=== PATIENT | female | born 1970 | race Caucasian/White ===

== ENCOUNTER → 2020-03-25 08:38 | Outpatient (BNVA) | payer MEDICAID, SELFPAY | PROVIDERS: PCP Internal Medicine; Visit Provider Internal Medicine | DX: Z86.718 Personal history of other venous thrombosis and embolism (principal); Z51.81 Encounter for therapeutic drug level monitoring; Z79.01 Long term (current) use of anticoagulants | CPT/HCPCS: 85610 ==

== ENCOUNTER → 2020-03-31 08:20 | Outpatient (BNVA) | payer MEDICAID, SELFPAY | PROVIDERS: PCP Internal Medicine; Visit Provider Internal Medicine | DX: Z86.718 Personal history of other venous thrombosis and embolism (principal); Z51.81 Encounter for therapeutic drug level monitoring; Z79.01 Long term (current) use of anticoagulants | CPT/HCPCS: 85610; 99211 ==

== ENCOUNTER 2020-04-01 07:39 | Outpatient (REF) | payer MEDICAID, SELFPAY ==
--- NOTE | 2020-04-01 08:55 | P.BOP_ITS ---
Brief Operative Note Date of procedure: 04/01/20 Pre-op diagnosis: nontoxic multinodular goiter Post-op diagnosis: same Procedure: This procedure was explained to the patient. Alternatives, risks and benefits were discussed. Written consent was obtained. After sterile preparation of the skin, fine-needle aspiration biopsy of right lower pole lateral thyroid nodule size 1.4 x 1.2 x 1.2 cm was performed under direct ultrasound guidance to confirm accurate needle placement. Three passes were performed with 27 gauge needles. Sample was submitted to cytology, initial cytology reading was adequate. Two passes were dedicated for Afirma genomic sequencing health outreach worker test. 2nd fine-needle aspiration of a right lower pole medial nodule size 1.6 x 1.2 x 1.3 cm was performed 100 I did ultrasound guidance to confirm accurate needle placement. Three passes were performed with 27 gauge needles. Samples were submitted for cytology initial cytology during was adequate borderline. No samples were dedicated for Afirma. As this patient had a prior negative Afirma test in this nodule. Which was benign. Test durability is 3 years.Patient tolerated procedure well. Aftercare instructions were provided. Impression: uncomplicated fine-needle aspiration biopsy of ------ thyroid nodule under direct ultrasound guidance. Surgeon: Zeny Calle MD Anesthesia: local ( Lidocaine 1% 2 mL) Estimated blood loss (mL): 0 Condition: stable Disposition: same day
[2020-04-01] MEDS: Lidocaine HCl 1 % 20 ML VIAL 5 ML SUBCUT (12:09)
== END 2020-04-01 07:40 | disposition home or self-care (01) ==
LOC: HO.US 07:39
PROVIDERS: Visit Provider Internal Medicine Endocrinology, Diabetes & Metabolism
DX: E04.2 Nontoxic multinodular goiter (principal)
CPT/HCPCS: 10005; 10006; 88172; 88173; 88177

== ENCOUNTER 2020-04-05 08:00 | Outpatient (RCR) | payer MEDICAID, SELFPAY ==
--- NOTE | 2020-03-29 14:23 | MHC.PT.EP ---
[facility] [place] Office [place] Office [place] Office [address] You Basurto [address] [phone] F: [phone] F: [phone] F: [phone] F: [phone] Physical Therapy Plan of Care Date of Evaluation: 03/29/20 Date of Surgery: Diagnosis: left neck pain Assessment: The patient is presenting with symptoms consistent with a posterolateral derangement in her midcervical spine. She had reduced cervical rotation to the left, decreased left shoulder ROM, and decreased shoulder strength on the left. She had fair sitting posture as well. She will benefit from skilled PT for posture education, Rosanna therapy to reduce her derangement, and postural strengthening as well. Frequency and Duration: The patient will be seen 2x/week for 4 weeks Short Term Goals: -Pt to able to demonstrate proper sitting posture with the use of a lumbar roll to decrease aggravating factors. - Pt to be able to demonstrate proper posture for common leisure activities such as phone/tablet use. 2 weeks - For the patient to demonstrate proper upright sitting posture with use of the lumbar roll to improve compliance and carryover. [employer] Goals: 1. Pt to be able to return to normal PLOF without limiting pain. 2. Pt to be able to return to overhead reaching without pain or limitation. 3. Pt to be able to manage her pain with selected exercise and stretching regime. Treatment Plan: Modalities to reduce pain, spasms and effusion. Manual therapy to restore motion and function. Therapeutic exercise to improve strength and flexibility. Neuromuscular re-education for posture and balance. Therapeutic activities to return to functional activities of daily living. Please sign and return to therapist. Thank you for your referral.
--- NOTE | 2020-05-21 08:55 | MHC.PT.DC ---
[facility] [place] Office [place] Office [place] Office [address] You Basurto [address] [phone] F: [phone] F: [phone] F: [phone] F: [phone] Physical Therapy Discharge Report Diagnosis: left neck pain Date of Surgery: Date of Evaluation: 03/29/20 Date of Discharge: 05/21/20 Treatments to Date: 2 Cancellations to Date: 6 No Shows to Date: 0 Discharge Status: Visit Non-compliance Discharge Summary: The patient reported more cervical mobility and reduced pain. She reports compliance to HEP. Pt's program progressed due to improvements. Focus was put on posture, and form during the exercises. Pt did not return to scheduled visits. She cancelled 6 scheduled visits. Electronically signed by: Char Foster DPT Please sign and return to therapist. Thank you for your referral.
== END 2020-05-21 13:24 | disposition other institution (70) ==
LOC: HO.PT 08:00
PROVIDERS: PCP Internal Medicine; Visit Provider Internal Medicine
DX: M54.12 Radiculopathy, cervical region (principal)
CPT/HCPCS: 97110; 97112; 97140; 97162

== ENCOUNTER → 2020-04-14 07:59 | Outpatient (BNVA) | payer MEDICAID, SELFPAY | PROVIDERS: PCP Internal Medicine; Visit Provider Internal Medicine | DX: Z86.718 Personal history of other venous thrombosis and embolism (principal); Z51.81 Encounter for therapeutic drug level monitoring; Z79.01 Long term (current) use of anticoagulants | CPT/HCPCS: 85610; 99211 ==

== ENCOUNTER → 2020-04-15 10:26 | Outpatient (BNVA) | payer MEDICAID, SELFPAY | PROVIDERS: PCP Internal Medicine; Referring Provider Internal Medicine; Visit Provider Internal Medicine Endocrinology, Diabetes & Metabolism | DX: E04.2 Nontoxic multinodular goiter (principal) | CPT/HCPCS: 99212 ==

== ENCOUNTER → 2020-05-12 08:22 | Outpatient (BNVA) | payer MEDICAID, SELFPAY | PROVIDERS: PCP Internal Medicine; Visit Provider Internal Medicine | DX: I82.502 Chronic embolism and thrombosis of unspecified deep veins of left lower extremity (principal); Z79.01 Long term (current) use of anticoagulants; Z51.81 Encounter for therapeutic drug level monitoring | CPT/HCPCS: 85610; 99211 ==

== ENCOUNTER → 2020-06-09 08:02 | Outpatient (BNVA) | payer MEDICAID, SELFPAY | PROVIDERS: PCP Internal Medicine; Visit Provider Internal Medicine | DX: I82.502 Chronic embolism and thrombosis of unspecified deep veins of left lower extremity (principal); Z51.81 Encounter for therapeutic drug level monitoring; Z79.01 Long term (current) use of anticoagulants | CPT/HCPCS: 85610; 99211 ==

== ENCOUNTER → 2020-06-24 10:08 | Outpatient (BNVA) | payer MEDICAID, SELFPAY | PROVIDERS: PCP Internal Medicine; Visit Provider Physician Assistant | DX: Z76.89 Persons encountering health services in other specified circumstances (principal) ==

== ENCOUNTER → 2020-07-07 08:03 | Outpatient (BNVA) | payer MEDICAID, SELFPAY | PROVIDERS: PCP Internal Medicine; Visit Provider Internal Medicine | DX: I82.502 Chronic embolism and thrombosis of unspecified deep veins of left lower extremity (principal); Z51.81 Encounter for therapeutic drug level monitoring; Z79.01 Long term (current) use of anticoagulants | CPT/HCPCS: 85610; 99211 ==

== ENCOUNTER → 2020-07-21 09:17 | Outpatient (BNVA) | payer MEDICAID, SELFPAY | PROVIDERS: PCP Internal Medicine; Visit Provider Internal Medicine Endocrinology, Diabetes & Metabolism ==

== ENCOUNTER → 2020-08-04 07:58 | Outpatient (BNVA) | payer MEDICAID, SELFPAY | PROVIDERS: PCP Internal Medicine; Visit Provider Internal Medicine | DX: I82.502 Chronic embolism and thrombosis of unspecified deep veins of left lower extremity (principal); Z51.81 Encounter for therapeutic drug level monitoring; Z79.01 Long term (current) use of anticoagulants | CPT/HCPCS: 85610; 99211 ==

== ENCOUNTER 2020-08-13 07:23 | Outpatient (REF) | payer MEDICAID, SELFPAY ==
[2020-08-13 08:21] LABS: MANUAL DIFF FLAG NO
[2020-08-13 08:34] LABS: Basophils Percent Auto 0.6 % (0-2); Eosinophils Absolute Auto 0.1 X10*3/uL (0.0-0.4); Eosinophils Percent Auto 1.5 % (0-4); Hematocrit 39.6 % (37-47); Hemoglobin 12.8 g/dl (12.0-16.0); Imm Gran Abs Auto 0.01 X10*3/uL (0.00-0.03); Imm Gran Pct Auto 0.2 % (0.0-0.4); Lymphocytes Absolute Auto 2.3 X10*3/uL (1.2-4.9); Lymphocytes Percent Auto 48.9 % (20-40); Mean Corpuscular HGB Conc 32.3 g/dl (31.0-35.0); Mean Corpuscular Hemoglobin 28.5 pg (27.0-33.0); Mean Corpuscular Volume 88.2 fL (80-98); Mean Platelet Volume 10.3 fL (9.4-12.3); Monocytes Absolute Auto 0.4 X10*3/uL (0.1-1.2); Neutrophils Absolute Auto 1.9 X10*3/uL (2.0-8.3); Neutrophils Percent Auto 40.8 % (45-73); Platelet Count 322 X10*3/uL (160-400); Red Blood Count 4.49 X10*6/uL (4.20-5.50); Red Cell Distribution Width 12.5 % (11.0-16.0); White Blood Count 4.6 X10*3/uL (4.8-10.8)
[2020-08-13 09:06] LABS: Alanine Aminotransferase 12 U/L (0-31); Albumin Level 4.1 g/dL (3.5-5.0); Alkaline Phosphatase 64 U/L (39-117); Anion Gap 9 (12-20); Aspartate Amino Transferase 15 U/L (5-31); Bilirubin Total 0.5 mg/dL (0.0-1.0); Blood Urea Nitrogen 9 mg/dL (9-16); Calcium 8.9 mg/dL (8.4-10.2); Carbon Dioxide 27 mmol/L (22-29); Chloride 106 mmol/L (96-108); Cholesterol 173 mg/dL; Estimated Glomerular Filt Rate > 60; Glucose Fasting 91 mg/dL (60-99); HDL Cholesterol 55 mg/dL; LDL Cholesterol Calculated 109 mg/dl; Potassium 3.9 mmol/L (3.3-5.1); Sodium 138 mmol/L (135-145); Total Protein 6.9 g/dL (6.5-8.0); Triglycerides 49 mg/dL
[2020-08-13 09:19] LABS: Free T4 (Free Thyroxine) 0.92 ng/dL (0.71-1.85); Thyroid Stimulating Hormone 1.33 uIU/mL (0.32-4.0)
== END 2020-08-13 07:24 | disposition home or self-care (01) ==
LOC: HO.LAB 07:23
PROVIDERS: Absent Provider Internal Medicine Endocrinology, Diabetes & Metabolism; PCP Internal Medicine; Visit Provider Internal Medicine
DX: Z00.00 Encounter for general adult medical examination without abnormal findings (principal); F33.41 Major depressive disorder, recurrent, in partial remission; I10 Essential (primary) hypertension; E04.2 Nontoxic multinodular goiter; Z79.01 Long term (current) use of anticoagulants
CPT/HCPCS: 36415; 80053; 80061; 84439; 84443; 85025

== ENCOUNTER 2020-08-23 13:37 | Emergency (ER) | payer MEDICAID, SELFPAY ==
--- NOTE | 2020-08-23 13:38 | ECG_ITS ---
Test Reason : CHEST PAIN Blood Pressure : / mmHG Vent. Rate : 084 BPM Atrial Rate : 084 BPM P-R Int : 164 ms QRS Dur : 080 ms QT Int : 380 ms P-R-T Axes : 040 020 027 degrees QTc Int : 449 ms Normal sinus rhythm Normal ECG When compared with ECG of 18-AUG-2016 19:53, Nonspecific T wave abnormality no longer evident in Lateral leads Referred By: Generic ED Physician Electronically Signed By:AMY MACHUCA MD
[2020-08-23 13:44] VITALS: BP 153/74; PULSE 80; RESP 16; TEMP 37; O2SAT 100; BMI 32.2
== END 2020-08-23 14:35 | disposition left against medical advice (07) ==
PROVIDERS: Emergency Provider Emergency Medicine; PCP Internal Medicine
DX: R07.9 Chest pain, unspecified (principal); R00.0 Tachycardia, unspecified
CPT/HCPCS: 93005; 99282; 99283

== ENCOUNTER → 2020-09-02 08:11 | Outpatient (BNVA) | payer MEDICAID, SELFPAY | PROVIDERS: PCP Internal Medicine; Visit Provider Internal Medicine | DX: I82.502 Chronic embolism and thrombosis of unspecified deep veins of left lower extremity (principal); Z51.81 Encounter for therapeutic drug level monitoring; Z79.01 Long term (current) use of anticoagulants | CPT/HCPCS: 85610; 99211 ==

== ENCOUNTER → 2020-09-24 10:44 | Outpatient (BNVA) | payer MEDICAID, SELFPAY | PROVIDERS: PCP Internal Medicine; Visit Provider Internal Medicine | DX: Z86.718 Personal history of other venous thrombosis and embolism (principal); Z51.81 Encounter for therapeutic drug level monitoring; Z79.01 Long term (current) use of anticoagulants | CPT/HCPCS: 85610; 99211 ==

== ENCOUNTER 2020-09-27 19:59 | Emergency (ER) | payer MEDICAID, SELFPAY | END 2020-09-27 20:14 | disposition left against medical advice (07) | PROVIDERS: Emergency Provider Emergency Medicine; PCP Internal Medicine | DX: R42 Dizziness and giddiness (principal) ==

== ENCOUNTER → 2020-10-04 08:42 | Outpatient (BNVA) | payer MEDICAID, SELFPAY | PROVIDERS: PCP Internal Medicine; Visit Provider Internal Medicine | DX: Z86.718 Personal history of other venous thrombosis and embolism (principal); Z51.81 Encounter for therapeutic drug level monitoring; Z79.01 Long term (current) use of anticoagulants | CPT/HCPCS: 85610; 99211 ==

== ENCOUNTER → 2020-10-08 08:56 | Outpatient (BNVA) | payer MEDICAID, SELFPAY | PROVIDERS: PCP Internal Medicine; Visit Provider Internal Medicine | DX: Z86.718 Personal history of other venous thrombosis and embolism (principal); Z51.81 Encounter for therapeutic drug level monitoring; Z79.01 Long term (current) use of anticoagulants | CPT/HCPCS: 85610; 99211 ==

== ENCOUNTER → 2020-10-25 08:10 | Outpatient (BNVA) | payer MEDICAID, SELFPAY | PROVIDERS: PCP Internal Medicine; Visit Provider Internal Medicine | DX: Z86.718 Personal history of other venous thrombosis and embolism (principal); Z51.81 Encounter for therapeutic drug level monitoring; Z79.01 Long term (current) use of anticoagulants | CPT/HCPCS: 85610; 99211 ==

== ENCOUNTER 2020-10-26 07:00 | Outpatient (RCR) | payer MEDICAID, SELFPAY ==
--- NOTE | 2020-09-30 07:51 | MHC.PT.EP ---
[facility] [place] Office [place] Office [place] Office [address] You Basurto [address] [phone] F: [phone] F: [phone] F: [phone] F: [phone] Physical Therapy Plan of Care Date of Evaluation: Date of Surgery: NA Diagnosis: cervical radiculopathy Assessment: The patient arrived reporting left arm and neck pain with associated radiculopathy. She has reduced left shoulder ROM, strength, functional reaching ability, and decreased activity tolerance due to pain. Her reports of varied intensity, varied location of pain (distal vs proximal) and pain changes with position change are consistent with a cervical derangement. Furthermore, she responded well to the Rosanna Method initially. Seated cervical retractions were tolerable, but supine retractions were the most comfortable. I will exhaust the cervical spine as a source of pain before addressing possible GH impingement. She is a good candidate for skilled PT. Frequency and Duration: The patient will be seen 2x/week x 4 weeks Short Term Goals: 1.Pt to able to demonstrate proper sitting posture with the use of a lumbar roll to decrease aggravating factors. 2.Pt to be able to demonstrate proper posture for common leisure activities such as crocheting and phone/tablet use. 3.For the patient to demonstrate proper upright sitting posture with use of the lumbar roll to improve compliance and carryover. Anesthetist Goals: 1. Pt to be able to return to normal PLOF without limiting pain. 2. Pt to be able to return to overhead reaching without pain or limitation. 3. Pt to be able to manage her pain with selected exercise and stretching regime. Treatment Plan: Modalities to reduce pain, spasms and effusion. Manual therapy to restore motion and function. Therapeutic exercise to improve strength and flexibility. Neuromuscular re-education for posture and balance. Therapeutic activities to return to functional activities of daily living. Electronically signed by: Char Foster PT DPT Please sign and return to therapist. Thank you for your referral.
== END 2020-11-10 12:00 | disposition home or self-care (01) ==
LOC: HO.PT 07:00
PROVIDERS: PCP Internal Medicine; Visit Provider Internal Medicine
DX: M25.512 Pain in left shoulder (principal); M54.2 Cervicalgia; R20.2 Paresthesia of skin
CPT/HCPCS: 97110; 97112; 97140; 97162

== ENCOUNTER → 2020-11-01 08:38 | Outpatient (BNVA) | payer MEDICAID, SELFPAY | PROVIDERS: PCP Internal Medicine; Visit Provider Internal Medicine | DX: Z86.718 Personal history of other venous thrombosis and embolism (principal); Z51.81 Encounter for therapeutic drug level monitoring; Z79.01 Long term (current) use of anticoagulants | CPT/HCPCS: 85610; 99211 ==

== ENCOUNTER → 2020-11-12 08:03 | Outpatient (BNVA) | payer MEDICAID, SELFPAY | PROVIDERS: PCP Internal Medicine; Visit Provider Internal Medicine | DX: Z86.718 Personal history of other venous thrombosis and embolism (principal); Z51.81 Encounter for therapeutic drug level monitoring; Z79.01 Long term (current) use of anticoagulants | CPT/HCPCS: 85610; 99211 ==

== ENCOUNTER → 2020-11-26 08:38 | Outpatient (BNVA) | payer MEDICAID, SELFPAY | PROVIDERS: PCP Internal Medicine; Visit Provider Internal Medicine | DX: Z86.718 Personal history of other venous thrombosis and embolism (principal); Z51.81 Encounter for therapeutic drug level monitoring; Z79.01 Long term (current) use of anticoagulants | CPT/HCPCS: 85610; 99211 ==

== ENCOUNTER 2020-11-29 21:35 | Emergency (ER) | payer MEDICAID, SELFPAY ==
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
[2020-11-29 21:42] VITALS: BP 159/75; PULSE 95; RESP 18; TEMP 36.6; O2SAT 98; BMI 28.3
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
[2020-11-30 02:00] VITALS: BP 159/75; PULSE 95; RESP 18; TEMP 36.6; O2SAT 98
[2020-11-30 02:10] VITALS: BP 136/72; PULSE 74; RESP 15; O2SAT 98
== END 2020-11-30 02:23 | disposition home or self-care (01) ==
PROVIDERS: Emergency Provider Emergency Medicine; PCP Internal Medicine
DX: S09.90XA Unspecified injury of head, initial encounter (principal); Z86.718 Personal history of other venous thrombosis and embolism; Z79.01 Long term (current) use of anticoagulants; W51.XXXA Accidental striking against or bumped into by another person, initial encounter; Y93.9 Activity, unspecified; Y92.9 Unspecified place or not applicable; Y99.9 Unspecified external cause status
CPT/HCPCS: 70450; 99284

== ENCOUNTER → 2020-12-03 08:21 | Outpatient (BNVA) | payer MEDICAID, SELFPAY | PROVIDERS: PCP Internal Medicine; Visit Provider Internal Medicine | DX: Z86.718 Personal history of other venous thrombosis and embolism (principal); Z51.81 Encounter for therapeutic drug level monitoring; Z79.01 Long term (current) use of anticoagulants | CPT/HCPCS: 85610; 99211 ==

== ENCOUNTER → 2020-12-10 08:00 | Outpatient (BNVA) | payer MEDICAID, SELFPAY | PROVIDERS: PCP Internal Medicine; Visit Provider Internal Medicine | DX: Z86.718 Personal history of other venous thrombosis and embolism (principal); Z51.81 Encounter for therapeutic drug level monitoring; Z79.01 Long term (current) use of anticoagulants | CPT/HCPCS: 85610; 99211 ==

== ENCOUNTER → 2020-12-24 08:13 | Outpatient (BNVA) | payer MEDICAID, SELFPAY | PROVIDERS: PCP Internal Medicine; Visit Provider Internal Medicine | DX: Z86.718 Personal history of other venous thrombosis and embolism (principal); Z51.81 Encounter for therapeutic drug level monitoring; Z79.01 Long term (current) use of anticoagulants | CPT/HCPCS: 85610; 99211 ==

== ENCOUNTER 2020-12-25 07:12 | Outpatient (REF) | payer MEDICAID, SELFPAY | END 2020-12-25 07:13 | disposition home or self-care (01) | LOC: HO.LAB 07:12 | PROVIDERS: PCP Internal Medicine; Visit Provider Internal Medicine | DX: N30.00 Acute cystitis without hematuria (principal) | CPT/HCPCS: 87086 ==

== ENCOUNTER → 2021-01-07 08:03 | Outpatient (BNVA) | payer MEDICAID, SELFPAY | PROVIDERS: PCP Internal Medicine; Visit Provider Internal Medicine | DX: Z86.718 Personal history of other venous thrombosis and embolism (principal); Z51.81 Encounter for therapeutic drug level monitoring; Z79.01 Long term (current) use of anticoagulants | CPT/HCPCS: 85610; 99211 ==

== ENCOUNTER → 2021-01-21 08:11 | Outpatient (BNVA) | payer MEDICAID, SELFPAY | PROVIDERS: PCP Internal Medicine; Visit Provider Internal Medicine | DX: Z86.718 Personal history of other venous thrombosis and embolism (principal); Z51.81 Encounter for therapeutic drug level monitoring; Z79.01 Long term (current) use of anticoagulants | CPT/HCPCS: 85610; 99211 ==

== ENCOUNTER → 2021-01-28 08:12 | Outpatient (BNVA) | payer MEDICAID, SELFPAY | PROVIDERS: PCP Internal Medicine; Visit Provider Internal Medicine | DX: Z86.718 Personal history of other venous thrombosis and embolism (principal); Z51.81 Encounter for therapeutic drug level monitoring; Z79.01 Long term (current) use of anticoagulants | CPT/HCPCS: 85610; 99211 ==

== ENCOUNTER → 2021-02-04 09:22 | Outpatient (BNVA) | payer MEDICAID, SELFPAY | PROVIDERS: PCP Internal Medicine; Visit Provider Internal Medicine | DX: Z86.718 Personal history of other venous thrombosis and embolism (principal); Z51.81 Encounter for therapeutic drug level monitoring; Z79.01 Long term (current) use of anticoagulants | CPT/HCPCS: 85610; 99211 ==

== ENCOUNTER → 2021-02-15 08:47 | Outpatient (BNVA) | payer MEDICAID, SELFPAY | PROVIDERS: PCP Internal Medicine; Visit Provider Internal Medicine | DX: Z86.718 Personal history of other venous thrombosis and embolism (principal); Z51.81 Encounter for therapeutic drug level monitoring; Z79.01 Long term (current) use of anticoagulants | CPT/HCPCS: 85610; 99211 ==

== ENCOUNTER → 2021-03-01 08:45 | Outpatient (BNVA) | payer MEDICAID, SELFPAY | PROVIDERS: PCP Internal Medicine; Visit Provider Internal Medicine | DX: Z86.718 Personal history of other venous thrombosis and embolism (principal); Z51.81 Encounter for therapeutic drug level monitoring; Z79.01 Long term (current) use of anticoagulants | CPT/HCPCS: 85610; 99211 ==

== ENCOUNTER 2021-03-11 08:10 | Outpatient (REF) | payer MEDICAID, SELFPAY ==
--- NOTE | ~2021-03-11 | MM_ITS ---
EXAMINATION: MM SCREENING DIGITAL BREAST TOMOSYNTHESIS, BILATERAL CLINICAL INFORMATION: Screening. Asymptomatic. The lifetime risk of breast cancer based on the Tyrer-Cuzick Model is 7%. COMPARISON: Mammography: 01/29/2020, 08/26/2018, 06/20/2017, 06/06/2016 TECHNIQUE: Digital breast tomosynthesis is performed in both the craniocaudal and mediolateral oblique views along with computer-aided detection (CAD). Synthesized 2D images are generated from the tomosynthesis. FINDINGS: The breasts are heterogeneously dense, which may obscure small masses (ACR BI-RADS breast composition Category c). Parenchymal pattern is similar to prior studies. There is chronic left nipple retraction on CC view similar to prior studies. Neither breast shows developing density or interval mass or architectural abnormality. There is no developing density. No abnormal calcifications. The axilla and skin contours are unremarkable. MM/MM tomosynthesis screening BI IMPRESSION: No significant changes from prior exams. ASSESSMENT: BI-RADS 2: Benign RECOMMENDATION: Routine annual mammography screening. This patient's information was entered into a reminder system with a target due date for their next mammogram.
== END 2021-03-11 08:11 | disposition home or self-care (01) ==
LOC: HO.MAMMO 08:10
PROVIDERS: Visit Provider Internal Medicine
DX: Z12.31 Encounter for screening mammogram for malignant neoplasm of breast (principal)
CPT/HCPCS: 77063; 77067

== ENCOUNTER → 2021-03-15 08:17 | Outpatient (BNVA) | payer MEDICAID, SELFPAY | PROVIDERS: PCP Internal Medicine; Visit Provider Internal Medicine | DX: Z86.718 Personal history of other venous thrombosis and embolism (principal); Z51.81 Encounter for therapeutic drug level monitoring; Z79.01 Long term (current) use of anticoagulants | CPT/HCPCS: 85610; 99211 ==

== ENCOUNTER → 2021-03-22 08:16 | Outpatient (BNVA) | payer MEDICAID, SELFPAY | PROVIDERS: PCP Internal Medicine; Visit Provider Internal Medicine | DX: Z86.718 Personal history of other venous thrombosis and embolism (principal); Z51.81 Encounter for therapeutic drug level monitoring; Z79.01 Long term (current) use of anticoagulants | CPT/HCPCS: 85610; 99211 ==

== ENCOUNTER → 2021-03-31 08:11 | Outpatient (BNVA) | payer MEDICAID, SELFPAY | PROVIDERS: PCP Internal Medicine; Visit Provider Internal Medicine | DX: Z86.718 Personal history of other venous thrombosis and embolism (principal); Z51.81 Encounter for therapeutic drug level monitoring; Z79.01 Long term (current) use of anticoagulants | CPT/HCPCS: 85610; 99211 ==

== ENCOUNTER 2021-04-06 08:28 | Outpatient (REF) | payer MEDICAID, SELFPAY ==
[2021-04-06 08:47] LABS: MANUAL DIFF FLAG NO
[2021-04-06 09:44] LABS: Basophils Percent Auto 0.9 % (0-2); Eosinophils Absolute Auto 0.2 X10*3/uL (0.0-0.4); Eosinophils Percent Auto 3.8 % (0-4); Hematocrit 41.6 % (37-47); Hemoglobin 13.4 g/dl (12.0-16.0); Imm Gran Abs Auto 0.01 X10*3/uL (0.00-0.03); Imm Gran Pct Auto 0.2 % (0.0-0.4); Lymphocytes Absolute Auto 1.6 X10*3/uL (1.2-4.9); Lymphocytes Percent Auto 34.6 % (20-40); Mean Corpuscular HGB Conc 32.2 g/dl (31.0-35.0); Mean Corpuscular Hemoglobin 28.3 pg (27.0-33.0); Mean Corpuscular Volume 87.9 fL (80-98); Mean Platelet Volume 10.2 fL (9.4-12.3); Monocytes Absolute Auto 0.4 X10*3/uL (0.1-1.2); Monocytes Percent Auto 8.3 % (2-11); Neutrophils Absolute Auto 2.4 X10*3/uL (2.0-8.3); Neutrophils Percent Auto 52.2 % (45-73); Platelet Count 281 X10*3/uL (160-400); Red Blood Count 4.73 X10*6/uL (4.20-5.50); Red Cell Distribution Width 13.2 % (11.0-16.0); White Blood Count 4.7 X10*3/uL (4.8-10.8)
[2021-04-06 10:11] LABS: Alanine Aminotransferase 12 U/L (0-31); Albumin Level 4.1 g/dL (3.5-5.0); Alkaline Phosphatase 68 U/L (39-117); Anion Gap 13 (12-20); Aspartate Amino Transferase 16 U/L (5-31); Bilirubin Total 0.4 mg/dL (0.0-1.0); Blood Urea Nitrogen 8 mg/dL (9-16); Calcium 8.8 mg/dL (8.4-10.2); Carbon Dioxide 24 mmol/L (22-29); Chloride 106 mmol/L (96-108); Cholesterol 218 mg/dL; Estimated Glomerular Filt Rate > 60; Glucose Random 81 mg/dL (60-115); HDL Cholesterol 71 mg/dL; LDL Cholesterol Calculated 133 mg/dl; Potassium 4.5 mmol/L (3.3-5.1); Sodium 138 mmol/L (135-145); Total Protein 7.1 g/dL (6.5-8.0); Triglycerides 71 mg/dL
[2021-04-06 10:36] LABS: Thyroid Stimulating Hormone 1.88 uIU/mL (0.32-4.0)
== END 2021-04-06 08:29 | disposition home or self-care (01) ==
LOC: HO.LAB 08:28
PROVIDERS: PCP Internal Medicine; Visit Provider Internal Medicine
DX: L72.3 Sebaceous cyst (principal); M51.16 Intervertebral disc disorders with radiculopathy, lumbar region; N30.10 Interstitial cystitis (chronic) without hematuria; R21 Rash and other nonspecific skin eruption
CPT/HCPCS: 36415; 80053; 80061; 84443; 85025; 87086

== ENCOUNTER → 2021-04-14 08:15 | Outpatient (BNVA) | payer MEDICAID, SELFPAY | PROVIDERS: PCP Internal Medicine; Visit Provider Internal Medicine | DX: Z86.718 Personal history of other venous thrombosis and embolism (principal); Z51.81 Encounter for therapeutic drug level monitoring; Z79.01 Long term (current) use of anticoagulants | CPT/HCPCS: 85610; 99211 ==

== ENCOUNTER → 2021-04-28 08:18 | Outpatient (BNVA) | payer MEDICAID, SELFPAY | PROVIDERS: PCP Internal Medicine; Visit Provider Internal Medicine | DX: Z86.718 Personal history of other venous thrombosis and embolism (principal); Z51.81 Encounter for therapeutic drug level monitoring; Z79.01 Long term (current) use of anticoagulants | CPT/HCPCS: 85610; 99211 ==

== ENCOUNTER → 2021-05-09 08:51 | Outpatient (BNVA) | payer MEDICAID, SELFPAY | PROVIDERS: PCP Internal Medicine; Visit Provider Surgery | DX: L72.9 Follicular cyst of the skin and subcutaneous tissue, unspecified (principal) | CPT/HCPCS: 99202 ==

== ENCOUNTER → 2021-05-12 08:07 | Outpatient (BNVA) | payer MEDICAID, SELFPAY | PROVIDERS: PCP Internal Medicine; Visit Provider Internal Medicine | DX: Z86.718 Personal history of other venous thrombosis and embolism (principal); Z51.81 Encounter for therapeutic drug level monitoring; Z79.01 Long term (current) use of anticoagulants | CPT/HCPCS: 85610; 99211 ==

== ENCOUNTER → 2021-06-02 08:00 | Outpatient (BNVA) | payer MEDICAID, SELFPAY | PROVIDERS: PCP Internal Medicine; Visit Provider Internal Medicine | DX: Z86.718 Personal history of other venous thrombosis and embolism (principal); Z51.81 Encounter for therapeutic drug level monitoring; Z79.01 Long term (current) use of anticoagulants | CPT/HCPCS: 85610; 99211 ==

== ENCOUNTER 2021-06-06 07:15 | Outpatient (REF) | payer MEDICAID, SELFPAY ==
[2021-06-06 07:24] VITALS: BP 149/74; PULSE 71; RESP 18; TEMP 36.6; O2SAT 99; BMI 30.2
--- NOTE | 2021-06-06 08:01 | W.PM.OPN ---
Operative Note Operative Note Date of Service: 06/06/21 Narrative: Preop diagnosis: Scalp cyst Postop diagnosis: Scalp cyst Procedure: Excision of scalp cyst under local anesthesia Surgeon: Taye De La Torre MD The patient is a 50-year-old female with a cystic mass on the scalp at the mid parietal area, about 1.2 cm in size. She understood technique of excision under local anesthesia and was aware of the risks, benefits, and alternatives. She was brought to the minor procedure room and placed in a semi reclining position. The area of the cyst was prepped and draped. Lidocaine 1% was used for local anesthesia. An incision was made on the skin overlying the cyst using a blade 15 and this was carried down through the full-thickness of the skin and subcutaneous layer until a cyst capsule was visualized. I sharply dissected the capsule off the rest of the subcutaneous layer a posteriorly until was delivered and sent as a specimen. I irrigated the area of excision and closed the incision with full-thickness nylon 3-0 interrupted sutures. Bacitracin dressings were applied. The patient tolerated the procedure well. There were no complications. Estimated blood loss was about 10 cc . The patient was given wound care instructions and will be seen in the office for removal sutures
== END 2021-06-06 07:16 | disposition home or self-care (01) ==
LOC: HO.MS 07:15
PROVIDERS: PCP Internal Medicine; Visit Provider Surgery
PROC: (CPT 11422; principal; 2021-06-06 08:00)
DX: L72.11 Pilar cyst (principal)
CPT/HCPCS: 11422; 88304

== ENCOUNTER → 2021-06-09 15:49 | Outpatient (BNVA) | payer MEDICAID, SELFPAY | PROVIDERS: PCP Internal Medicine; Visit Provider Internal Medicine | DX: Z86.718 Personal history of other venous thrombosis and embolism (principal); Z51.81 Encounter for therapeutic drug level monitoring; Z79.01 Long term (current) use of anticoagulants | CPT/HCPCS: 85610; 99211 ==

== ENCOUNTER → 2021-06-20 13:53 | Outpatient (BNVA) | payer MEDICAID, SELFPAY | PROVIDERS: PCP Internal Medicine; Referring Provider Internal Medicine; Visit Provider Surgery | DX: Z48.817 Encounter for surgical aftercare following surgery on the skin and subcutaneous tissue (principal); Z87.2 Personal history of diseases of the skin and subcutaneous tissue | CPT/HCPCS: 99212 ==

== ENCOUNTER → 2021-06-23 08:25 | Outpatient (BNVA) | payer MEDICAID, SELFPAY | PROVIDERS: PCP Internal Medicine; Visit Provider Internal Medicine | DX: Z86.718 Personal history of other venous thrombosis and embolism (principal); Z51.81 Encounter for therapeutic drug level monitoring; Z79.01 Long term (current) use of anticoagulants | CPT/HCPCS: 85610; 99211 ==

== ENCOUNTER → 2021-07-07 08:06 | Outpatient (BNVA) | payer MEDICAID, SELFPAY | PROVIDERS: PCP Internal Medicine; Visit Provider Internal Medicine | DX: Z86.718 Personal history of other venous thrombosis and embolism (principal); Z51.81 Encounter for therapeutic drug level monitoring; Z79.01 Long term (current) use of anticoagulants | CPT/HCPCS: 85610; 99211 ==

== ENCOUNTER → 2021-07-21 08:21 | Outpatient (BNVA) | payer MEDICAID, SELFPAY | PROVIDERS: PCP Internal Medicine; Visit Provider Internal Medicine | DX: Z86.718 Personal history of other venous thrombosis and embolism (principal); Z51.81 Encounter for therapeutic drug level monitoring; Z79.01 Long term (current) use of anticoagulants | CPT/HCPCS: 85610; 99211 ==

== ENCOUNTER → 2021-08-04 07:58 | Outpatient (BNVA) | payer MEDICAID, SELFPAY | PROVIDERS: PCP Internal Medicine; Visit Provider Internal Medicine | DX: Z86.718 Personal history of other venous thrombosis and embolism (principal); Z51.81 Encounter for therapeutic drug level monitoring; Z79.01 Long term (current) use of anticoagulants | CPT/HCPCS: 85610; 99211 ==

== ENCOUNTER 2021-08-17 11:12 | Outpatient (REF) | payer MEDICAID, SELFPAY ==
--- NOTE | ~2021-08-17 | US_ITS ---
EXAMINATION: US VENOUS ULTRASOUND WITH DOPPLER LOWER EXTREMITY, LEFT CLINICAL INFORMATION: Swelling COMPARISON: Previous exam April 2015 TECHNIQUE: Ultrasound of the deep veins is performed from the hip to the calf with compression sonography and color and pulse Doppler assessment. Spectral analysis with color-flow imaging is performed. FINDINGS: There are changes from old DVT in the left superficial femoral, popliteal and posterior tibial and peroneal veins with intraluminal linear septations. This is similar to previous exam April 2015. No acute DVT is seen. The contralateral right common femoral vein is patent. There is no Blandon's cyst. There is a 4.1 x 1.5 x 2.5 cm oval-shaped hypoechoic 2 isoechoic solid lesion just deep to the skin in the proximal medial thigh. Ultrasound appearance is most suggestive of a lipoma. There is a small left inguinal lymph node measuring 1.8 x 0.6 x 2.8 cm. US/US venous duplex LE LT IMPRESSION: No acute DVT demonstrated in the left lower extremity. Chronic changes from old DVT seen in the left superficial femoral, popliteal and posterior tibial and peroneal veins similar to April 2015 exam.
== END 2021-08-17 11:13 | disposition home or self-care (01) ==
LOC: HO.HMGCX 11:12
PROVIDERS: Visit Provider Internal Medicine
DX: R60.0 Localized edema (principal)
CPT/HCPCS: 93971

== ENCOUNTER → 2021-08-18 08:17 | Outpatient (BNVA) | payer MEDICAID, SELFPAY | PROVIDERS: PCP Internal Medicine; Visit Provider Internal Medicine | DX: Z86.718 Personal history of other venous thrombosis and embolism (principal); Z51.81 Encounter for therapeutic drug level monitoring; Z79.01 Long term (current) use of anticoagulants | CPT/HCPCS: 85610; 99211 ==

== ENCOUNTER 2021-08-19 08:29 | Outpatient (REF) | payer MEDICAID, SELFPAY ==
[2021-08-19 10:11] LABS: Free T4 (Free Thyroxine) 0.89 ng/dL (0.71-1.85); Thyroid Stimulating Hormone 1.39 uIU/mL (0.32-4.0)
== END 2021-08-19 08:30 | disposition home or self-care (01) ==
LOC: HO.LAB 08:29
PROVIDERS: PCP Internal Medicine; Visit Provider Internal Medicine Endocrinology, Diabetes & Metabolism
DX: E04.2 Nontoxic multinodular goiter (principal)
CPT/HCPCS: 36415; 84439; 84443

== ENCOUNTER → 2021-08-26 08:41 | Outpatient (BNVA) | payer MEDICAID, SELFPAY | PROVIDERS: PCP Internal Medicine; Visit Provider Internal Medicine | DX: Z86.718 Personal history of other venous thrombosis and embolism (principal); Z79.01 Long term (current) use of anticoagulants; Z51.81 Encounter for therapeutic drug level monitoring | CPT/HCPCS: 85610; 99211 ==

== ENCOUNTER → 2021-09-01 10:21 | Outpatient (BNVA) | payer MEDICAID, SELFPAY | PROVIDERS: PCP Internal Medicine; Referring Provider Internal Medicine; Visit Provider Surgery | DX: D17.9 Benign lipomatous neoplasm, unspecified (principal) | CPT/HCPCS: 99212 ==

== ENCOUNTER → 2021-09-02 08:13 | Outpatient (BNVA) | payer MEDICAID, SELFPAY | PROVIDERS: PCP Internal Medicine; Visit Provider Internal Medicine | DX: Z86.718 Personal history of other venous thrombosis and embolism (principal); Z51.81 Encounter for therapeutic drug level monitoring; Z79.01 Long term (current) use of anticoagulants | CPT/HCPCS: 85610; 99211 ==

== ENCOUNTER 2021-09-05 08:18 | Outpatient (REF) | payer MEDICAID, SELFPAY ==
--- NOTE | ~2021-09-05 | US_ITS ---
EXAMINATION: US THYROID CLINICAL INFORMATION: Nontoxic multinodular goiter. COMPARISON: Thyroid ultrasound 01/28/2020 and 01/21/2019. Ultrasound-guided thyroid biopsy 03/07/2018. TECHNIQUE: Linear transducer grayscale and color Doppler examination with attention to the region of the thyroid. FINDINGS: SIZE: Measurements of the solitary right thyroid lobe and nodules are given in sagittal, anteroposterior and transverse dimensions respectively. Right Thyroid Lobe: 4.8 x 2.2 x 1.8 cm, volume 10.0 mL. Previously 4.8 x 2.4 x 1.7 cm, volume 10.2 mL. Parenchyma: The gland echotexture is heterogeneous. Thyroid vascularity is normal. Left Thyroid Lobe: Surgically absent. Isthmus: 0.1 cm in maximum AP dimension. Previously 0.2 cm. Estimated total number of nodules greater than or equal to 1 cm: 2. Clinical Cytogeneticist Scientist nodules are described as follows: 1. Location: Right mid. Size: 0.7 x 0.4 x 0.7 cm, volume 0.1 mL. Previously: 0.6 x 0.5 x 0.6 cm, volume 0.09 mL. Nodule characteristics: Composition: Solid (2). Echogenicity: Hyperechoic (1). Shape: Not taller than wide (0). Margins: Smooth (0). Echogenic Foci: None (0). ACR TI-RADS total points: 3 ACR TI-RADS category: 3 Significant change in size (>/= 20% in 2 dimensions and minimal increase of 2 mm or 50% or greater increase in volume): None Change in features: Not applicable Change in ACR TI-RADS risk category: Not applicable 2. Location: Right mid. Size: 0.9 x 0.8 x 0.9 cm, volume 0.3 mL. Previously: 1.1 x 0.7 x 0.7 cm, volume 0.3 mL. Nodule characteristics: Composition: Solid (2). Echogenicity: Hyperechoic (1). Shape: Not taller than wide (0). Margins: Smooth (0). Echogenic Foci: None (0). ACR TI-RADS total points: 3 ACR TI-RADS category: 3 Significant change in size (>/= 20% in 2 dimensions and minimal increase of 2 mm or 50% or greater increase in volume): None Change in features: None Change in ACR TI-RADS risk category: Not applicable 3. Location: Right inferior. Size: 1.7 x 1.1 x 1.7 cm, volume 1.7 mL. Previously: 1.6 x 1.2 x 1.3 cm, volume 1.3 mL. Nodule characteristics: Composition: Solid/almost completely solid (2). Echogenicity: Hyperechoic (1). Shape: Not taller than wide (0). Margins: Smooth (0). Echogenic Foci: None (0). ACR TI-RADS total points: 3 ACR TI-RADS category: 3 Significant change in size (>/= 20% in 2 dimensions and minimal increase of 2 mm or 50% or greater increase in volume): None Change in features: Not applicable Change in ACR TI-RADS risk category: Not applicable 4. Location: Right inferior. Size: 1.4 x 1.0 x 1.2 cm, volume 0.9 mL. Previously: 1.4 x 1.2 x 1.2 cm, volume 1.1 mL. Nodule characteristics: Composition: Solid/almost completely solid (2). Echogenicity: Hyperechoic (1). Shape: Not taller than wide (0). Margins: Smooth (0). Echogenic Foci: None (0). ACR TI-RADS total points: 3 ACR TI-RADS category: 3 Significant change in size (>/= 20% in 2 dimensions and minimal increase of 2 mm or 50% or greater increase in volume): None Change in features: Not applicable Change in ACR TI-RADS risk category: Not applicable NODES: No lymphadenopathy is seen in the tissue surrounding the thyroid gland. US/US thyroid IMPRESSION: Multinodular goiter right lobe with nonsuspicious several nodules. The left thyroid lobe has been removed 2 years ago. Recommend continued ultrasound followup. ACR TI-RADS RECOMMENDATION REFERENCE: Ultrasound-guided fine-needle aspiration, followup ultrasound, no further follow up. * TR1 (0 point) and TR 2 (2 points): No FNA or follow up * TR3 (3 points): FNA if more than or equal to 2.5 cm in maximum dimension, followup ultrasound in 1, 3 and 5 years if 1.5 to 2.4 cm in maximum dimension. * TR4 (4-6 points): FNA if more than or equal to 1.5 cm in maximum dimension, followup ultrasound in 1, 2, 3 and 5 years if 1 to 1.4 cm in maximum dimension. * TR5 (more than or equal to 7 points): FNA if more than or equal to 1 cm in maximum dimension, followup ultrasound every year for 5 years if 0.5 to 0.9 cm in maximum dimension. * TR3, TR4 or TR5 nodules that are below the size threshold for follow up receive no follow up.
== END 2021-09-05 08:19 | disposition home or self-care (01) ==
LOC: HO.US 08:18
PROVIDERS: Visit Provider Internal Medicine Endocrinology, Diabetes & Metabolism
DX: E04.2 Nontoxic multinodular goiter (principal)
CPT/HCPCS: 76536

== ENCOUNTER → 2021-09-08 08:22 | Outpatient (BNVA) | payer MEDICAID, SELFPAY | PROVIDERS: PCP Internal Medicine; Visit Provider Internal Medicine | DX: Z86.718 Personal history of other venous thrombosis and embolism (principal); Z51.81 Encounter for therapeutic drug level monitoring; Z79.01 Long term (current) use of anticoagulants | CPT/HCPCS: 85610; 99211 ==

== ENCOUNTER → 2021-09-13 08:38 | Outpatient (BNVA) | payer MEDICAID, SELFPAY | PROVIDERS: PCP Internal Medicine; Visit Provider Surgery Vascular Surgery | DX: I83.12 Varicose veins of left lower extremity with inflammation (principal) | CPT/HCPCS: 99202 ==

== ENCOUNTER → 2021-09-14 08:09 | Outpatient (BNVA) | payer MEDICAID, SELFPAY | PROVIDERS: PCP Internal Medicine; Visit Provider Internal Medicine Endocrinology, Diabetes & Metabolism | DX: E04.2 Nontoxic multinodular goiter (principal) | CPT/HCPCS: 99212 ==

== ENCOUNTER → 2021-09-19 08:12 | Outpatient (BNVA) | payer MEDICAID, SELFPAY | PROVIDERS: PCP Internal Medicine; Visit Provider Internal Medicine | DX: Z86.718 Personal history of other venous thrombosis and embolism (principal); Z51.81 Encounter for therapeutic drug level monitoring; Z79.01 Long term (current) use of anticoagulants | CPT/HCPCS: 85610; 99211 ==

== ENCOUNTER → 2021-10-03 08:48 | Outpatient (BNVA) | payer MEDICAID, SELFPAY | PROVIDERS: PCP Internal Medicine; Visit Provider Internal Medicine | DX: Z86.718 Personal history of other venous thrombosis and embolism (principal); Z79.01 Long term (current) use of anticoagulants; Z51.81 Encounter for therapeutic drug level monitoring | CPT/HCPCS: 85610; 99211 ==

== ENCOUNTER 2021-10-04 08:21 | Outpatient (REF) | payer MEDICAID, SELFPAY ==
[2021-10-04 08:45] LABS: MANUAL DIFF FLAG NO
[2021-10-04 10:10] LABS: Basophils Percent Auto 0.5 % (0-2); Eosinophils Absolute Auto 0.1 X10*3/uL (0.0-0.4); Eosinophils Percent Auto 1.8 % (0-4); Hematocrit 42.2 % (37.0-47.0); Hemoglobin 13.5 g/dl (12.0-16.0); Imm Gran Abs Auto 0.02 X10*3/uL (0.00-0.03); Imm Gran Pct Auto 0.3 % (0.0-0.4); Lymphocytes Absolute Auto 1.8 X10*3/uL (1.2-4.9); Lymphocytes Percent Auto 30.3 % (20-40); Mean Corpuscular Hemoglobin 27.8 pg (27.0-33.0); Mean Corpuscular Volume 86.8 fL (80.0-98.0); Mean Platelet Volume 10.2 fL (9.4-12.3); Monocytes Absolute Auto 0.4 X10*3/uL (0.1-1.2); Monocytes Percent Auto 7.2 % (2-11); Neutrophils Absolute Auto 3.6 x10*3/uL (2.0-8.3); Neutrophils Percent Auto 59.9 % (45-73); Platelet Count 315 X10*3/uL (160-400); Red Blood Count 4.86 X10*6/uL (4.20-5.50); Red Cell Distribution Width 12.8 % (11.0-16.0); White Blood Count 6.1 X10*3/uL (4.8-10.8)
[2021-10-04 10:35] LABS: Alanine Aminotransferase 15 U/L (0-31); Albumin Level 4.2 g/dL (3.5-5.0); Alkaline Phosphatase 71 U/L (39-117); Anion Gap 10 (12-20); Aspartate Amino Transferase 18 U/L (5-31); Bilirubin Total 0.5 mg/dL (0.0-1.0); Blood Urea Nitrogen 9 mg/dL (9-16); Calcium 9.1 mg/dL (8.4-10.2); Carbon Dioxide 26 mmol/L (22-29); Chloride 105 mmol/L (96-108); Cholesterol 233 mg/dL; Estimated Glomerular Filt Rate > 60; Glucose Random 94 mg/dL (60-115); HDL Cholesterol 69 mg/dL; LDL Cholesterol Calculated 152 mg/dl; Sodium 137 mmol/L (135-145); Total Protein 7.5 g/dL (6.5-8.0); Triglycerides 62 mg/dL
[2021-10-04 10:57] LABS: Thyroid Stimulating Hormone 1.83 uIU/mL (0.32-4.0)
== END 2021-10-04 08:22 | disposition home or self-care (01) ==
LOC: HO.LAB 08:21
PROVIDERS: PCP Internal Medicine; Visit Provider Internal Medicine
DX: Z00.00 Encounter for general adult medical examination without abnormal findings (principal); E88.2 Lipomatosis, not elsewhere classified; F32.5 Major depressive disorder, single episode, in full remission; I10 Essential (primary) hypertension; I83.813 Varicose veins of bilateral lower extremities with pain; J45.909 Unspecified asthma, uncomplicated
CPT/HCPCS: 36415; 80053; 80061; 84443; 85025

== ENCOUNTER 2021-10-11 10:50 | Outpatient (REF) | payer MEDICAID, SELFPAY ==
--- NOTE | ~2021-10-11 | XR_ITS ---
EXAMINATION: XR KNEE, LEFT CLINICAL INFORMATION: Pain. Osteoarthritis. COMPARISON: None TECHNIQUE: Four views of the left knee. FINDINGS: Bone alignment is normal. No fracture or dislocation is seen. There are small osteophytes at the patellofemoral joint. Joint spaces are otherwise normal. There is no joint effusion. XR/XR knee LT 4V IMPRESSION: Mild degenerative change at the patellofemoral joint.
== END 2021-10-11 10:51 | disposition home or self-care (01) ==
LOC: HO.XRAY 10:50
PROVIDERS: PCP Internal Medicine; Visit Provider Internal Medicine
DX: M17.12 Unilateral primary osteoarthritis, left knee (principal)
CPT/HCPCS: 73564

== ENCOUNTER → 2021-10-17 08:09 | Outpatient (BNVA) | payer MEDICAID, SELFPAY | PROVIDERS: PCP Internal Medicine; Visit Provider Internal Medicine | DX: Z86.718 Personal history of other venous thrombosis and embolism (principal); Z79.01 Long term (current) use of anticoagulants; Z51.81 Encounter for therapeutic drug level monitoring | CPT/HCPCS: 85610; 99211 ==

== ENCOUNTER 2021-10-18 07:56 | Outpatient (REF) | payer MEDICAID, SELFPAY ==
--- NOTE | ~2021-10-18 | US_ITS ---
EXAMINATION: US BILATERAL LOWER EXTREMITY VENOUS ULTRASOUND (REFLUX EXAM) CLINICAL INDICATION: Bilateral lower extremity varicose veins. COMPARISON: Left lower extremity venous Doppler ultrasound on 08/17/2021. TECHNIQUE: Color-flow triplex imaging and compression Doppler was performed to evaluate both the deep and the superficial systems bilaterally. To evaluate the superficial system, the examination was performed in the upright position. Color-flow Doppler ultrasound and compression ultrasound were utilized. In addition, maneuvers were utilized to demonstrate reflux. FINDINGS: SUPERFICIAL ULTRASOUND WITH DOPPLER OF RIGHT LOWER EXTREMITY GREAT SAPHENOUS VEIN: Saphenofemoral junction: 0.7 cm Max diameter: 0.7 cm Min diameter: 0.2 cm Reflux: Segmental reflux below the knee up to 1.3 seconds. DUPLICATED MEDIAL GREAT SAPHENOUS VEIN: Max Diameter: None imaged. Reflux: NA DUPLICATED LATERAL GREAT SAPHENOUS VEIN: Diameter: 0.4 cm at the junction. Reflux: None SMALL SAPHENOUS VEIN: Proximal Calf: 0.4 cm Distal Calf: 0.6 cm Reflux: No evidence of reflux. VEIN OF GIACOMINI: None imaged. PERFORATORS: Location: Mid thigh and distal thigh measuring 2 mm. 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 VARICOSITIES: Location: Proximal thigh and proximal calf measuring 3 mm. Reflux: None DEEP VENOUS ULTRASOUND OF THE RIGHT LOWER EXTREMITY: Common Femoral Vein: Compressible, normal respiratory variation and augmented flow. Femoral Vein: Compressible, normal color-flow and augmentation. Popliteal Vein: Compressible, normal augmentation. Deep Reflux: There is no evidence of reflux in the deep system in either the common femoral vein or the popliteal vein. Blandon's Cyst: There is no evidence of a Blandon's cyst. SUPERFICIAL ULTRASOUND WITH DOPPLER OF LEFT LOWER EXTREMITY GREAT SAPHENOUS VEIN: Saphenofemoral junction: 0.7 cm Max diameter: 0.7 cm Min diameter: 0.3 cm Reflux: No evidence of reflux. DUPLICATED MEDIAL GREAT SAPHENOUS VEIN: Max Diameter: None imaged. Reflux: NA DUPLICATED LATERAL GREAT SAPHENOUS VEIN: Diameter: 0.4 cm at the junction. Reflux: None SMALL SAPHENOUS VEIN: Proximal Calf: 0.4 cm Distal Calf: 0.6 cm Reflux: No evidence of reflux. VEIN OF GIACOMINI: None imaged. PERFORATORS: Location: Distal thigh and proximal calf measuring 3 mm. Reflux: None VARICOSITIES: Location: Proximal calf and mid calf measuring 3 mm. Reflux: None DEEP VENOUS ULTRASOUND OF THE LEFT LOWER EXTREMITY: Common Femoral Vein: Compressible, normal respiratory variation and augmented flow. Femoral Vein: Compressible, normal color-flow and augmentation. Popliteal Vein: Compressible, normal augmentation. Deep Reflux: There is 1.6 seconds of reflux within the mid femoral vein and 1.5 seconds of reflux within the popliteal vein. Blandon's Cyst: There is no evidence of a Blandon's cyst. Of note, there are multiple ovoid, circumscribed lesions within the subcutaneous fat of both proximal lower extremities. These are most consistent with lipomas. On the right, the largest ovoid, circumscribed hyperechoic lesion measures 1.7 x 1.2 cm. A smaller similar-appearing lesion is seen within the mid thigh measuring up to 1.1 cm. A similar lesion is seen within the left proximal thigh measuring up to 2.5 cm which is stable from the recent comparison. US/US venous duplex LE BI IMPRESSION: 1. There is segmental reflux within the right great saphenous vein below the knee. 2. No evidence of left great saphenous venous insufficiency. 3. Bilateral nonrefluxing varicosities. 4. Deep venous insufficiency involving the left mid femoral vein and popliteal vein. 5. Ovoid hyperechoic subcutaneous lesions within the proximal bilateral lower extremities are most consistent with lipomas.
== END 2021-10-18 07:57 | disposition home or self-care (01) ==
LOC: HO.US 07:56
PROVIDERS: Visit Provider Surgery Vascular Surgery
DX: I83.12 Varicose veins of left lower extremity with inflammation (principal); I83.11 Varicose veins of right lower extremity with inflammation
CPT/HCPCS: 93970

== ENCOUNTER → 2021-10-21 08:51 | Outpatient (BNV) | payer MEDICAID, SELFPAY | PROVIDERS: PCP Internal Medicine; Visit Provider Internal Medicine Medical Oncology | DX: Z86.718 Personal history of other venous thrombosis and embolism (principal); Z86.711 Personal history of pulmonary embolism; Z79.01 Long term (current) use of anticoagulants | CPT/HCPCS: 99204; 99213 ==

== ENCOUNTER → 2021-10-27 09:57 | Outpatient (BNVA) | payer MEDICAID, SELFPAY | PROVIDERS: PCP Internal Medicine; Visit Provider Surgery Vascular Surgery | DX: I83.12 Varicose veins of left lower extremity with inflammation (principal) | CPT/HCPCS: 99212 ==

== ENCOUNTER → 2021-10-31 08:41 | Outpatient (BNVA) | payer MEDICAID, SELFPAY | PROVIDERS: PCP Internal Medicine; Visit Provider Internal Medicine | DX: Z86.718 Personal history of other venous thrombosis and embolism (principal); Z79.01 Long term (current) use of anticoagulants; Z51.81 Encounter for therapeutic drug level monitoring | CPT/HCPCS: 85610; 99211 ==

== ENCOUNTER → 2021-11-14 08:17 | Outpatient (BNVA) | payer MEDICAID, SELFPAY | PROVIDERS: PCP Internal Medicine; Visit Provider Internal Medicine | DX: Z86.718 Personal history of other venous thrombosis and embolism (principal); Z79.01 Long term (current) use of anticoagulants; Z51.81 Encounter for therapeutic drug level monitoring | CPT/HCPCS: 85610; 99211 ==

== ENCOUNTER → 2021-11-25 08:17 | Outpatient (BNVA) | payer MEDICAID, SELFPAY | PROVIDERS: PCP Internal Medicine; Visit Provider Internal Medicine | DX: Z86.718 Personal history of other venous thrombosis and embolism (principal); Z79.01 Long term (current) use of anticoagulants; Z51.81 Encounter for therapeutic drug level monitoring | CPT/HCPCS: 85610; 99211 ==

== ENCOUNTER → 2021-11-30 09:46 | Outpatient (BNVA) | payer MEDICAID, SELFPAY | PROVIDERS: PCP Internal Medicine; Visit Provider Surgery | DX: R22.2 Localized swelling, mass and lump, trunk (principal) | CPT/HCPCS: 99212 ==

== ENCOUNTER → 2021-12-13 08:17 | Outpatient (BNVA) | payer MEDICAID, SELFPAY | PROVIDERS: PCP Internal Medicine; Visit Provider Internal Medicine | DX: Z86.718 Personal history of other venous thrombosis and embolism (principal); Z51.81 Encounter for therapeutic drug level monitoring; Z79.01 Long term (current) use of anticoagulants | CPT/HCPCS: 85610; 99211 ==

== ENCOUNTER 2021-12-28 08:51 | Outpatient (REF) | payer MEDICAID, SELFPAY | END 2021-12-28 08:52 | disposition home or self-care (01) | LOC: HO.LAB 08:51 | PROVIDERS: PCP Internal Medicine; Visit Provider Surgery | DX: R22.2 Localized swelling, mass and lump, trunk (principal); D17.9 Benign lipomatous neoplasm, unspecified | CPT/HCPCS: 11404; 11406; 88304 ==

== ENCOUNTER → 2022-01-02 08:11 | Outpatient (BNVA) | payer MEDICAID, SELFPAY | PROVIDERS: PCP Internal Medicine; Visit Provider Internal Medicine | DX: Z86.718 Personal history of other venous thrombosis and embolism (principal); Z51.81 Encounter for therapeutic drug level monitoring; Z79.01 Long term (current) use of anticoagulants | CPT/HCPCS: 85610; 99211 ==

== ENCOUNTER → 2022-01-10 08:08 | Outpatient (BNVA) | payer MEDICAID, SELFPAY | PROVIDERS: PCP Internal Medicine; Visit Provider Internal Medicine | DX: Z86.718 Personal history of other venous thrombosis and embolism (principal); Z79.01 Long term (current) use of anticoagulants; Z51.81 Encounter for therapeutic drug level monitoring | CPT/HCPCS: 85610; 99211 ==

== ENCOUNTER 2022-01-12 11:15 | Outpatient (REF) | payer MEDICAID, SELFPAY ==
--- NOTE | ~2022-01-12 | US_ITS ---
EXAMINATION: US ABDOMEN LIMITED CLINICAL INFORMATION: Subcutaneous mass on the back. COMPARISON: None TECHNIQUE: Real-time imaging of the back using a linear transducer FINDINGS: No abnormality is appreciated by ultrasound. No hernia, mass or fluid collection is seen. US/US abdomen limited IMPRESSION: No back abnormality appreciated by ultrasound.
== END 2022-01-12 11:16 | disposition home or self-care (01) ==
LOC: HO.HMGCX 11:15
PROVIDERS: Visit Provider Surgery
DX: R22.2 Localized swelling, mass and lump, trunk (principal)
CPT/HCPCS: 76705

== ENCOUNTER → 2022-01-13 08:37 | Outpatient (BNVA) | payer MEDICAID, SELFPAY | PROVIDERS: PCP Internal Medicine; Visit Provider Internal Medicine | DX: Z86.718 Personal history of other venous thrombosis and embolism (principal); Z79.01 Long term (current) use of anticoagulants; Z51.81 Encounter for therapeutic drug level monitoring | CPT/HCPCS: 85610; 99211 ==

== ENCOUNTER → 2022-01-27 08:13 | Outpatient (BNVA) | payer MEDICAID, SELFPAY | PROVIDERS: PCP Internal Medicine; Visit Provider Internal Medicine | DX: Z86.718 Personal history of other venous thrombosis and embolism (principal); Z79.01 Long term (current) use of anticoagulants; Z51.81 Encounter for therapeutic drug level monitoring | CPT/HCPCS: 85610; 99211 ==

== ENCOUNTER → 2022-02-10 08:19 | Outpatient (BNVA) | payer MEDICAID, SELFPAY | PROVIDERS: PCP Internal Medicine; Visit Provider Internal Medicine | DX: Z86.718 Personal history of other venous thrombosis and embolism (principal); Z51.81 Encounter for therapeutic drug level monitoring; Z79.01 Long term (current) use of anticoagulants | CPT/HCPCS: 85610; 99211 ==

== ENCOUNTER 2022-02-22 09:50 | Outpatient (REF) | payer MEDICAID, SELFPAY ==
[2022-02-22 12:20] LABS: Alanine Aminotransferase 13 U/L (0-31); Alkaline Phosphatase 70 U/L (39-117); Anion Gap 14 (12-20); Aspartate Amino Transferase 16 U/L (5-31); Bilirubin Total 0.5 mg/dL (0.0-1.0); Blood Urea Nitrogen 9 mg/dL (9-16); Calcium 8.7 mg/dL (8.4-10.2); Carbon Dioxide 23 mmol/L (22-29); Chloride 106 mmol/L (96-108); Cholesterol 217 mg/dL; Estimated Glomerular Filt Rate > 60; Glucose Random 82 mg/dL (60-115); HDL Cholesterol 60 mg/dL; LDL Cholesterol Calculated 141 mg/dl; Potassium 4.3 mmol/L (3.3-5.1); Sodium 139 mmol/L (135-145); Total Protein 7.1 g/dL (6.5-8.0); Triglycerides 82 mg/dL
== END 2022-02-22 09:51 | disposition home or self-care (01) ==
LOC: HO.LAB 09:50
PROVIDERS: PCP Internal Medicine; Visit Provider Internal Medicine
DX: E78.00 Pure hypercholesterolemia, unspecified (principal); E88.2 Lipomatosis, not elsewhere classified; M22.2X2 Patellofemoral disorders, left knee; M54.50 Low back pain, unspecified; N30.00 Acute cystitis without hematuria; Z79.01 Long term (current) use of anticoagulants
CPT/HCPCS: 36415; 80053; 80061

== ENCOUNTER → 2022-02-24 08:16 | Outpatient (BNVA) | payer MEDICAID, SELFPAY | PROVIDERS: PCP Internal Medicine; Visit Provider Internal Medicine | DX: Z86.718 Personal history of other venous thrombosis and embolism (principal); Z79.01 Long term (current) use of anticoagulants; Z51.81 Encounter for therapeutic drug level monitoring | CPT/HCPCS: 85610; 99211 ==

== ENCOUNTER 2022-02-27 08:13 | Outpatient (REF) | payer MEDICAID, SELFPAY | END 2022-02-27 08:14 | disposition home or self-care (01) | LOC: HO.LAB 08:13 | PROVIDERS: PCP Internal Medicine; Visit Provider Internal Medicine | DX: E78.00 Pure hypercholesterolemia, unspecified (principal); F32.9 Major depressive disorder, single episode, unspecified; G47.00 Insomnia, unspecified; I10 Essential (primary) hypertension; N30.11 Interstitial cystitis (chronic) with hematuria; R63.5 Abnormal weight gain; Z79.01 Long term (current) use of anticoagulants | CPT/HCPCS: 87086 ==

== ENCOUNTER → 2022-03-01 11:20 | Outpatient (BNVA) | payer MEDICAID, SELFPAY | PROVIDERS: PCP Internal Medicine; Visit Provider Surgery | DX: D17.24 Benign lipomatous neoplasm of skin and subcutaneous tissue of left leg (principal); D17.23 Benign lipomatous neoplasm of skin and subcutaneous tissue of right leg | CPT/HCPCS: 99212 ==

== ENCOUNTER → 2022-03-10 08:09 | Outpatient (BNVA) | payer MEDICAID, SELFPAY | PROVIDERS: PCP Internal Medicine; Visit Provider Internal Medicine | DX: Z86.718 Personal history of other venous thrombosis and embolism (principal); Z51.81 Encounter for therapeutic drug level monitoring; Z79.01 Long term (current) use of anticoagulants | CPT/HCPCS: 85610; 99211 ==

== ENCOUNTER 2022-03-14 08:06 | Outpatient (REF) | payer MEDICAID, SELFPAY ==
--- NOTE | ~2022-03-14 | MM_ITS ---
EXAMINATION: MM SCREENING DIGITAL BREAST TOMOSYNTHESIS, BILATERAL CLINICAL INFORMATION: Screening. Asymptomatic. The lifetime risk of breast cancer based on the Tyrer-Cuzick Model is 7%. COMPARISON: Mammography: 03/11/2021, 01/29/2020, 08/26/2018 TECHNIQUE: Digital breast tomosynthesis is performed in both the craniocaudal and mediolateral oblique views along with computer-aided detection (CAD). Synthesized 2D images are generated from the tomosynthesis. Additional right MLO view is provided FINDINGS: There are scattered areas of fibroglandular density (ACR BI-RADS breast composition Category b). There are no significant masses, abnormal calcifications, or other abnormalities. Breast tissue composition borders on average fibroglandular. There is no developing density or interval architectural abnormality. No significant changes. MM/MM tomosynthesis screening BI IMPRESSION: No mammographic evidence of malignancy. ASSESSMENT: BI-RADS 1: Negative RECOMMENDATION: Routine annual mammography screening. This patient's information was entered into a reminder system with a target due date for their next mammogram.
== END 2022-03-14 08:07 | disposition home or self-care (01) ==
LOC: HO.MAMMO 08:06
PROVIDERS: PCP Internal Medicine; Visit Provider Internal Medicine
DX: Z12.31 Encounter for screening mammogram for malignant neoplasm of breast (principal)
CPT/HCPCS: 77063; 77067

== ENCOUNTER → 2022-03-22 08:40 | Outpatient (BNVA) | payer MEDICAID, SELFPAY | PROVIDERS: PCP Internal Medicine; Visit Provider Internal Medicine | DX: Z86.718 Personal history of other venous thrombosis and embolism (principal); Z79.01 Long term (current) use of anticoagulants; Z51.81 Encounter for therapeutic drug level monitoring | CPT/HCPCS: 85610; 99211 ==

== ENCOUNTER 2022-03-23 09:55 | Outpatient (REF) | payer MEDICAID, SELFPAY | END 2022-03-23 09:56 | disposition home or self-care (01) | LOC: HO.LNP 09:55 | PROVIDERS: PCP Internal Medicine; Visit Provider Surgery | DX: D17.9 Benign lipomatous neoplasm, unspecified (principal) | CPT/HCPCS: 11402; 11403; 11404; 88304 ==

== ENCOUNTER → 2022-03-27 08:18 | Outpatient (BNVA) | payer MEDICAID, SELFPAY | PROVIDERS: PCP Internal Medicine; Visit Provider Internal Medicine | DX: Z86.718 Personal history of other venous thrombosis and embolism (principal); Z51.81 Encounter for therapeutic drug level monitoring; Z79.01 Long term (current) use of anticoagulants | CPT/HCPCS: 85610; 99211 ==

== ENCOUNTER → 2022-04-10 08:19 | Outpatient (BNVA) | payer MEDICAID, SELFPAY | PROVIDERS: PCP Internal Medicine; Visit Provider Internal Medicine | DX: Z86.718 Personal history of other venous thrombosis and embolism (principal); Z79.01 Long term (current) use of anticoagulants; Z51.81 Encounter for therapeutic drug level monitoring | CPT/HCPCS: 85610; 99211 ==

== ENCOUNTER → 2022-04-24 08:16 | Outpatient (BNVA) | payer MEDICAID, SELFPAY | PROVIDERS: PCP Internal Medicine; Visit Provider Internal Medicine | DX: Z86.718 Personal history of other venous thrombosis and embolism (principal); Z79.01 Long term (current) use of anticoagulants; Z51.81 Encounter for therapeutic drug level monitoring | CPT/HCPCS: 85610; 99211 ==

== ENCOUNTER → 2022-04-25 10:01 | Outpatient (BNVA) | payer MEDICAID, SELFPAY | PROVIDERS: PCP Internal Medicine; Visit Provider Surgery Vascular Surgery | DX: I83.12 Varicose veins of left lower extremity with inflammation (principal); I89.0 Lymphedema, not elsewhere classified | CPT/HCPCS: 99212 ==

== ENCOUNTER → 2022-05-08 08:36 | Outpatient (BNVA) | payer MEDICAID, SELFPAY | PROVIDERS: PCP Internal Medicine; Visit Provider Internal Medicine | DX: Z86.718 Personal history of other venous thrombosis and embolism (principal); Z51.81 Encounter for therapeutic drug level monitoring; Z79.01 Long term (current) use of anticoagulants | CPT/HCPCS: 85610; 99211 ==

== ENCOUNTER → 2022-05-22 08:21 | Outpatient (BNVA) | payer MEDICAID, SELFPAY | PROVIDERS: PCP Internal Medicine; Visit Provider Internal Medicine | DX: Z86.718 Personal history of other venous thrombosis and embolism (principal); Z79.01 Long term (current) use of anticoagulants; Z51.81 Encounter for therapeutic drug level monitoring | CPT/HCPCS: 85610; 99211 ==

== ENCOUNTER → 2022-06-14 08:16 | Outpatient (BNVA) | payer MEDICAID, SELFPAY | PROVIDERS: PCP Internal Medicine; Visit Provider Internal Medicine | DX: Z86.718 Personal history of other venous thrombosis and embolism (principal); Z79.01 Long term (current) use of anticoagulants; Z51.81 Encounter for therapeutic drug level monitoring | CPT/HCPCS: 85610; 99211 ==

== ENCOUNTER → 2022-06-29 08:17 | Outpatient (BNVA) | payer MEDICAID, SELFPAY | PROVIDERS: PCP Internal Medicine; Visit Provider Internal Medicine | DX: Z86.718 Personal history of other venous thrombosis and embolism (principal); Z79.01 Long term (current) use of anticoagulants; Z51.81 Encounter for therapeutic drug level monitoring | CPT/HCPCS: 85610; 99211 ==

== ENCOUNTER → 2022-07-04 15:04 | Outpatient (BNVA) | payer MEDICAID, SELFPAY | PROVIDERS: PCP Internal Medicine; Visit Provider Internal Medicine | DX: Z79.01 Long term (current) use of anticoagulants (principal) ==

== ENCOUNTER 2022-07-05 08:56 | Outpatient (REF) | payer MEDICAID, SELFPAY ==
[2022-07-05 09:10] LABS: MANUAL DIFF FLAG NO
[2022-07-05 10:35] LABS: Basophils Percent Auto 0.3 % (0-2); Eosinophils Percent Auto 0.1 % (0-4); Hematocrit 41.5 % (37.0-47.0); Hemoglobin 13.7 g/dl (12.0-16.0); Imm Gran Abs Auto 0.03 X10*3/uL (0.00-0.03); Imm Gran Pct Auto 0.3 % (0.0-0.4); Lymphocytes Absolute Auto 2.1 X10*3/uL (1.2-4.9); Lymphocytes Percent Auto 20.2 % (20-40); Mean Corpuscular Hemoglobin 28.4 pg (27.0-33.0); Mean Corpuscular Volume 86.1 fL (80.0-98.0); Mean Platelet Volume 10.4 fL (9.4-12.3); Monocytes Absolute Auto 0.6 X10*3/uL (0.1-1.2); Monocytes Percent Auto 5.3 % (2-11); Neutrophils Absolute Auto 7.7 x10*3/uL (2.0-8.3); Neutrophils Percent Auto 73.8 % (45-73); Platelet Count 347 X10*3/uL (160-400); Red Blood Count 4.82 X10*6/uL (4.20-5.50); Red Cell Distribution Width 12.9 % (11.0-16.0); White Blood Count 10.5 X10*3/uL (4.8-10.8)
[2022-07-05 11:11] LABS: Alanine Aminotransferase 15 U/L (0-31); Albumin Level 4.1 g/dL (3.5-5.0); Alkaline Phosphatase 74 U/L (39-117); Anion Gap 13 (12-20); Aspartate Amino Transferase 14 U/L (5-31); Bilirubin Total 0.5 mg/dL (0.0-1.0); Blood Urea Nitrogen 9 mg/dL (9-16); Calcium 9.1 mg/dL (8.4-10.2); Carbon Dioxide 25 mmol/L (22-29); Chloride 106 mmol/L (96-108); Cholesterol 216 mg/dL; Estimated Glomerular Filt Rate > 60; Glucose Random 94 mg/dL (60-115); HDL Cholesterol 67 mg/dL; LDL Cholesterol Calculated 138 mg/dl; Sodium 140 mmol/L (135-145); Total Protein 7.2 g/dL (6.5-8.0); Triglycerides 58 mg/dL
[2022-07-05 11:29] LABS: Thyroid Stimulating Hormone 0.93 uIU/mL (0.32-4.0)
[2022-07-07 00:53] LABS: Follicle Stimulating Hormone 2.6 mIU/mL
== END 2022-07-05 08:57 | disposition home or self-care (01) ==
LOC: HO.LAB 08:56
PROVIDERS: PCP Internal Medicine; Visit Provider Internal Medicine
DX: E78.00 Pure hypercholesterolemia, unspecified (principal); F32.9 Major depressive disorder, single episode, unspecified; G47.00 Insomnia, unspecified; I10 Essential (primary) hypertension; N30.11 Interstitial cystitis (chronic) with hematuria; R63.5 Abnormal weight gain; Z79.01 Long term (current) use of anticoagulants
CPT/HCPCS: 36415; 80053; 80061; 83001; 84443; 85025; 87086

== ENCOUNTER → 2022-07-17 08:11 | Outpatient (BNVA) | payer MEDICAID, SELFPAY | PROVIDERS: PCP Internal Medicine; Visit Provider Internal Medicine | DX: Z86.718 Personal history of other venous thrombosis and embolism (principal); Z79.01 Long term (current) use of anticoagulants; Z51.81 Encounter for therapeutic drug level monitoring | CPT/HCPCS: 85610; 99211 ==

== ENCOUNTER → 2022-08-09 11:08 | Outpatient (BNVA) | payer MEDICAID, SELFPAY | PROVIDERS: PCP Internal Medicine; Visit Provider Internal Medicine | DX: Z86.718 Personal history of other venous thrombosis and embolism (principal); Z79.01 Long term (current) use of anticoagulants; Z51.81 Encounter for therapeutic drug level monitoring | CPT/HCPCS: 85610; 99211 ==

== ENCOUNTER → 2022-08-23 08:16 | Outpatient (BNVA) | payer MEDICAID, SELFPAY | PROVIDERS: PCP Internal Medicine; Visit Provider Internal Medicine | DX: Z86.718 Personal history of other venous thrombosis and embolism (principal); Z79.01 Long term (current) use of anticoagulants; Z51.81 Encounter for therapeutic drug level monitoring | CPT/HCPCS: 85610; 99211 ==

== ENCOUNTER → 2022-09-06 08:19 | Outpatient (BNVA) | payer MEDICAID, SELFPAY | PROVIDERS: PCP Internal Medicine; Visit Provider Internal Medicine | DX: Z86.718 Personal history of other venous thrombosis and embolism (principal); Z79.01 Long term (current) use of anticoagulants; Z51.81 Encounter for therapeutic drug level monitoring | CPT/HCPCS: 85610; 99211 ==

== ENCOUNTER → 2022-09-20 08:17 | Outpatient (BNVA) | payer MEDICAID, SELFPAY | PROVIDERS: PCP Internal Medicine; Visit Provider Internal Medicine | DX: I82.502 Chronic embolism and thrombosis of unspecified deep veins of left lower extremity (principal); Z51.81 Encounter for therapeutic drug level monitoring; Z79.01 Long term (current) use of anticoagulants | CPT/HCPCS: 85610; 99211 ==

== ENCOUNTER → 2022-10-04 08:21 | Outpatient (BNVA) | payer MEDICAID, SELFPAY | PROVIDERS: PCP Internal Medicine; Visit Provider Internal Medicine | DX: Z86.718 Personal history of other venous thrombosis and embolism (principal); Z79.01 Long term (current) use of anticoagulants; Z51.81 Encounter for therapeutic drug level monitoring | CPT/HCPCS: 85610; 99211 ==

== ENCOUNTER 2022-10-04 12:55 | Outpatient (REF) | payer MEDICAID, SELFPAY | END 2022-10-04 12:56 | disposition home or self-care (01) | LOC: HO.10HDLNP 12:55 | PROVIDERS: Visit Provider Internal Medicine | DX: N30.10 Interstitial cystitis (chronic) without hematuria (principal); R30.0 Dysuria; R35.0 Frequency of micturition | CPT/HCPCS: 87086 ==

== ENCOUNTER → 2022-10-18 08:16 | Outpatient (BNVA) | payer MEDICAID, SELFPAY | PROVIDERS: PCP Internal Medicine; Visit Provider Internal Medicine | DX: Z86.718 Personal history of other venous thrombosis and embolism (principal); Z51.81 Encounter for therapeutic drug level monitoring; Z79.01 Long term (current) use of anticoagulants | CPT/HCPCS: 85610; 99211 ==

== ENCOUNTER → 2022-11-01 08:16 | Outpatient (BNVA) | payer MEDICAID, SELFPAY | PROVIDERS: PCP Internal Medicine; Visit Provider Internal Medicine | DX: Z86.718 Personal history of other venous thrombosis and embolism (principal); Z79.01 Long term (current) use of anticoagulants; Z51.81 Encounter for therapeutic drug level monitoring | CPT/HCPCS: 85610; 99211 ==

== ENCOUNTER → 2022-11-15 08:12 | Outpatient (BNVA) | payer MEDICAID, SELFPAY | PROVIDERS: PCP Internal Medicine; Visit Provider Internal Medicine | DX: Z86.718 Personal history of other venous thrombosis and embolism (principal); Z51.81 Encounter for therapeutic drug level monitoring; Z79.01 Long term (current) use of anticoagulants | CPT/HCPCS: 85610; 99211 ==

== ENCOUNTER → 2022-12-13 08:11 | Outpatient (BNVA) | payer MEDICAID, SELFPAY | PROVIDERS: PCP Internal Medicine; Visit Provider Internal Medicine | DX: Z86.718 Personal history of other venous thrombosis and embolism (principal); Z79.01 Long term (current) use of anticoagulants; Z51.81 Encounter for therapeutic drug level monitoring | CPT/HCPCS: 85610; 99211 ==

== ENCOUNTER 2022-12-27 08:11 | Outpatient (AMB) | payer MEDICAID, SELFPAY ==
[2022-12-27 08:26] LABS: Prothrombin Time Whole Bld POC 37.1 sec (11.1-13.5); ~PT, ~INR - Anti Coag Clinic 3.1 (0.9-1.1)
--- NOTE | 2022-12-27 08:33 | MHC.OFFVISCO ---
Intake Intake Visit Reasons: Anticoagulation Allergies ciprofloxacin [From Cipro] Allergy (Unknown, Verified 12/27/22 08:21) RASH Sulfa (Sulfonamide Antibiotics) Allergy (Unknown, Verified 12/27/22 08:21) SWELLING/ITCHING, swelling topiramate [From TOPAMAX] Allergy (Unknown, Verified 12/27/22 08:21) DIZZY Medication List - Last Reconciled 12/27/22 by Mara Lan RN acetaminophen ER (Mapap Arthritis Pain) 650 mg PO Q8H albuterol sulfate 2.5 mg inhalation Q4-6H PRN albuterol sulfate 90 mcg/actuation (ProAir HFA) 2 puffs inhalation Q6H PRN cholecalciferol (vitamin D3) 50 mcg PO DAILY 30 days fluticasone propionate 50 mcg/actuation (Flonase Allergy Relief) 1 spray intranasal DAILY fluticasone propionate 110 mcg/actuation (Flovent HFA) 2 puffs PO BID lisinopril 5 mg PO DAILY loratadine 10 mg PO DAILY montelukast 10 mg PO DAILY omeprazole 20 mg PO DAILY sertraline 100 mg PO DAILY trazodone 50 mg PO BEDTIME triamcinolone acetonide 0.5% 1 appl topical BID warfarin See Protocol 5MG X4DAYS/ 7.5MG X3DAYS; Nursing Note NO CP,SOB,DIET/MED CHANGES,FALLS OR SX OF BLEEDING. CONTINUE PRESERNT DOSE AND FOLLOW-UP IN WEEKS. GREENS TODAY GOOD UNDERSTANDING OF DFOSING INSTR. Anti-Coag Initial Assessment Social Hx Patient Tobacco Use Status: Never used Tobacco alcohol intake: never Coding Level of Care Code Est Patient Level 1 Diagnoses Current use of anticoagulant therapy Z79.01 Assessment & Plan Assessment & Plan (1) Current use of anticoagulant therapy: Code(s): Z79.01 - correction (current) use of anticoagulants Category: Medical
== END 2022-12-27 08:35 | disposition home or self-care (01) ==
LOC: HO.ACS 08:11
PROVIDERS: PCP Internal Medicine; Visit Provider Internal Medicine
DX: Z79.01 Long term (current) use of anticoagulants (principal)

== ENCOUNTER → 2022-12-27 08:11 | Outpatient (BNVA) | payer MEDICAID, SELFPAY | PROVIDERS: PCP Internal Medicine; Visit Provider Internal Medicine | DX: Z86.718 Personal history of other venous thrombosis and embolism (principal); Z79.01 Long term (current) use of anticoagulants; Z51.81 Encounter for therapeutic drug level monitoring | CPT/HCPCS: 85610; 99211 ==

== ENCOUNTER 2023-01-10 08:13 | Outpatient (AMB) | payer MEDICAID, SELFPAY ==
--- NOTE | 2023-01-10 08:21 | MHC.OFFVISCO ---
Intake Intake Visit Reasons: Anticoagulation Allergies ciprofloxacin [From Cipro] Allergy (Unknown, Verified 01/10/23 08:14) RASH Sulfa (Sulfonamide Antibiotics) Allergy (Unknown, Verified 01/10/23 08:14) SWELLING/ITCHING, swelling topiramate [From TOPAMAX] Allergy (Unknown, Verified 01/10/23 08:14) DIZZY Medication List - Last Reconciled 01/10/23 by Latasha Chong RN acetaminophen ER (Mapap Arthritis Pain) 650 mg PO Q8H albuterol sulfate 2.5 mg inhalation Q4-6H PRN albuterol sulfate 90 mcg/actuation (ProAir HFA) 2 puffs inhalation Q6H PRN cholecalciferol (vitamin D3) 50 mcg PO DAILY 30 days fluticasone propionate 50 mcg/actuation (Flonase Allergy Relief) 1 spray intranasal DAILY fluticasone propionate 110 mcg/actuation (Flovent HFA) 2 puffs PO BID lisinopril 5 mg PO DAILY loratadine 10 mg PO DAILY montelukast 10 mg PO DAILY omeprazole 20 mg PO DAILY sertraline 100 mg PO DAILY trazodone 50 mg PO BEDTIME triamcinolone acetonide 0.5% 1 appl topical BID warfarin See Protocol 5MG X4DAYS/ 7.5MG X3DAYS; Nursing Note INR 3.3-?? out of therapeutic range Medications and supplements reviewed Patient status: pt states colonoscopy on 01/30/23 - 5 day hold with lovenox bridge Medications or supplements: no changes Diet: same Denies any signs and symptoms of bleeding or clotting or unusual bruising Bleeding, bruising, clotting discussed Nutritional guidance given: eat greens Dose: 5mg today, then cont reg 7.5mg x 6, 5mg x 1 F/U INR Date : 1 week?? Patient verbalizing understanding of instructions given. 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
[2023-01-10 08:22] LABS: Prothrombin Time Whole Bld POC 39.8 sec (11.1-13.5); ~PT, ~INR - Anti Coag Clinic 3.3 (0.9-1.1)
== END 2023-01-10 08:33 | disposition home or self-care (01) ==
LOC: HO.ACS 08:13
PROVIDERS: PCP Internal Medicine; Visit Provider Internal Medicine
DX: Z79.01 Long term (current) use of anticoagulants (principal)

== ENCOUNTER → 2023-01-10 08:13 | Outpatient (BNVA) | payer MEDICAID, SELFPAY | PROVIDERS: PCP Internal Medicine; Visit Provider Internal Medicine | DX: Z86.718 Personal history of other venous thrombosis and embolism (principal); Z79.01 Long term (current) use of anticoagulants; Z51.81 Encounter for therapeutic drug level monitoring | CPT/HCPCS: 85610; 99211 ==

== ENCOUNTER 2023-01-17 08:20 | Outpatient (AMB) | payer MEDICAID, SELFPAY ==
[2023-01-17 08:26] LABS: Prothrombin Time Whole Bld POC 28.8 sec (11.1-13.5); ~PT, ~INR - Anti Coag Clinic 2.4 (0.9-1.1)
--- NOTE | 2023-01-17 08:32 | MHC.OFFVISCO ---
Intake Intake Visit Reasons: Anticoagulation Allergies ciprofloxacin [From Cipro] Allergy (Unknown, Verified 01/17/23 08:21) RASH Sulfa (Sulfonamide Antibiotics) Allergy (Unknown, Verified 01/17/23 08:21) SWELLING/ITCHING, swelling topiramate [From TOPAMAX] Allergy (Unknown, Verified 01/17/23 08:21) DIZZY Medication List - Last Reconciled 01/17/23 by Mara Lan RN acetaminophen ER (Mapap Arthritis Pain) 650 mg PO Q8H albuterol sulfate 2.5 mg inhalation Q4-6H PRN albuterol sulfate 90 mcg/actuation (ProAir HFA) 2 puffs inhalation Q6H PRN cholecalciferol (vitamin D3) 50 mcg PO DAILY 30 days fluticasone propionate 50 mcg/actuation (Flonase Allergy Relief) 1 spray intranasal DAILY fluticasone propionate 110 mcg/actuation (Flovent HFA) 2 puffs PO BID lisinopril 5 mg PO DAILY loratadine 10 mg PO DAILY montelukast 10 mg PO DAILY omeprazole 20 mg PO DAILY sertraline 100 mg PO DAILY trazodone 50 mg PO BEDTIME triamcinolone acetonide 0.5% 1 appl topical BID warfarin See Protocol 5MG X4DAYS/ 7.5MG X3DAYS; Nursing Note TO HGAVE COLONOSCOPY ON 01/30. PT.HAS INSTR.RE LOVENOX AND STOPPING WARFARIN. IN MEANTIME WILL CONTINUE USUAL DOSE AND FOLLOW-UP HERE IN 1 WEEK. PT.HAS HAD NO CP,SOB,DIET/MED CHANGES,FALLS OR SX OF BLEEDING. GOOD UNDETSANDING VERB. 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
== END 2023-01-17 08:34 | disposition home or self-care (01) ==
LOC: HO.ACS 08:20
PROVIDERS: PCP Internal Medicine; Visit Provider Internal Medicine
DX: Z79.01 Long term (current) use of anticoagulants (principal)

== ENCOUNTER → 2023-01-17 08:20 | Outpatient (BNVA) | payer MEDICAID, SELFPAY | PROVIDERS: PCP Internal Medicine; Visit Provider Internal Medicine | DX: Z86.718 Personal history of other venous thrombosis and embolism (principal); Z79.01 Long term (current) use of anticoagulants; Z51.81 Encounter for therapeutic drug level monitoring | CPT/HCPCS: 85610; 99211 ==

== ENCOUNTER 2023-01-24 08:06 | Outpatient (AMB) | payer MEDICAID, SELFPAY ==
[2023-01-24 08:25] LABS: Prothrombin Time Whole Bld POC 30.6 sec (11.1-13.5); ~PT, ~INR - Anti Coag Clinic 2.5 (0.9-1.1)
--- NOTE | 2023-01-24 08:25 | MHC.OFFVISCO ---
Intake Intake Visit Reasons: Anticoagulation Allergies ciprofloxacin [From Cipro] Allergy (Unknown, Verified 01/24/23 08:19) RASH Sulfa (Sulfonamide Antibiotics) Allergy (Unknown, Verified 01/24/23 08:19) SWELLING/ITCHING, swelling topiramate [From TOPAMAX] Allergy (Unknown, Verified 01/24/23 08:19) DIZZY Medication List - Last Reconciled 01/24/23 by Latasha Chong RN acetaminophen ER (Mapap Arthritis Pain) 650 mg PO Q8H albuterol sulfate 2.5 mg inhalation Q4-6H PRN albuterol sulfate 90 mcg/actuation (ProAir HFA) 2 puffs inhalation Q6H PRN cholecalciferol (vitamin D3) 50 mcg PO DAILY 30 days fluticasone propionate 50 mcg/actuation (Flonase Allergy Relief) 1 spray intranasal DAILY fluticasone propionate 110 mcg/actuation (Flovent HFA) 2 puffs PO BID lisinopril 5 mg PO DAILY loratadine 10 mg PO DAILY montelukast 10 mg PO DAILY omeprazole 20 mg PO DAILY sertraline 100 mg PO DAILY trazodone 50 mg PO BEDTIME triamcinolone acetonide 0.5% 1 appl topical BID warfarin See Protocol 5MG X4DAYS/ 7.5MG X3DAYS; Nursing Note INR: 2.5- in therapeutic range Medications and supplements reviewed No changes in health, diet, medications, or supplements, Denies any signs and symptoms of bleeding or bruising or clotting. Bleeding, bruising, clotting discussed Nutritional guidance given Dose: 5mg x 1, 7.5mg x 6- hold warfarin 01/25/23-01/29/23, start lovenox am and take bid until - last dose 8am restart warfarin when ok with md post procedure. begin lovenox 01/31/23 bid until INR therapeutic F/U INR: sunday02/02/23 Patient verbalizes understanding of instructions given pt scheduled for colonoscopy on 01/30/23- pt will hold warfarin for 5 days prior to procedure with lovenox bridging pre and post procedure written instructions given to pt along with lovenox injection instuctions. pt instructed to call [facility] with any questions. 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
== END 2023-01-24 08:58 | disposition home or self-care (01) ==
LOC: HO.ACS 08:06
PROVIDERS: PCP Internal Medicine; Visit Provider Internal Medicine
DX: Z79.01 Long term (current) use of anticoagulants (principal)

== ENCOUNTER → 2023-01-24 08:06 | Outpatient (BNVA) | payer MEDICAID, SELFPAY | PROVIDERS: PCP Internal Medicine; Visit Provider Internal Medicine | DX: Z86.718 Personal history of other venous thrombosis and embolism (principal); Z51.81 Encounter for therapeutic drug level monitoring; Z79.01 Long term (current) use of anticoagulants | CPT/HCPCS: 85610; 99211 ==

== ENCOUNTER 2023-01-30 06:20 | Day surgery (SDC) | payer MEDICAID, SELFPAY ==
[2023-01-30 06:25] VITALS: BMI 34.5
[2023-01-30 06:35] VITALS: BP 155/83; PULSE 89; RESP 17; TEMP 37; O2SAT 99; BMI 34.5
[2023-01-30] MEDS: Lactated Ringers 1,000 ML 100 ML IVCONT (07:13)
[2023-01-30 07:14] LABS: INTERNATIONAL NORM RATIO 1.1 (0.9-1.1); Prothrombin Time 12.9 SEC (11.1-13.3)
--- NOTE | 2023-01-30 07:25 | MHC.SHP ---
Pre-Procedural Eval Section A Date of Service: 01/30/23 Section B Chief Complaint: Epigastric pain,screening Details of Present Illness: see H&P no changes Relevant Social History: None Present Medications: see Short Stay Collaborative assessment Medical History: No relevant PMH Allergies: Allergies Allergy/AdvReac Type Severity Reaction Status Date / Time ciprofloxacin [From Cipro] Allergy Unknown RASH Verified 01/24/23 08:19 Sulfa (Sulfonamide Allergy Unknown SWELLING/ITCHING, Verified 01/24/23 08:19 Antibiotics) swelling topiramate [From TOPAMAX] Allergy Unknown DIZZY Verified 01/24/23 08:19 Review of Systems Sugical H&P ROS: Negative: Constitution, Cardiovascular, Respiratory, Neurological, Psychiatric, Hem-Onc, Allergic/Immunologic, Gastrointestinal, Genitourinary, Musculoskeletal, Integumentary, Endocrine and Eyes/Ears/Nose/Throat Exam Surgical H&P Exam: Normal: HEENT, Normal: Heart, Normal: Lungs, Normal: Extremities, Normal: Abdomen, Normal: Skin and Normal: Neurological Plan Diagnosis/Plan: Unchanged I have reviewed the history and physical and performed a pertinent physical examination on my patient. No changes have occurred unless specified. Time Spent With Patient Time: Total time managing care of this patient today ____ minutes.
--- NOTE | 2023-01-30 07:31 | P.CONAN_ITS ---
HPI - Anesthesia Eval Consult details Narrative: ERGD, colonoscopy PMFSH Active Problems Active Problems: All Active Problems (Updated 04/26/22 @ 12:37 by Ish Harvey MD) Lymphedema (Acute) Current use of anticoagulant therapy (Acute) Acid reflux (Acute) Varicose veins of left lower extremity with inflammation (Acute) History of pulmonary embolism (Acute) Subcutaneous mass of back (Acute) Multiple lipomas (Acute) Scalp cyst (Acute) Vitamin D deficiency (Acute) Non-toxic multinodular goiter (Acute) Past Medical History Medical History DVT (deep vein thrombosis) in History of lipoma Multiple lipomas Non-toxic multinodular goiter Scalp cyst Vitamin D deficiency Family History Family History Father Hypertension Mother Diabetes Aneurysm Hypertension Other No family history of cancer Family history of problems with anesthesia: No Surgical History Surgical History History of partial thyroidectomy Hx of esophagogastroduodenoscopy Hx of superior vena cava filter placement S/P fine needle aspiration Status post excision of lipoma History of Problems with Anesthesia: No Social History Social History Household Members: Children Household Members Other:: 3 Housing: Apartment Are you a primary prompt care rn to a significant other at home: No Do you presently have visiting nurse or other home services: No Alcohol intake: never Patient Tobacco Use Status: Never used Tobacco Use of substances other than those prescribed or required for medical reasons: No Are you DNR?: No Advance Directives: No Advance Directives Information Provided: Yes Recently lost weight without trying: No Patient : No : No Poor oral hygiene: No service: No Current occupational status: unemployed Meds Allergies Allergy/AdvReac Type Severity Reaction Status Date / Time ciprofloxacin [From Cipro] Allergy Unknown RASH Verified 01/24/23 08:19 Sulfa (Sulfonamide Allergy Unknown SWELLING/ITCHING, Verified 01/24/23 08:19 Antibiotics) swelling topiramate [From TOPAMAX] Allergy Unknown DIZZY Verified 01/24/23 08:19 Active Medications: Current Medications Lactated Ringer's (Lr) 1,000 mls @ 100 mls/hr IVCONT .Q10H HARSHIL Last Admin: 01/30/23 07:13 Dose: 100 mls/hr Home Medications Medication Instructions Recorded Confirmed Last Taken Type albuterol sulfate 2.5 mg/3 mL 2.5 mg inhalation Q4-6H PRN 04/15/20 11/01/22 Unknown History (0.083 %) solution for nebulization Shortness Of Breath Or Wheezing albuterol sulfate 90 mcg/actuation 2 puff inhalation Q6H PRN 04/15/20 11/01/22 Unknown History aerosol inhaler (ProAir HFA) Shortness Of Breath Or Wheezing fluticasone propionate 50 1 spray intranasal DAILY 04/15/20 11/01/22 Unknown History mcg/actuation nasal spray,suspension (Flonase Allergy Relief) loratadine 10 mg tablet 10 mg PO DAILY 04/15/20 11/01/22 Unknown History acetaminophen 650 mg 650 mg PO Q8H 02/15/21 11/01/22 Unknown History tablet,extended release (Mapap Arthritis Pain) fluticasone propionate 110 2 puff PO BID 02/15/21 11/01/22 Unknown History mcg/actuation HFA aerosol inhaler (Flovent HFA) lisinopril 5 mg tablet 5 mg PO DAILY 02/15/21 11/01/22 01/30/23 History 5 mg omeprazole 20 mg capsule,delayed 20 mg PO DAILY 02/15/21 11/01/22 Unknown History release sertraline 100 mg tablet 100 mg PO DAILY 12/13/21 11/01/22 Unknown History trazodone 50 mg tablet 50 mg PO BEDTIME 05/22/22 11/01/22 Unknown History triamcinolone acetonide 0.5 % 1 appl topical BID 05/22/22 11/01/22 Unknown History topical cream montelukast 10 mg tablet 10 mg PO DAILY 11/01/22 11/01/22 Unknown History Exam Exam Date and Time: January 30, 2023730 Height,Weight and Vital Signs: Height 5 ft 8 in Weight 102.965 kg Last Vital Signs Temp 98.6 F 01/30/23 06:35 Pulse 89 01/30/23 06:35 Resp 17 01/30/23 06:35 BP 155/83 H 01/30/23 06:35 Pulse Ox 99 01/30/23 06:35 O2 Del Method Room Air 01/30/23 06:35 Pertinent Lab Results Pertinent Lab Results: Laboratory Tests 01/30/23 06:55 PT 12.9 INR 1.1 Airway Mallampati Class: II TM Dist: >3cm Neck ROM: Full Heart: rrr Lungs: ctaq Assessment and Plan Assessment Anesthesia Assessment: Anesthesia Plan Discussed and Chart Reviewed Final Anesthetic Review Family History of Problems with Anesthesia: No History of Problems with Anesthesia: No NPO: Yes ASA Class: II Final Preanesthetic Review: No Changes in Pt Med Stat, Meds/Allgs Chart Reviewed, Consent Obtained/Reviewed and Anes Risks/Benef Reviewed Patient Risk: Intermediate Procedure Risk: Intermediate Anesthetic Plan Anesthetic Plan: MAC: and Agree w/ Assess. and Plan Disposition: Standard PACU
--- NOTE | 2023-01-30 08:10 | P.BOP_ITS ---
Brief Operative Note Date of Service: 01/30/23 Pre-op diagnosis: epigastric pain screening Post-op diagnosis: same Procedure: EGD colonoscopy Surgeon: Severo Cancino Anesthesia: MAC Was an Weatherization Technician used for this Procedure?: No Estimated blood loss (mL): 5 Pathology: other Condition: stable Disposition: PACU
[2023-01-30 08:17] VITALS: BP 105/55; PULSE 96; RESP 16; TEMP 36.3; O2SAT 97
[2023-01-30 08:32] VITALS: BP 129/77; PULSE 84; RESP 18; TEMP 37.1; O2SAT 96
--- NOTE | 2023-01-30 08:54 | OP_ITS ---
DATE OF SERVICE: 01/30/2023 SURGEON: Severo Cancino MD INDICATIONS: Epigastric pain and colon cancer screening. PREOPERATIVE DIAGNOSIS: POSTOPERATIVE DIAGNOSIS: PROCEDURE PERFORMED: Upper endoscopy with biopsy, colonoscopy to the terminal ileum. ESTIMATED BLOOD LOSS: COMPLICATIONS: ANESTHESIA: Monitored anesthesia care. ASSISTANTS: SPECIMENS: DESCRIPTION OF PROCEDURE: A history and physical was performed. The risks and benefits of the procedure were explained to the patient and informed consent was obtained. The patient was placed in a left lateral decubitus position. The Olympus video gastroscope was introduced into the esophagus, stomach, and duodenum. Examination was performed. The scope was removed. She was repositioned for colonoscopy. A digital rectal exam was performed and was found to be normal. The Olympus pediatric video colonoscope was introduced into the rectum and advanced to the cecum. The cecum was identified by transillumination, palpation, and identification of ileocecal valve. Examination was performed. The scope was removed. She tolerated the procedure well and was returned to the recovery area in stable condition. FINDINGS: Upper endoscopy: Esophagus: The esophagus showed no esophagitis. There was an irregular EG junction. Biopsies were obtained from the EG junction and from the midesophagus at 30 cm to evaluate for possible eosinophilic esophagitis as there was slight ridging of the mucosa. Stomach: The stomach was normal. Duodenum: The bulb and 2nd portion were normal. Colonoscopy: The terminal ileum was normal. The visualized colonic mucosa was normal. The quality of prep was good. No polyps were identified. Retroflexed examination showed small internal hemorrhoids. IMPRESSION: 1. Gastroesophageal reflux disease. 2. Normal colonoscopy. RECOMMENDATIONS: 1. Follow up the biopsy results. 2. Repeat colonoscopy is recommended in 10 years for average risk individuals. MD IVIS Arndt/ELYSE / [phone]
== END 2023-01-30 09:45 | disposition home or self-care (01) ==
PROVIDERS: Anesthesiology; PCP Internal Medicine; Visit Provider Internal Medicine Gastroenterology
PROC: (CPT 45378; principal; 2023-01-30 07:30)
DX: Z12.11 Encounter for screening for malignant neoplasm of colon (principal); K64.8 Other hemorrhoids; K21.00 Gastro-esophageal reflux disease with esophagitis, without bleeding; R10.13 Epigastric pain; K59.00 Constipation, unspecified; I10 Essential (primary) hypertension; E78.00 Pure hypercholesterolemia, unspecified; F41.1 Generalized anxiety disorder; J30.2 Other seasonal allergic rhinitis; Z86.718 Personal history of other venous thrombosis and embolism; Z79.01 Long term (current) use of anticoagulants; Z79.51 Long term (current) use of inhaled steroids; Z79.899 Other long term (current) drug therapy
CPT/HCPCS: 45378; 43239; 36415; 85610; 88305

== ENCOUNTER 2023-02-02 08:21 | Outpatient (AMB) | payer MEDICAID, SELFPAY ==
[2023-02-02 08:29] LABS: Prothrombin Time Whole Bld POC 16.7 sec (11.1-13.5); ~PT, ~INR - Anti Coag Clinic 1.4 (0.9-1.1)
--- NOTE | 2023-02-02 08:36 | MHC.OFFVISCO ---
Intake Intake Visit Reasons: Anticoagulation Allergies ciprofloxacin [From Cipro] Allergy (Unknown, Verified 02/02/23 08:22) RASH Sulfa (Sulfonamide Antibiotics) Allergy (Unknown, Verified 02/02/23 08:22) SWELLING/ITCHING, swelling topiramate [From TOPAMAX] Allergy (Unknown, Verified 02/02/23 08:22) DIZZY Medication List - Last Reconciled 02/02/23 by Emely Miranda RN acetaminophen ER (Mapap Arthritis Pain) 650 mg PO Q8H albuterol sulfate 2.5 mg inhalation Q4-6H PRN albuterol sulfate 90 mcg/actuation (ProAir HFA) 2 puffs inhalation Q6H PRN cholecalciferol (vitamin D3) 50 mcg PO DAILY 30 days fluticasone propionate 50 mcg/actuation (Flonase Allergy Relief) 1 spray intranasal DAILY fluticasone propionate 110 mcg/actuation (Flovent HFA) 2 puffs PO BID lisinopril 10 mg PO DAILY loratadine 10 mg PO DAILY montelukast 10 mg PO DAILY omeprazole 20 mg PO DAILY ondansetron 4 mg PO TID sennosides-docusate sodium 8.6-50 mg (Senexon-S) 2 tabs PO BEDTIME sertraline 100 mg PO DAILY trazodone 50 mg PO BEDTIME triamcinolone acetonide 0.5% 1 appl topical BID warfarin See Protocol 5MG X4DAYS/ 7.5MG X3DAYS; Nursing Note S/P UPPER ENDO AND COLONOSCOPY INR 1.4?? out of therapeutic range Medications and supplements reviewed Patient status: WELL, MILD BRUISING FROM LOVENOX, STATES SHE HAS MILD ESOPHAGEAL INFLAMMATION ON OMEPRAZOLE Medications or supplements: NO CHANGES Diet: GOOD Denies any signs and symptoms of bleeding or clotting or unusual bruising Bleeding, bruising, clotting discussed Nutritional guidance given: AVOID GREENS UNTIL INR GREATER THAN 2 .0 Dose: 10MG TODAY ( SHE DID NOT TAKE THE 10MG X 2 DAYS -ONLY 1 DAYS POST PROCEDURE- SHE FORGOT ) F/U INR Date : 02/05/23 ?? Patient verbalizing understanding of instructions given. 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
== END 2023-02-02 09:09 | disposition home or self-care (01) ==
LOC: HO.ACS 08:21
PROVIDERS: PCP Internal Medicine; Visit Provider Internal Medicine
DX: Z79.01 Long term (current) use of anticoagulants (principal)

== ENCOUNTER → 2023-02-02 08:21 | Outpatient (BNVA) | payer MEDICAID, SELFPAY | PROVIDERS: PCP Internal Medicine; Visit Provider Internal Medicine | DX: Z86.718 Personal history of other venous thrombosis and embolism (principal); Z79.01 Long term (current) use of anticoagulants; Z51.81 Encounter for therapeutic drug level monitoring | CPT/HCPCS: 85610; 99211 ==

== ENCOUNTER 2023-02-05 09:33 | Outpatient (AMB) | payer MEDICAID, SELFPAY ==
--- NOTE | 2023-02-05 09:46 | MHC.OFFVISCO ---
Intake Intake Visit Reasons: Anticoagulation Allergies ciprofloxacin [From Cipro] Allergy (Unknown, Verified 02/05/23 09:39) RASH Sulfa (Sulfonamide Antibiotics) Allergy (Unknown, Verified 02/05/23 09:39) SWELLING/ITCHING, swelling topiramate [From TOPAMAX] Allergy (Unknown, Verified 02/05/23 09:39) DIZZY Medication List - Last Reconciled 02/05/23 by Emely Miranda RN acetaminophen ER (Mapap Arthritis Pain) 650 mg PO Q8H albuterol sulfate 2.5 mg inhalation Q4-6H PRN albuterol sulfate 90 mcg/actuation (ProAir HFA) 2 puffs inhalation Q6H PRN cholecalciferol (vitamin D3) 50 mcg PO DAILY 30 days fluticasone propionate 50 mcg/actuation (Flonase Allergy Relief) 1 spray intranasal DAILY fluticasone propionate 110 mcg/actuation (Flovent HFA) 2 puffs PO BID lisinopril 10 mg PO DAILY montelukast 10 mg PO DAILY omeprazole 20 mg PO DAILY ondansetron 4 mg PO TID sennosides-docusate sodium 8.6-50 mg (Senexon-S) 2 tabs PO BEDTIME sertraline 100 mg PO DAILY trazodone 50 mg PO BEDTIME triamcinolone acetonide 0.5% 1 appl topical BID warfarin See Protocol 5MG X4DAYS/ 7.5MG X3DAYS; Nursing Note INR 1.8 out of therapeutic range S/P COLONOSCOPY AND UPPER ENDO Medications and supplements reviewed Patient status: NO COMPLAINTS OF SOB OR ANY S/SX OF CLOTTING Medications or supplements: COMPLETED LOVENOX YESTERDAY- PCP WAS CALLED SUNDAY FOR REFILL -NO REFILL ORDERED OR RETURN CALL FROM PCP SUNDAY Diet: APPETITE IS GOOD Denies any signs and symptoms of bleeding or clotting or unusual bruising Bleeding, bruising, clotting discussed Nutritional guidance given: AVOID GREENS X 3 MORE DAYS AND EAT ORANGE AND REDS TO HELP RAISE THE INR Dose: 7.5MG DAILY F/U INR Date: 02/09/23 ?? Patient verbalizing understanding of instructions given. Anti-Coag Initial Assessment Social Hx Patient Tobacco Use Status: Never used Tobacco alcohol intake: never Coding Level of Care Code Est Patient Level 1 Diagnoses Current use of anticoagulant therapy Z79.01 Assessment & Plan Assessment & Plan (1) Current use of anticoagulant therapy: Code(s): Z79.01 - correction (current) use of anticoagulants Category: Medical
[2023-02-05 09:47] LABS: ~PT, ~INR - Anti Coag Clinic 1.8 (0.9-1.1)
== END 2023-02-05 09:57 | disposition home or self-care (01) ==
LOC: HO.ACS 09:33
PROVIDERS: PCP Internal Medicine; Visit Provider Internal Medicine
DX: Z79.01 Long term (current) use of anticoagulants (principal)

== ENCOUNTER → 2023-02-05 09:33 | Outpatient (BNVA) | payer MEDICAID, SELFPAY | PROVIDERS: PCP Internal Medicine; Visit Provider Internal Medicine | DX: Z86.718 Personal history of other venous thrombosis and embolism (principal); Z79.01 Long term (current) use of anticoagulants; Z51.81 Encounter for therapeutic drug level monitoring | CPT/HCPCS: 85610; 99211 ==

== ENCOUNTER 2023-02-09 08:09 | Outpatient (AMB) | payer MEDICAID, SELFPAY ==
--- NOTE | 2023-02-09 08:20 | MHC.OFFVISCO ---
Intake Intake Visit Reasons: Anticoagulation Allergies ciprofloxacin [From Cipro] Allergy (Unknown, Verified 02/09/23 08:12) RASH Sulfa (Sulfonamide Antibiotics) Allergy (Unknown, Verified 02/09/23 08:12) SWELLING/ITCHING, swelling topiramate [From TOPAMAX] Allergy (Unknown, Verified 02/09/23 08:12) DIZZY Medication List - Last Reconciled 02/09/23 by Emely Miranda RN acetaminophen ER (Mapap Arthritis Pain) 650 mg PO Q8H albuterol sulfate 2.5 mg inhalation Q4-6H PRN albuterol sulfate 90 mcg/actuation (ProAir HFA) 2 puffs inhalation Q6H PRN cholecalciferol (vitamin D3) 50 mcg PO DAILY 30 days fluticasone propionate 50 mcg/actuation (Flonase Allergy Relief) 1 spray intranasal DAILY fluticasone propionate 110 mcg/actuation (Flovent HFA) 2 puffs PO BID lisinopril 10 mg PO DAILY montelukast 10 mg PO DAILY omeprazole 20 mg PO DAILY ondansetron 4 mg PO TID sennosides-docusate sodium 8.6-50 mg (Senexon-S) 2 tabs PO BEDTIME sertraline 100 mg PO DAILY trazodone 50 mg PO BEDTIME triamcinolone acetonide 0.5% 1 appl topical BID warfarin See Protocol 5MG X4DAYS/ 7.5MG X3DAYS; Nursing Note INR: 2.4 in therapeutic range Medications and supplements reviewed PT TO HAVE ABD ULTRA SOUND - SHE HAS ELEVATED LIVER ENZYMES, WONDER IF R/T ANESTHIA - BUT SHE ALSO HAS LITTLE ABD DISCOMFORT Denies any signs and symptoms of bleeding or bruising or clotting. Bleeding, bruising, clotting discussed Nutritional guidance given Dose: RESUME 5MG X 1 DAY/ 7.5MG X 6 DAYS F/U INR: 1 1/2 WEEKS Patient verbalizes understanding of instructions given Anti-Coag Initial Assessment Social Hx Patient Tobacco Use Status: Never used Tobacco alcohol intake: never Coding Level of Care Code Est Patient Level 1 Diagnoses Current use of anticoagulant therapy Z79.01 Assessment & Plan Assessment & Plan (1) Current use of anticoagulant therapy: Code(s): Z79.01 - longterm (current) use of anticoagulants Category: Medical
[2023-02-09 08:21] LABS: Prothrombin Time Whole Bld POC 29.4 sec (11.1-13.5); ~PT, ~INR - Anti Coag Clinic 2.4 (0.9-1.1)
== END 2023-02-09 08:28 | disposition home or self-care (01) ==
LOC: HO.ACS 08:09
PROVIDERS: PCP Internal Medicine; Visit Provider Internal Medicine
DX: Z79.01 Long term (current) use of anticoagulants (principal)

== ENCOUNTER → 2023-02-09 08:09 | Outpatient (BNVA) | payer MEDICAID, SELFPAY | PROVIDERS: PCP Internal Medicine; Visit Provider Internal Medicine | DX: Z86.718 Personal history of other venous thrombosis and embolism (principal); Z79.01 Long term (current) use of anticoagulants; Z51.81 Encounter for therapeutic drug level monitoring | CPT/HCPCS: 85610; 99211 ==

== ENCOUNTER 2023-02-14 11:06 | Outpatient (REF) | payer MEDICAID, SELFPAY ==
--- NOTE | ~2023-02-14 | US_ITS ---
EXAMINATION: US ABDOMEN LIMITED CLINICAL INFORMATION: Right upper quadrant pain, elevated LFTs. Look for gallbladder disease. COMPARISON: Ultrasound abdomen limited 01/12/2022 Ultrasound abdomen complete 03/19/2018. TECHNIQUE: Real-time imaging of the right upper quadrant abdominal viscera. FINDINGS: PANCREAS: Normal. LIVER: The liver is normal in size. The liver contour is normal. Mild to moderately increased hepatic echogenicity with focal fatty sparing along the gallbladder fossa compatible with hepatic steatosis similar to prior. Benign-appearing right hepatic lobe simple cyst. There is no intrahepatic biliary duct dilatation seen. GALLBLADDER: Foci of comet tail artifact suggesting adenomyomatosis. The gallbladder is physiologically distended without evidence of stones, polyps, wall thickening or pericholecystic fluid. COMMON BILE DUCT: Normal in caliber measuring 0.29 cm in diameter. RIGHT KIDNEY: Normal. No hydronephrosis. No renal calculi or focal parenchymal lesions. The kidney measures 11.1 cm in maximum dimension. FREE FLUID: None. US/US abdomen limited IMPRESSION: 1. Hepatic steatosis similar to prior. 2. No cholelithiasis or evidence of acute cholecystitis. 3. Foci of comet tail artifact in the gallbladder suggesting adenomyomatosis.
== END 2023-02-14 11:07 | disposition home or self-care (01) ==
LOC: HO.HMGCX 11:06
PROVIDERS: PCP Internal Medicine; Visit Provider Internal Medicine Medical Oncology
DX: R79.89 Other specified abnormal findings of blood chemistry (principal)
CPT/HCPCS: 76705

== ENCOUNTER 2023-02-21 08:21 | Outpatient (AMB) | payer MEDICAID, SELFPAY ==
--- NOTE | 2023-02-21 08:28 | MHC.OFFVISCO ---
Intake Intake Visit Reasons: Anticoagulation Allergies ciprofloxacin [From Cipro] Allergy (Unknown, Verified 02/21/23 08:23) RASH Sulfa (Sulfonamide Antibiotics) Allergy (Unknown, Verified 02/21/23 08:23) SWELLING/ITCHING, swelling topiramate [From TOPAMAX] Allergy (Unknown, Verified 02/21/23 08:23) DIZZY Medication List - Last Reconciled 02/21/23 by Latasha Chong RN acetaminophen ER (Mapap Arthritis Pain) 650 mg PO Q8H albuterol sulfate 2.5 mg inhalation Q4-6H PRN albuterol sulfate 90 mcg/actuation (ProAir HFA) 2 puffs inhalation Q6H PRN cholecalciferol (vitamin D3) 50 mcg PO DAILY 30 days fluticasone propionate 50 mcg/actuation (Flonase Allergy Relief) 1 spray intranasal DAILY fluticasone propionate 110 mcg/actuation (Flovent HFA) 2 puffs PO BID lisinopril 10 mg PO DAILY montelukast 10 mg PO DAILY omeprazole 20 mg PO DAILY ondansetron 4 mg PO TID sennosides-docusate sodium 8.6-50 mg (Senexon-S) 2 tabs PO BEDTIME sertraline 100 mg PO DAILY trazodone 50 mg PO BEDTIME triamcinolone acetonide 0.5% 1 appl topical BID warfarin See Protocol 5MG X4DAYS/ 7.5MG X3DAYS; Nursing Note INR: 2.7- in therapeutic range Medications and supplements reviewed- no changes No changes in health, diet, medications, or supplements, Denies any signs and symptoms of bleeding or bruising or clotting. Bleeding, bruising, clotting discussed Nutritional guidance given Dose: 5mg x 6, 7.5mg x 1 F/U INR: 2 weeks Patient verbalizes understanding of instructions given pt had u/s of abd Anti-Coag Initial Assessment Social Hx Patient Tobacco Use Status: Never used Tobacco alcohol intake: never Coding Level of Care Code Est Patient Level 1 Diagnoses Current use of anticoagulant therapy Z79.01 Assessment & Plan Assessment & Plan (1) Current use of anticoagulant therapy: Code(s): Z79.01 - [facility] (current) use of anticoagulants Category: Medical
[2023-02-21 08:29] LABS: Prothrombin Time Whole Bld POC 32.8 sec (11.1-13.5); ~PT, ~INR - Anti Coag Clinic 2.7 (0.9-1.1)
== END 2023-02-21 08:35 | disposition home or self-care (01) ==
LOC: HO.ACS 08:21
PROVIDERS: PCP Internal Medicine; Visit Provider Internal Medicine
DX: Z79.01 Long term (current) use of anticoagulants (principal)

== ENCOUNTER → 2023-02-21 08:21 | Outpatient (BNVA) | payer MEDICAID, SELFPAY | PROVIDERS: PCP Internal Medicine; Visit Provider Internal Medicine | DX: Z86.718 Personal history of other venous thrombosis and embolism (principal); Z79.01 Long term (current) use of anticoagulants; Z51.81 Encounter for therapeutic drug level monitoring | CPT/HCPCS: 85610; 99211 ==

== ENCOUNTER 2023-03-07 08:14 | Outpatient (AMB) | payer MEDICAID, SELFPAY ==
[2023-03-07 08:26] LABS: Prothrombin Time Whole Bld POC 41.3 sec (11.1-13.5); ~PT, ~INR - Anti Coag Clinic 3.4 (0.9-1.1)
--- NOTE | 2023-03-07 08:28 | MHC.OFFVISCO ---
Intake Intake Visit Reasons: Anticoagulation Allergies ciprofloxacin [From Cipro] Allergy (Unknown, Verified 03/07/23 08:18) RASH Sulfa (Sulfonamide Antibiotics) Allergy (Unknown, Verified 03/07/23 08:18) SWELLING/ITCHING, swelling topiramate [From TOPAMAX] Allergy (Unknown, Verified 03/07/23 08:18) DIZZY Medication List - Last Reconciled 03/07/23 by Emely Miranda RN acetaminophen ER (Mapap Arthritis Pain) 650 mg PO Q8H albuterol sulfate 2.5 mg inhalation Q4-6H PRN albuterol sulfate 90 mcg/actuation (ProAir HFA) 2 puffs inhalation Q6H PRN cholecalciferol (vitamin D3) 50 mcg PO DAILY 30 days fluticasone propionate 50 mcg/actuation (Flonase Allergy Relief) 1 spray intranasal DAILY fluticasone propionate 110 mcg/actuation (Flovent HFA) 2 puffs PO BID lisinopril 10 mg PO DAILY montelukast 10 mg PO DAILY omeprazole 20 mg PO DAILY ondansetron 4 mg PO TID sennosides-docusate sodium 8.6-50 mg (Senexon-S) 2 tabs PO BEDTIME sertraline 100 mg PO DAILY trazodone 50 mg PO BEDTIME triamcinolone acetonide 0.5% 1 appl topical BID warfarin See Protocol 5MG X4DAYS/ 7.5MG X3DAYS; Nursing Note INR: 3.4 in therapeutic range Medications and supplements reviewed Pt had abd Ultra Sound -has enlarged gallbladder with mild Upper right quad discomfort- seeing md today - not sure if she will require surgery or not Denies any signs and symptoms of bleeding or bruising or clotting. Bleeding, bruising, clotting discussed Nutritional guidance given - greenkenny today Dose: keep same 7.5mg x 6 days/ 5mg x 1 day F/U INR: 2 weeks Patient verbalizes understanding of instructions given Anti-Coag Initial Assessment Social Hx Patient Tobacco Use Status: Never used Tobacco alcohol intake: never Coding Level of Care Code Est Patient Level 1 Diagnoses Current use of anticoagulant therapy Z79.01 Assessment & Plan Assessment & Plan (1) Current use of anticoagulant therapy: Code(s): Z79.01 - senior care (current) use of anticoagulants Category: Medical
== END 2023-03-07 08:32 | disposition home or self-care (01) ==
LOC: HO.ACS 08:14
PROVIDERS: PCP Internal Medicine; Visit Provider Internal Medicine
DX: Z79.01 Long term (current) use of anticoagulants (principal)

== ENCOUNTER 2023-03-07 08:14 | Outpatient (REF) | payer MEDICAID, SELFPAY ==
[2023-03-07 09:01] LABS: MANUAL DIFF FLAG NO
[2023-03-07 10:11] LABS: Basophils Percent Auto 0.7 % (0-2); Eosinophils Absolute Auto 0.1 X10*3/uL (0.0-0.4); Eosinophils Percent Auto 2.1 % (0-4); Hematocrit 41.6 % (37.0-47.0); Hemoglobin 13.5 g/dl (12.0-16.0); Imm Gran Abs Auto 0.02 X10*3/uL (0.00-0.03); Imm Gran Pct Auto 0.4 % (0.0-0.4); Lymphocytes Absolute Auto 1.9 X10*3/uL (1.2-4.9); Mean Corpuscular HGB Conc 32.5 g/dl (31.0-35.0); Mean Corpuscular Hemoglobin 27.7 pg (27.0-33.0); Mean Corpuscular Volume 85.4 fL (80.0-98.0); Mean Platelet Volume 10.5 fL (9.4-12.3); Monocytes Absolute Auto 0.4 X10*3/uL (0.1-1.2); Monocytes Percent Auto 7.7 % (2-11); Neutrophils Absolute Auto 3.1 x10*3/uL (2.0-8.3); Neutrophils Percent Auto 55.1 % (45-73); Platelet Count 310 X10*3/uL (160-400); Red Blood Count 4.87 X10*6/uL (4.20-5.50); Red Cell Distribution Width 13.3 % (11.0-16.0); White Blood Count 5.7 X10*3/uL (4.8-10.8)
[2023-03-07 10:38] LABS: Alanine Aminotransferase 18 U/L (0-31); Albumin Level 4.1 g/dL (3.5-5.0); Alkaline Phosphatase 78 U/L (39-117); Anion Gap 11 (12-20); Aspartate Amino Transferase 19 U/L (5-31); Bilirubin Total 0.4 mg/dL (0.0-1.0); Blood Urea Nitrogen 9 mg/dL (9-16); Carbon Dioxide 26 mmol/L (22-29); Chloride 107 mmol/L (96-108); Cholesterol 214 mg/dL (<200); Estimated Glomerular Filt Rate > 60; Glucose Random 97 mg/dL (60-115); HDL Cholesterol 56 mg/dL (>40); LDL Cholesterol Calculated 145 mg/dL (<100); Potassium 3.7 mmol/L (3.3-5.1); Sodium 140 mmol/L (135-145); Total Protein 7.6 g/dL (6.5-8.0); Triglycerides 68 mg/dL (<150)
[2023-03-07 10:58] LABS: Thyroid Stimulating Hormone 1.43 uIU/mL (0.32-4.0)
== END 2023-03-07 08:15 | disposition home or self-care (01) ==
LOC: HO.LAB 08:14
PROVIDERS: Absent Provider Internal Medicine; PCP Internal Medicine; Visit Provider Internal Medicine
DX: I82.502 Chronic embolism and thrombosis of unspecified deep veins of left lower extremity (principal); Z51.81 Encounter for therapeutic drug level monitoring; Z79.01 Long term (current) use of anticoagulants; Z00.00 Encounter for general adult medical examination without abnormal findings; F32.4 Major depressive disorder, single episode, in partial remission; J45.909 Unspecified asthma, uncomplicated
CPT/HCPCS: 36415; 80053; 80061; 84443; 85025; 85610; 99211

== ENCOUNTER 2023-03-20 08:06 | Outpatient (AMB) | payer MEDICAID, SELFPAY ==
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
== END 2023-03-20 08:34 | disposition home or self-care (01) ==
LOC: HO.ACS 08:06
PROVIDERS: PCP Internal Medicine; Visit Provider Internal Medicine
DX: Z79.01 Long term (current) use of anticoagulants (principal)

== ENCOUNTER → 2023-03-20 08:06 | Outpatient (BNVA) | payer MEDICAID, SELFPAY | PROVIDERS: PCP Internal Medicine; Visit Provider Internal Medicine | DX: Z86.718 Personal history of other venous thrombosis and embolism (principal); Z79.01 Long term (current) use of anticoagulants; Z51.81 Encounter for therapeutic drug level monitoring | CPT/HCPCS: 85610; 99211 ==

== ENCOUNTER 2023-04-04 08:14 | Outpatient (AMB) | payer MEDICAID, SELFPAY ==
--- NOTE | 2023-04-04 08:21 | MHC.OFFVISCO ---
Intake Intake Visit Reasons: Anticoagulation Allergies ciprofloxacin [From Cipro] Allergy (Unknown, Verified 04/04/23 08:17) RASH Sulfa (Sulfonamide Antibiotics) Allergy (Unknown, Verified 04/04/23 08:17) SWELLING/ITCHING, swelling topiramate [From TOPAMAX] Allergy (Unknown, Verified 04/04/23 08:17) DIZZY Medication List - Last Reconciled 04/04/23 by Latasha Chong RN acetaminophen ER (Mapap Arthritis Pain) 650 mg PO Q8H albuterol sulfate 2.5 mg inhalation Q4-6H PRN albuterol sulfate 90 mcg/actuation (ProAir HFA) 2 puffs inhalation Q6H PRN cholecalciferol (vitamin D3) 50 mcg PO DAILY 30 days fluticasone propionate 50 mcg/actuation (Flonase Allergy Relief) 1 spray intranasal DAILY fluticasone propionate 110 mcg/actuation (Flovent HFA) 2 puffs PO BID lisinopril 10 mg PO DAILY montelukast 10 mg PO DAILY omeprazole 20 mg PO DAILY ondansetron 4 mg PO TID sennosides-docusate sodium 8.6-50 mg (Senexon-S) 2 tabs PO BEDTIME sertraline 100 mg PO DAILY trazodone 50 mg PO BEDTIME triamcinolone acetonide 0.5% 1 appl topical BID warfarin See Protocol 5MG X4DAYS/ 7.5MG X3DAYS; Nursing Note INR 3.2- out of therapeutic range Medications and supplements reviewed Patient status: no c.o, some stress Medications or supplements: no changes Diet: same Denies any signs and symptoms of bleeding or clotting or unusual bruising Bleeding, bruising, clotting discussed Nutritional guidance given: eat greens for 2 days, no reds for 2 days Dose: 5mg x 1, 7.5mg x 6 F/U INR Date : 2weeks? Patient verbalizing understanding of instructions given. Anti-Coag Initial Assessment Social Hx Patient Tobacco Use Status: Never used Tobacco alcohol intake: never Coding Level of Care Code Est Patient Level 1 Diagnoses Current use of anticoagulant therapy Z79.01 Assessment & Plan Assessment & Plan (1) Current use of anticoagulant therapy: Code(s): Z79.01 - detention (current) use of anticoagulants Category: Medical
[2023-04-04 08:22] LABS: Prothrombin Time Whole Bld POC 38.7 sec (11.1-13.5); ~PT, ~INR - Anti Coag Clinic 3.2 (0.9-1.1)
== END 2023-04-04 08:26 | disposition home or self-care (01) ==
LOC: HO.ACS 08:14
PROVIDERS: PCP Internal Medicine; Visit Provider Internal Medicine
DX: Z79.01 Long term (current) use of anticoagulants (principal)

== ENCOUNTER → 2023-04-04 08:14 | Outpatient (BNVA) | payer MEDICAID, SELFPAY | PROVIDERS: PCP Internal Medicine; Visit Provider Internal Medicine | DX: Z86.718 Personal history of other venous thrombosis and embolism (principal); Z79.01 Long term (current) use of anticoagulants; Z51.81 Encounter for therapeutic drug level monitoring | CPT/HCPCS: 85610; 99211 ==

== ENCOUNTER 2023-04-13 08:27 | Outpatient (REF) | payer MEDICAID, SELFPAY | END 2023-04-13 08:28 | disposition home or self-care (01) | LOC: HO.MAMMO 08:27 | PROVIDERS: PCP Internal Medicine; Visit Provider Internal Medicine | DX: Z12.31 Encounter for screening mammogram for malignant neoplasm of breast (principal) | CPT/HCPCS: 77063; 77067 ==

== ENCOUNTER → 2023-04-13 08:30 | Outpatient (BNV) | payer MEDICAID, SELFPAY | PROVIDERS: PCP Internal Medicine; Visit Provider Radiology Diagnostic Radiology | DX: Z12.31 Encounter for screening mammogram for malignant neoplasm of breast (principal) | CPT/HCPCS: 77063; 77067 ==

== ENCOUNTER 2023-04-18 08:09 | Outpatient (AMB) | payer MEDICAID, SELFPAY ==
[2023-04-18 08:18] LABS: Prothrombin Time Whole Bld POC 34.9 sec (11.1-13.5); ~PT, ~INR - Anti Coag Clinic 2.9 (0.9-1.1)
--- NOTE | 2023-04-18 08:18 | MHC.OFFVISCO ---
Intake Intake Visit Reasons: Anticoagulation Allergies ciprofloxacin [From Cipro] Allergy (Unknown, Verified 04/18/23 08:14) RASH Sulfa (Sulfonamide Antibiotics) Allergy (Unknown, Verified 04/18/23 08:14) SWELLING/ITCHING, swelling topiramate [From TOPAMAX] Allergy (Unknown, Verified 04/18/23 08:14) DIZZY Medication List - Last Reconciled 04/18/23 by Latasha Chong RN acetaminophen ER (Mapap Arthritis Pain) 650 mg PO Q8H albuterol sulfate 2.5 mg inhalation Q4-6H PRN albuterol sulfate 90 mcg/actuation (ProAir HFA) 2 puffs inhalation Q6H PRN cholecalciferol (vitamin D3) 50 mcg PO DAILY 30 days fluticasone propionate 50 mcg/actuation (Flonase Allergy Relief) 1 spray intranasal DAILY fluticasone propionate 110 mcg/actuation (Flovent HFA) 2 puffs PO BID lisinopril 10 mg PO DAILY montelukast 10 mg PO DAILY omeprazole 20 mg PO DAILY ondansetron 4 mg PO TID sennosides-docusate sodium 8.6-50 mg (Senexon-S) 2 tabs PO BEDTIME sertraline 100 mg PO DAILY trazodone 50 mg PO BEDTIME triamcinolone acetonide 0.5% 1 appl topical BID warfarin See Protocol 5MG X4DAYS/ 7.5MG X3DAYS; Nursing Note INR: 2.9- in therapeutic range of 2-3 Medications and supplements reviewed- no changes No changes in health, diet, medications, or supplements, Denies any signs and symptoms of bleeding or bruising or clotting. 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
== END 2023-04-18 08:25 | disposition home or self-care (01) ==
LOC: HO.ACS 08:09
PROVIDERS: PCP Internal Medicine; Visit Provider Internal Medicine
DX: Z79.01 Long term (current) use of anticoagulants (principal)

== ENCOUNTER → 2023-04-18 08:09 | Outpatient (BNVA) | payer MEDICAID, SELFPAY | PROVIDERS: PCP Internal Medicine; Visit Provider Internal Medicine | DX: Z86.718 Personal history of other venous thrombosis and embolism (principal); Z79.01 Long term (current) use of anticoagulants; Z51.81 Encounter for therapeutic drug level monitoring | CPT/HCPCS: 85610; 99211 ==

== ENCOUNTER 2023-05-02 08:12 | Outpatient (AMB) | payer MEDICAID, SELFPAY ==
[2023-05-02 08:29] LABS: Prothrombin Time Whole Bld POC 36.5 sec (11.1-13.5)
--- NOTE | 2023-05-02 08:29 | MHC.OFFVISCO ---
Intake Intake Visit Reasons: Anticoagulation Allergies ciprofloxacin [From Cipro] Allergy (Unknown, Verified 05/02/23 08:24) RASH Sulfa (Sulfonamide Antibiotics) Allergy (Unknown, Verified 05/02/23 08:24) SWELLING/ITCHING, swelling topiramate [From TOPAMAX] Allergy (Unknown, Verified 05/02/23 08:24) DIZZY Medication List - Last Reconciled 05/02/23 by Latasha Chong RN acetaminophen ER (Mapap Arthritis Pain) 650 mg PO Q8H albuterol sulfate 2.5 mg inhalation Q4-6H PRN albuterol sulfate 90 mcg/actuation (ProAir HFA) 2 puffs inhalation Q6H PRN cholecalciferol (vitamin D3) 50 mcg PO DAILY 30 days fluticasone propionate 50 mcg/actuation (Flonase Allergy Relief) 1 spray intranasal DAILY fluticasone propionate 110 mcg/actuation (Flovent HFA) 2 puffs PO BID lisinopril 10 mg PO DAILY montelukast 10 mg PO DAILY omeprazole 20 mg PO DAILY ondansetron 4 mg PO TID sennosides-docusate sodium 8.6-50 mg (Senexon-S) 2 tabs PO BEDTIME sertraline 100 mg PO DAILY trazodone 50 mg PO BEDTIME triamcinolone acetonide 0.5% 1 appl topical BID warfarin See Protocol 5MG X4DAYS/ 7.5MG X3DAYS; Nursing Note INR: 3.0- in therapeutic range of 2-3 Medications and supplements reviewed- no changes No changes in health, diet, medications, or supplements, Denies any signs and symptoms of bleeding or bruising or clotting. Bleeding, bruising, clotting discussed Nutritional guidance given - eat a green today Dose: 5mg x 1, 7.5mg x 6 F/U INR: pt req 2 weeks Patient verbalizes understanding of instructions given Anti-Coag Initial Assessment Social Hx Patient Tobacco Use Status: Never used Tobacco alcohol intake: never Coding Level of Care Code Est Patient Level 1
== END 2023-05-02 09:30 | disposition home or self-care (01) ==
LOC: HO.ACS 08:12
PROVIDERS: PCP Internal Medicine; Visit Provider Internal Medicine
DX: Z79.01 Long term (current) use of anticoagulants (principal)

== ENCOUNTER → 2023-05-02 08:12 | Outpatient (BNVA) | payer MEDICAID, SELFPAY | PROVIDERS: PCP Internal Medicine; Visit Provider Internal Medicine | DX: Z86.718 Personal history of other venous thrombosis and embolism (principal); Z79.01 Long term (current) use of anticoagulants; Z51.81 Encounter for therapeutic drug level monitoring | CPT/HCPCS: 85610; 99211 ==

== ENCOUNTER 2023-05-16 08:08 | Outpatient (AMB) | payer MEDICAID, SELFPAY ==
[2023-05-16 08:15] LABS: Prothrombin Time Whole Bld POC 27.6 sec (11.1-13.5); ~PT, ~INR - Anti Coag Clinic 2.3 (0.9-1.1)
--- NOTE | 2023-05-16 08:22 | MHC.OFFVISCO ---
Intake Intake Visit Reasons: Anticoagulation Allergies ciprofloxacin [From Cipro] Allergy (Unknown, Verified 05/16/23 08:11) RASH Sulfa (Sulfonamide Antibiotics) Allergy (Unknown, Verified 05/16/23 08:11) SWELLING/ITCHING, swelling topiramate [From TOPAMAX] Allergy (Unknown, Verified 05/16/23 08:11) DIZZY Medication List - Last Reconciled 05/16/23 by Mara Lan RN acetaminophen ER (Mapap Arthritis Pain) 650 mg PO Q8H albuterol sulfate 2.5 mg inhalation Q4-6H PRN albuterol sulfate 90 mcg/actuation (ProAir HFA) 2 puffs inhalation Q6H PRN cholecalciferol (vitamin D3) 50 mcg PO DAILY 30 days fluticasone propionate 50 mcg/actuation (Flonase Allergy Relief) 1 spray intranasal DAILY fluticasone propionate 110 mcg/actuation (Flovent HFA) 2 puffs PO BID lisinopril 10 mg PO DAILY montelukast 10 mg PO DAILY omeprazole 20 mg PO DAILY ondansetron 4 mg PO TID sennosides-docusate sodium 8.6-50 mg (Senexon-S) 2 tabs PO BEDTIME sertraline 100 mg PO DAILY trazodone 50 mg PO BEDTIME triamcinolone acetonide 0.5% 1 appl topical BID warfarin See Protocol 5MG X4DAYS/ 7.5MG X3DAYS; Nursing Note NO CP,SOB,DIET/MED CHANGES,FALLS OR SX OF BLEEEDING. CONTINUE PRESENT DOSE AND FOLLOW-UP IN 2 WEEKS. 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
== END 2023-05-16 08:23 | disposition home or self-care (01) ==
LOC: HO.ACS 08:08
PROVIDERS: PCP Internal Medicine; Visit Provider Internal Medicine
DX: Z79.01 Long term (current) use of anticoagulants (principal)

== ENCOUNTER → 2023-05-16 08:08 | Outpatient (BNVA) | payer MEDICAID, SELFPAY | PROVIDERS: PCP Internal Medicine; Visit Provider Internal Medicine | DX: Z86.718 Personal history of other venous thrombosis and embolism (principal); Z79.01 Long term (current) use of anticoagulants; Z51.81 Encounter for therapeutic drug level monitoring | CPT/HCPCS: 85610; 99211 ==

== ENCOUNTER 2023-05-30 08:13 | Outpatient (AMB) | payer MEDICAID, SELFPAY ==
[2023-05-30 08:30] LABS: Prothrombin Time Whole Bld POC 32.3 sec (11.1-13.5); ~PT, ~INR - Anti Coag Clinic 2.7 (0.9-1.1)
--- NOTE | 2023-05-30 08:36 | MHC.OFFVISCO ---
Intake Intake Visit Reasons: Anticoagulation Allergies ciprofloxacin [From Cipro] Allergy (Unknown, Verified 05/30/23 08:22) RASH Sulfa (Sulfonamide Antibiotics) Allergy (Unknown, Verified 05/30/23 08:22) SWELLING/ITCHING, swelling topiramate [From TOPAMAX] Allergy (Unknown, Verified 05/30/23 08:22) DIZZY Medication List - Last Reconciled 05/30/23 by Emely Miranda RN acetaminophen ER (Mapap Arthritis Pain) 650 mg PO Q8H albuterol sulfate 2.5 mg inhalation Q4-6H PRN albuterol sulfate 90 mcg/actuation (ProAir HFA) 2 puffs inhalation Q6H PRN cholecalciferol (vitamin D3) 50 mcg PO DAILY 30 days fluticasone propionate 50 mcg/actuation (Flonase Allergy Relief) 1 spray intranasal DAILY fluticasone propionate 110 mcg/actuation (Flovent HFA) 2 puffs PO BID lisinopril 10 mg PO DAILY montelukast 10 mg PO DAILY omeprazole 20 mg PO DAILY ondansetron 4 mg PO TID sennosides-docusate sodium 8.6-50 mg (Senexon-S) 2 tabs PO BEDTIME sertraline 100 mg PO DAILY trazodone 50 mg PO BEDTIME triamcinolone acetonide 0.5% 1 appl topical BID warfarin See Protocol 5MG X4DAYS/ 7.5MG X3DAYS; Nursing Note INR: 2.7 in therapeutic range Medications and supplements reviewed No changes in health, diet, medications, or supplements, Denies any signs and symptoms of bleeding or bruising or clotting. Bleeding, bruising, clotting discussed Nutritional guidance given Dose: 5MG X 1 DAY/ 7.5MG X 6 DAYS F/U INR: 2 WEEKS Patient verbalizes understanding of instructions given Anti-Coag Initial Assessment Social Hx Patient Tobacco Use Status: Never used Tobacco alcohol intake: never Coding Level of Care Code Est Patient Level 1 Diagnoses Current use of anticoagulant therapy Z79.01 Assessment & Plan Assessment & Plan (1) Current use of anticoagulant therapy: Code(s): Z79.01 - nursing home (current) use of anticoagulants Category: Medical
== END 2023-05-30 08:43 | disposition home or self-care (01) ==
LOC: HO.ACS 08:13
PROVIDERS: PCP Internal Medicine; Visit Provider Internal Medicine
DX: Z79.01 Long term (current) use of anticoagulants (principal)

== ENCOUNTER → 2023-05-30 08:13 | Outpatient (BNVA) | payer MEDICAID, SELFPAY | PROVIDERS: PCP Internal Medicine; Visit Provider Internal Medicine | DX: Z86.718 Personal history of other venous thrombosis and embolism (principal); Z51.81 Encounter for therapeutic drug level monitoring; Z79.01 Long term (current) use of anticoagulants | CPT/HCPCS: 85610; 99211 ==

== ENCOUNTER 2023-06-13 08:16 | Outpatient (AMB) | payer MEDICAID, SELFPAY ==
[2023-06-13 08:40] LABS: Prothrombin Time Whole Bld POC 24.7 sec (11.1-13.5); ~PT, ~INR - Anti Coag Clinic 2.1 (0.9-1.1)
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
== END 2023-06-13 10:17 | disposition home or self-care (01) ==
LOC: HO.ACS 08:16
PROVIDERS: PCP Internal Medicine; Visit Provider Internal Medicine
DX: Z79.01 Long term (current) use of anticoagulants (principal)

== ENCOUNTER → 2023-06-13 08:16 | Outpatient (BNVA) | payer MEDICAID, SELFPAY | PROVIDERS: PCP Internal Medicine; Visit Provider Internal Medicine | DX: Z95.2 Presence of prosthetic heart valve (principal); Z51.81 Encounter for therapeutic drug level monitoring; Z79.01 Long term (current) use of anticoagulants | CPT/HCPCS: 85610; 99211 ==

== ENCOUNTER 2023-06-27 08:19 | Outpatient (AMB) | payer MEDICAID, SELFPAY ==
[2023-06-27 08:33] LABS: Prothrombin Time Whole Bld POC 36.2 sec (11.1-13.5)
--- NOTE | 2023-06-27 08:43 | MHC.OFFVISCO ---
Intake Intake Visit Reasons: Anticoagulation Allergies ciprofloxacin [From Cipro] Allergy (Unknown, Verified 06/27/23 08:23) RASH Sulfa (Sulfonamide Antibiotics) Allergy (Unknown, Verified 06/27/23 08:23) SWELLING/ITCHING, swelling topiramate [From TOPAMAX] Allergy (Unknown, Verified 06/27/23 08:23) DIZZY Medication List - Last Reconciled 06/27/23 by Emely Miranda RN acetaminophen ER (Mapap Arthritis Pain) 650 mg PO Q8H albuterol sulfate 2.5 mg inhalation Q4-6H PRN albuterol sulfate 90 mcg/actuation (ProAir HFA) 2 puffs inhalation Q6H PRN cholecalciferol (vitamin D3) 50 mcg PO DAILY 30 days fluticasone propionate 50 mcg/actuation (Flonase Allergy Relief) 1 spray intranasal DAILY fluticasone propionate 110 mcg/actuation (Flovent HFA) 2 puffs PO BID lisinopril 10 mg PO DAILY montelukast 10 mg PO DAILY omeprazole 20 mg PO DAILY ondansetron 4 mg PO TID sennosides-docusate sodium 8.6-50 mg (Senexon-S) 2 tabs PO BEDTIME sertraline 100 mg PO DAILY trazodone 50 mg PO BEDTIME triamcinolone acetonide 0.5% 1 appl topical BID warfarin See Protocol 5MG X4DAYS/ 7.5MG X3DAYS; Nursing Note INR: 3.0 in therapeutic range Medications and supplements reviewed No changes in health, diet, medications, or supplements, Denies any signs and symptoms of bleeding or bruising or clotting. has some scratches from son but issues with son are being addressed and improving. Bleeding, bruising, clotting discussed Nutritional guidance given encouraged pt to remember her weekly greens Dose: continue same F/U INR: 2 weeks. 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
== END 2023-06-27 09:04 | disposition home or self-care (01) ==
LOC: HO.ACS 08:19
PROVIDERS: PCP Internal Medicine; Visit Provider Internal Medicine
DX: Z79.01 Long term (current) use of anticoagulants (principal)

== ENCOUNTER → 2023-06-27 08:19 | Outpatient (BNVA) | payer MEDICAID, SELFPAY | PROVIDERS: PCP Internal Medicine; Visit Provider Internal Medicine | DX: Z86.718 Personal history of other venous thrombosis and embolism (principal); Z79.01 Long term (current) use of anticoagulants; Z51.81 Encounter for therapeutic drug level monitoring | CPT/HCPCS: 85610; 99211 ==

== ENCOUNTER 2023-07-11 08:13 | Outpatient (AMB) | payer MEDICAID, SELFPAY ==
--- NOTE | 2023-07-11 08:29 | MHC.OFFVISCO ---
Intake Intake Visit Reasons: Anticoagulation Allergies ciprofloxacin [From Cipro] Allergy (Unknown, Verified 07/11/23 08:26) RASH Sulfa (Sulfonamide Antibiotics) Allergy (Unknown, Verified 07/11/23 08:26) SWELLING/ITCHING, swelling topiramate [From TOPAMAX] Allergy (Unknown, Verified 07/11/23 08:26) DIZZY Medication List - Last Reconciled 07/11/23 by Latasha Chong RN acetaminophen ER (Mapap Arthritis Pain) 650 mg PO Q8H albuterol sulfate 2.5 mg inhalation Q4-6H PRN albuterol sulfate 90 mcg/actuation (ProAir HFA) 2 puffs inhalation Q6H PRN cholecalciferol (vitamin D3) 50 mcg PO DAILY 30 days fluticasone propionate 50 mcg/actuation (Flonase Allergy Relief) 1 spray intranasal DAILY fluticasone propionate 110 mcg/actuation (Flovent HFA) 2 puffs PO BID lisinopril 10 mg PO DAILY montelukast 10 mg PO DAILY omeprazole 20 mg PO DAILY ondansetron 4 mg PO TID sennosides-docusate sodium 8.6-50 mg (Senexon-S) 2 tabs PO BEDTIME sertraline 100 mg PO DAILY trazodone 50 mg PO BEDTIME triamcinolone acetonide 0.5% 1 appl topical BID warfarin See Protocol 5MG X4DAYS/ 7.5MG X3DAYS; Nursing Note INR: 2.9- in therapeutic range of 2-3 Medications and supplements reviewed- no changes No changes in health, diet, medications, or supplements, Denies any signs and symptoms of bleeding or bruising or clotting. Bleeding, bruising, clotting discussed Nutritional guidance given Dose: 5mg x 1. 7.5mg x 6 F/U INR: 2 weeks Patient verbalizes understanding of instructions given Anti-Coag Initial Assessment Social Hx Patient Tobacco Use Status: Never used Tobacco alcohol intake: never Coding Level of Care Code Est Patient Level 1 Diagnoses Current use of anticoagulant therapy Z79.01 Assessment & Plan Assessment & Plan (1) Current use of anticoagulant therapy: Code(s): Z79.01 - [facility] (current) use of anticoagulants Category: Medical Medications: Changed From warfarin See Protocol 5MG X4DAYS/ 7.5MG X3DAYS; 90 tabs 0RF To warfarin See Protocol 7.5mg x 6, 5mg x 1 90 tabs 0RF
[2023-07-11 08:30] LABS: Prothrombin Time Whole Bld POC 34.6 sec (11.1-13.5); ~PT, ~INR - Anti Coag Clinic 2.9 (0.9-1.1)
== END 2023-07-11 08:36 | disposition home or self-care (01) ==
LOC: HO.ACS 08:13
PROVIDERS: PCP Internal Medicine; Visit Provider Internal Medicine
DX: Z79.01 Long term (current) use of anticoagulants (principal)

== ENCOUNTER → 2023-07-11 08:13 | Outpatient (BNVA) | payer MEDICAID, SELFPAY | PROVIDERS: PCP Internal Medicine; Visit Provider Internal Medicine | DX: Z86.718 Personal history of other venous thrombosis and embolism (principal); Z79.01 Long term (current) use of anticoagulants; Z51.81 Encounter for therapeutic drug level monitoring | CPT/HCPCS: 85610; 99211 ==

== ENCOUNTER 2023-07-25 08:08 | Outpatient (AMB) | payer MEDICAID, SELFPAY ==
--- NOTE | 2023-07-25 08:29 | MHC.OFFVISCO ---
Intake Intake Visit Reasons: Anticoagulation Allergies ciprofloxacin [From Cipro] Allergy (Unknown, Verified 07/25/23 08:26) RASH Sulfa (Sulfonamide Antibiotics) Allergy (Unknown, Verified 07/25/23 08:26) SWELLING/ITCHING, swelling topiramate [From TOPAMAX] Allergy (Unknown, Verified 07/25/23 08:26) DIZZY Medication List - Last Reconciled 07/25/23 by Latasha Chong RN acetaminophen ER (Mapap Arthritis Pain) 650 mg PO Q8H albuterol sulfate 2.5 mg inhalation Q4-6H PRN albuterol sulfate 90 mcg/actuation (ProAir HFA) 2 puffs inhalation Q6H PRN cholecalciferol (vitamin D3) 50 mcg PO DAILY 30 days fluticasone propionate 50 mcg/actuation (Flonase Allergy Relief) 1 spray intranasal DAILY fluticasone propionate 110 mcg/actuation (Flovent HFA) 2 puffs PO BID lisinopril 10 mg PO DAILY montelukast 10 mg PO DAILY omeprazole 20 mg PO DAILY ondansetron 4 mg PO TID sennosides-docusate sodium 8.6-50 mg (Senexon-S) 2 tabs PO BEDTIME sertraline 100 mg PO DAILY trazodone 50 mg PO BEDTIME triamcinolone acetonide 0.5% 1 appl topical BID warfarin See Protocol 7.5mg x 6, 5mg x 1 Nursing Note INR: 2.9- in therapeutic range of 2-3 Medications and supplements reviewed- no changes No changes in health, diet, medications, or supplements, Denies any signs and symptoms of bleeding or bruising or clotting. 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
[2023-07-25 08:30] LABS: ~PT, ~INR - Anti Coag Clinic 2.9 (0.9-1.1)
== END 2023-07-25 08:37 | disposition home or self-care (01) ==
LOC: HO.ACS 08:08
PROVIDERS: PCP Internal Medicine; Visit Provider Internal Medicine
DX: Z79.01 Long term (current) use of anticoagulants (principal)

== ENCOUNTER → 2023-07-25 08:08 | Outpatient (BNVA) | payer MEDICAID, SELFPAY | PROVIDERS: PCP Internal Medicine; Visit Provider Internal Medicine | DX: Z86.718 Personal history of other venous thrombosis and embolism (principal); Z79.01 Long term (current) use of anticoagulants; Z51.81 Encounter for therapeutic drug level monitoring | CPT/HCPCS: 85610; 99211 ==

== ENCOUNTER 2023-08-08 08:10 | Outpatient (AMB) | payer MEDICAID, SELFPAY ==
[2023-08-08 08:41] LABS: Prothrombin Time Whole Bld POC 22.4 sec (11.1-13.5); ~PT, ~INR - Anti Coag Clinic 1.9 (0.9-1.1)
--- NOTE | 2023-08-08 08:49 | MHC.OFFVISCO ---
Intake Intake Visit Reasons: Anticoagulation Allergies ciprofloxacin [From Cipro] Allergy (Unknown, Verified 08/08/23 08:37) RASH Sulfa (Sulfonamide Antibiotics) Allergy (Unknown, Verified 08/08/23 08:37) SWELLING/ITCHING, swelling topiramate [From TOPAMAX] Allergy (Unknown, Verified 08/08/23 08:37) DIZZY Medication List - Last Reconciled 08/08/23 by Fior Turpin RN acetaminophen ER (Mapap Arthritis Pain) 650 mg PO Q8H albuterol sulfate 2.5 mg inhalation Q4-6H PRN albuterol sulfate 90 mcg/actuation (ProAir HFA) 2 puffs inhalation Q6H PRN cholecalciferol (vitamin D3) 50 mcg PO DAILY 30 days fluticasone propionate 50 mcg/actuation (Flonase Allergy Relief) 1 spray intranasal DAILY fluticasone propionate 110 mcg/actuation (Flovent HFA) 2 puffs PO BID lisinopril 10 mg PO DAILY montelukast 10 mg PO DAILY omeprazole 20 mg PO DAILY ondansetron 4 mg PO TID sennosides-docusate sodium 8.6-50 mg (Senexon-S) 2 tabs PO BEDTIME sertraline 100 mg PO DAILY trazodone 50 mg PO BEDTIME triamcinolone acetonide 0.5% 1 appl topical BID warfarin See Protocol 7.5mg x 6, 5mg x 1 Nursing Note INR: 1.9 out of therapeutic range of 2-3 Pt thinks she might have missed a dose Medications and supplements reviewed No changes in health, diet, medications, or supplements, Denies any signs and symptoms of bleeding or bruising or clotting. 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
== END 2023-08-08 08:53 | disposition home or self-care (01) ==
LOC: HO.ACS 08:10
PROVIDERS: PCP Internal Medicine; Visit Provider Internal Medicine
DX: Z79.01 Long term (current) use of anticoagulants (principal)

== ENCOUNTER → 2023-08-08 08:10 | Outpatient (BNVA) | payer MEDICAID, SELFPAY | PROVIDERS: PCP Internal Medicine; Visit Provider Internal Medicine | DX: Z86.718 Personal history of other venous thrombosis and embolism (principal); Z79.01 Long term (current) use of anticoagulants; Z51.81 Encounter for therapeutic drug level monitoring | CPT/HCPCS: 85610; 99211 ==

== ENCOUNTER 2023-08-22 08:07 | Outpatient (AMB) | payer MEDICAID, SELFPAY ==
[2023-08-22 08:31] LABS: ~PT, ~INR - Anti Coag Clinic 3.3 (0.9-1.1)
--- NOTE | 2023-08-22 08:31 | MHC.OFFVISCO ---
Intake Intake Visit Reasons: Anticoagulation Allergies ciprofloxacin [From Cipro] Allergy (Unknown, Verified 08/22/23 08:27) RASH Sulfa (Sulfonamide Antibiotics) Allergy (Unknown, Verified 08/22/23 08:27) SWELLING/ITCHING, swelling topiramate [From TOPAMAX] Allergy (Unknown, Verified 08/22/23 08:27) DIZZY Medication List - Last Reconciled 08/22/23 by Latasha Chong RN acetaminophen ER (Mapap Arthritis Pain) 650 mg PO Q8H albuterol sulfate 2.5 mg inhalation Q4-6H PRN albuterol sulfate 90 mcg/actuation (ProAir HFA) 2 puffs inhalation Q6H PRN cholecalciferol (vitamin D3) 50 mcg PO DAILY 30 days fluticasone propionate 50 mcg/actuation (Flonase Allergy Relief) 1 spray intranasal DAILY fluticasone propionate 110 mcg/actuation (Flovent HFA) 2 puffs PO BID lisinopril 10 mg PO DAILY montelukast 10 mg PO DAILY omeprazole 20 mg PO DAILY ondansetron 4 mg PO TID sennosides-docusate sodium 8.6-50 mg (Senexon-S) 2 tabs PO BEDTIME sertraline 100 mg PO DAILY trazodone 50 mg PO BEDTIME triamcinolone acetonide 0.5% 1 appl topical BID warfarin See Protocol 7.5mg x 6, 5mg x 1 Nursing Note INR3.3-?? out of therapeutic range of 2-3 Medications and supplements reviewed Patient status: no c.o Medications or supplements: no changes, took tylenol for headache Diet: same Denies any signs and symptoms of bleeding or clotting or unusual bruising Bleeding, bruising, clotting discussed Nutritional guidance given: eat a green today Dose: 5mg today, then cont reg 5mg x 1. 7.5mg x 6 F/U INR Date : 2 weeks?? Patient verbalizing understanding of instructions given. Anti-Coag Initial Assessment Social Hx Patient Tobacco Use Status: Never used Tobacco alcohol intake: never Coding Level of Care Code Est Patient Level 1 Diagnoses Current use of anticoagulant therapy Z79.01 Assessment & Plan Assessment & Plan (1) Current use of anticoagulant therapy: Code(s): Z79.01 - [facility] (current) use of anticoagulants Category: Medical
== END 2023-08-22 08:36 | disposition home or self-care (01) ==
LOC: HO.ACS 08:07
PROVIDERS: PCP Internal Medicine; Visit Provider Internal Medicine
DX: Z79.01 Long term (current) use of anticoagulants (principal)

== ENCOUNTER → 2023-08-22 08:07 | Outpatient (BNVA) | payer MEDICAID, SELFPAY | PROVIDERS: PCP Internal Medicine; Visit Provider Internal Medicine | DX: Z86.718 Personal history of other venous thrombosis and embolism (principal); Z79.01 Long term (current) use of anticoagulants; Z51.81 Encounter for therapeutic drug level monitoring | CPT/HCPCS: 85610; 99211 ==

== ENCOUNTER 2023-09-12 08:20 | Outpatient (AMB) | payer MEDICAID, SELFPAY ==
--- NOTE | 2023-09-12 08:35 | MHC.OFFVISCO ---
Intake Intake Visit Reasons: Anticoagulation Allergies ciprofloxacin [From Cipro] Allergy (Unknown, Verified 09/12/23 08:32) RASH Sulfa (Sulfonamide Antibiotics) Allergy (Unknown, Verified 09/12/23 08:32) SWELLING/ITCHING, swelling topiramate [From TOPAMAX] Allergy (Unknown, Verified 09/12/23 08:32) DIZZY Medication List - Last Reconciled 09/12/23 by Latasha Chong RN acetaminophen ER (Mapap Arthritis Pain) 650 mg PO Q8H albuterol sulfate 2.5 mg inhalation Q4-6H PRN albuterol sulfate 90 mcg/actuation (ProAir HFA) 2 puffs inhalation Q6H PRN cholecalciferol (vitamin D3) 50 mcg PO DAILY 30 days fluticasone propionate 50 mcg/actuation (Flonase Allergy Relief) 1 spray intranasal DAILY fluticasone propionate 110 mcg/actuation (Flovent HFA) 2 puffs PO BID lisinopril 10 mg PO DAILY montelukast 10 mg PO DAILY omeprazole 20 mg PO DAILY ondansetron 4 mg PO TID sennosides-docusate sodium 8.6-50 mg (Senexon-S) 2 tabs PO BEDTIME sertraline 100 mg PO DAILY trazodone 50 mg PO BEDTIME triamcinolone acetonide 0.5% 1 appl topical BID warfarin See Protocol 7.5mg x 6, 5mg x 1 Nursing Note INR 3.2-?? out of therapeutic range of 2-3 Medications and supplements reviewed Patient status: increased stress Medications or supplements: nop changes Diet: less Denies any signs and symptoms of bleeding or clotting or unusual bruising Bleeding, bruising, clotting discussed Nutritional guidance given: eat greens to lower Dose: 5mg x 1, 7.5mg x 6 F/U INR Date : req 1 week? Patient verbalizing understanding of instructions given. pt states may start garlique for cholesterol management- aware may raise inr Anti-Coag Initial Assessment Social Hx Patient Tobacco Use Status: Never used Tobacco alcohol intake: never Coding Level of Care Code Est Patient Level 1 Diagnoses Current use of anticoagulant therapy Z79.01 Assessment & Plan Assessment & Plan (1) Current use of anticoagulant therapy: Code(s): Z79.01 - residential (current) use of anticoagulants Category: Medical
[2023-09-12 08:36] LABS: Prothrombin Time Whole Bld POC 38.7 sec (11.1-13.5); ~PT, ~INR - Anti Coag Clinic 3.2 (0.9-1.1)
== END 2023-09-12 08:44 | disposition home or self-care (01) ==
LOC: HO.ACS 08:20
PROVIDERS: PCP Internal Medicine; Visit Provider Internal Medicine
DX: Z79.01 Long term (current) use of anticoagulants (principal)

== ENCOUNTER → 2023-09-12 08:20 | Outpatient (BNVA) | payer MEDICAID, SELFPAY | PROVIDERS: PCP Internal Medicine; Visit Provider Internal Medicine | DX: Z86.718 Personal history of other venous thrombosis and embolism (principal); Z51.81 Encounter for therapeutic drug level monitoring; Z79.01 Long term (current) use of anticoagulants | CPT/HCPCS: 85610; 99211 ==

== ENCOUNTER 2023-09-19 08:06 | Outpatient (AMB) | payer MEDICAID, SELFPAY ==
[2023-09-19 08:18] LABS: ~PT, ~INR - Anti Coag Clinic 2.9 (0.9-1.1)
--- NOTE | 2023-09-19 08:23 | MHC.OFFVISCO ---
Intake Intake Visit Reasons: Anticoagulation Allergies ciprofloxacin [From Cipro] Allergy (Unknown, Verified 09/19/23 08:13) RASH Sulfa (Sulfonamide Antibiotics) Allergy (Unknown, Verified 09/19/23 08:13) SWELLING/ITCHING, swelling topiramate [From TOPAMAX] Allergy (Unknown, Verified 09/19/23 08:13) DIZZY Medication List - Last Reconciled 09/19/23 by Mara Lan RN acetaminophen ER (Mapap Arthritis Pain) 650 mg PO Q8H albuterol sulfate 2.5 mg inhalation Q4-6H PRN albuterol sulfate 90 mcg/actuation (ProAir HFA) 2 puffs inhalation Q6H PRN cholecalciferol (vitamin D3) 50 mcg PO DAILY 30 days fluticasone propionate 50 mcg/actuation (Flonase Allergy Relief) 1 spray intranasal DAILY fluticasone propionate 110 mcg/actuation (Flovent HFA) 2 puffs PO BID lisinopril 10 mg PO DAILY montelukast 10 mg PO DAILY omeprazole 20 mg PO DAILY ondansetron 4 mg PO TID sennosides-docusate sodium 8.6-50 mg (Senexon-S) 2 tabs PO BEDTIME sertraline 100 mg PO DAILY trazodone 50 mg PO BEDTIME triamcinolone acetonide 0.5% 1 appl topical BID warfarin See Protocol 7.5mg x 6, 5mg x 1 Nursing Note NO CP,SOB,DIET/MED CHANGES,FALLS OR SX OF BLEEDING. CONTINUE PRESENT DOSE AND FOLLOW-UP IN 2 WEEKS. GOOD UNDERSTANDING OF DOASING INSTR. 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
== END 2023-09-19 08:24 | disposition home or self-care (01) ==
LOC: HO.ACS 08:06
PROVIDERS: PCP Internal Medicine; Visit Provider Internal Medicine
DX: Z79.01 Long term (current) use of anticoagulants (principal)

== ENCOUNTER → 2023-09-19 08:06 | Outpatient (BNVA) | payer MEDICAID, SELFPAY | PROVIDERS: PCP Internal Medicine; Visit Provider Internal Medicine | DX: I82.502 Chronic embolism and thrombosis of unspecified deep veins of left lower extremity (principal); Z79.01 Long term (current) use of anticoagulants; Z51.81 Encounter for therapeutic drug level monitoring | CPT/HCPCS: 85610; 99211 ==

== ENCOUNTER 2023-10-02 08:54 | Outpatient (AMB) | payer MEDICAID, SELFPAY ==
[2023-10-02 09:01] LABS: Prothrombin Time Whole Bld POC 32.7 sec (11.1-13.5); ~PT, ~INR - Anti Coag Clinic 2.7 (0.9-1.1)
--- NOTE | 2023-10-02 09:02 | MHC.OFFVISCO ---
Intake Intake Visit Reasons: Anticoagulation Allergies ciprofloxacin [From Cipro] Allergy (Unknown, Verified 10/02/23 08:55) RASH Sulfa (Sulfonamide Antibiotics) Allergy (Unknown, Verified 10/02/23 08:55) SWELLING/ITCHING, swelling topiramate [From TOPAMAX] Allergy (Unknown, Verified 10/02/23 08:55) DIZZY Medication List - Last Reconciled 10/02/23 by Emely Miranda RN acetaminophen ER (Mapap Arthritis Pain) 650 mg PO Q8H albuterol sulfate 2.5 mg inhalation Q4-6H PRN albuterol sulfate 90 mcg/actuation (ProAir HFA) 2 puffs inhalation Q6H PRN cholecalciferol (vitamin D3) 50 mcg PO DAILY 30 days fluticasone propionate 50 mcg/actuation (Flonase Allergy Relief) 1 spray intranasal DAILY fluticasone propionate 110 mcg/actuation (Flovent HFA) 2 puffs PO BID lisinopril 10 mg PO DAILY montelukast 10 mg PO DAILY omeprazole 20 mg PO DAILY ondansetron 4 mg PO TID sennosides-docusate sodium 8.6-50 mg (Senexon-S) 2 tabs PO BEDTIME sertraline 100 mg PO DAILY trazodone 50 mg PO BEDTIME triamcinolone acetonide 0.5% 1 appl topical BID warfarin See Protocol 7.5mg x 6, 5mg x 1 Nursing Note INR: 2.7 in therapeutic range Medications and supplements reviewed No changes in health, diet, medications, or supplements, Denies any signs and symptoms of bleeding or bruising or clotting. 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
== END 2023-10-02 09:14 | disposition home or self-care (01) ==
LOC: HO.ACS 08:54
PROVIDERS: PCP Internal Medicine; Visit Provider Internal Medicine
DX: Z79.01 Long term (current) use of anticoagulants (principal)

== ENCOUNTER → 2023-10-02 08:54 | Outpatient (BNVA) | payer MEDICAID, SELFPAY | PROVIDERS: PCP Internal Medicine; Visit Provider Internal Medicine | DX: Z86.718 Personal history of other venous thrombosis and embolism (principal); Z51.81 Encounter for therapeutic drug level monitoring; Z79.01 Long term (current) use of anticoagulants | CPT/HCPCS: 85610; 99211 ==

== ENCOUNTER 2023-10-16 08:08 | Outpatient (AMB) | payer MEDICAID, SELFPAY ==
--- NOTE | 2023-10-16 08:22 | MHC.OFFVISCO ---
Intake Intake Visit Reasons: Anticoagulation Allergies ciprofloxacin [From Cipro] Allergy (Unknown, Verified 10/16/23 08:12) RASH Sulfa (Sulfonamide Antibiotics) Allergy (Unknown, Verified 10/16/23 08:12) SWELLING/ITCHING, swelling topiramate [From TOPAMAX] Allergy (Unknown, Verified 10/16/23 08:12) DIZZY Medication List - Last Reconciled 10/16/23 by Emely iMranda RN acetaminophen ER (Mapap Arthritis Pain) 650 mg PO Q8H albuterol sulfate 2.5 mg inhalation Q4-6H PRN albuterol sulfate 90 mcg/actuation (ProAir HFA) 2 puffs inhalation Q6H PRN cholecalciferol (vitamin D3) 50 mcg PO DAILY 30 days fluticasone propionate 50 mcg/actuation (Flonase Allergy Relief) 1 spray intranasal DAILY fluticasone propionate 110 mcg/actuation (Flovent HFA) 2 puffs PO BID lisinopril 10 mg PO DAILY montelukast 10 mg PO DAILY omeprazole 20 mg PO DAILY ondansetron 4 mg PO TID sennosides-docusate sodium 8.6-50 mg (Senexon-S) 2 tabs PO BEDTIME sertraline 100 mg PO DAILY trazodone 50 mg PO BEDTIME triamcinolone acetonide 0.5% 1 appl topical BID warfarin See Protocol 7.5mg x 6, 5mg x 1 Nursing Note INR: 2.3 in therapeutic range Medications and supplements reviewed had a vein ligation last week and having another this week , staying on warfarin, procedure went well Denies any signs and symptoms of bleeding or bruising or clotting. Bleeding, bruising, clotting discussed Nutritional guidance given - eat a mix of fruits and vegetables Dose: keep same dose 5mg x 1 day/ 7.5mg x 6 days F/U INR: 2 weeks Patient verbalizes understanding of instructions given Anti-Coag Initial Assessment Social Hx Patient Tobacco Use Status: Never used Tobacco alcohol intake: never Coding Level of Care Code Est Patient Level 1 Diagnoses Current use of anticoagulant therapy Z79.01 Results AMB INR Fingerstick AMB INR Fingerstick 2.3 Last Edit by Emely Miranda RN on 10/16/23 08:20 manual entry Assessment & Plan Assessment & Plan (1) Current use of anticoagulant therapy: Code(s): Z79.01 - [facility] (current) use of anticoagulants Category: Medical
[2023-10-16 08:32] LABS: Prothrombin Time Whole Bld POC 27.3 sec (11.1-13.5); ~PT, ~INR - Anti Coag Clinic 2.3 (0.9-1.1)
== END 2023-10-16 08:24 | disposition home or self-care (01) ==
LOC: HO.ACS 08:08
PROVIDERS: PCP Internal Medicine; Visit Provider Internal Medicine
DX: Z79.01 Long term (current) use of anticoagulants (principal)

== ENCOUNTER → 2023-10-16 08:08 | Outpatient (BNVA) | payer MEDICAID, SELFPAY | PROVIDERS: PCP Internal Medicine; Visit Provider Internal Medicine | DX: Z86.718 Personal history of other venous thrombosis and embolism (principal); Z51.81 Encounter for therapeutic drug level monitoring; Z79.01 Long term (current) use of anticoagulants | CPT/HCPCS: 85610; 99211 ==

== ENCOUNTER 2023-10-31 08:13 | Outpatient (AMB) | payer MEDICAID, SELFPAY ==
--- NOTE | 2023-10-31 08:27 | MHC.OFFVISCO ---
Intake Intake Visit Reasons: Anticoagulation Allergies ciprofloxacin [From Cipro] Allergy (Unknown, Verified 10/31/23 08:23) RASH Sulfa (Sulfonamide Antibiotics) Allergy (Unknown, Verified 10/31/23 08:23) SWELLING/ITCHING, swelling topiramate [From TOPAMAX] Allergy (Unknown, Verified 10/31/23 08:23) DIZZY Medication List - Last Reconciled 10/31/23 by Latasha Chong RN acetaminophen ER (Mapap Arthritis Pain) 650 mg PO Q8H albuterol sulfate 2.5 mg inhalation Q4-6H PRN albuterol sulfate 90 mcg/actuation (ProAir HFA) 2 puffs inhalation Q6H PRN cholecalciferol (vitamin D3) 50 mcg PO DAILY 30 days fluticasone propionate 50 mcg/actuation (Flonase Allergy Relief) 1 spray intranasal DAILY fluticasone propionate 110 mcg/actuation (Flovent HFA) 2 puffs PO BID lisinopril 10 mg PO DAILY montelukast 10 mg PO DAILY omeprazole 20 mg PO DAILY ondansetron 4 mg PO TID sennosides-docusate sodium 8.6-50 mg (Senexon-S) 2 tabs PO BEDTIME sertraline 100 mg PO DAILY trazodone 50 mg PO BEDTIME triamcinolone acetonide 0.5% 1 appl topical BID warfarin See Protocol 7.5mg x 6, 5mg x 1 Nursing Note INR: 2.5- in therapeutic range of 2-5 Medications and supplements reviewed- no changes No changes in health, diet, medications, or supplements, Denies any signs and symptoms of bleeding or bruising or clotting. Bleeding, bruising, clotting discussed Nutritional guidance given Dose: 5mg x 1. 7.5mg x 6 F/U INR: 2 weeks Patient verbalizes understanding of instructions given pt states taking olive oil for cholesterol, also eating almonds and avocados Anti-Coag Initial Assessment Social Hx Patient Tobacco Use Status: Never used Tobacco alcohol intake: never Coding Level of Care Code Est Patient Level 1 Diagnoses Current use of anticoagulant therapy Z79.01 Assessment & Plan Assessment & Plan (1) Current use of anticoagulant therapy: Code(s): Z79.01 - longterm (current) use of anticoagulants Category: Medical
[2023-10-31 08:29] LABS: Prothrombin Time Whole Bld POC 30.1 sec (11.1-13.5); ~PT, ~INR - Anti Coag Clinic 2.5 (0.9-1.1)
== END 2023-10-31 08:33 | disposition home or self-care (01) ==
LOC: HO.ACS 08:13
PROVIDERS: PCP Internal Medicine; Visit Provider Internal Medicine
DX: Z79.01 Long term (current) use of anticoagulants (principal)

== ENCOUNTER → 2023-10-31 08:13 | Outpatient (BNVA) | payer MEDICAID, SELFPAY | PROVIDERS: PCP Internal Medicine; Visit Provider Internal Medicine | DX: Z86.718 Personal history of other venous thrombosis and embolism (principal); Z79.01 Long term (current) use of anticoagulants; Z51.81 Encounter for therapeutic drug level monitoring | CPT/HCPCS: 85610; 99211 ==

== ENCOUNTER 2023-11-14 08:06 | Outpatient (AMB) | payer MEDICAID, SELFPAY ==
[2023-11-14 08:13] LABS: Prothrombin Time Whole Bld POC 30.9 sec (11.1-13.5); ~PT, ~INR - Anti Coag Clinic 2.6 (0.9-1.1)
--- NOTE | 2023-11-14 08:16 | MHC.OFFVISCO ---
Intake Intake Visit Reasons: Anticoagulation Allergies ciprofloxacin [From Cipro] Allergy (Unknown, Verified 11/14/23 08:08) RASH Sulfa (Sulfonamide Antibiotics) Allergy (Unknown, Verified 11/14/23 08:08) SWELLING/ITCHING, swelling topiramate [From TOPAMAX] Allergy (Unknown, Verified 11/14/23 08:08) DIZZY Medication List - Last Reconciled 11/14/23 by Mara Lan RN acetaminophen ER (Mapap Arthritis Pain) 650 mg PO Q8H albuterol sulfate 2.5 mg inhalation Q4-6H PRN albuterol sulfate 90 mcg/actuation (ProAir HFA) 2 puffs inhalation Q6H PRN cholecalciferol (vitamin D3) 50 mcg PO DAILY 30 days fluticasone propionate 50 mcg/actuation (Flonase Allergy Relief) 1 spray intranasal DAILY fluticasone propionate 110 mcg/actuation (Flovent HFA) 2 puffs PO BID lisinopril 10 mg PO DAILY montelukast 10 mg PO DAILY omeprazole 20 mg PO DAILY ondansetron 4 mg PO TID sennosides-docusate sodium 8.6-50 mg (Senexon-S) 2 tabs PO BEDTIME sertraline 100 mg PO DAILY trazodone 50 mg PO BEDTIME triamcinolone acetonide 0.5% 1 appl topical BID warfarin See Protocol 7.5mg x 6, 5mg x 1 Nursing Note NO CP,SOB,DIET/MED CHANGES,FALLS OR SX OF BLEEDING. CONTINUE PRESENT DOSE AND FOLLOW-UP MARTÍN 2 WEEKS. GOOD UNDERSTANDING OF DOSING INSTR. 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
== END 2023-11-14 08:21 | disposition home or self-care (01) ==
LOC: HO.ACS 08:06
PROVIDERS: PCP Internal Medicine; Visit Provider Internal Medicine
DX: Z79.01 Long term (current) use of anticoagulants (principal)

== ENCOUNTER → 2023-11-14 08:06 | Outpatient (BNVA) | payer MEDICAID, SELFPAY | PROVIDERS: PCP Internal Medicine; Visit Provider Internal Medicine | DX: Z86.718 Personal history of other venous thrombosis and embolism (principal); Z79.01 Long term (current) use of anticoagulants; Z51.81 Encounter for therapeutic drug level monitoring | CPT/HCPCS: 85610; 99211 ==

== ENCOUNTER 2023-11-28 08:01 | Outpatient (AMB) | payer MEDICAID, SELFPAY ==
[2023-11-28 08:14] LABS: ~PT, ~INR - Anti Coag Clinic 2.8 (0.9-1.1)
--- NOTE | 2023-11-28 08:25 | MHC.OFFVISCO ---
Intake Intake Visit Reasons: Anticoagulation Allergies ciprofloxacin [From Cipro] Allergy (Unknown, Verified 11/28/23 08:09) RASH Sulfa (Sulfonamide Antibiotics) Allergy (Unknown, Verified 11/28/23 08:09) SWELLING/ITCHING, swelling topiramate [From TOPAMAX] Allergy (Unknown, Verified 11/28/23 08:09) DIZZY Medication List - Last Reconciled 11/28/23 by Mara Lan RN acetaminophen ER (Mapap Arthritis Pain) 650 mg PO Q8H albuterol sulfate 2.5 mg inhalation Q4-6H PRN albuterol sulfate 90 mcg/actuation (ProAir HFA) 2 puffs inhalation Q6H PRN cholecalciferol (vitamin D3) 50 mcg PO DAILY 30 days fluticasone propionate 50 mcg/actuation (Flonase Allergy Relief) 1 spray intranasal DAILY fluticasone propionate 110 mcg/actuation (Flovent HFA) 2 puffs PO BID lisinopril 10 mg PO DAILY montelukast 10 mg PO DAILY omeprazole 20 mg PO DAILY ondansetron 4 mg PO TID sennosides-docusate sodium 8.6-50 mg (Senexon-S) 2 tabs PO BEDTIME sertraline 100 mg PO DAILY trazodone 50 mg PO BEDTIME triamcinolone acetonide 0.5% 1 appl topical BID warfarin See Protocol 7.5mg x 6, 5mg x 1 Nursing Note no cp,sob,diet/med changes,falls or sx of bleeding. continue present dose and follow-up in 2 weeks. good understanding of dosing instr. 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
== END 2023-11-28 08:26 | disposition home or self-care (01) ==
LOC: HO.ACS 08:01
PROVIDERS: PCP Internal Medicine; Visit Provider Internal Medicine
DX: Z79.01 Long term (current) use of anticoagulants (principal)

== ENCOUNTER → 2023-11-28 08:01 | Outpatient (BNVA) | payer MEDICAID, SELFPAY | PROVIDERS: PCP Internal Medicine; Visit Provider Internal Medicine | DX: Z86.718 Personal history of other venous thrombosis and embolism (principal); Z79.01 Long term (current) use of anticoagulants; Z51.81 Encounter for therapeutic drug level monitoring | CPT/HCPCS: 85610; 99211 ==

== ENCOUNTER 2023-12-11 09:09 | Outpatient (AMB) | payer MEDICAID, SELFPAY ==
--- NOTE | 2023-12-11 09:27 | MHC.OFFVISCO ---
Intake Intake Visit Reasons: Anticoagulation Allergies ciprofloxacin [From Cipro] Allergy (Unknown, Verified 12/11/23 09:23) RASH Sulfa (Sulfonamide Antibiotics) Allergy (Unknown, Verified 12/11/23 09:23) SWELLING/ITCHING, swelling topiramate [From TOPAMAX] Allergy (Unknown, Verified 12/11/23 09:23) DIZZY Medication List - Last Reconciled 12/11/23 by Latasha Chong RN acetaminophen ER (Mapap Arthritis Pain) 650 mg PO Q8H albuterol sulfate 2.5 mg inhalation Q4-6H PRN albuterol sulfate 90 mcg/actuation (ProAir HFA) 2 puffs inhalation Q6H PRN cholecalciferol (vitamin D3) 50 mcg PO DAILY 30 days fluticasone propionate 50 mcg/actuation (Flonase Allergy Relief) 1 spray intranasal DAILY fluticasone propionate 110 mcg/actuation (Flovent HFA) 2 puffs PO BID lisinopril 10 mg PO DAILY montelukast 10 mg PO DAILY omeprazole 20 mg PO DAILY ondansetron 4 mg PO TID sennosides-docusate sodium 8.6-50 mg (Senexon-S) 2 tabs PO BEDTIME sertraline 100 mg PO DAILY trazodone 50 mg PO BEDTIME triamcinolone acetonide 0.5% 1 appl topical BID warfarin See Protocol 7.5mg x 6, 5mg x 1 Nursing Note INR: 2.2- in therapeutic range of 2-3 Medications and supplements reviewed- no changes No changes in health, diet, medications, or supplements, Denies any signs and symptoms of bleeding or bruising or clotting. Bleeding, bruising, clotting discussed Nutritional guidance given Dose: 5mg x 1. 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
[2023-12-11 09:28] LABS: Prothrombin Time Whole Bld POC 26.6 sec (11.1-13.5); ~PT, ~INR - Anti Coag Clinic 2.2 (0.9-1.1)
== END 2023-12-11 09:34 | disposition home or self-care (01) ==
LOC: HO.ACS 09:09
PROVIDERS: PCP Internal Medicine; Visit Provider Internal Medicine
DX: Z79.01 Long term (current) use of anticoagulants (principal)

== ENCOUNTER → 2023-12-11 09:09 | Outpatient (BNVA) | payer MEDICAID, SELFPAY | PROVIDERS: PCP Internal Medicine; Visit Provider Internal Medicine | DX: I82.502 Chronic embolism and thrombosis of unspecified deep veins of left lower extremity (principal); Z51.81 Encounter for therapeutic drug level monitoring; Z79.01 Long term (current) use of anticoagulants | CPT/HCPCS: 85610; 99211 ==

== ENCOUNTER 2023-12-26 08:11 | Outpatient (AMB) | payer MEDICAID, SELFPAY ==
--- NOTE | 2023-12-26 08:29 | MHC.OFFVISCO ---
Intake Intake Visit Reasons: Anticoagulation Allergies ciprofloxacin [From Cipro] Allergy (Unknown, Verified 12/26/23 08:24) RASH Sulfa (Sulfonamide Antibiotics) Allergy (Unknown, Verified 12/26/23 08:24) SWELLING/ITCHING, swelling topiramate [From TOPAMAX] Allergy (Unknown, Verified 12/26/23 08:24) DIZZY Medication List - Last Reconciled 12/26/23 by Latasha Chong RN acetaminophen ER (Mapap Arthritis Pain) 650 mg PO Q8H albuterol sulfate 2.5 mg inhalation Q4-6H PRN albuterol sulfate 90 mcg/actuation (ProAir HFA) 2 puffs inhalation Q6H PRN cholecalciferol (vitamin D3) 50 mcg PO DAILY 30 days fluticasone propionate 50 mcg/actuation (Flonase Allergy Relief) 1 spray intranasal DAILY fluticasone propionate 110 mcg/actuation (Flovent HFA) 2 puffs PO BID lisinopril 10 mg PO DAILY montelukast 10 mg PO DAILY omeprazole 20 mg PO DAILY ondansetron 4 mg PO TID sennosides-docusate sodium 8.6-50 mg (Senexon-S) 2 tabs PO BEDTIME sertraline 100 mg PO DAILY trazodone 50 mg PO BEDTIME triamcinolone acetonide 0.5% 1 appl topical BID warfarin See Protocol 7.5mg x 6, 5mg x 1 Nursing Note INR: 2.5- in therapeutic range- 2-3 Medications and supplements reviewed- pt states completed course of antibiotics for UTI- nitrofurantoin- no interaction with warfarin per micromedex No changes in health, diet, medications, or supplements, Denies any signs and symptoms of bleeding or bruising or clotting. Bleeding, bruising, clotting discussed Nutritional guidance given Dose: 5mg x 1, 7.5mg x 6 F/U INR: 2 weeks Patient verbalizes understanding of instructions given Anti-Coag Initial Assessment Social Hx Patient Tobacco Use Status: Never used Tobacco alcohol intake: never Coding Level of Care Code Est Patient Level 1 Diagnoses Current use of anticoagulant therapy Z79.01 Results AMB INR Fingerstick AMB INR Fingerstick 2.5 Last Edit by Latasha Chong RN on 12/26/23 08:31 Assessment & Plan Assessment & Plan (1) Current use of anticoagulant therapy: Code(s): Z79.01 - longterm (current) use of anticoagulants Category: Medical
[2023-12-26 08:31] LABS: ~PT, ~INR - Anti Coag Clinic 2.5 (0.9-1.1)
== END 2023-12-26 08:39 | disposition home or self-care (01) ==
LOC: HO.ACS 08:11
PROVIDERS: PCP Internal Medicine; Visit Provider Internal Medicine
DX: Z79.01 Long term (current) use of anticoagulants (principal)

== ENCOUNTER → 2023-12-26 08:11 | Outpatient (BNVA) | payer MEDICAID, SELFPAY | PROVIDERS: PCP Internal Medicine; Visit Provider Internal Medicine | DX: Z86.718 Personal history of other venous thrombosis and embolism (principal); Z79.01 Long term (current) use of anticoagulants; Z51.81 Encounter for therapeutic drug level monitoring | CPT/HCPCS: 85610; 99211 ==

== ENCOUNTER 2023-12-28 08:10 | Outpatient (REF) | payer MEDICAID, SELFPAY ==
[2023-12-28 09:55] LABS: MANUAL DIFF FLAG NO
[2023-12-28 10:22] LABS: Basophils Absolute Auto 0.1 X10*3/uL (0.0-0.2); Basophils Percent Auto 0.9 % (0-2); Eosinophils Absolute Auto 0.1 X10*3/uL (0.0-0.4); Eosinophils Percent Auto 1.9 % (0-4); Hematocrit 40.1 % (37.0-47.0); Hemoglobin 13.3 g/dl (12.0-16.0); Imm Gran Abs Auto 0.01 X10*3/uL (0.00-0.03); Imm Gran Pct Auto 0.2 % (0.0-0.4); Lymphocytes Absolute Auto 1.9 X10*3/uL (1.2-4.9); Lymphocytes Percent Auto 35.3 % (20-40); Mean Corpuscular HGB Conc 33.2 g/dl (31.0-35.0); Mean Corpuscular Hemoglobin 28.5 pg (27.0-33.0); Mean Corpuscular Volume 86.1 fL (80.0-98.0); Mean Platelet Volume 10.2 fL (9.4-12.3); Monocytes Absolute Auto 0.4 X10*3/uL (0.1-1.2); Monocytes Percent Auto 6.5 % (2-11); Neutrophils Percent Auto 55.2 % (45-73); Platelet Count 342 X10*3/uL (160-400); Red Blood Count 4.66 X10*6/uL (4.20-5.50); Red Cell Distribution Width 13.6 % (11.0-16.0); White Blood Count 5.4 X10*3/uL (4.8-10.8)
[2023-12-28 11:58] LABS: Alanine Aminotransferase 18 U/L (0-31); Anion Gap 14 (12-20); Aspartate Amino Transferase 20 U/L (5-31); Bilirubin Total 0.4 mg/dL (0.0-1.0); Blood Urea Nitrogen 7 mg/dL (9-16); Calcium 8.8 mg/dL (8.4-10.2); Carbon Dioxide 22 mmol/L (22-29); Chloride 107 mmol/L (96-108); Estimated Glomerular Filt Rate > 60; Glucose Random 87 mg/dL (60-115); Potassium 3.8 mmol/L (3.3-5.1); Sodium 139 mmol/L (135-145); Total Protein 7.6 g/dL (6.5-8.0)
[2023-12-28 11:59] LABS: Albumin Level 4.2 g/dL (3.5-5.0); Alkaline Phosphatase 88 U/L (39-117); Cholesterol 218 mg/dL (<200); HDL Cholesterol 55 mg/dL (>40); LDL Cholesterol Calculated 143 mg/dL (<100); Triglycerides 104 mg/dL (<150)
[2023-12-28 13:02] LABS: Vitamin B12 370 pg/mL (200-900)
== END 2023-12-28 08:11 | disposition home or self-care (01) ==
LOC: HO.LAB 08:10
PROVIDERS: Absent Provider Internal Medicine Medical Oncology; PCP Internal Medicine; Visit Provider Internal Medicine
DX: E78.00 Pure hypercholesterolemia, unspecified (principal); F33.41 Major depressive disorder, recurrent, in partial remission; I10 Essential (primary) hypertension; K76.0 Fatty (change of) liver, not elsewhere classified; R41.89 Other symptoms and signs involving cognitive functions and awareness
CPT/HCPCS: 36415; 80053; 80061; 82607; 85025

== ENCOUNTER 2024-01-02 08:54 | Outpatient (AMB) | payer MEDICAID, SELFPAY ==
[2024-01-02 09:12] LABS: Prothrombin Time Whole Bld POC 23.1 sec (11.1-13.5); ~PT, ~INR - Anti Coag Clinic 1.9 (0.9-1.1)
--- NOTE | 2024-01-02 09:19 | MHC.OFFVISCO ---
Intake Intake Visit Reasons: Anticoagulation Allergies ciprofloxacin [From Cipro] Allergy (Unknown, Verified 01/02/24 09:02) RASH Sulfa (Sulfonamide Antibiotics) Allergy (Unknown, Verified 01/02/24 09:02) SWELLING/ITCHING, swelling topiramate [From TOPAMAX] Allergy (Unknown, Verified 01/02/24 09:02) DIZZY Medication List - Last Reconciled 01/02/24 by Mara Lan RN acetaminophen ER (Mapap Arthritis Pain) 650 mg PO Q8H albuterol sulfate 2.5 mg inhalation Q4-6H PRN albuterol sulfate 90 mcg/actuation (ProAir HFA) 2 puffs inhalation Q6H PRN cholecalciferol (vitamin D3) 50 mcg PO DAILY 30 days fluticasone propionate 50 mcg/actuation (Flonase Allergy Relief) 1 spray intranasal DAILY fluticasone propionate 110 mcg/actuation (Flovent HFA) 2 puffs PO BID lisinopril 10 mg PO DAILY montelukast 10 mg PO DAILY omeprazole 20 mg PO DAILY ondansetron 4 mg PO TID sennosides-docusate sodium 8.6-50 mg (Senexon-S) 2 tabs PO BEDTIME sertraline 100 mg PO DAILY trazodone 50 mg PO BEDTIME triamcinolone acetonide 0.5% 1 appl topical BID warfarin See Protocol 7.5mg x 6, 5mg x 1 Nursing Note PT.HAS 3-4 DAYS REMAINING ON DOXY. PT.TESTED POSITIVE FOR COVID ON 12/27,AND STATES THAT SHE HAS ONLY MILD SX. NO CP,SOB,DIET/MED CHANGES,FALLS OR SX OF BLEEDING. CONTINUE USUAL DOSE AND FOLLOW-UP IN 1 WEEK. NO GREENS 1-2 DAYS GOOD UNDERSTANDFING OF DOSING INSTR. Anti-Coag Initial Assessment Social Hx Patient Tobacco Use Status: Never used Tobacco alcohol intake: never Coding Level of Care Code Est Patient Level 1 Diagnoses Current use of anticoagulant therapy Z79.01 Assessment & Plan Assessment & Plan (1) Current use of anticoagulant therapy: Code(s): Z79.01 - [facility] (current) use of anticoagulants Category: Medical
== END 2024-01-02 09:23 | disposition home or self-care (01) ==
LOC: HO.ACS 08:54
PROVIDERS: PCP Internal Medicine; Visit Provider Internal Medicine
DX: Z79.01 Long term (current) use of anticoagulants (principal)

== ENCOUNTER → 2024-01-02 08:54 | Outpatient (BNVA) | payer MEDICAID, SELFPAY | PROVIDERS: PCP Internal Medicine; Visit Provider Internal Medicine | DX: Z86.718 Personal history of other venous thrombosis and embolism (principal); Z79.01 Long term (current) use of anticoagulants; Z51.81 Encounter for therapeutic drug level monitoring | CPT/HCPCS: 85610; 99211 ==

== ENCOUNTER 2024-01-09 08:06 | Outpatient (AMB) | payer MEDICAID, SELFPAY ==
--- NOTE | 2024-01-09 08:24 | MHC.OFFVISCO ---
Intake Intake Visit Reasons: Anticoagulation Allergies ciprofloxacin [From Cipro] Allergy (Unknown, Verified 01/09/24 08:19) RASH Sulfa (Sulfonamide Antibiotics) Allergy (Unknown, Verified 01/09/24 08:19) SWELLING/ITCHING, swelling topiramate [From TOPAMAX] Allergy (Unknown, Verified 01/09/24 08:19) DIZZY Medication List - Last Reconciled 01/09/24 by Latasha Chong RN acetaminophen ER (Mapap Arthritis Pain) 650 mg PO Q8H albuterol sulfate 2.5 mg inhalation Q4-6H PRN albuterol sulfate 90 mcg/actuation (ProAir HFA) 2 puffs inhalation Q6H PRN cholecalciferol (vitamin D3) 50 mcg PO DAILY 30 days fluticasone propionate 50 mcg/actuation (Flonase Allergy Relief) 1 spray intranasal DAILY fluticasone propionate 110 mcg/actuation (Flovent HFA) 2 puffs PO BID lisinopril 10 mg PO DAILY montelukast 10 mg PO DAILY omeprazole 20 mg PO DAILY ondansetron 4 mg PO TID sennosides-docusate sodium 8.6-50 mg (Senexon-S) 2 tabs PO BEDTIME sertraline 100 mg PO DAILY trazodone 50 mg PO BEDTIME triamcinolone acetonide 0.5% 1 appl topical BID warfarin See Protocol 7.5mg x 6, 5mg x 1 Nursing Note INR: 2.8- in therapeutic range 2-3 Medications and supplements reviewed- finished doxycycline last week No changes in health, diet, medications, or supplements, Denies any signs and symptoms of bleeding or bruising or clotting. Bleeding, bruising, clotting discussed Nutritional guidance given Dose: 5mg x 1. 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
[2024-01-09 08:26] LABS: Prothrombin Time Whole Bld POC 33.7 sec (11.1-13.5); ~PT, ~INR - Anti Coag Clinic 2.8 (0.9-1.1)
== END 2024-01-09 08:30 | disposition home or self-care (01) ==
LOC: HO.ACS 08:06
PROVIDERS: PCP Internal Medicine; Visit Provider Internal Medicine
DX: Z79.01 Long term (current) use of anticoagulants (principal)

== ENCOUNTER → 2024-01-09 08:06 | Outpatient (BNVA) | payer MEDICAID, SELFPAY | PROVIDERS: PCP Internal Medicine; Visit Provider Internal Medicine | DX: Z86.718 Personal history of other venous thrombosis and embolism (principal); Z79.01 Long term (current) use of anticoagulants; Z51.81 Encounter for therapeutic drug level monitoring | CPT/HCPCS: 85610; 99211 ==

== ENCOUNTER 2024-01-23 08:07 | Outpatient (AMB) | payer MEDICAID, SELFPAY ==
[2024-01-23 08:27] LABS: Prothrombin Time Whole Bld POC 29.4 sec (11.1-13.5); ~PT, ~INR - Anti Coag Clinic 2.4 (0.9-1.1)
--- NOTE | 2024-01-23 08:38 | MHC.OFFVISCO ---
Intake Intake Visit Reasons: Anticoagulation Allergies ciprofloxacin [From Cipro] Allergy (Unknown, Verified 01/09/24 08:19) RASH Sulfa (Sulfonamide Antibiotics) Allergy (Unknown, Verified 01/09/24 08:19) SWELLING/ITCHING, swelling topiramate [From TOPAMAX] Allergy (Unknown, Verified 01/09/24 08:19) DIZZY Medication List - Last Reconciled 01/23/24 by Fior Turpin RN acetaminophen ER (Mapap Arthritis Pain) 650 mg PO Q8H albuterol sulfate 2.5 mg inhalation Q4-6H PRN albuterol sulfate 90 mcg/actuation (ProAir HFA) 2 puffs inhalation Q6H PRN cholecalciferol (vitamin D3) 50 mcg PO DAILY 30 days fluticasone propionate 50 mcg/actuation (Flonase Allergy Relief) 1 spray intranasal DAILY fluticasone propionate 110 mcg/actuation (Flovent HFA) 2 puffs PO BID lisinopril 10 mg PO DAILY montelukast 10 mg PO DAILY omeprazole 20 mg PO DAILY ondansetron 4 mg PO TID sennosides-docusate sodium 8.6-50 mg (Senexon-S) 2 tabs PO BEDTIME sertraline 100 mg PO DAILY trazodone 50 mg PO BEDTIME triamcinolone acetonide 0.5% 1 appl topical BID warfarin See Protocol 7.5mg x 6, 5mg x 1 Nursing Note INR: 2.4 in therapeutic range of 2-3 Medications and supplements reviewed No changes in health, diet, medications, or supplements, Denies any signs and symptoms of bleeding or bruising or clotting. Bleeding, bruising, clotting discussed Nutritional guidance given to balance reds and greens Dose: 7.5mg X 6 days and 5mg X 1 day F/U INR: 2 weeks Patient verbalizes understanding of instructions given Anti-Coag Initial Assessment Social Hx Patient Tobacco Use Status: Never used Tobacco alcohol intake: never Coding Level of Care Code Est Patient Level 1 Diagnoses Current use of anticoagulant therapy Z79.01 Assessment & Plan Assessment & Plan (1) Current use of anticoagulant therapy: Code(s): Z79.01 - long-term (current) use of anticoagulants Category: Medical
== END 2024-01-23 08:40 | disposition home or self-care (01) ==
LOC: HO.ACS 08:07
PROVIDERS: PCP Internal Medicine; Visit Provider Internal Medicine
DX: Z79.01 Long term (current) use of anticoagulants (principal)

== ENCOUNTER → 2024-01-23 08:07 | Outpatient (BNVA) | payer MEDICAID, SELFPAY | PROVIDERS: PCP Internal Medicine; Visit Provider Internal Medicine | DX: Z86.718 Personal history of other venous thrombosis and embolism (principal); Z51.81 Encounter for therapeutic drug level monitoring; Z79.01 Long term (current) use of anticoagulants | CPT/HCPCS: 85610; 99211 ==

== ENCOUNTER 2024-02-06 08:33 | Outpatient (AMB) | payer MEDICAID, SELFPAY ==
[2024-02-06 09:01] LABS: Prothrombin Time Whole Bld POC 36.1 sec (11.1-13.5)
--- NOTE | 2024-02-06 09:01 | MHC.OFFVISCO ---
Intake Intake Visit Reasons: Anticoagulation Allergies ciprofloxacin [From Cipro] Allergy (Unknown, Verified 02/06/24 08:54) RASH Sulfa (Sulfonamide Antibiotics) Allergy (Unknown, Verified 02/06/24 08:54) SWELLING/ITCHING, swelling topiramate [From TOPAMAX] Allergy (Unknown, Verified 02/06/24 08:54) DIZZY Medication List - Last Reconciled 02/06/24 by Latasha Chong RN acetaminophen ER (Mapap Arthritis Pain) 650 mg PO Q8H albuterol sulfate 2.5 mg inhalation Q4-6H PRN albuterol sulfate 90 mcg/actuation (ProAir HFA) 2 puffs inhalation Q6H PRN cholecalciferol (vitamin D3) 50 mcg PO DAILY 30 days fluticasone propionate 50 mcg/actuation (Flonase Allergy Relief) 1 spray intranasal DAILY fluticasone propionate 110 mcg/actuation (Flovent HFA) 2 puffs PO BID lisinopril 10 mg PO DAILY montelukast 10 mg PO DAILY omega 1-jmz-rwl-fish oil 1,200 (144-216) mg (Fish Oil) 1,200 caps PO BID omeprazole 20 mg PO DAILY ondansetron 4 mg PO TID PRN sennosides-docusate sodium 8.6-50 mg (Senexon-S) 2 tabs PO BEDTIME sertraline 100 mg PO DAILY trazodone 50 mg PO BEDTIME triamcinolone acetonide 0.5% 1 appl topical BID warfarin See Protocol 7.5mg x 6, 5mg x 1 Nursing Note INR: 3.0- in therapeutic range of 2-3 Medications and supplements reviewed- started fish oil approx 2 weeks ago, sherry raise inr per micromedex No changes in health, diet, medications, or supplements, Denies any signs and symptoms of bleeding or bruising or clotting. Bleeding, bruising, clotting discussed Nutritional guidance given - eat a green today, increase greens Dose: 5mg x 1. 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
== END 2024-02-06 09:06 | disposition home or self-care (01) ==
LOC: HO.ACS 08:33
PROVIDERS: PCP Internal Medicine; Visit Provider Internal Medicine
DX: Z79.01 Long term (current) use of anticoagulants (principal)

== ENCOUNTER → 2024-02-06 08:33 | Outpatient (BNVA) | payer MEDICAID, SELFPAY | PROVIDERS: PCP Internal Medicine; Visit Provider Internal Medicine | DX: Z86.718 Personal history of other venous thrombosis and embolism (principal); Z79.01 Long term (current) use of anticoagulants; Z51.81 Encounter for therapeutic drug level monitoring | CPT/HCPCS: 85610; 99211 ==

== ENCOUNTER 2024-02-13 08:03 | Outpatient (AMB) | payer MEDICAID, SELFPAY ==
[2024-02-13 08:29] LABS: Prothrombin Time Whole Bld POC 28.2 sec (11.1-13.5); ~PT, ~INR - Anti Coag Clinic 2.3 (0.9-1.1)
--- NOTE | 2024-02-13 08:35 | MHC.OFFVISCO ---
Intake Intake Visit Reasons: Anticoagulation Allergies ciprofloxacin [From Cipro] Allergy (Unknown, Verified 02/13/24 08:25) RASH Sulfa (Sulfonamide Antibiotics) Allergy (Unknown, Verified 02/13/24 08:25) SWELLING/ITCHING, swelling topiramate [From TOPAMAX] Allergy (Unknown, Verified 02/13/24 08:25) DIZZY Medication List - Last Reconciled 02/13/24 by Mara Lan RN acetaminophen ER (Mapap Arthritis Pain) 650 mg PO Q8H albuterol sulfate 2.5 mg inhalation Q4-6H PRN albuterol sulfate 90 mcg/actuation (ProAir HFA) 2 puffs inhalation Q6H PRN cholecalciferol (vitamin D3) 50 mcg PO DAILY 30 days fluticasone propionate 50 mcg/actuation (Flonase Allergy Relief) 1 spray intranasal DAILY fluticasone propionate 110 mcg/actuation (Flovent HFA) 2 puffs PO BID lisinopril 10 mg PO DAILY montelukast 10 mg PO DAILY omega 1-iog-upc-fish oil 1,200 (144-216) mg (Fish Oil) 1,200 caps PO BID omeprazole 20 mg PO DAILY ondansetron 4 mg PO TID PRN sennosides-docusate sodium 8.6-50 mg (Senexon-S) 2 tabs PO BEDTIME sertraline 100 mg PO DAILY trazodone 50 mg PO BEDTIME triamcinolone acetonide 0.5% 1 appl topical BID warfarin See Protocol 7.5mg x 6, 5mg x 1 Nursing Note NO CP,SOB,DIET/MED CHANGES,FALLS OR SX OF BLEEDING. CONTINUE PRESENT DOSE AND FOLLOW-UP IN 2 WEEKS. GOOD UNBDERSTANDING OF DOSING INSTR. Anti-Coag Initial Assessment Social Hx Patient Tobacco Use Status: Never used Tobacco alcohol intake: never Coding Level of Care Code Est Patient Level 1 Diagnoses Current use of anticoagulant therapy Z79.01 Assessment & Plan Assessment & Plan (1) Current use of anticoagulant therapy: Code(s): Z79.01 - jail (current) use of anticoagulants Category: Medical
== END 2024-02-13 08:37 | disposition home or self-care (01) ==
LOC: HO.ACS 08:03
PROVIDERS: PCP Internal Medicine; Visit Provider Internal Medicine
DX: Z79.01 Long term (current) use of anticoagulants (principal)

== ENCOUNTER → 2024-02-13 08:03 | Outpatient (BNVA) | payer MEDICAID, SELFPAY | PROVIDERS: PCP Internal Medicine; Visit Provider Internal Medicine | DX: Z86.718 Personal history of other venous thrombosis and embolism (principal); Z79.01 Long term (current) use of anticoagulants; Z51.81 Encounter for therapeutic drug level monitoring | CPT/HCPCS: 85610; 99211 ==

== ENCOUNTER 2024-02-27 08:06 | Outpatient (AMB) | payer MEDICAID, SELFPAY ==
[2024-02-27 08:39] LABS: Prothrombin Time Whole Bld POC 23.8 sec (11.1-13.5)
--- NOTE | 2024-02-27 08:45 | MHC.OFFVISCO ---
Intake Intake Visit Reasons: Anticoagulation Allergies ciprofloxacin [From Cipro] Allergy (Unknown, Verified 02/27/24 08:34) RASH Sulfa (Sulfonamide Antibiotics) Allergy (Unknown, Verified 02/27/24 08:34) SWELLING/ITCHING, swelling topiramate [From TOPAMAX] Allergy (Unknown, Verified 02/27/24 08:34) DIZZY Medication List - Last Reconciled 02/27/24 by Fior Turpin RN acetaminophen ER (Mapap Arthritis Pain) 650 mg PO Q8H albuterol sulfate 2.5 mg inhalation Q4-6H PRN albuterol sulfate 90 mcg/actuation (ProAir HFA) 2 puffs inhalation Q6H PRN cholecalciferol (vitamin D3) 50 mcg PO DAILY 30 days fluticasone propionate 50 mcg/actuation (Flonase Allergy Relief) 1 spray intranasal DAILY fluticasone propionate 110 mcg/actuation (Flovent HFA) 2 puffs PO BID lisinopril 10 mg PO DAILY montelukast 10 mg PO DAILY omega 4-rsi-lfq-fish oil 1,200 (144-216) mg (Fish Oil) 1,200 caps PO BID omeprazole 20 mg PO DAILY ondansetron 4 mg PO TID PRN sennosides-docusate sodium 8.6-50 mg (Senexon-S) 2 tabs PO BEDTIME sertraline 100 mg PO DAILY trazodone 50 mg PO BEDTIME triamcinolone acetonide 0.5% 1 appl topical BID warfarin See Protocol 7.5mg x 6, 5mg x 1 Nursing Note INR: 2.0 in therapeutic range of 2-3 Medications and supplements reviewed No changes in health, diet, medications, or supplements, Denies any signs and symptoms of bleeding or bruising or clotting. Bleeding, bruising, clotting discussed Nutritional guidance given to avoid greens today and to have a serving of food that raises the INR. Food list reviewed. Dose: 7.5mg X 6 days and 5mg X 1 day F/U INR: 2 weeks Patient verbalizes understanding of instructions given Anti-Coag Initial Assessment Social Hx Patient Tobacco Use Status: Never used Tobacco alcohol intake: never Coding Level of Care Code Est Patient Level 1 Diagnoses Current use of anticoagulant therapy Z79.01 Assessment & Plan Assessment & Plan (1) Current use of anticoagulant therapy: Code(s): Z79.01 - retirement (current) use of anticoagulants Category: Medical
== END 2024-02-27 08:48 | disposition home or self-care (01) ==
LOC: HO.ACS 08:06
PROVIDERS: PCP Internal Medicine; Visit Provider Internal Medicine
DX: Z79.01 Long term (current) use of anticoagulants (principal)

== ENCOUNTER → 2024-02-27 08:06 | Outpatient (BNVA) | payer MEDICAID, SELFPAY | PROVIDERS: PCP Internal Medicine; Visit Provider Internal Medicine | DX: Z86.718 Personal history of other venous thrombosis and embolism (principal); Z79.01 Long term (current) use of anticoagulants; Z51.81 Encounter for therapeutic drug level monitoring | CPT/HCPCS: 85610; 99211 ==

== ENCOUNTER 2024-03-18 08:15 | Outpatient (AMB) | payer MEDICAID, SELFPAY ==
--- NOTE | 2024-03-18 08:25 | MHC.OFFVISCO ---
Intake Intake Visit Reasons: Anticoagulation Allergies ciprofloxacin [From Cipro] Allergy (Unknown, Verified 03/18/24 08:15) RASH Sulfa (Sulfonamide Antibiotics) Allergy (Unknown, Verified 03/18/24 08:15) SWELLING/ITCHING, swelling topiramate [From TOPAMAX] Allergy (Unknown, Verified 03/18/24 08:15) DIZZY Medication List - Last Reconciled 03/18/24 by Emely Miranda RN acetaminophen ER (Mapap Arthritis Pain) 650 mg PO Q8H albuterol sulfate 2.5 mg inhalation Q4-6H PRN albuterol sulfate 90 mcg/actuation (ProAir HFA) 2 puffs inhalation Q6H PRN cholecalciferol (vitamin D3) 50 mcg PO DAILY 30 days fluticasone propionate 50 mcg/actuation (Flonase Allergy Relief) 1 spray intranasal DAILY fluticasone propionate 110 mcg/actuation (Flovent HFA) 2 puffs PO BID lisinopril 10 mg PO DAILY montelukast 10 mg PO DAILY omega 6-hwy-ipj-fish oil 1,200 (144-216) mg (Fish Oil) 1,200 caps PO BID omeprazole 20 mg PO DAILY ondansetron 4 mg PO TID PRN sennosides-docusate sodium 8.6-50 mg (Senexon-S) 2 tabs PO BEDTIME sertraline 100 mg PO DAILY trazodone 50 mg PO BEDTIME triamcinolone acetonide 0.5% 1 appl topical BID warfarin See Protocol 7.5mg x 6, 5mg x 1 Nursing Note INR: 2.4 in therapeutic range Medications and supplements reviewed- still taking fish oil and eating to balance it out, States she's been feeling depressed, enc to talk with someone and try to exercise, get fresh air and sunshine, and do some things she enjoys, ask md to check B 12 levels. No changes in health, diet, medications, or supplements, Denies any signs and symptoms of bleeding or bruising or clotting. Bleeding, bruising, clotting discussed Nutritional guidance given -EAT A MIX OF FRUITS AND VEGETABLES Dose: 5MG X 1 DAY/ 7.5MG X 6 DAYS F/U INR: 2 WEEKS Patient verbalizes understanding of instructions given Anti-Coag Initial Assessment Social Hx Patient Tobacco Use Status: Never used Tobacco alcohol intake: never Coding Level of Care Code Est Patient Level 1 Diagnoses Current use of anticoagulant therapy Z79.01 Results AMB INR Fingerstick AMB INR Fingerstick 2.4 Last Edit by Emely Miranda RN on 03/18/24 08:25 MANUAL ENTRY Assessment & Plan Assessment & Plan (1) Current use of anticoagulant therapy: 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
[2024-03-18 09:07] LABS: Prothrombin Time Whole Bld POC 28.6 sec (11.1-13.5); ~PT, ~INR - Anti Coag Clinic 2.4 (0.9-1.1)
== END 2024-03-18 08:37 | disposition home or self-care (01) ==
LOC: HO.ACS 08:15
PROVIDERS: PCP Internal Medicine; Visit Provider Internal Medicine
DX: Z79.01 Long term (current) use of anticoagulants (principal)

== ENCOUNTER → 2024-03-18 08:15 | Outpatient (BNVA) | payer MEDICAID, SELFPAY | PROVIDERS: PCP Internal Medicine; Visit Provider Internal Medicine | DX: Z86.718 Personal history of other venous thrombosis and embolism (principal); Z79.01 Long term (current) use of anticoagulants; Z51.81 Encounter for therapeutic drug level monitoring | CPT/HCPCS: 85610; 99211 ==

== ENCOUNTER 2024-04-02 08:07 | Outpatient (AMB) | payer MEDICAID, SELFPAY ==
--- NOTE | 2024-04-02 08:18 | MHC.OFFVISCO ---
Intake Intake Visit Reasons: Anticoagulation Allergies ciprofloxacin [From Cipro] Allergy (Unknown, Verified 04/02/24 08:12) RASH Sulfa (Sulfonamide Antibiotics) Allergy (Unknown, Verified 04/02/24 08:12) SWELLING/ITCHING, swelling topiramate [From TOPAMAX] Allergy (Unknown, Verified 04/02/24 08:12) DIZZY Medication List - Last Reconciled 04/02/24 by Latasha Chong RN acetaminophen ER (Mapap Arthritis Pain) 650 mg PO Q8H albuterol sulfate 2.5 mg inhalation Q4-6H PRN albuterol sulfate 90 mcg/actuation (ProAir HFA) 2 puffs inhalation Q6H PRN cholecalciferol (vitamin D3) 50 mcg PO DAILY 30 days fluticasone propionate 50 mcg/actuation (Flonase Allergy Relief) 1 spray intranasal DAILY fluticasone propionate 110 mcg/actuation (Flovent HFA) 2 puffs PO BID lisinopril 10 mg PO DAILY montelukast 10 mg PO DAILY omega 5-fkm-pur-fish oil 1,200 (144-216) mg (Fish Oil) 1,200 caps PO BID omeprazole 20 mg PO DAILY ondansetron 4 mg PO TID PRN sennosides-docusate sodium 8.6-50 mg (Senexon-S) 2 tabs PO BEDTIME sertraline 50 mg PO DAILY trazodone 50 mg PO BEDTIME triamcinolone acetonide 0.5% 1 appl topical BID warfarin See Protocol 7.5mg x 6, 5mg x 1 Nursing Note INR: 2.5- in therapeutic range of 2-3 Medications and supplements reviewed No changes in health, diet, medications, or supplements, Denies any signs and symptoms of bleeding or bruising or clotting. Bleeding, bruising, clotting discussed Nutritional guidance given Dose: 7.5mg x 6. 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
[2024-04-02 08:20] LABS: Prothrombin Time Whole Bld POC 29.8 sec (11.1-13.5); ~PT, ~INR - Anti Coag Clinic 2.5 (0.9-1.1)
== END 2024-04-02 08:54 | disposition home or self-care (01) ==
LOC: HO.ACS 08:07
PROVIDERS: PCP Internal Medicine; Visit Provider Internal Medicine
DX: Z79.01 Long term (current) use of anticoagulants (principal)

== ENCOUNTER → 2024-04-02 08:07 | Outpatient (BNVA) | payer MEDICAID, SELFPAY | PROVIDERS: PCP Internal Medicine; Visit Provider Internal Medicine | DX: Z86.718 Personal history of other venous thrombosis and embolism (principal); Z79.01 Long term (current) use of anticoagulants; Z51.81 Encounter for therapeutic drug level monitoring | CPT/HCPCS: 85610; 99211 ==

== ENCOUNTER 2024-04-02 18:33 | Emergency (ER) | payer MEDICAID, SELFPAY ==
--- NOTE | ~2024-04-02 | CT_ITS ---
EXAMINATION: CT HEAD WITHOUT CONTRAST CLINICAL INFORMATION: Head trauma COMPARISON: None available. TECHNIQUE: Contiguous axial imaging was performed from the skull base to vertex without intravenous administration of contrast. This CT examination was performed using dose optimization techniques as appropriate, variously including the following: *Automated exposure control *Adjustment of mA and/or kV according to patient size (this includes techniques or standardized protocols for targeted exams where dose is matched to indication/reason for exam; i.e. extremities or head) *Use of iterative reconstruction technique DLP: 747 mGy-cm RESULTS: There is no evidence of acute intracranial hemorrhage, acute large vessel infarct, midline shift or mass effect. The estrada-white differentiation is preserved. The ventricles and sulci are within normal limits in size and configuration. There is no evidence of hydrocephalus. There are no extraaxial collections. Osseous structures are intact. Paranasal sinuses and mastoid air cells are well aerated. CT/CT head/brain wo IV con IMPRESSION: Unremarkable non-contrast CT of the brain. Electronically signed by: Dary Mayfield MD 04/02/2024 08:27 PM EDT
[2024-04-02 18:40] VITALS: BP 160/100; PULSE 94; O2SAT 97
[2024-04-02 18:44] VITALS: BP 129/55; PULSE 80; RESP 16; TEMP 36.7; O2SAT 98; BMI 34.6
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
[2024-04-02] MEDS: Acetaminophen 325 MG TABLET 975 MG PO (19:27)
[2024-04-02 19:42] VITALS: BP 134/71; PULSE 74; RESP 18; TEMP 36.6; O2SAT 96
[2024-04-02] MEDS: Diphth,Pertus(ACell),Tet Adult 0.5 ML SYRINGE IM (21:38)
[2024-04-02 21:45] VITALS: BP 134/71; PULSE 74; RESP 18; TEMP 36.6; O2SAT 96
[2024-04-02 21:50] VITALS: BP 134/71; PULSE 74; RESP 18; TEMP 36.6; O2SAT 96
== END 2024-04-02 21:51 | disposition home or self-care (01) ==
PROVIDERS: Emergency Provider Emergency Medicine; PCP Internal Medicine
DX: S00.03XA Contusion of scalp, initial encounter (principal); W22.8XXA Striking against or struck by other objects, initial encounter; Y93.9 Activity, unspecified; Y92.039 Unspecified place in apartment as the place of occurrence of the external cause; Y99.9 Unspecified external cause status; Z23 Encounter for immunization
CPT/HCPCS: 70450; 90471; 90715; 99284

== ENCOUNTER 2024-04-10 09:11 | Outpatient (REF) | payer MEDICAID, SELFPAY ==
[2024-04-10 10:27] LABS: Hematocrit 38.5 % (37.0-47.0); Hemoglobin 12.9 g/dl (12.0-16.0); Mean Corpuscular HGB Conc 33.5 g/dl (31.0-35.0); Mean Corpuscular Hemoglobin 28.5 pg (27.0-33.0); Mean Corpuscular Volume 85.2 fL (80.0-98.0); Mean Platelet Volume 9.8 fL (9.4-12.3); Platelet Count 369 X10*3/uL (160-400); Red Blood Count 4.52 X10*6/uL (4.20-5.50); Red Cell Distribution Width 13.5 % (11.0-16.0); White Blood Count 6.2 X10*3/uL (4.8-10.8)
[2024-04-10 11:05] LABS: Alanine Aminotransferase 17 U/L (0-31); Albumin Level 3.9 g/dL (3.5-5.0); Alkaline Phosphatase 71 U/L (39-117); Aspartate Amino Transferase 22 U/L (5-31); Bilirubin Direct 0.1 mg/dL (0.0-0.5); Bilirubin Total 0.3 mg/dL (0.0-1.0); Blood Urea Nitrogen 9 mg/dL (9-16); Estimated Glomerular Filt Rate > 60; Lipase 31 U/L (8-78); Total Protein 7.2 g/dL (6.5-8.0)
== END 2024-04-10 09:12 | disposition home or self-care (01) ==
LOC: HO.LAB 09:11
PROVIDERS: PCP Internal Medicine; Visit Provider Internal Medicine Gastroenterology
DX: R10.13 Epigastric pain (principal)
CPT/HCPCS: 36415; 80076; 82565; 83690; 84520; 85027

== ENCOUNTER 2024-04-16 08:26 | Outpatient (AMB) | payer MEDICAID, SELFPAY ==
[2024-04-16 08:33] LABS: Prothrombin Time Whole Bld POC 28.8 sec (11.1-13.5); ~PT, ~INR - Anti Coag Clinic 2.4 (0.9-1.1)
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
== END 2024-04-16 08:46 | disposition home or self-care (01) ==
LOC: HO.ACS 08:26
PROVIDERS: PCP Internal Medicine; Visit Provider Internal Medicine
DX: Z79.01 Long term (current) use of anticoagulants (principal)

== ENCOUNTER → 2024-04-16 08:26 | Outpatient (BNVA) | payer MEDICAID, SELFPAY | PROVIDERS: PCP Internal Medicine; Visit Provider Internal Medicine | DX: Z86.718 Personal history of other venous thrombosis and embolism (principal); Z79.01 Long term (current) use of anticoagulants; Z51.81 Encounter for therapeutic drug level monitoring | CPT/HCPCS: 85610; 99211 ==

== ENCOUNTER 2024-04-18 08:57 | Outpatient (REF) | payer MEDICAID, SELFPAY ==
--- NOTE | ~2024-04-18 | US_ITS ---
EXAMINATION: US ABDOMEN COMPLETE CLINICAL INFORMATION: Epigastric pain. COMPARISON: Ultrasound abdomen 02/14/2023 and 01/12/2022. CT abdomen 06/03/2018. X-ray KUB 04/06/2013. TECHNIQUE: Real-time imaging of the abdominal viscera. FINDINGS: PANCREAS: Normal. ABDOMINAL AORTA: The proximal, mid, and distal segments are normal in caliber. INFERIOR VENA CAVA: Visualized portions are normal. LIVER: The liver is normal in size. The liver contour is normal. There is diffuse increased liver parenchymal echogenicity. Within the right hepatic lobe, a 1.0 cm benign, simple cyst is seen. There is no intrahepatic biliary duct dilatation seen. GALLBLADDER: There are shadowing gallstones. There is adenomyomatosis, with ringdown artifact. No evidence of gallbladder wall thickening or pericholecystic fluid. COMMON BILE DUCT: Normal in caliber measuring 0.2 cm in diameter. RIGHT KIDNEY: Arising exophytically from the lower pole, a 1.1 x 1.0 x 1.1 cm echogenic, circumscribed mass is newly seen, possibly an angiomyolipoma. No hydronephrosis or renal calculi. The kidney measures 12.8 cm in maximum dimension. LEFT KIDNEY: Normal. No hydronephrosis. No renal calculi or focal parenchymal lesions. The kidney measures 11.9 cm in maximum dimension. SPLEEN: Normal. The spleen measures 10.3 cm in maximum dimension. FREE FLUID: None. US/US abdomen complete IMPRESSION: 1. There is generalized increase in hepatic echotexture, consistent with fatty infiltration or hepatocellular disease. Please correlate clinically. No focal hepatic mass or intrahepatic biliary dilatation is seen. 2. There is cholelithiasis, and there is ringdown artifact consistent with adenomyomatosis. 3. Arising exophytically from the lower pole of the right kidney, a 1.1 cm echogenic mass is seen, possibly a benign angiomyolipoma. This could be further evaluated with CT (renal mass protocol), if clinically indicated. Electronically signed by: Bk Long MD 04/20/2024 09:34 PM EST
== END 2024-04-18 08:58 | disposition home or self-care (01) ==
LOC: HO.US 08:57
PROVIDERS: PCP Internal Medicine; Visit Provider Internal Medicine Gastroenterology
DX: R10.13 Epigastric pain (principal)
CPT/HCPCS: 76700

== ENCOUNTER 2024-04-25 08:22 | Outpatient (REF) | payer MEDICAID, SELFPAY ==
--- NOTE | ~2024-04-25 | MM_ITS ---
EXAMINATION: MM SCREENING DIGITAL BREAST TOMOSYNTHESIS, BILATERAL CLINICAL INFORMATION: Screening. Asymptomatic. COMPARISON: Mammography: Comparison is made with available priors TECHNIQUE: Digital breast mammography with tomosynthesis is performed in both the craniocaudal and mediolateral oblique views along with computer-aided detection (CAD). FINDINGS: The breasts are heterogeneously dense, which may obscure small masses (ACR BI-RADS breast composition Category c). There are no significant masses, abnormal calcifications, or other abnormalities. MM/MM tomosynthesis screening BI IMPRESSION: No mammographic evidence of malignancy. ASSESSMENT: BI-RADS BI-RADS 1 - Negative RECOMMENDATION: Routine annual mammography screening. 1 year F/U This examination should not preclude the clinical evaluation of a suspicious palpable abnormality. This patient's information was entered into a reminder system with a target due date for their next mammogram. Electronically signed by: Patricia Ingram DO 05/02/2024 01:03 PM ANGELINA
== END 2024-04-25 08:23 | disposition home or self-care (01) ==
LOC: HO.MAMMO 08:22
PROVIDERS: PCP Internal Medicine; Visit Provider Internal Medicine
DX: Z12.31 Encounter for screening mammogram for malignant neoplasm of breast (principal)
CPT/HCPCS: 77063; 77067

== ENCOUNTER → 2024-04-25 08:30 | Outpatient (BNV) | payer MEDICAID, SELFPAY | PROVIDERS: PCP Internal Medicine; Visit Provider Internal Medicine | DX: Z12.31 Encounter for screening mammogram for malignant neoplasm of breast (principal) | CPT/HCPCS: 77063; 77067 ==

== ENCOUNTER 2024-04-30 08:03 | Outpatient (AMB) | payer MEDICAID, SELFPAY ==
[2024-04-30 08:23] LABS: Prothrombin Time Whole Bld POC 17.8 sec (11.1-13.5); ~PT, ~INR - Anti Coag Clinic 1.5 (0.9-1.1)
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
== END 2024-04-30 09:52 | disposition home or self-care (01) ==
LOC: HO.ACS 08:03
PROVIDERS: PCP Internal Medicine; Visit Provider Internal Medicine
DX: Z79.01 Long term (current) use of anticoagulants (principal)

== ENCOUNTER → 2024-04-30 08:03 | Outpatient (BNVA) | payer MEDICAID, SELFPAY | PROVIDERS: PCP Internal Medicine; Visit Provider Internal Medicine | DX: Z86.718 Personal history of other venous thrombosis and embolism (principal); Z79.01 Long term (current) use of anticoagulants; Z51.81 Encounter for therapeutic drug level monitoring | CPT/HCPCS: 85610; 99211 ==

== ENCOUNTER 2024-05-01 15:09 | Emergency (ER) | payer MEDICAID, SELFPAY ==
[2024-05-01] VITALS (7 sets, daily range): BP systolic 132–151; BP diastolic 62–78; PULSE 64–80; RESP 13–18; TEMP 36.6–37; O2SAT 96–100; BMI 34.3
--- NOTE | ~2024-05-01 | CT_ITS ---
EXAMINATION: CT ANGIOGRAM CHEST CLINICAL INFORMATION: Chest pain. History of pulmonary embolism. COMPARISON: CT chest 08/18/2016 TECHNIQUE: Multiple axial images were obtained through the chest after the administration of 65 mL of Omnipaque 350 intravenous contrast. Extensive vascular post-processing including two-dimensional and three-dimensional reformatted images were created and reviewed on an independent workstation. This CT examination was performed using dose optimization techniques as appropriate, variously including the following: *Automated exposure control *Adjustment of mA and/or kV according to patient size (this includes techniques or standardized protocols for targeted exams where dose is matched to indication/reason for exam; i.e. extremities or head) *Use of iterative reconstruction technique DLP: 458 mGy-cm FINDINGS: QUALITY OF STUDY/CONTRAST BOLUS: Satisfactory. PULMONARY ARTERIES: No evidence of filling defects to suggest central or segmental pulmonary emboli. THORACIC AORTA: No aortic aneurysm. LUNG: No focal consolidation. 2 mm nodule adjacent to the left fissure, stable. (6:174). Trachea and central airway are patent. Minimal dependent changes in the posterior aspect of the lungs. PLEURA: No pleural effusion or pneumothorax. MEDIASTINUM: Normal heart size. No pericardial effusion. No hilar or mediastinal lymphadenopathy. No evidence of septal bowing or right heart strain.8 mm peripherally enhancing right thyroid nodule. CORONARY ARTERY CALCIFICATION: None visualized on this study. CHEST WALL/AXILLA: No axillary or internal mammary lymphadenopathy. OSSEOUS STRUCTURES: No acute or suspicious osseous abnormality. UPPER ABDOMEN: There is a 9 mm hypodense focus in the right liver lobe, seen on the last slice, not reliably evaluated., No reflux of contrast into the hepatic veins to suggest elevated right heart pressures. CT/CT angio chest PE protocol IMPRESSION: * No evidence of filling defects suggest central or segmental pulmonary emboli. * No evidence of lung consolidation. * 8 mm right lobe thyroid nodule. Thyroid is not dilated and prior studies, correlate with prior imaging and biopsy results. * There is a 9 mm hypodense right liver lesion, not well evaluated. VTE: negative Fleischner guidelines were followed. Electronically signed by: Mendoza Concepcion MD 05/01/2024 09:34 PM [facility]
--- NOTE | 2024-05-01 15:30 | ECG_ITS ---
Test Reason : SOB Blood Pressure : / mmHG Vent. Rate : 070 BPM Atrial Rate : 070 BPM P-R Int : 170 ms QRS Dur : 078 ms QT Int : 396 ms P-R-T Axes : 040 -04 020 degrees QTc Int : 427 ms Normal sinus rhythm Minimal voltage criteria for LVH, may be normal variant ( R in aVL ) Septal infarct , age undetermined Abnormal ECG When compared with ECG of 23-AUG-2020 13:41, Septal infarct is now Present Referred By: Leno Garcia Electronically Signed By:AMY MACHUCA MD
--- NOTE | 2024-05-01 15:32 | ED_ITS ---
HPI - General Adult General Chief complaint: Dyspnea Stated complaint: sob Time Seen by Provider: 05/01/24 16:37 Source: patient and RN notes reviewed Mode of arrival: ambulatory Limitations: no limitations History of Present Illness ED Provider: Emma Islas PA-C HPI narrative: This is a 53-year-old female, with a history of PE/DVT on Coumadin, who presents emergency department with dry cough, and pleuritic chest pain x3 days. Patient states that over the last 3 days, she has developed a dry cough. She denies any congestion. She states that she has noticed that she has had increased shortness for breath as well as pleuritic chest pain with inspiration. She describes the pleuritic chest pain as a pressure-like sensation. She states that she spoke to her Coumadin Clinic, and was told that she was subtherapeutic, states that her INR was 1.4. She does admit to missing 1 dose of her Coumadin several days ago as she has been under a significant amount of stress. She denies any fevers, chills, abdominal pain, nausea, vomiting or diarrhea. No other complaints or concerns at this time. MD complaint: Pleuritic chest pain Onset (ago): day(s) Quality: aching Pain Consistency: constant Relieving factors: none Exacerbating factors: none Associated symptoms: chest pain and cough Treatments prior to arrival: none Related Data Home Medications ?Medication ?Instructions ?Recorded ?Confirmed albuterol sulfate 2.5 mg/3 mL 2.5 mg inhalation Q4-6H PRN 04/15/20 04/30/24 (0.083 %) solution for nebulization Shortness Of Breath Or Wheezing albuterol sulfate 90 mcg/actuation 2 puff inhalation Q6H PRN 04/15/20 04/30/24 aerosol inhaler (ProAir HFA) Shortness Of Breath Or Wheezing fluticasone propionate 50 1 spray intranasal DAILY 04/15/20 04/30/24 mcg/actuation nasal spray,suspension (Flonase Allergy Relief) acetaminophen 650 mg 650 mg PO Q8H 02/15/21 04/30/24 tablet,extended release (Mapap Arthritis Pain) fluticasone propionate 110 2 puff PO BID 02/15/21 04/30/24 mcg/actuation HFA aerosol inhaler (Flovent HFA) omeprazole 20 mg capsule,delayed 20 mg PO DAILY 02/15/21 04/30/24 release trazodone 50 mg tablet 50 mg PO BEDTIME 05/22/22 04/30/24 triamcinolone acetonide 0.5 % 1 appl topical BID 05/22/22 04/30/24 topical cream montelukast 10 mg tablet 10 mg PO DAILY 11/01/22 04/30/24 lisinopril 10 mg tablet 10 mg PO DAILY 02/02/23 04/30/24 sennosides 8.6 mg-docusate sodium 2 tab PO BEDTIME 02/02/23 04/30/24 50 mg tablet (Senexon-S) omega 0-goq-kdo-fish oil 1,200 mg 1,200 cap PO BID 02/06/24 04/30/24 (144 mg-216 mg) capsule (Fish Oil) ondansetron 4 mg disintegrating 4 mg PO TID PRN Nausea 02/06/24 04/30/24 tablet sertraline 100 mg tablet 50 mg PO DAILY 03/18/24 04/30/24 Previous Rx's ?Medication ?Instructions ?Recorded cholecalciferol (vitamin D3) 50 50 mcg PO DAILY 30 days #30 caps 08/24/21 mcg (2,000 unit) capsule warfarin 5 mg tablet See Rx Instructions .Route 07/11/23 .COMPLEX #90 tabs Allergies Allergy/AdvReac Type Severity Reaction Status Date / Time ciprofloxacin [From Cipro] Allergy Unknown RASH Verified 05/01/24 15:31 Sulfa (Sulfonamide Allergy Unknown SWELLING/ITCHING, Verified 05/01/24 15:31 Antibiotics) swelling topiramate [From TOPAMAX] Allergy Unknown DIZZY Verified 05/01/24 15:31 Review of Systems 2 Review of Systems: Yes all other systems are reviewed and are negative Constitutional: Constitutional: Reports as per HPI COUNT INCLUDES THE [facility] Past Medical History Medical History DVT (deep vein thrombosis) in History of lipoma Multiple lipomas Non-toxic multinodular goiter Scalp cyst Vitamin D deficiency Surgical History History of partial thyroidectomy Hx of esophagogastroduodenoscopy Hx of superior vena cava filter placement S/P fine needle aspiration Status post excision of lipoma Family History Family History Father Hypertension Mother Diabetes Aneurysm Hypertension Other No family history of cancer Social History Social History Household Members: Children Household Members Other:: 3 Housing: Apartment Are you a primary body care manager to a significant other at home: No Do you presently have visiting nurse or other home services: No Alcohol intake: never Patient Tobacco Use Status: Never used Tobacco Smoked in Last 30 Days: No Use of substances other than those prescribed or required for medical reasons: No Advance Directives: No Advance Directives Information Provided: Yes Do you have a plan to hurt others: No Plan service: No Current occupational status: unemployed Physical Exam ED Vital Signs: Vital Signs - 24 hr 05/01/24 15:28 05/01/24 17:08 05/01/24 18:25 Temperature 98.3 F 97.8 F 98.6 F Pulse Rate 75 64 65 Respiratory Rate 18 16 13 Blood Pressure 151/63 H 135/62 134/78 Pulse Oximetry 98 97 99 Oxygen Delivery Method Room Air Room Air Room Air 05/01/24 18:44 05/01/24 20:28 05/01/24 21:56 Temperature 98.2 F 98.2 F Pulse Rate 75 76 80 Respiratory Rate 18 14 14 Blood Pressure 135/69 132/63 Pulse Oximetry 100 96 Oxygen Delivery Method Room Air Room Air 05/01/24 22:11 Temperature 98.2 F Pulse Rate 80 Respiratory Rate 14 Blood Pressure 132/63 Pulse Oximetry 96 Oxygen Delivery Method Room Air BMI result Body Mass Index 34.3 Const General: cooperative, comfortable and no acute distress Orientation/consciousness: patient oriented x3 Limitations: no limitations HENMT Head: Yes normal to inspection, Yes normocephalic and Yes atraumatic Ears: hearing grossly normal bilaterally General nose exam: Normal external nose present Face and sinus: Yes normal facial exam Mouth: Normal oral and palatal mucosa present, oropharynx normal and moist mucous membranes Throat: Yes posterior oropharynx normal Eyes General: appearance normal, both eyes and all related structures Eyelids: Yes eyelids normal Conjunctivae: conjunctivae normal Sclerae: sclerae normal Pupils: Equal, round and reactive pupils present EOM: EOMs intact bilaterally Neck Neck: Yes normal visual inspection, Yes full ROM and Yes no lymphadenopathy Lymphatic: no lymphadenopathy noted Chest Other: Chest pain is non reproducible on examination. Chest palpation & inspection: normal inspection of the chest Resp Other: Diminished lungs in bilateral lung bases. No profound inspiratory and expiratory wheezes noted throughout. Effort & Inspection: normal respiratory effort and able to speak in complete sentences Cardio Rate: regular rate Rhythm: regular rhythm Heart sounds: S1 normal heart sound present and S2 normal heart sound present GI Inspection: Yes normal to inspection Skin General skin exam: no rashes or lesions noted Trauma: no lacerations or abrasions Wounds: no wounds Neuro General: patient oriented x3 and moves all extremities Cranial nerves: Yes Equal, round and reactive pupils present Extrem Other: No pitting edema, no calf tenderness General: Yes normal to inspection Right upper extremity: normal to inspection Left upper extremity: normal to inspection Right lower extremity: normal to inspection Left lower extremity: normal to inspection Course Course Course Narrative: RME: 53-year-old female with history of PE presents to ED for pleurisy for couple of days. Patient compliant with Coumadin. Patient states history of multiple blood clots. Patient denies any leg swelling calf pain or pitting edema. Lung is clear. X-ray, labs EKG ordered. Reevaluation(s) Reevaluation #1: CTA still pending at this time. Will continue to closely monitor. Sign-out was given to my colleague, Bibi Shin PA-C pending CTA and re-eval. Time: 19:20 Reevaluation #2: I Jennifer Shin PA-C have accepted care of the patient and signed out pending imaging and final disposition Reevaluation #3: CT angio chest: CT/CT angio chest PE protocol IMPRESSION: * No evidence of filling defects suggest central or segmental pulmonary emboli. * No evidence of lung consolidation. * 8 mm right lobe thyroid nodule. Thyroid is not dilated and prior studies, correlate with prior imaging and biopsy results. * There is a 9 mm hypodense right liver lesion, not well evaluated. VTE: negative Fleischner guidelines were followed. Electronically signed by: Mendoza Concepcion MD 05/01/2024 09:34 PM [facility] Discussed incidental findings with the patient, they can be taken care of as an outpatient. We will discharge now. Time: 21:46 Medications Administered Discontinued Medications Generic Name Dose Route Start Last Admin Trade Name Brandy PRN Reason Stop Dose Admin Albuterol Sulfate 2.5 mg 05/01/24 18:33 05/01/24 18:43 Albuterol Sulfate (0.083%) 2.5 Mg/3 Ml Vial.Neb INHALE 05/01/24 18:34 2.5 mg ONCE ONE Administration Iohexol 100 ml 05/01/24 19:32 05/01/24 19:32 Iohexol 350 Mg/Ml 100 Ml Infus..Btl IV 05/01/24 19:33 65 ml ONCE ONE Administration Medical Decision Making Medical Decision Making [facility] Narrative: This is a 53-year-old female who presents emergency department with complaints of cough, and pleuritic chest pain x3 days. On arrival, patient mildly hypertensive at 151/63, all other vital signs within normal limits. She is speaking full sentences under no acute distress. Lungs are clear to auscultation bilaterally, however does sound diminished. She does have a history of pulmonary embolism, and she is currently on Coumadin. She admits to missing a dose of her Coumadin several days ago due to stressors. She was seen by her Coumadin Clinic and was told that she is subtherapeutic at 1.4. Given pleuritic chest pain, and history of PE, will obtain CTA to rule out pulmonary embolism. She is stable, does not appear to be under no acute distress. We will continue to closely monitor. Labs were performed prior to my assessment, she has no leukocytosis, H&H stable, chemistry revealing no electrolyte derangement. Troponin is less than 2.7. Given symptoms have been ongoing for the last 3 days, does not need repeat. BNP is 19. Viral swabs negative. Differential Diagnosis Differential Diagnoses: The differential diagnosis associated with the presentation includes PE, URI, bronchitis, asthma exacerbation, costochondritis, pneumonia Admission/Observation Consideration of admission/observation: Escalation of care including admission/observation considered Lab Data [facility] Lab Attestation statement: I reviewed the patient's lab results. See MDM 05/01/24 15:46 05/01/24 15:46 Labs: Lab Results 05/01/24 05/01/24 Range/Units 15:46 15:47 WBC 7.3 (4.8-10.8) X10*3/uL RBC 4.67 (4.20-5.50) X10*6/uL Hgb 13.3 (12.0-16.0) g/dl Hct 39.8 (37.0-47.0) % MCV 85.2 (80.0-98.0) fL MCH 28.5 (27.0-33.0) pg MCHC 33.4 (31.0-35.0) g/dl RDW 13.3 (11.0-16.0) % Plt Count 310 (160-400) X10*3/uL MPV 9.5 (9.4-12.3) fL Immature Gran % (Auto) 0.3 (0.0-0.4) % Neut % (Auto) 57.8 (45-73) % Lymph % (Auto) 32.3 (20-40) % [place] % (Auto) 6.1 (2-11) % Eos % (Auto) 3.0 (0-4) % Baso % (Auto) 0.5 (0-2) % Lymph # (Auto) 2.4 (1.2-4.9) X10*3/uL [place] # (Auto) 0.5 (0.1-1.2) X10*3/uL Eos # (Auto) 0.2 (0.0-0.4) X10*3/uL Baso # (Auto) 0.0 (0.0-0.2) X10*3/uL Abs Immat Gran (auto) 0.02 (0.00-0.03) X10*3/uL Absolute Neuts (auto) 4.2 (2.0-8.3) x10*3/uL Absolute Nucleated RBC 0.000 (0.0-0.012) X10*3/uL Nucleated RBC % (auto) 0.0 (0.0-0.2) /100WBC PT 19.1 H (10.9-12.4) SEC INR 1.6 H (0.9-1.1) APTT 33.5 (26.0-36.8) SEC Sodium 140 (135-145) mmol/L Potassium 3.6 (3.3-5.1) mmol/L Chloride 108 (96-108) mmol/L Carbon Dioxide 24 (22-29) mmol/L Anion Gap 12 (12-20) BUN 11 (9-16) mg/dL Creatinine 0.70 (0.5-1.4) mg/dL Estim Creat Clear Calc 119.0 Estimated GFR > 60 Random Glucose 104 (60-115) mg/dL Calcium 9.6 (8.4-10.2) mg/dL Total Bilirubin 0.3 (0.0-1.0) mg/dL AST 28 (5-31) U/L ALT 28 (0-31) U/L Alkaline Phosphatase 84 (39-117) U/L Troponin I High Sens < 2.7 (<3.5-17.0) ng/L B-Natriuretic Peptide 19 (<100) pg/mL Total Protein 7.5 (6.5-8.0) g/dL Albumin 4.1 (3.5-5.0) g/dL Influenza Type A (PCR) NEGATIVE (Negative) Influenza Type B (PCR) NEGATIVE (Negative) RSV RNA Qual (PCR) NEGATIVE (Negative) SARS-CoV-2 RNA (RT-PCR) NEGATIVE (Negative) Independent Interpretation I performed an independent interpretation of an: EKG Interpretation: EKG normal sinus rhythm at a ventricular rate of 70 beats per minute, no STEMI. EKG reviewed by my attending physician, Dr. Velasco, no acute findings. Radiology Impression Discussion of test interpretation with radiology: I have reviewed the radiologist's reading. Discharge Plan Discharge Clinical Impression: Lesion of liver, Thyroid nodule Patient Disposition: Home, Self-Care Additional Instructions: the CT angio of your chest was normal, you had no concerning lab abnormalities. You were incidentally found to have a lesion on the [facility] that requires outpatient follow up, you likely will have an MRI of the abdomen. In addition you were found to have a nodule on your thyroid, this also requires further outpatient assessment, you will likely have an ultrasound and a biopsy. Call your primary care provider to expedite your Additional outpatient workup. Prescriptions: No Action cholecalciferol (vitamin D3) 50 mcg (2,000 unit) capsule 50 mcg PO DAILY 30 Days Qty: 30 11RF Flovent HFA 110 mcg/actuation HFA aerosol inhaler 2 puff PO BID omeprazole 20 mg capsule,delayed release(DR/EC) 20 mg PO DAILY acetaminophen [Mapap Arthritis Pain] 650 mg tablet extended release 650 mg PO Q8H fluticasone propionate [Flonase Allergy Relief] 50 mcg/actuation spray,suspension 1 spray intranasal DAILY Rx Instructions: administer into each nostril albuterol sulfate [ProAir HFA] 90 mcg/actuation HFA aerosol inhaler 2 puff inhalation Q6H PRN (Reason: Shortness Of Breath Or Wheezing) albuterol sulfate 2.5 mg /3 mL (0.083 %) solution for nebulization 2.5 mg inhalation Q4-6H PRN (Reason: Shortness Of Breath Or Wheezing) sertraline 100 mg tablet 50 mg PO DAILY Patient Comments: pt states she is taking 50mg daily triamcinolone acetonide 0.5 % cream 1 appl topical BID trazodone 50 mg tablet 50 mg PO BEDTIME montelukast 10 mg tablet 10 mg PO DAILY warfarin 5 mg tablet See Rx Instructions .ROUTE .COMPLEX Qty: 90 0RF Protocol: Dose Management Condition: Sunday (Week One) Dose/Route: 7.5 mg Instruction: 1.5 x 5 mg tablets Condition: Sunday Dose/Route: 5 mg Instruction: 1 x 5 mg tablet Condition: Sunday Dose/Route: 7.5 mg Instruction: 1.5 x 5 mg tablets Condition: Sunday Dose/Route: 10 mg Instruction: 2 x 5 mg tablets Condition: Dose/Route: 7.5 mg Instruction: 1.5 x 5 mg tablets Condition: Sunday Dose/Route: 7.5 mg Instruction: 1.5 x 5 mg tablets Condition: Sunday Dose/Route: 10 mg Instruction: 2 x 5 mg tablets Condition: Sunday (Week Two) Dose/Route: 7.5 mg Instruction: 1.5 x 5 mg tablets Condition: Sunday Dose/Route: 5 mg Instruction: 1 x 5 mg tablet Condition: Sunday Dose/Route: 7.5 mg Instruction: 1.5 x 5 mg tablets Condition: Sunday Dose/Route: 7.5 mg Instruction: 1.5 x 5 mg tablets Condition: Dose/Route: 7.5 mg Instruction: 1.5 x 5 mg tablets Condition: Sunday Dose/Route: 7.5 mg Instruction: 1.5 x 5 mg tablets Condition: Sunday Dose/Route: 7.5 mg Instruction: 1.5 x 5 mg tablets Protocol Text: Adjustment Start Date: Sunday04/30/24 INR Value: 1.5 INR Date: 04/30/24 Recheck Date: 05/05/24 Rx Instructions: 7.5mg x 6, 5mg x 1 sennosides-docusate sodium [Senexon-S] 8.6-50 mg tablet 2 tab PO BEDTIME lisinopril 10 mg tablet 10 mg PO DAILY ondansetron 4 mg tablet,disintegrating 4 mg PO TID PRN (Reason: Nausea) omega 1-pfu-jof-fish oil [Fish Oil] 1,200 (144-216) mg capsule 1,200 cap PO BID Patient Comments: takes one in am, two in pm Interventions: ED Discharge Assessment Last Done: 05/01/24 22:11 Discharge Date/Time: 05/01/24 22:11 Print Language: Kiswahili
[2024-05-01 15:51] LABS: MANUAL DIFF FLAG NO
[2024-05-01 15:52] LABS: Basophils Percent Auto 0.5 % (0-2); Eosinophils Absolute Auto 0.2 X10*3/uL (0.0-0.4); Hematocrit 39.8 % (37.0-47.0); Hemoglobin 13.3 g/dl (12.0-16.0); Imm Gran Abs Auto 0.02 X10*3/uL (0.00-0.03); Imm Gran Pct Auto 0.3 % (0.0-0.4); Lymphocytes Absolute Auto 2.4 X10*3/uL (1.2-4.9); Lymphocytes Percent Auto 32.3 % (20-40); Mean Corpuscular HGB Conc 33.4 g/dl (31.0-35.0); Mean Corpuscular Hemoglobin 28.5 pg (27.0-33.0); Mean Corpuscular Volume 85.2 fL (80.0-98.0); Mean Platelet Volume 9.5 fL (9.4-12.3); Monocytes Absolute Auto 0.5 X10*3/uL (0.1-1.2); Monocytes Percent Auto 6.1 % (2-11); Neutrophils Absolute Auto 4.2 x10*3/uL (2.0-8.3); Neutrophils Percent Auto 57.8 % (45-73); Platelet Count 310 X10*3/uL (160-400); Red Blood Count 4.67 X10*6/uL (4.20-5.50); Red Cell Distribution Width 13.3 % (11.0-16.0); White Blood Count 7.3 X10*3/uL (4.8-10.8)
[2024-05-01 15:59] LABS: INTERNATIONAL NORM RATIO 1.6 (0.9-1.1); Prothrombin Time 19.1 SEC (10.9-12.4)
[2024-05-01 16:01] LABS: Partial Thromboplastin Time 33.5 SEC (26.0-36.8)
[2024-05-01 16:09] LABS: Alanine Aminotransferase 28 U/L (0-31); Albumin Level 4.1 g/dL (3.5-5.0); Alkaline Phosphatase 84 U/L (39-117); Anion Gap 12 (12-20); Aspartate Amino Transferase 28 U/L (5-31); Bilirubin Total 0.3 mg/dL (0.0-1.0); Blood Urea Nitrogen 11 mg/dL (9-16); Calcium 9.6 mg/dL (8.4-10.2); Carbon Dioxide 24 mmol/L (22-29); Chloride 108 mmol/L (96-108); Estimated Glomerular Filt Rate > 60; Glucose Random 104 mg/dL (60-115); Potassium 3.6 mmol/L (3.3-5.1); Sodium 140 mmol/L (135-145); Total Protein 7.5 g/dL (6.5-8.0)
[2024-05-01 16:14] LABS: B Type Natriuretic Peptide 19 pg/mL (<100)
[2024-05-01 16:15] LABS: Troponin-I High Sensitivity < 2.7 ng/L (<3.5-17.0)
[2024-05-01 16:43] LABS: Influenza A PCR NEGATIVE (Negative); Influenza B PCR NEGATIVE (Negative); Resp Syncy Virus RNA Qual PCR NEGATIVE (Negative); SARS COV2 PCR INHOUSE NEGATIVE (Negative)
[2024-05-01] MEDS: Albuterol Sulfate (0.083%) 2.5 MG/3 ML VIAL.NEB INHALE (18:43)
[2024-05-01] MEDS: iohexoL 350 MG/ML 100 ML INFUS..BTL IV (19:32)
== END 2024-05-01 22:11 | disposition home or self-care (01) ==
PROVIDERS: Physician Assistant; Emergency Provider Internal Medicine; PCP Internal Medicine
DX: R06.02 Shortness of breath (principal); E04.1 Nontoxic single thyroid nodule; R07.89 Other chest pain; R05.9 Cough, unspecified; K76.9 Liver disease, unspecified; Z79.01 Long term (current) use of anticoagulants; Z86.718 Personal history of other venous thrombosis and embolism; Z03.818 Encounter for observation for suspected exposure to other biological agents ruled out; Z79.899 Other long term (current) drug therapy
CPT/HCPCS: 0241U; 71275; 80053; 83880; 84484; 85025; 85610; 85730; 93005; 94640; 99284; 99285; Q9967

== ENCOUNTER → 2024-05-01 15:30 | Outpatient (BNV) | payer MEDICAID, SELFPAY | PROVIDERS: Emergency Provider Internal Medicine; PCP Internal Medicine; Visit Provider Internal Medicine Cardiovascular Disease | DX: R06.02 Shortness of breath (principal) | CPT/HCPCS: 93010 ==

== ENCOUNTER 2024-05-05 08:13 | Outpatient (AMB) | payer MEDICAID, SELFPAY ==
[2024-05-05 08:38] LABS: Prothrombin Time Whole Bld POC 28.2 sec (11.1-13.5); ~PT, ~INR - Anti Coag Clinic 2.4 (0.9-1.1)
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
== END 2024-05-05 08:50 | disposition home or self-care (01) ==
LOC: HO.ACS 08:13
PROVIDERS: PCP Internal Medicine; Visit Provider Internal Medicine
DX: Z79.01 Long term (current) use of anticoagulants (principal)

== ENCOUNTER → 2024-05-05 08:13 | Outpatient (BNVA) | payer MEDICAID, SELFPAY | PROVIDERS: PCP Internal Medicine; Visit Provider Internal Medicine | DX: Z86.718 Personal history of other venous thrombosis and embolism (principal); Z79.01 Long term (current) use of anticoagulants; Z51.81 Encounter for therapeutic drug level monitoring | CPT/HCPCS: 85610; 99211 ==

== ENCOUNTER 2024-05-14 08:47 | Outpatient (AMB) | payer MEDICAID, SELFPAY ==
--- NOTE | 2024-05-14 08:55 | MHC.OFFVISCO ---
Intake Intake Visit Reasons: Anticoagulation Allergies ciprofloxacin [From Cipro] Allergy (Unknown, Verified 05/14/24 08:48) RASH Sulfa (Sulfonamide Antibiotics) Allergy (Unknown, Verified 05/14/24 08:48) SWELLING/ITCHING, swelling topiramate [From TOPAMAX] Allergy (Unknown, Verified 05/14/24 08:48) DIZZY Medication List - Last Reconciled 05/14/24 by Latasha Chong RN acetaminophen ER (Mapap Arthritis Pain) 650 mg PO Q8H albuterol sulfate 2.5 mg inhalation Q4-6H PRN albuterol sulfate 90 mcg/actuation (ProAir HFA) 2 puffs inhalation Q6H PRN cholecalciferol (vitamin D3) 50 mcg PO DAILY 30 days fluticasone propionate 50 mcg/actuation (Flonase Allergy Relief) 1 spray intranasal DAILY fluticasone propionate 110 mcg/actuation (Flovent HFA) 2 puffs PO BID lisinopril 20 mg PO DAILY montelukast 10 mg PO DAILY nitrofurantoin monohyd/m-cryst 100 mg 1 cap PO BID omega 3-zkl-uko-fish oil 1,200 (144-216) mg (Fish Oil) 1,200 caps PO BID omeprazole 20 mg PO DAILY ondansetron 4 mg PO TID PRN sennosides-docusate sodium 8.6-50 mg (Senexon-S) 2 tabs PO BEDTIME sertraline 50 mg PO DAILY trazodone 50 mg PO BEDTIME PRN triamcinolone acetonide 0.5% 1 appl topical BID warfarin See Protocol 7.5mg x 6, 5mg x 1 Nursing Note INR: 2.1- in therapeutic range of 2-3 Medications and supplements reviewed- starting wellbutrin- no interaction with warfarin per micromedex No changes in health, diet, medications, or supplements, Denies any signs and symptoms of bleeding or bruising or clotting. Bleeding, bruising, clotting discussed Nutritional guidance given Dose: 5mg x 1, 7.5mg x 6 F/U INR: 2 weeks Patient verbalizes understanding of instructions given Anti-Coag Initial Assessment Social Hx Patient Tobacco Use Status: Never used Tobacco alcohol intake: never Alcohol intake frequency: does not drink Coding Level of Care Code Est Patient Level 1 Diagnoses Current use of anticoagulant therapy Z79.01 Assessment & Plan Assessment & Plan (1) Current use of anticoagulant therapy: Code(s): Z79.01 - snf (current) use of anticoagulants Category: Medical
[2024-05-14 08:57] LABS: Prothrombin Time Whole Bld POC 24.6 sec (11.1-13.5); ~PT, ~INR - Anti Coag Clinic 2.1 (0.9-1.1)
== END 2024-05-14 09:01 | disposition home or self-care (01) ==
LOC: HO.ACS 08:47
PROVIDERS: PCP Internal Medicine; Visit Provider Internal Medicine
DX: Z79.01 Long term (current) use of anticoagulants (principal)

== ENCOUNTER → 2024-05-14 08:47 | Outpatient (BNVA) | payer MEDICAID, SELFPAY | PROVIDERS: PCP Internal Medicine; Visit Provider Internal Medicine | DX: Z86.718 Personal history of other venous thrombosis and embolism (principal); Z79.01 Long term (current) use of anticoagulants; Z51.81 Encounter for therapeutic drug level monitoring | CPT/HCPCS: 85610; 99211 ==

== ENCOUNTER 2024-05-20 08:05 | Outpatient (REF) | payer MEDICAID, SELFPAY ==
--- NOTE | ~2024-05-20 | CT_ITS ---
EXAMINATION: CT ABDOMEN AND PELVIS WITHOUT AND WITH CONTRAST CLINICAL INFORMATION: Right renal mass. COMPARISON: CT scans dated June 03, 2018 and March 19, 2013. Additional prior CT scans are not currently available. TECHNIQUE: Multidetector volumetric imaging was performed of the abdomen and pelvis before and after the IV administration of 85 mL of Omnipaque 350 intravenous contrast. Sagittal and coronal reformatted images were obtained on the technologist's workstation. This CT examination was performed using dose optimization techniques as appropriate, variously including the following: *Automated exposure control *Adjustment of mA and/or kV according to patient size (this includes techniques or standardized protocols for targeted exams where dose is matched to indication/reason for exam; i.e. extremities or head) *Use of iterative reconstruction technique DLP: 783 mGy-cm FINDINGS: LUNG BASES: The lung bases appear clear, with no evidence of inflammation or nodules. LIVER, GALLBLADDER, AND BILIARY TREE: Approximately 1 cm, round, homogeneous, hypodense, segment 6 hepatic lesion (image 74, series 4), not significant changed compared with June 03, 2018, therefore likely represents a benign entity, such as an hemangioma or simple cyst. The liver otherwise appears unremarkable in size, shape, and attenuation. No particularly suspicious focal hepatic lesion or biliary ductal dilatation is appreciated. Unremarkable appearance of the gallbladder. PANCREAS: Unremarkable SPLEEN: Unremarkable ADRENAL GLANDS: Unremarkable KIDNEYS AND URETERS: The kidneys appear unremarkable in size, shape, and attenuation. No renal mass identified. No hydronephrosis, hydroureter, or calculi seen. BLADDER: Unremarkable GASTROINTESTINAL TRACT: The small and large bowel appear unremarkable. No diverticulosis. Normal-appearing distal ileum and vermiform appendix. ABDOMINAL WALL: No significant hernia is appreciated. LYMPH NODES: No evidence of adenopathy by size criteria. VASCULAR: Status post [place] infrarenal IVC filter placement. PELVIC VISCERA: IUD. Question vague prominence and hypodensity involving the cervix, not further characterized. OSSEOUS STRUCTURES: Mild degenerative changes of the hips. CT/CT abdomen pelvis wo/w IV con IMPRESSION: No renal mass identified. IUD. Question vague prominence and hypodensity involving the cervix, not further characterized. Recommend clinical correlation with pelvic examination. Electronically signed by: Jonas Mcginnis MD 05/20/2024 10:38 AM [facility]
[2024-05-20] MEDS: iohexoL 350 MG/ML 100 ML INFUS..BTL IV (08:42)
--- OUTSIDE RECORDS SUMMARY | 2024-05-21 18:43 | XMS_ITS | Continuity of Care Document ---
Author Organization [facility] Address [address] [facility] [address] [place] [address] Phone Care Team Providers Care Metal Expediter Name Role Phone Mollkya PERFORATOR OPERATOR OIL WELL, Annette Unavailable Unavailab le Procedures Procedure Date No Charge For Services Office/Outpt E&M Established 15 Mins- CT & [place] Duplex Scan-extrem Veins; Uni/ CT & [place] J Duplex Scan-extrem Veins; Uni/ CT & [place] M Inj Scleros Solut; Mx Veins 1- CT & MA M Ultrason Guidan Needle Bx-rad- CT & MA M Duplex Scan-extrem Veins; Uni/ CT & [place] M Varithena, Single Truncal Vein - CT & MA Varithena, Single Truncal Vein - CT & MA Offic/outpt E&m Estab 5 Min Trial - Tele medicine Office/Oupt E&M New Pt 30 Mins Duplex Scan-extrem Veins; Uni/ 24 Advance Directives Directive Yes / No Effective Date File Name No Information Encounters Encounter Description Practice Location Reason(s) For Visit Diagnoses Date Provider Providers Copied on Encounter [facility], [address] [place] [address] Dr [address], [place], [id number], [place] tel:[phone] CVR - [facility] Venous insufficiency (chronic) (peripheral)N evus, non-neoplasti c 4 Surinder Bryant. [address] [place] [address], [address] [facility] [address], [facility] [place], [id number], [place]. tel:[phone] Referring Provider: Yanna Valdes MD, [address] [place] [address] [address], [place], [address]. tel:[phone] Office/Outpt E&M Established 15 Mins- CT & [place] [facility], [address] [place] [address] Dr Carreno [address]Suite [place], [id number], [place] tel:[phone] CVR - [facility] Essential (primary) hypertensionL ocalized edemaVenous insufficiency (chronic) (peripheral) 4 Murtaza BHATTI RVT, SUSI Swenson. [address] [place] [address], [facility] [place], [id number], [place]. tel:[phone] Referring Provider: Yanna Valdes MD, [address] [place] [address] [address], [place], [address]. tel:[phone] [facility], [address] [place] [address] Dr Carreno 1000Suite [place], [id number], [place] tel:[phone] [facility] Encounter for follow-up examination after completed treatment for conditions other than malignant neVaricose veins of left lower extremity with pain 4 Murtaza BHATTI RVT, SUSI Swenson. [address] [place] [address] [address], [facility] [place] [id number], [place]. tel:[phone] Referring Provider: Yanna Valdes MD, [address] [place] [address] [address], [place], [address]. tel:[phone] [facility], [address] [place] [address] Dr Carreno 1000Suite [place], [id number], [place] tel:[phone] CVR - [facility] Encounter for follow-up examination after completed treatment for conditions other than malignant ne 4 Murtaza BHATTI RVT, SUSI Swenson. [address] [place] [address], [address], [facility] [place], [id number], [place]. tel:[phone] Referring Provider: Yanna Valdes MD, [address] [place] [address] [address] [facility], [place], [address]. tel:[phone] [facility], [address] [place] [address] [address], [id number], [place] tel:[phone] CV[place] - [place] [facility] [place] Chronic venous hypertension (idiopathic) with inflammation of left lower extremity 4 Surinder Bryant. [address] [place] [address], [facility] [place], [id number], [place]. tel:[phone] Referring Provider: Yanna Valdes MD, [address] [place] [address] Suite [facility], [place], [address]. tel:[phone] [facility], [address] [place] [address] [address], [id number], [place] tel:[phone] CVR - [facility] Encounter for follow-up examination after completed treatment for conditions other than malignant neChronic venous hypertension (idiopathic) with other complications of left lower extremity 4 Murtaza BHATTI RVT, SUSI Swenson. [address] [place] [address], [address], [facility] [place], [id number], [place]. tel:[phone] Referring Provider: Yanna Valdes MD, [address] [place] [address] [address], [place], [address]. tel:[phone] [facility], [address] [place] [address] [address], [id number], [place] tel:[phone] CVR - [facility] Chronic venous hypertension (idiopathic) with inflammation of left lower extremity 4 Murtaza BHATTI RVT, SUSI Swenson. [address] [place] [address], [address], [facility] [place], [id number], [place]. tel:[phone] Referring Provider: Yanna Valdes MD, [address] [place] [address] [address], [place], [address]. tel:[phone] [place] [facility], [address] [place] [address] Dr Carreno 1000[facility] [address], [id number], [place] tel:[phone] [facility] [facility] [place] Varicose veins of left lower extremity with other complications Apr-3 - 4 Murtaza BHATTI, WILLI, SUSI Swenson. [address] [place] [address], [place], [id number], [place]. tel:[phone] Referring Provider: Yanna Valdes MD, [address] [place] [address] [address], [place], [address]. tel:[phone] Offic/outpt E&m Estab 5 Min Trial - Telemedicine [place] [facility], [address] [place] [address] Dr Carreno 1000[facility] 1000[place], [id number], [place] tel:[phone] [facility] - [place] [facility] [place] Localized edemaCramp and spasmRestless legs syndromeVenou s insufficiency (chronic) (peripheral)E ssential (primary) hypertensionP ruritus, unspecified Aug- 4 Ajit Calzada. [address] [place] [address], [place], [id number], [place]. tel:[phone] Referring Provider: Yanna Valdes MD, [address] [place] [address] [address], [place], [address]. tel:[phone] Office/Oupt E&M New Pt 30 Mins [facility], [address] [place] [address] Dr [address]reno [address] 1000[place], [id number], [place] tel:[phone] [facility] [facility] [place] Varicose veins of left lower extremity with other complications Pain in left lower legLocalized edemaCramp and spasmRestless legs syndromeEssen tial (primary) hypertensionP ruritus, unspecified Feb- 4 Murtaza BHATTI RVT, SUSI Swenson. [address] [place] [address], [place], [id number], [place]. tel:[phone] Referring Provider: Yanna Valdes MD, [address] [facility] [address], [place], [address]. tel:[phone] [facility], [address] [facility] [address], [place], [id number], [place] tel:[phone] CV[place] - [place] [facility] [place] Chronic venous hypertension (idiopathic) with other complications of left lower extremity Murtaza BHATTI, RVT, RPVI Messi. [address] [facility] [address], [place], [place], [id number], [place]. tel:[phone] Referring Provider: Yanna Valdes MD, [address] [facility] [address], [place], [address]. tel:[phone] Family History Family Member Type Diagnosis Age At Onset No Information Payers Payer name Insurance type Covered libertarian ID Authoriza tiemily(s) Self Pay 09 Social History Type Description Quantity Date Captured Comments Alcohol Use Details Unknown Caffeine Use Details Unknown Tobacco Use Status Never smoked tobacco 2023 Smoking Status Never smoker Non-Smoking Tobacco Use Details : No Details Available : No Details Available Sex Female Chief Complaint And Reason For Visit No Information Reason For Referral Reason For Referral No Information Plan Of Treatment Date Type Action Status Goal Tobacco cessation counseling completed Goal Diet education completed Goal Diet education completed Referral Ordered: Weight management: Referral to physician timeframe: 3 Months (related to Body mass index (BMI) 34.0-34.9, adult) ordered Referral Ordered: Weight management: Referral to physician timeframe: 3 Months (related to Body mass index (BMI) 34.0-34.9, adult) ordered History Of Present Illness Encounter Date Complaint History Of Prese nt Illness No Information Functional Status Date Functional Assessmen t No Information Instructions Date Instruction Additional Infor mation Diet education Related to Body mass index (BMI) 34.0-34.9, adult Giving Encouragement to exercise Related to Body mass index (BMI) 34.0-34.9, adult Patient education booklet given Related to Localized edema Compression stocking usage as conservative measure Related to Localized edema Lifestyle education Related to B krista mass index (BMI) 34.0-34.9, adult Patient education booklet given Related to Localized edema Compression stocking usage as conservative measure Related to Localized edema Lifestyle education Related to B krista mass index (BMI) 34.0-34.9, adult Pre and post instruc tions reviewed and provided Related to Varicose veins of left lower extremity with other complications Patient education booklet given Related to Varicose veins of left lower extremity with other complications Giving Encouragement to exercise Related to Body mass index (BMI) 34.0-34.9, adult Diet education Related to Body mass index (BMI) 34.0-34.9, adult Assessments Type Assessment Date assessment Venous insufficiency (chronic) ( peripheral) assessment Nevus, non-neoplastic 4 Patient Care Teams Name Effective Dates (start - stop) Status Members No Information
== END 2024-05-20 08:06 | disposition home or self-care (01) ==
LOC: HO.CT 08:05
PROVIDERS: PCP Internal Medicine; Visit Provider Internal Medicine Medical Oncology
DX: N28.89 Other specified disorders of kidney and ureter (principal)
CPT/HCPCS: 74178; Q9967

== ENCOUNTER 2024-05-30 08:33 | Outpatient (AMB) | payer MEDICAID, SELFPAY ==
[2024-05-30 08:44] LABS: Prothrombin Time Whole Bld POC 25.7 sec (11.1-13.5); ~PT, ~INR - Anti Coag Clinic 2.1 (0.9-1.1)
--- NOTE | 2024-05-30 08:49 | MHC.OFFVISCO ---
Intake Intake Visit Reasons: Anticoagulation Allergies ciprofloxacin [From Cipro] Allergy (Unknown, Verified 05/30/24 08:36) RASH Sulfa (Sulfonamide Antibiotics) Allergy (Unknown, Verified 05/30/24 08:36) SWELLING/ITCHING, swelling topiramate [From TOPAMAX] Allergy (Unknown, Verified 05/30/24 08:36) DIZZY Nursing Note NO CP,SOB,DIET/MED CHANGES,FALLS OR SX OF BLEEDING. CONTINUE PRESENT DOSE AND FOLLOW-UP IN 2 WEEKS. GOOD UNDERSTANDING OF DOSING INSTR. Anti-Coag Initial Assessment Social Hx Patient Tobacco Use Status: Never used Tobacco alcohol intake: never Alcohol intake frequency: does not drink Coding Level of Care Code Est Patient Level 1 Diagnoses Current use of anticoagulant therapy Z79.01 Assessment & Plan Assessment & Plan (1) Current use of anticoagulant therapy: Code(s): Z79.01 - ocean transportation intermediary (current) use of anticoagulants Category: Medical
== END 2024-05-30 08:51 | disposition home or self-care (01) ==
LOC: HO.ACS 08:33
PROVIDERS: PCP Internal Medicine; Visit Provider Internal Medicine
DX: Z79.01 Long term (current) use of anticoagulants (principal)

== ENCOUNTER → 2024-05-30 08:33 | Outpatient (BNVA) | payer MEDICAID, SELFPAY | PROVIDERS: PCP Internal Medicine; Visit Provider Internal Medicine | DX: Z86.718 Personal history of other venous thrombosis and embolism (principal); Z79.01 Long term (current) use of anticoagulants; Z51.81 Encounter for therapeutic drug level monitoring | CPT/HCPCS: 85610; 99211 ==

== ENCOUNTER 2024-06-18 08:08 | Outpatient (AMB) | payer MEDICAID, SELFPAY ==
--- OUTSIDE RECORDS SUMMARY | 2024-06-18 08:17 | XMS_ITS | Continuity of Care Document ---
Author Organization [facility] Address [address] [facility] [place] [address] Phone Care Team Providers Care Senior Coldfusion Developer Name Role Phone Mollkya MOONER, Annette Unavailable Unavailab le Procedures Procedure Date [...] Providers Copied on Encounter [facility], [address] [place] [address] Dr Carreno [address], [place], [id number], [place] tel:[phone] CVR - [facility] Venous insufficiency (chronic) (peripheral)N evus, non-neoplasti c 4 Surinder Bryant. [address] [place] [address], Suite [facility], [facility] [place], [id number], [place]. tel:[phone] Referring Provider: Yanna Valdes MD, [address] [place] [address] [address], [place], [address]. tel:[phone] Office/Outpt E&M Established 15 Mins- CT & [place] [facility], [address] [place] [address] Dr Carreno [address]Suite [place], [id number], [place] tel:[phone] CVR - [facility] Essential (primary) hypertensionL ocalized edemaVenous insufficiency (chronic) (peripheral) 4 Murtaza BHATTI RVT, SUSI Swenson. [address] [place] [address], [facility] [place], [id number], [place]. tel:[phone] Referring Provider: Yanna Valdes MD, [address] [place] [address] [address], [place], [address]. tel:[phone] [facility], [address] [place] [address] Dr Carreno 1000Suite [place], [id number], [place] tel:[phone] [facility] for follow-up examination after completed treatment for conditions other than malignant neVaricose veins of left lower extremity with pain 4 Murtaza BHATTI RVT, SUSI Swenson. [address] [place] [address] [address], [facility] [place], [id number], [place]. tel:[phone] Referring Provider: Yanna Valdes MD, [address] [place] [address] [address], [place], [address]. tel:[phone] [facility], [address] [place] [address] Dr Carreno 1000Suite [place], [id number], [place] tel:[phone] CVR - [facility] Encounter for follow-up examination after completed treatment for conditions other than malignant ne 4 Murtaza BHATTI RVT, SUSI Swenson. [address] [place] [address], [address], [facility] [place], [id number], [place]. tel:[phone] Referring Provider: Yanna Valdes MD, [address] [place] [address] [facility], [place], [address]. tel:[phone] [facility], [address] [place] [address] [address] 1000[place], [id number], [place] tel:[phone] CV[place] - [place] [facility] [place] Chronic venous hypertension (idiopathic) with inflammation of left lower extremity 4 Surinder Bryant. [address] [place] [address], [facility] [place], [id number], [place]. tel:[phone] Referring Provider: Yanna Valdes MD, [address] [place] [address] [facility], [place], [address]. tel:[phone] [facility], [address] [place] [address] [address] 1000A[place], [id number], [place] tel:[phone] CVR - [facility] Encounter for follow-up examination after completed treatment for conditions other than malignant neChronic venous hypertension (idiopathic) with other complications of left lower extremity 4 Murtaza BHATTI RVT, SUSI Swenson. [address] [place] [address], Suite [facility], [facility] [place], [id number], [place]. tel:[phone] Referring Provider: Yanna Valdes MD, [address] [place] [address] [address], [place], [address]. tel:[phone] [facility], [address] [place] [address] [address] 1000[place], [id number], [place] tel:[phone] CVR - [facility] Chronic venous hypertension (idiopathic) with inflammation of left lower extremity 4 Murtaza BHATTI RVT, SUSI Swenson. [address] [place] [address], [address], [facility] [place], [id number], [place]. tel:[phone] Referring Provider: Yanna Valdes MD, [address] [place] [address] [address], [place], [address]. tel:[phone] [place] [facility], [address] [place] [address] Dr Carreno 1000[facility] [address]A[place], [id number], [place] tel:[phone] CVR - [place] - [place] Varicose veins of left lower extremity with other complications Apr-3 - 4 Murtaza BHATTI, WILLI, SUSI Swenson. [address] [place] [address], Wes [place], [id number], [place]. tel:[phone] Referring Provider: Yanna Valdes MD, [address] [place] [address] [address], [place], [address]. tel:[phone] Offic/outpt E&m Estab 5 Min Trial - Telemedicine [place] [facility], [address] [place] [address] Dr Carreno 1000[facility] 1000Aly[place], [id number], [place] tel:[phone] CV[place] - [place] Localized edemaCramp and spasmRestless legs syndromeVenou s insufficiency (chronic) (peripheral)E ssential (primary) hypertensionP ruritus, unspecified Aug- 4 Ajit Calzada. [address] [place] [address], Wes n[place], [id number], [place]. tel:[phone] Referring Provider: Yanna Valdes MD, [address] [place] [address] [address], [place], [address]. tel:[phone] Office/Oupt E&M New Pt 30 Mins [facility], [address] [place] [address] Dr Carreno 1000[address] 1000A[place], [id number], [place] tel:[phone] CV[place] - [place] Varicose veins of left lower extremity with other complications Pain in left lower legLocalized edemaCramp and spasmRestless legs syndromeEssen tial (primary) hypertensionP ruritus, unspecified Feb- 4 Murtaza BHATTI RVT, SUSI Swenson. [address] [place] [address], Wes n[place], [id number], [place]. tel:[phone] Referring Provider: Yanna Valdes MD, [address] [facility] [address], [place], [address]. tel:[phone] [facility], [address] [facility] [address], [place], [id number], [place] tel:[phone] CV[place] - [place] Chronic venous hypertension (idiopathic) with other complications of left lower extremity Murtaza BHATTI, RVT, RPVI Messi. [address] [facility] [address], [place], [place], [id number], [place]. tel:[phone] Referring Provider: Yanna Valdes MD, [address] [facility] [address], [place], [address]. tel:[phone] Family History Family Member Type Diagnosis Age At Onset No Information Payers Payer name Insurance type Covered alliance party ID Authoriza tiemily(s) Self Pay 09 Social [...] No Information Instructions Date Instruction Additional Infor padmini Patient education booklet given Related to Localized edema Compression stocking usage as conservative measure Related to Localized edema Lifestyle education Related to B krista mass index (BMI) 34.0-34.9, adult Giving Encouragement to exercise Related to Body mass index (BMI) 34.0-34.9, adult Diet education Related to Body mass index (BMI) 34.0-34.9, adult Patient education booklet given Related to Localized edema Compression stocking usage as conservative measure Related to Localized edema Pre and post instruc tions reviewed and provided Related to Varicose veins of left lower extremity with other complications Patient education booklet given Related to Varicose veins of left lower extremity with other complications Lifestyle education Related to B krista mass index (BMI) 34.0-34.9, adult Giving Encouragement to exercise Related to Body mass index (BMI) 34.0-34.9, adult Diet education Related to Body mass index (BMI) 34.0-34.9, adult Assessments Type Assessment Date assessment Venous insufficiency (chronic) ( peripheral) assessment Nevus, non-neoplastic Patient Care Teams Name Effective Dates (start - stop) Status Members No Information
[2024-06-18 08:25] LABS: ~PT, ~INR - Anti Coag Clinic 2.2 (0.9-1.1)
--- NOTE | 2024-06-18 08:33 | MHC.OFFVISCO ---
Intake Intake Visit Reasons: Anticoagulation Allergies ciprofloxacin [From Cipro] Allergy (Unknown, Verified 06/18/24 08:19) RASH Sulfa (Sulfonamide Antibiotics) Allergy (Unknown, Verified 06/18/24 08:19) SWELLING/ITCHING, swelling topiramate [From TOPAMAX] Allergy (Unknown, Verified 06/18/24 08:19) DIZZY Medication List - Last Reconciled 06/18/24 by Mara Lan RN acetaminophen ER (Mapap Arthritis Pain) 650 mg PO Q8H albuterol sulfate 2.5 mg inhalation Q4-6H PRN albuterol sulfate 90 mcg/actuation (ProAir HFA) 2 puffs inhalation Q6H PRN bupropion HCl SR (Wellbutrin SR) 150 mg PO DAILY cholecalciferol (vitamin D3) 50 mcg PO DAILY 30 days fluticasone propionate 50 mcg/actuation (Flonase Allergy Relief) 1 spray intranasal DAILY fluticasone propionate 110 mcg/actuation (Flovent HFA) 2 puffs PO BID lisinopril 20 mg PO DAILY montelukast 10 mg PO DAILY omega 1-zfj-wku-fish oil 1,200 (144-216) mg (Fish Oil) 1,200 caps PO BID omeprazole 20 mg PO DAILY ondansetron 4 mg PO TID PRN sennosides-docusate sodium 8.6-50 mg (Senexon-S) 2 tabs PO BEDTIME sertraline 50 mg PO DAILY trazodone 50 mg PO BEDTIME PRN triamcinolone acetonide 0.5% 1 appl topical BID warfarin See Protocol 7.5mg x 6, 5mg x 1 Nursing Note NO CP,SOB,DIET/MED CHANGES,FALLS OR SX OF BLEEDING. CONTINUE PRESENT DOSE AND FOLLOW-UP IN 2 WEEKS. GOOD UNDERSTANDING OF DOSING INSTR. Anti-Coag Initial Assessment Social Hx Patient Tobacco Use Status: Never used Tobacco alcohol intake: never Alcohol intake frequency: does not drink Coding Level of Care Code Est Patient Level 1 Diagnoses Current use of anticoagulant therapy Z79.01 Assessment & Plan Assessment & Plan (1) Current use of anticoagulant therapy: 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
== END 2024-06-18 08:35 | disposition home or self-care (01) ==
LOC: HO.ACS 08:08
PROVIDERS: PCP Internal Medicine; Visit Provider Internal Medicine
DX: Z79.01 Long term (current) use of anticoagulants (principal)

== ENCOUNTER → 2024-06-18 08:08 | Outpatient (BNVA) | payer MEDICAID, SELFPAY | PROVIDERS: PCP Internal Medicine; Visit Provider Internal Medicine | DX: Z86.718 Personal history of other venous thrombosis and embolism (principal); Z79.01 Long term (current) use of anticoagulants; Z51.81 Encounter for therapeutic drug level monitoring | CPT/HCPCS: 85610; 99211 ==

== ENCOUNTER 2024-07-02 09:51 | Outpatient (AMB) | payer MEDICAID, SELFPAY ==
--- NOTE | 2024-07-02 10:14 | MHC.OFFVISCO ---
Intake Intake Visit Reasons: Anticoagulation Allergies ciprofloxacin [From Cipro] Allergy (Unknown, Verified 07/02/24 10:09) RASH Sulfa (Sulfonamide Antibiotics) Allergy (Unknown, Verified 07/02/24 10:09) SWELLING/ITCHING, swelling topiramate [From TOPAMAX] Allergy (Unknown, Verified 07/02/24 10:09) DIZZY Medication List - Last Reconciled 07/02/24 by Latasha Chong RN acetaminophen ER (Mapap Arthritis Pain) 650 mg PO Q8H albuterol sulfate 2.5 mg inhalation Q4-6H PRN albuterol sulfate 90 mcg/actuation (ProAir HFA) 2 puffs inhalation Q6H PRN bupropion HCl SR (Wellbutrin SR) 150 mg PO DAILY cholecalciferol (vitamin D3) 50 mcg PO DAILY 30 days fluticasone propionate 50 mcg/actuation (Flonase Allergy Relief) 1 spray intranasal DAILY fluticasone propionate 110 mcg/actuation (Flovent HFA) 2 puffs PO BID lisinopril 20 mg PO DAILY montelukast 10 mg PO DAILY omega 9-txn-gul-fish oil 1,200 (144-216) mg (Fish Oil) 1,200 caps PO BID omeprazole 20 mg PO DAILY ondansetron 4 mg PO TID PRN sennosides-docusate sodium 8.6-50 mg (Senexon-S) 2 tabs PO BEDTIME sertraline 50 mg PO DAILY trazodone 50 mg PO BEDTIME PRN triamcinolone acetonide 0.5% 1 appl topical BID warfarin See Protocol 7.5mg x 6, 5mg x 1 Nursing Note INR: 2.0- in therapeutic range of 2-3 Medications and supplements reviewed- pt completed antibiotics cephelexin and prednisone a week ago for sinus uri s/s enc to call acs with med changes No changes in health, diet, medications, or supplements, Denies any signs and symptoms of bleeding or bruising or clotting. Bleeding, bruising, clotting discussed Nutritional guidance given - no greens for 2 dAYS, eat a red today Dose: 5mg x 1. 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
[2024-07-02 10:16] LABS: Prothrombin Time Whole Bld POC 24.1 sec (11.1-13.5)
--- OUTSIDE RECORDS SUMMARY | 2024-07-02 10:41 | XMS_ITS ---
Author Organization [facility] Address [address] [place] [address] Care Team Providers Care Press Operator Assistant Name Role Phone Yanna Valdes Primary Care Provider Unavailab Severo Davenport Jr Unavailable [phone] ALLERGIES Allergen (clinical drug ingredient) Drug/Non Drug Allergy documented on EMR Reaction Allergy Type Onset Date Status Substance with sulfonamide structure and antibacterial mechanism of action (substance) Sulfa Antibiotics Unknown Drug Allergy Active topiramate Topamax Unknown Drug Allergy Active ciprofloxacin Cipro Unknown Drug Allergy Act lamonte REASON FOR VISIT Patient presents today for abdominal pain MEDICATIONS Medication SIG (Take, Route, Frequency, Duration) Notes Start Date End Date Status Montelukast Sodium 10 MG TAKE ONE TABLET BY MOUTH EVERY DAY Oral for 90 Active Triamcinolone Acetonide 0.5 % USE 1 APPLICATION TOPICALLY TO AFFECTED AREA TWICE A DAY External for 30 Active Lisinopril 5 MG TAKE 1 TABLET BY JORGE TH EVERY DAY Oral for 90 Active Loratadine 10 MG TAKE 1 TABLET BY JORGE TH EVERY DAY Oral for 90 Active Fluticasone Propionate 50 MCG/ACT ONE SPRAY EACH NOSTRIL NASAL ONCE A DAY Nasal for 90 Active Sertraline HCl 100 MG TAKE 1 TABLET BY M OUTH EVERY DAY Oral for 30 Active traZODone HCl 50 MG TAKE 1 TABLET BY JORGE TH EVERYDAY AT BEDTIME Oral for 90 Active Omeprazole 20 MG TAKE 1 CAPSULE BY MO UTH EVERY DAY Oral for 90 Active Warfarin Sodium 5 MG TAKE 1 TABLET BY MO UTH SUNDAY AND SUNDAY AND 1 1/2 TABS THE REST OF THE WEEK Oral for 44 Active SOCIAL HISTORY Tobacco Use: Social History Observation Description Date Details (start date - stop date) Never Smoker NA - NA Sex Assigned At : Social History Observation Description Sex Assigned At Unknown Tobacco Use/Smoking Question Answer Notes Patient is a nonsmoker Alcohol Screen Question Answer Notes Did you have a drink containing alcohol in the p ast year? No Points 0 Interpretation Negative VITAL SIGNS BMI 34.06 kg/m2 04/09/2024 Blood pressure systolic 00 mm Hg 04/09/20 24 Blood pressure diastolic 00 mm Hg 024 Height 68 in 04/09/2024 Weight 224 lbs 04/09/2024 Encounters Encounter Location Date Provider Diagnosis [facility] [address] [place] [address] 04/09/2024 Severo Cancino Jr Epigastric pain R10.13 ASSESSMENTS Encounter Date Diagnosis Assessment Notes Treatment Notes Treatment Clinical Notes 04/09/2024 Epigastric pain (ICD-10 - R10.13) PLAN OF TREATMENT Pending Test Test Name Order Date BUN 04/09/2024 CREATININE 04/09/2024 LIVER PROFILE 04/09/2024 LIPASE 04/09/2024 CBC w/o DIFF 04/09/2024 US ABD 04/09/2024 Next Appt Details Follow Up: 1 Year, Reason: Provider Name:Severo loza Jr, 04/08/2025 09:00:00 AM, [address], [address], [place], [address],
--- OUTSIDE RECORDS SUMMARY | 2024-07-02 10:41 | XMS_ITS ---
Author Organization [facility] Address [address] [place] [address] Care Team Providers Care Pediatric Radiologist Name Role Phone Yanna Valdes Primary Care Provider Unavailab Severo Davenport Jr REASON FOR VISIT labs Encounters Encounter Location Date Provider Diagnosis [facility] [address] [place] [address] 04/14/2024 Severo Cancino Jr PLAN OF TREATMENT Next Appt Details Provider Name:Severo loza Jr, 04/08/2025 09:00:00 AM, [address] [place] [address], [address], [place], [address],
--- OUTSIDE RECORDS SUMMARY | 2024-07-02 10:41 | XMS_ITS ---
Author Organization [facility] Address [address] [place] [address] Care Team Providers Care Organic Preparation Analyst Name Role Phone Yanna Valdes Primary Care Provider Unavailab Severo Davenport Jr REASON FOR VISIT ultrasound Encounters Encounter Location Date Provider Diagnosis [facility] [address] [place] [address] Drive [address] [place] [address] 04/24/2024 Severo Cancino Jr PLAN OF TREATMENT Next Appt Details Provider Name:Severo loza Jr, 04/08/2025 09:00:00 AM, [address] [place] [address], [address], [place], [address],
--- OUTSIDE RECORDS SUMMARY | 2024-07-02 10:42 | XMS_ITS | Continuity of Care Document ---
Author Organization [facility] Address [address] [place] [address] Phone Care Team Providers Care Supervisor [employer] Name Role Phone Mollkya WELL CLEANER, Annette Unavailable Unavailab le Procedures Procedure Date [...] Providers Copied on Encounter [facility], [address] [place] [address] Dr [address], [place], [id number], [place] tel:[phone] CVR - [facility] Venous insufficiency (chronic) (peripheral)N evus, non-neoplasti c 4 Surinder Bryant. [address] [place] [address], Suite [facility], [facility] [place], [id number], [place]. tel:[phone] Referring Provider: Yanna Valdes MD, [address] [place] [address] [address], [place], [address]. tel:[phone] Office/Outpt E&M Established 15 Mins- CT & [place] [facility], [address] [place] [address] Dr [address]o [address]Suite [place], [id number], [place] tel:[phone] CVR - [facility] Essential (primary) hypertensionL ocalized edemaVenous insufficiency (chronic) (peripheral) 4 Murtaza BHATTI RVT, SUSI Swenson. [address] [place] [address], [facility] [place], [id number], [place]. tel:[phone] Referring Provider: Yanna Valdes MD, [address] [place] [address] [address], [place], [address]. tel:[phone] [facility], [address] [place] [address] Dr [address]reno [address]Suite [place], [id number], [place] tel:[phone] [facility] En[facility] for follow-up examination after completed treatment for conditions other than malignant neVaricose veins of left lower extremity with pain 4 Murtaza BHATTI RVT, SUSI Swenson. [address] [place] [address] [address], [facility] [place] [place] [id number], [place]. tel:[phone] Referring Provider: Yanna Valdes MD, [address] [place] [address] [address], [place], [address]. tel:[phone] [facility], [address] [place] [address] Dr [address]o [address]Suite [place], [id number], [place] tel:[phone] CVR - [facility] Encounter for follow-up examination after completed treatment for conditions other than malignant ne 4 Murtaza BHATTI RVT, SUSI Swenson. [address] [place] [address], [address], [facility] [place], [id number], [place]. tel:[phone] Referring Provider: Yanna Valdes MD, [address] [place] [address] Suite [facility], [place], [address]. tel:[phone] [facility], [address] [place] [address] [address] [address], [id number], [place] tel:[phone] CVR - [place] Chronic venous hypertension (idiopathic) with inflammation of left lower extremity 4 Surinder Bryant. [address] [place] [address], [facility] [place], [id number], [place]. tel:[phone] Referring Provider: Yanna Valdes MD, [address] [place] [address] Suite [facility], [place], [address]. tel:[phone] [facility], [address] [place] [address] [address], [id number], [place] tel:[phone] CVR - [facility] Encounter for follow-up examination after completed treatment for conditions other than malignant neChronic venous hypertension (idiopathic) with other complications of left lower extremity 4 Murtaza BHATTI RVT, SUSI Swenson. [address] [place] [address], Suite [facility], [facility] [place], [id number], [place]. tel:[phone] Referring Provider: Yanna Valdes MD, [address] [place] [address] [address], [place], [address]. tel:[phone] [facility], [address] [place] [address] [address], [id number], [place] tel:[phone] CVR - [facility] Chronic venous hypertension (idiopathic) with inflammation of left lower extremity 4 Murtaza BHATTI RVT, SUSI Swenson. [address] [place] [address], [address], [facility] [place], [id number], [place]. tel:[phone] Referring Provider: Yanna Valdes MD, [address] [place] [address] [address], [place], [address]. tel:[phone] [facility], [address] [place] [address] Dr Carreno 1000[facility] [address], [id number], [place] tel:[phone] CV[place] Varicose veins of left lower extremity with other complications Apr-3 - 4 Murtaza BHATTI, WILLI, SUSI Swenson. [address] [place] [address], Wes nielsen [place], [id number], [place]. tel:[phone] Referring Provider: Yanna Valdes MD, [address] [place] [address] [address], [place], [address]. tel:[phone] Offic/outpt E&m Estab 5 Min Trial - Telemedicine [facility], [address] [place] [address] Dr [address]reno 1000[facility] [address], [id number], [place] tel:[phone] CV[place] Localized edemaCramp and spasmRestless legs syndromeVenou s insufficiency (chronic) (peripheral)E ssential (primary) hypertensionP ruritus, unspecified Aug- 4 Ajit Calzada. [address] [place] [address], [place], [id number], [place]. tel:[phone] Referring Provider: Yanna Valdes MD, [address] [place] [address] [address], [place], [address]. tel:[phone] Office/Oupt E&M New Pt 30 Mins [facility], [address] [place] [address] Dr [address], [id number], [place] tel:[phone] CVR - [place] Varicose veins of left lower extremity with other complications Pain in left lower legLocalized edemaCramp and spasmRestless legs syndromeEssen tial (primary) hypertensionP ruritus, unspecified Feb- 4 Murtaza BHATTI RVT, SUSI Swenson. [address] [place] [address], [place], [id number], [place]. tel:[phone] Referring Provider: Yanna Valdes MD, [address] [facility] [address], [place], [address]. tel:[phone] [facility], [address] [facility] [address], [place], [id number], [place] tel:[phone] CVR - [place] Chronic venous hypertension (idiopathic) with other complications of left lower extremity Murtaza BHATTI, RVT, RPVI Messi. [address] [facility] [address], [place], [place], [id number], [place]. tel:[phone] Referring Provider: Yanna Valdes MD, [address] [facility] [address], [place], [address]. tel:[phone] Family History Family Member Type Diagnosis Age At Onset No Information Payers Payer name Insurance type Covered green party ID Authoriza tiemily(s) Self Pay 09 [...] to Body mass index (BMI) 34.0-34.9, adult Lifestyle education Related to B krista mass index (BMI) 34.0-34.9, adult Compression stocking usage as conservative measure Related to Localized edema Patient education booklet given Related to Localized edema Compression stocking usage as conservative measure Related to Localized edema Patient education booklet given Related to Localized edema Diet education Related to Body mass index (BMI) 34.0-34.9, adult Giving Encouragement to exercise Related to Body mass index (BMI) 34.0-34.9, adult Lifestyle education Related to B krista mass index (BMI) 34.0-34.9, adult Patient education booklet given Related to Varicose veins of left lower extremity with other complications Pre and post instruc tions reviewed and provided Related to Varicose veins of left lower extremity with other complications Assessments Type Assessment Date assessment Venous insufficiency (chronic) ( peripheral) assessment Nevus, non-neoplastic Patient Care Teams Name Effective Dates (start - stop) Status Members No Information
--- OUTSIDE RECORDS SUMMARY | 2024-07-02 10:42 | XMS_ITS | Patient Health Record ---
Author Organization [facility] Address [address] [place] [address] Care Team Providers Care Health And Wellness Manager Name Role Phone LucinaYanna freeman Primary Care Provider UnavailSevero Ackerman Jr Unavailable ALLERGIES Allergen (clinical drug ingredient) Drug/Non Drug Allergy documented on EMR Reaction Allergy Type Onset Date Status Substance with sulfonamide structure and antibacterial mechanism of action (substance) Sulfa Antibiotics Unknown Drug Allergy Active topiramate Topamax Unknown Drug Allergy Active ciprofloxacin Cipro Unknown Drug Allergy Act lamonte RESULTS Component Value Reference Range Notes Complete Blood Count no Diff Reviewed date:04/14/2024 08:55:09 AM Interpretation: Performing Lab:[facility], [address] [place] [id number] Notes/Report: White Blood Count 6.2 4.8-10.8 X10*3/uL Red Blood Count 4.52 4.20-5.50 X10*6/uL Hemoglobin 12.9 12.0-16.0 g/dl Hematocrit 38.5 37.0-47.0 % Mean Corpuscular Volume 85.2 80.0-98.0 fL Mean Corpuscular Hemoglobin 28.5 27.0-33.0 pg Mean Corpuscular HGB Conc 33.5 31.0-35.0 g/dl Red Cell Distribution Width 13.5 11.0-16.0 % Platelet Count 369 160-400 X10*3/uL Mean Platelet Volume 9.8 9.4-12.3 fL NRBC Pct Auto 0.0 0.0-0.2 /100WBC NRBC Abs Auto 0.000 0.0-0.012 X10*3/uL Liver Panel Reviewed date:04/14/2024 08:55:15 AM Interpretation: Performing Lab:[address] [address] Notes/Report: Bilirubin Total 0.3 0.0-1.0 mg/dL Bilirubin Direct 0.1 0.0-0.5 mg/dL Aspartate Amino Transferase 22 5-31 U/L Alanine Aminotransferase 17 0-31 U/L Total Protein 7.2 6.5-8.0 g/dL Albumin Level 3.9 3.5-5.0 g/dL Alkaline Phosphatase 71 39-117 U/L Blood Urea Nitrogen Reviewed date:04/14/2024 08:52:04 AM Interpretation: Performing Lab:[address] [address] Notes/Report: Blood Urea Nitrogen 9 9-16 mg/dL Creatinine Reviewed date:04/14/2024 08:55:22 AM Interpretation: Performing Lab:[facility], [address] [place] [phone] Notes/Report: Creatinine 0.70 0.5-1.4 mg/dL Estimated Glomerular Filt Rate > 60 NOTE: For -Citizen Of [place] individuals, multiply the result by 1.210. Chronic Kidney Disease: Estimated GFR < 60 mL/min/1.73m2 Severe Kidney Disease: Estimated GFR < 15 mL/min/1.73m2 Lipase Reviewed date:04/14/2024 08:55:29 AM Interpretation: Performing Lab:[facility], [address] [place] [phone] Notes/Report: Lipase 31 8-78 U/L US abdomen complete Reviewed date:04/24/2024 08:22:36 AM Interpretation: Performing Lab: Notes/Report: [address] [address] Ultrasound Report Signed Patient: Norma Carter I MR#: [id number] : 1970 Acct:[id number] Age/Sex: 53 / F ADM Date: 04/18/24 Loc: HO.US Attending Dr: Severo Jett MD Ordering Physician: Severo Jett MD Date of Service: 04/18/24 Procedure(s): US abdomen complete Accession Number(s): [id number] cc: Yanna Valdes MD; Severo Jett MD EXAMINATION: US ABDOMEN COMPLETE CLINICAL INFORMATION: Epigastric pain. COMPARISON: Ultrasound abdomen 02/14/2023 and 01/12/2022. CT abdomen 06/03/2018. X-ray KUB 04/06/2013. TECHNIQUE: Real-time imaging of the abdominal viscera. FINDINGS: PANCREAS: Normal. ABDOMINAL AORTA: The proximal, mid, and distal segments are normal in caliber. INFERIOR VENA CAVA: Visualized portions are normal. LIVER: The liver is normal in size. The liver contour is normal. There is diffuse increased liver parenchymal echogenicity. Within the right hepatic lobe, a 1.0 cm benign, simple cyst is seen. There is no intrahepatic biliary duct dilatation seen. GALLBLADDER: There are shadowing gallstones. There is adenomyomatosis, with ringdown artifact. No evidence of gallbladder wall thickening or pericholecystic fluid. COMMON BILE DUCT: Normal in caliber measuring 0.2 cm in diameter. RIGHT KIDNEY: Arising exophytically from the lower pole, a 1.1 x 1.0 x 1.1 cm echogenic, circumscribed mass is newly seen, possibly an angiomyolipoma. No hydronephrosis or renal calculi. The kidney measures 12.8 cm in maximum dimension. LEFT KIDNEY: Normal. No hydronephrosis. No renal calculi or focal parenchymal lesions. The kidney measures 11.9 cm in maximum dimension. SPLEEN: Normal. The spleen measures 10.3 cm in maximum dimension. FREE FLUID: None. US/US abdomen complete IMPRESSION: 1. There is generalized increase in hepatic echotexture, consistent with fatty infiltration or hepatocellular disease. Please correlate clinically. No focal hepatic mass or intrahepatic biliary dilatation is seen. 2. There is cholelithiasis, and there is ringdown artifact consistent with adenomyomatosis. 3. Arising exophytically from the lower pole of the right kidney, a 1.1 cm echogenic mass is seen, possibly a benign angiomyolipoma. This could be further evaluated with CT (renal mass protocol), if clinically indicated. Electronically signed by: Bk Long MD 04/20/2024 09:34 PM EST RP Dictated By: Bk Long MD Signed By: <Electronically signed by Bk Long MD in OV> 04/20/242133 DD/ 3 TD/TT: 04/18/24931 Production Analyst: TERRIE REASON FOR REFERRAL Referring Provider First Name Yanna Referring Provider Last Name Keisha Referring Provider Speciality Internal M edicine Referred Organization [facility] Referred Provider Severo Jett Jr Referred Address [address] [place] [address],[place] [address],[place], [place],[address], Referred Provider Specialty Gastroentero logy General Notes Bent,Jackelin 024 01:55:42 PM EDT > REQUESTED A [place] REFERRAL FOR VISIT WITH DR. JETT ON 04-09-2024 DX ABD PAIN Referral Priority Routine MEDICATIONS Medication SIG (Take, Route, Frequency, Duration) Notes Start Date End Date Status Sertraline HCl 100 MG TAKE 1 TABLET BY M OUTH EVERY DAY Oral for 30 Active traZODone HCl 50 MG TAKE 1 TABLET BY JORGE TH EVERYDAY AT BEDTIME Oral for 90 Active Montelukast Sodium 10 MG TAKE ONE TABLET BY MOUTH EVERY DAY Oral for 90 Active Triamcinolone Acetonide 0.5 % USE 1 APPLICATION TOPICALLY TO AFFECTED AREA TWICE A DAY External for 30 Active Lisinopril 5 MG TAKE 1 TABLET BY JROGE TH EVERY DAY Oral for 90 Active Loratadine 10 MG TAKE 1 TABLET BY OJRGE TH EVERY DAY Oral for 90 Active Fluticasone Propionate 50 MCG/ACT ONE SPRAY EACH NOSTRIL NASAL ONCE A DAY Nasal for 90 Active Omeprazole 20 MG TAKE 1 CAPSULE BY MO UTH EVERY DAY Oral for 90 Active Warfarin Sodium 5 MG TAKE 1 TABLET BY MO UTH SUNDAY AND SUNDAY AND 1 1/2 TABS THE REST OF THE WEEK Oral for 44 Active IMMUNIZATIONS Vaccine Route Administration Date Status Comme nts Influenza Unknown 02/21/2022 Administered Influenza Unknown 06/11/2023 Administered SOCIAL HISTORY Tobacco Use: Social History Observation Description Date Details (start date - stop date) Never Smoker NA - NA Sex Assigned At : Social History Observation Description Sex Assigned At Unknown Tobacco Use/Smoking Question Answer Notes Patient is a nonsmoker Alcohol Screen Question Answer Notes Did you have a drink containing alcohol in the p ast year? No Points 0 Interpretation Negative PROBLEMS Problem Type ICD Code Onset Dates Problem Status W/U Status Risk SNOMED Code Notes Problem Epigastric pain (R10.13) Active confirmed 64214605 Problem Colon cancer screening (Z12.11) Active confirmed 639147024 Problem Esophageal reflux (K21.9) Active confirmed Esophageal reflux (183076327) VITAL SIGNS Temperature 96.0 degrees Fahrenheit 07/11/2023 Blood pressure diastolic 00 mm Hg 04/09/2024 Height 68 in 04/09/2024 Blood pressure systolic 00 mm Hg 04/09/2024 Weight 224 lbs 04/09/2024 BMI 34.06 kg/m2 04/09/2024 Encounters Encounter Location Date Provider Diagnosis [facility] [address] [place] [phone] 07/11/2023 Severo Jett Jr Esophageal reflux K21.9 and Colon cancer screening Z12.11 [facility] [address] [place] [phone] 04/09/2024 Severo Jett Jr Epigastric pain R10.13 [facility] [address] [place] [phone] 03/04/2024 Severo Jett Jr [facility] [address] [place] [phone] 04/14/2024 Severo Jett Jr [facility] [address] [place] [address] 04/24/2024 Severo Jett Jr ASSESSMENTS Encounter Date Diagnosis Assessment Notes Treatment Notes Treatment Clinical Notes 07/11/2023 Colon cancer screening (ICD-10 - Z12.11) 07/11/2023 Esophageal reflux (ICD-10 - K21.9) Gastroesophageal reflux disease material was printed 04/09/2024 Epigastric pain (ICD-10 - R10.13) PLAN OF TREATMENT Pending Test Test Name Order Date BUN 04/09/2024 CREATININE 04/09/2024 LIVER PROFILE 04/09/2024 LIPASE 04/09/2024 CBC w/o DIFF 04/09/2024 US ABD 04/09/2024 Future Test Test Name Order Date UPPER GI ENDOSCOPY 11/08/2022 COLONOSCOPY 11/08/2022 Next Appt Details Provider Name:Severo Gomez Pastorfaheem duonggia Pugh, 04/08/2025 09:00:00 AM, [address], [address], [place], [address], Insurance Providers Payer Name Payer Address Payer Phone Subscriber Number Group Number Insured Name Patient Relationship to Insured Coverage Start Date Coverage End Date MEDICA[facility] [address] [place] [address] [id number] NORMA ESTES Self - patient is the insured MEDICAL (GENERAL) HISTORY Medical History History ICD Code DVT/PE EGD 01/31, esophagitis, eosinophils on bi opsy Environmental allergies Anxiety Insomnia Hypertension Elevated cholesterol Colonoscopy 01/31, normal, ten-year follo wup Surgical History Surgery Date(Month/Year) thyroid surgery vena cava filter 1993 lipoma removal 2021
== END 2024-07-02 10:21 | disposition home or self-care (01) ==
LOC: HO.ACS 09:51
PROVIDERS: PCP Internal Medicine; Visit Provider Internal Medicine
DX: Z79.01 Long term (current) use of anticoagulants (principal)

== ENCOUNTER → 2024-07-02 09:51 | Outpatient (BNVA) | payer MEDICAID, SELFPAY | PROVIDERS: PCP Internal Medicine; Visit Provider Internal Medicine | DX: Z86.718 Personal history of other venous thrombosis and embolism (principal); Z79.01 Long term (current) use of anticoagulants; Z51.81 Encounter for therapeutic drug level monitoring | CPT/HCPCS: 85610; 99211 ==

== ENCOUNTER 2024-07-04 14:51 | Outpatient (REF) | payer MEDICAID, SELFPAY ==
[2024-07-04 16:26] LABS: Urine Cytology See Pathology rpt
--- OUTSIDE RECORDS SUMMARY | 2024-07-04 16:32 | XMS_ITS | Continuity of Care Document ---
Author Organization [facility] Address [address] [facility] [address] [place] [address] Phone Care Team Providers Care Show Dog Trainer Name Role Phone Mollkya ELECTROPLATING LABORER, Annette Unavailable Unavailab le Procedures Procedure Date [...] Providers Copied on Encounter [facility], [address] [place] [address] Dr Carreno [address], [place], [id number], [place] tel:[phone] CVR - [facility] Venous insufficiency (chronic) (peripheral)N evus, non-neoplasti c 4 Surinder Bryant. [address] [place] [address], Suite [facility], [facility] [place], [id number], [place]. tel:[phone] Referring Provider: Yanna Valdes MD, [address] [place] [address] [address], [place], [address]. tel:[phone] Office/Outpt E&M Established 15 Mins- CT & [place] [facility], [address] [place] [address] Dr Carreno 1000Suite [place] Mcke[place], [id number], [place] tel:[phone] CVR - [facility] Essential (primary) hypertensionL ocalized edemaVenous insufficiency (chronic) (peripheral) 4 Murtaza BHATTI RVT, SUSI Swenson. [address] [place] [address], [facility] [place], [id number], [place]. tel:[phone] Referring Provider: Yanna Valdes MD, [address] [place] [address] [address], [place], [address]. tel:[phone] [facility], [address] [place] [address] Dr Carreno 1000Suite lAyce [place], [id number], [place] tel:[phone] [facility] Encounter for follow-up examination after completed treatment for conditions other than malignant neVaricose veins of left lower extremity with pain 4 Murtaza BHATTI RVT, SUSI Swenson. [address] [place] [address] 302, [facility] [place], [id number], [place]. tel:[phone] Referring Provider: Yanna Valdes MD, [address] [place] [address] [address], [place], [address]. tel:[phone] [facility], [address] [place] [address] Dr Carreno 1000Suite [place] Mc[place], [id number], [place] tel:[phone] CVR - [facility] Encounter for follow-up examination after completed treatment for conditions other than malignant ne 4 Murtaza BHATTI RVT, SUSI Swenson. [address] [place] [address], [address], [facility] [place], [id number], [place]. tel:[phone] Referring Provider: Yanna Valdes MD, [address] [place] [address] [facility], [place], [address]. tel:[phone] [facility], [address] [place] [address] 1000[address] 1000Alyce [place], [id number], [place] tel:[phone] CVR - [place] Chronic venous hypertension (idiopathic) with inflammation of left lower extremity 4 Surinder Bryant. [address] [place] [address], [facility] [place], [id number], [place]. tel:[phone] Referring Provider: Yanna Valdes MD, [address] [place] [address] [facility], [place], [address]. tel:[phone] [facility], [address] [place] [address] 1000[address] 1000Alyce [place], [id number], [place] tel:[phone] CVR - [facility] Encounter for follow-up examination after completed treatment for conditions other than malignant neChronic venous hypertension (idiopathic) with other complications of left lower extremity 4 Murtaza BHATTI RVT, SUSI Swenson. [address] [place] [address], Suite [facility], [facility] [place], [id number], [place]. tel:[phone] Referring Provider: Yanna Valdes MD, [address] [place] [address] [address], [place], [address]. tel:[phone] [facility], [address] [place] [address] 1000[address] 1000Alyce MD, [id number], [place] tel:[phone] CVR - [facility] Chronic venous hypertension (idiopathic) with inflammation of left lower extremity 4 Murtaza BHATTI RVT, SUSI Swenson. [address] [place] [address], [address], [facility] [place], [id number], [place]. tel:[phone] Referring Provider: Yanna Valdes MD, [address] [place] [address] [address], [place], [address]. tel:[phone] [facility], [address] [place] [address] Dr Carreno 1000[facility] 1000Alyce [place], [id number], [place] tel:[phone] CV[place] - [place] Varicose veins of left lower extremity with other complications Apr-3 - 4 Murtaza BHATTI, WILLI, SUSI Swenson. [address] [place] [address], [place], [id number], [place]. tel:[phone] Referring Provider: Yanna Valdes MD, [address] [place] [address] [address], [place], [address]. tel:[phone] Offic/outpt E&m Estab 5 Min Trial - Telemedicine [facility], [address] [place] [address] Dr Carreno [address] 1000Alyce [place], [id number], [place] tel:[phone] CV[place] - [place] Localized edemaCramp and spasmRestless legs syndromeVenou s insufficiency (chronic) (peripheral)E ssential (primary) hypertensionP ruritus, unspecified Aug- 4 Ajit Calzada. [address] [place] [address], [place], [id number], [place]. tel:[phone] Referring Provider: Yanna Valdes MD, [address] [place] [address] [address], [place], [address]. tel:[phone] Office/Oupt E&M New Pt 30 Mins [facility], [address] [place] [address] Dr Carreno 1000ite 1000Alyce MD, [id number], [place] tel:[phone] CVR - [place] Varicose veins of left lower extremity with other complications Pain in left lower legLocalized edemaCramp and spasmRestless legs syndromeEssen tial (primary) hypertensionP ruritus, unspecified Feb- 4 Murtaza BHATTI RVT, SUSI Swenson. [address] [place] [address], [place], [id number], [place]. tel:[phone] Referring Provider: Yanna Valdes MD, [address] [facility] [address], [place], [address]. tel:[phone] [facility], [address] [facility] [address], [place], [id number], [place] tel:[phone] CVR - [place] Chronic venous hypertension (idiopathic) with other complications of left lower extremity Murtaza BHATTI, RVT, RPVI Messi. [address] [facility] [address], [place], [place], [id number], [place]. tel:[phone] Referring Provider: Yanna Valdes MD, [address] [facility] [address], [place], [address]. tel:[phone] Family History Family Member Type Diagnosis Age [...]
== END 2024-07-04 14:52 | disposition home or self-care (01) ==
LOC: HO.LAB 14:51
PROVIDERS: PCP Internal Medicine; Visit Provider Urology
DX: N28.89 Other specified disorders of kidney and ureter (principal); R31.29 Other microscopic hematuria; Z79.01 Long term (current) use of anticoagulants; Z86.718 Personal history of other venous thrombosis and embolism
CPT/HCPCS: 88112; 99202

== ENCOUNTER 2024-07-04 14:51 | Outpatient (AMB) | payer MEDICAID, SELFPAY ==
--- NOTE | 2024-07-04 14:54 | MHC.OFFVIS ---
Intake Visit Reasons: renal mass Intake Note: New patient is present for Renal Mass Urology Med:None Antibiotic Allergy: Sulfa, Cipro Blood Thinner: Warfarin Sales Strategy Manager Required: No Accompanied by: Self / Same As Patient Allergies ciprofloxacin [From Cipro] Allergy (Unknown, Verified 07/04/24 14:58) RASH Sulfa (Sulfonamide Antibiotics) Allergy (Unknown, Verified 07/04/24 14:58) SWELLING/ITCHING, swelling topiramate [From TOPAMAX] Allergy (Unknown, Verified 07/04/24 14:58) DIZZY HPI Comments Details: Norma is a 53-year-old female who is here for evaluation. She had an abdominal ultrasound done in April, which noted a question of a 1.1 cm renal lesion. Follow-up CT of abdomen with and without IV contrast was done kidneys are normal. No parenchymal lesions noted. The patient states that for the past several months she sees blood in the urine intermittently. She states sometimes the urine looks orange, sometimes she sees spots of blood in the toilet. She is on daily Coumadin due to history of DVT and pulmonary embolism; initial DVT she states was in her early 20s. She denies burning with urination. Urinalysis today is negative for leukocytes or blood. I will send urine for cytology and have her return for office cystoscopy. [facility] Medical History History of lipoma Multiple lipomas Scalp cyst DVT (deep vein thrombosis) in Vitamin D deficiency Non-toxic multinodular goiter Surgical History Status post excision of lipoma S/P fine needle aspiration History of partial thyroidectomy Hx of superior vena cava filter placement Hx of esophagogastroduodenoscopy Family History Father Hypertension Mother Diabetes Aneurysm Hypertension Other No family history of cancer Social History Household Members: Children Household Members Other:: 3 Housing: Apartment Are you a primary healthcare financial analyst to a significant other at home: No Do you presently have visiting nurse or other home services: No Alcohol intake: never Patient Tobacco Use Status: Never used Tobacco service: No Current occupational status: unemployed Review of Systems Const All systems reviewed & are unremarkable except as noted in HPI and below Reports no additional complaints Eyes Reports no additional complaints ENT Reports no additional complaints Card Reports no additional complaints Resp Reports no additional complaints GI Reports no additional complaints Reports as per HPI Musc Reports no additional complaints Skin/Breast Reports system reviewed and no additional complaints, except as documented Neuro Reports no additional complaints Psych Reports no additional complaints Endo Reports no additional complaints Stuart/Lymph Reports no additional complaints Aller/Immun Reports no additional complaints Physical Exam Const General: cooperative, healthy appearing and no acute distress Orientation/consciousness: patient oriented x3 HEENT Head: Yes normal to inspection, Yes normocephalic and Yes atraumatic Eyes Conjunctivae: conjunctivae normal Neck Neck: Yes normal visual inspection and Yes trachea midline Chest Chest palpation & inspection: normal inspection of the chest Resp Effort & Inspection: normal respiratory effort GI Inspection: Yes normal to inspection Neuro General: patient oriented x3 Psych Appearance: grossly normal Results Reviewed Results Reviewed: Date of Service: 05/20/24 CT ABDOMEN AND PELVIS WITHOUT AND WITH CONTRAST CLINICAL INFORMATION: Right renal mass. COMPARISON: CT scans dated June 03, 2018 and March 19, 2013. Additional prior CT scans are not currently available. TECHNIQUE: Multidetector volumetric imaging was performed of the abdomen and pelvis before and after the IV administration of 85 mL of Omnipaque 350 intravenous contrast. Sagittal and coronal reformatted images were obtained on the technologist's workstation. This CT examination was performed using dose optimization techniques as appropriate, variously including the following: *Automated exposure control *Adjustment of mA and/or kV according to patient size (this includes techniques or standardized protocols for targeted exams where dose is matched to indication/reason for exam; i.e. extremities or head) *Use of iterative reconstruction technique DLP: 783 mGy-cm FINDINGS: LUNG BASES: The lung bases appear clear, with no evidence of inflammation or nodules. LIVER, GALLBLADDER, AND BILIARY TREE: Approximately 1 cm, round, homogeneous, hypodense, segment 6 hepatic lesion (image 74, series 4), not significant changed compared with June 03, 2018, therefore likely represents a benign entity, such as an hemangioma or simple cyst. The liver otherwise appears unremarkable in size, shape, and attenuation. No particularly suspicious focal hepatic lesion or biliary ductal dilatation is appreciated. Unremarkable appearance of the gallbladder. PANCREAS: Unremarkable SPLEEN: Unremarkable ADRENAL GLANDS: Unremarkable KIDNEYS AND URETERS: The kidneys appear unremarkable in size, shape, and attenuation. No renal mass identified. No hydronephrosis, hydroureter, or calculi seen. BLADDER: Unremarkable GASTROINTESTINAL TRACT: The small and large bowel appear unremarkable. No diverticulosis. Normal-appearing distal ileum and vermiform appendix. ABDOMINAL WALL: No significant hernia is appreciated. LYMPH NODES: No evidence of adenopathy by size criteria. VASCULAR: Status post Farhat infrarenal IVC filter placement. PELVIC VISCERA: IUD. Question vague prominence and hypodensity involving the cervix, not further characterized. OSSEOUS STRUCTURES: Mild degenerative changes of the hips. IMPRESSION: No renal mass identified. IUD. Question vague prominence and hypodensity involving the cervix, not further characterized. Recommend clinical correlation with pelvic examination. Assessment & Plan Assessment & Plan (1) Hematuria: Code(s): R31.9 - Hematuria, unspecified Category: Medical (2) Anticoagulant long-term use: Code(s): Z79.01 - senior living (current) use of anticoagulants Category: Medical Plan Urine cytology, follow-up office cystoscopy Orders: Orders AMB Urinalysis Automated Today Z13.9 - Encounter for screening, unspecified Urine Cytology Today R31.29 - Other microscopic hematuria Patient Instructions: The patient had an opportunity to ask questions regarding treatment plan. The patient expressed understanding and agreement with the above treatment plan. The patient is aware they should contact our office by phone for worsening of their current condition or the appearance of new symptoms. Compliance is encouraged with any medications and followup testing that is ordered. It is a privilege to be allowed the opportunity to participate in the urologic care of your patient. If you have any questions or concerns regarding treatment for the above conditions please do not hesitate to contact me. The office telephone contact is [phone]. This note is constructed in part using voice recognition software. While every effort has been made to ensure accuracy artificial flowers starcher errors may have been included. Yours sincerely, Chelita Frias MD Coding Level of Care Code New Pt Level 4 (79358) Diagnoses Hematuria R31.9 Anticoagulant long-term use Z79.01
--- OUTSIDE RECORDS SUMMARY | 2024-07-04 16:14 | XMS_ITS ---
Author Organization [facility] Address [address] [place] [address] Care Team Providers Care Liability Analyst Name Role Phone Yanna Valdes Primary Care Provider Unavailab Severo Davenport Jr REASON FOR VISIT ultrasound Encounters Encounter Location Date Provider Diagnosis [facility] [address] [place] [address] Drive [address] [place] [address] 04/24/2024 Severo Cancino Jr PLAN OF TREATMENT Next Appt Details Provider Name:Severo loza Jr, 04/08/2025 09:00:00 AM, [address] [place] [address], [address], [place], [address],
--- OUTSIDE RECORDS SUMMARY | 2024-07-04 16:14 | XMS_ITS ---
Author Organization [facility] Address [address] [place] [address] Care Team Providers Care Marine Service Operator Name Role Phone Yanna Valdes Primary Care Provider Unavailab Severo Davenport Jr Unavailable ALLERGIES Allergen (clinical drug ingredient) [...] 04/09/2024 Encounters Encounter Location Date Provider Diagnosis [facility] [address] [place] [address] 04/09/2024 Severo Cancino Jr Epigastric pain R10.13 [...] 09:00:00 AM, [address], [address], [place], [address],
--- OUTSIDE RECORDS SUMMARY | 2024-07-04 16:14 | XMS_ITS ---
Author Organization [facility] Address [address] [place] [address] Care Team Providers Care Hot Car Operator Name Role Phone Yanna Valdes Primary Care Provider Unavailab Severo Davenport Jr [phone] REASON FOR VISIT labs Encounters Encounter Location Date Provider Diagnosis [facility] [address] [place] [address] 04/14/2024 Severo Cancino Jr PLAN OF TREATMENT Next Appt Details Provider Name:Severo loza Jr, 04/08/2025 09:00:00 AM, [address] [place] [address], [address], [place], [address],
--- OUTSIDE RECORDS SUMMARY | 2024-07-04 16:14 | XMS_ITS | Continuity of Care Document ---
Author Organization [facility] Address [address] [facility] [address] [place] [address] Phone Care Team Providers Care Manager Product Design Name Role Phone Mollkya STORE HOST, Annette Unavailable Unavailab le Procedures Procedure Date [...] Pt 30 Mins Duplex Scan-extrem Veins; Uni/ Advance Directives Directive Yes / No Effective Date File Name No Information Encounters Encounter Description Practice Location Reason(s) For Visit Diagnoses Date Provider Providers Copied on Encounter [facility], [address] [place] [address] Dr Carreno [address], [place], [id number], [place] tel:[phone] CVR - [facility] Venous insufficiency (chronic) (peripheral)N evus, non-neoplasti c 4 Surinder Bryant. [address] [place] [address], Suite [facility], [facility] [place], [id number], [place]. tel:[phone] Referring Provider: Yanna Valdes MD, [address] [place] [address] [address], [place], [address]. tel:[phone] Office/Outpt E&M Established 15 Mins- CT & [place] [facility], [address] [place] [address] Dr Carreno 1000Suite [place], [id number], [place] tel:[phone] CVR - [facility] Essential (primary) hypertensionL ocalized edemaVenous insufficiency (chronic) (peripheral) 4 Murtaza BHATTI RVT, SUSI Swenson. [address] [place] [address], [facility] [place], [id number], [place]. tel:[phone] Referring Provider: Yanna Valdes MD, [address] [place] [address] [address], [place], [address]. tel:[phone] [facility], [address] [place] [address] Dr Carreno 1000Suite [place]lyce [place], [id number], [place] tel:[phone] [facility] Encounter for follow-up examination after completed treatment for conditions other than malignant neVaricose veins of left lower extremity with pain 4 Murtaza BHATTI RVT, SUSI Swenson. [address] [place] [address] 302, [facility] [place], [id number], [place]. tel:[phone] Referring Provider: Yanna Valdes MD, [address] [place] [address] [address], [place], [address]. tel:[phone] [facility], [address] [place] [address] Dr Carreno 1000Suite [place], [id number], [place] tel:[phone] CVR - [facility] Encounter for follow-up examination after completed treatment for conditions other than malignant ne 4 Murtaza BHATTI RVT, SUSI Swenson. [address] [place] [address], [address], [facility] [place], [id number], [place]. tel:[phone] Referring Provider: Yanna Valdes MD, [address] [place] [address] Suite [facility], [place], [address]. tel:[phone] [facility], [address] [place] [address] [address], [id number], [place] tel:[phone] [place] [facility] [place] Chronic venous hypertension (idiopathic) with inflammation of left lower extremity 4 Surinder Bryant. [address] [place] [address], [facility] [place], [id number], [place]. tel:[phone] Referring Provider: Yanna Valdes MD, [address] [place] [address] Suite [facility], [place], [address]. tel:[phone] [facility], [address] [place] [address] [address] 1000Alyce [place], [id number], [place] tel:[phone] CVR - [facility] Encounter for follow-up examination after completed treatment for conditions other than malignant neChronic venous hypertension (idiopathic) with other complications of left lower extremity 4 Murtaza BHATTI RVT, SUSI Swenson. [address] [place] [address], Suite [facility], [facility] [place], [id number], [place]. tel:[phone] Referring Provider: Yanna Valdes MD, [address] [place] [address] [address], [place], [address]. tel:[phone] [facility], [address] [place] [address] 1000[address]A[place]ce [place], [id number], [place] tel:[phone] CVR - [facility] Chronic venous hypertension (idiopathic) with inflammation of left lower extremity 4 Murtaza BHATTI RVT, SUSI Swenson. [address] [place] [address], [address], [facility] [place], [id number], [place]. tel:[phone] Referring Provider: Yanna Valdes MD, [address] [place] [address] [address], [place], [address]. tel:[phone] [facility], [address] [place] [address] Dr Carreno 1000[facility] 1000Alyce [place], [id number], [place] tel:[phone] CV[place] - [place] [facility] [place] Varicose veins of left lower extremity with other complications Apr-3 - 4 Murtaza BHATTI, WILLI, SUSI Swenson. [address] [place] [address], [place], [id number], [place]. tel:[phone] Referring Provider: Yanna Valdes MD, [address] [place] [address] [address], [place], [address]. tel:[phone] Offic/outpt E&m Estab 5 Min Trial - Telemedicine [facility], [address] [place] [address] Dr Carreno 1000[facility] 1000Alyce [place], [id number], [place] tel:[phone] [place] - [place] [facility] [place] Localized edemaCramp and spasmRestless legs syndromeVenou s insufficiency (chronic) (peripheral)E ssential (primary) hypertensionP ruritus, unspecified Aug- 4 Ajit Calzada. [address] [place] [address], [place], [id number], [place]. tel:[phone] Referring Provider: Yanna Valdes MD, [address] [place] [address] [address], [place], [address]. tel:[phone] Office/Oupt E&M New Pt 30 Mins [facility], [address] [place] [address] Dr Carreno 1000[address] 1000[place] MD, [id number], [place] tel:[phone] CV[place] - [place] [facility] [place] Varicose veins of left lower extremity with other complications Pain in left lower legLocalized edemaCramp and spasmRestless legs syndromeEssen tial (primary) hypertensionP ruritus, unspecified Feb- 4 Murtaza BHATTI RVT, SUSI Swenson. [address] [place] [address], [place], [id number], [place]. tel:[phone] Referring Provider: Yanna Valdes MD, [address] [facility] [address], [place], [address]. tel:[phone] [facility], [address] [facility] [address], [place], [id number], [place] tel:[phone] [place] [facility] [place] Chronic venous hypertension (idiopathic) with other complications of left lower extremity Murtaza BHATTI, RVT, RPVI Messi. [address] [facility] [address], [place], [place], [id number], [place]. tel:[phone] Referring Provider: Yanna Valdes MD, [address] [facility] [address], [place], [address]. tel:[phone] Family History Family Member Type Diagnosis Age [...]
--- OUTSIDE RECORDS SUMMARY | 2024-07-04 16:14 | XMS_ITS | Patient Health Record ---
Author Organization [facility] Address [address] [place] [address] Care Team Providers Care Director Of Workforce Development Name Role Phone LucinaYanna freeman Primary Care [...] Diff Reviewed date:04/14/2024 08:55:09 AM Interpretation: Performing Lab:[facility], [address] [place] [address] Notes/Report: White Blood Count 6.2 4.8-10.8 X10*3/uL [...] Panel Reviewed date:04/14/2024 08:55:15 AM Interpretation: Performing Lab:[address] [address] Notes/Report: Bilirubin Total 0.3 0.0-1.0 mg/dL Bilirubin Direct 0.1 0.0-0.5 mg/dL Aspartate Amino Transferase 22 5-31 U/L Alanine Aminotransferase 17 0-31 U/L Total Protein 7.2 6.5-8.0 g/dL Albumin Level 3.9 3.5-5.0 g/dL Alkaline Phosphatase 71 39-117 U/L Blood Urea Nitrogen Reviewed date:04/14/2024 08:52:04 AM Interpretation: Performing Lab:[address] [address] Notes/Report: Blood Urea Nitrogen 9 9-16 mg/dL Creatinine Reviewed date:04/14/2024 08:55:22 AM Interpretation: Performing Lab:[facility], [address] [place] [address] Notes/Report: Creatinine 0.70 0.5-1.4 mg/dL Estimated Glomerular Filt Rate > 60 NOTE: For -Mauritian individuals, multiply the result by 1.210. Chronic Kidney Disease: Estimated GFR < 60 mL/min/1.73m2 Severe Kidney Disease: Estimated GFR < 15 mL/min/1.73m2 Lipase Reviewed date:04/14/2024 08:55:29 AM Interpretation: Performing Lab:[facility], [address] [place] [address] Notes/Report: Lipase 31 8-78 U/L US abdomen complete Reviewed date:04/24/2024 08:22:36 AM Interpretation: Performing Lab: Notes/Report: [address] [address] Ultrasound Report Signed Patient: Norma Carter I MR#: [id number] : 1970 Acct:[id number] Age/Sex: 53 / F ADM Date: 04/18/24 Loc: HO.US Attending Dr: Severo Jett MD Ordering Physician: Severo Jett MD Date of Service: 04/18/24 Procedure(s): US abdomen complete Accession Number(s): [id number] cc: Yanna Valdes MD; Severo Jett MD [...] in OV> 04/20/242133 DD/ 3 TD/TT: 04/18/24931 Charter Driver: TERRIE REASON FOR REFERRAL Referring Provider First Name Yanna Referring Provider Last Name Keisha Referring Provider Speciality Internal M edicine Referred Organization [facility] Referred Provider Severo Jett Jr Referred Address [address] [place] [address],[place] [address],[place], [place],[address], Referred Provider Specialty Gastroentero logy General Notes Deering,Jackelin 024 01:55:42 PM EDT > REQUESTED A [...] Notes Problem Epigastric pain (R10.13) Active confirmed 84053107 Problem Colon cancer screening (Z12.11) Active confirmed 569718467 Problem Esophageal reflux (K21.9) Active confirmed Esophageal reflux (132280092) VITAL SIGNS Temperature 96.0 degrees Fahrenheit 07/11/2023 Blood pressure diastolic 00 mm Hg 04/09/2024 Height 68 in 04/09/2024 Blood pressure systolic 00 mm Hg 04/09/2024 Weight 224 lbs 04/09/2024 BMI 34.06 kg/m2 04/09/2024 Encounters Encounter Location Date Provider Diagnosis [facility] [address] [place] [address] 07/11/2023 Severo Jett Jr Esophageal reflux K21.9 and Colon cancer screening Z12.11 [facility] [address] [place] [address] 04/09/2024 Severo Jett Jr Epigastric pain R10.13 [facility] [address] [place] [address] 03/04/2024 Severo Jett Jr [facility] [address] [place] [address] 04/14/2024 Severo Jett Jr [facility] [address] [place] [address] 04/24/2024 Severo Jett Jr ASSESSMENTS Encounter Date [...] 09:00:00 AM, [address], [address], [place], [address], Insurance Providers Payer Name Payer Address Payer Phone Subscriber Number Group Number Insured Name Patient Relationship to Insured Coverage Start Date Coverage End Date MEDICAID [facility] [employer] [facility] [address] [place] [address] [id number] NORMA ESTES Self - patient is the insured MEDICAL (GENERAL) HISTORY Medical History History ICD Code DVT/PE EGD 01/31, esophagitis, eosinophils on bi opsy Environmental allergies Anxiety Insomnia Hypertension Elevated cholesterol Colonoscopy 01/31, normal, ten-year follo wup Surgical History Surgery Date(Month/Year) thyroid surgery vena cava filter 1993 lipoma removal 2021
== END 2024-07-04 15:26 | disposition home or self-care (01) ==
PROVIDERS: PCP Internal Medicine; Visit Provider Urology
DX: R31.9 Hematuria, unspecified (principal); Z79.01 Long term (current) use of anticoagulants
CPT/HCPCS: 99204

== ENCOUNTER → 2024-07-16 08:17 | Outpatient (BNVA) | payer MEDICAID, SELFPAY | PROVIDERS: PCP Internal Medicine; Visit Provider Internal Medicine | DX: Z86.718 Personal history of other venous thrombosis and embolism (principal); Z79.01 Long term (current) use of anticoagulants; Z51.81 Encounter for therapeutic drug level monitoring | CPT/HCPCS: 85610; 99211 ==

== ENCOUNTER 2024-07-30 10:14 | Outpatient (AMB) | payer MEDICAID, SELFPAY ==
--- NOTE | 2024-07-30 10:27 | MHC.OFFVISCO ---
Intake Intake Visit Reasons: Anticoagulation Allergies ciprofloxacin [From Cipro] Allergy (Unknown, Verified 07/30/24 10:22) RASH Sulfa (Sulfonamide Antibiotics) Allergy (Unknown, Verified 07/30/24 10:22) SWELLING/ITCHING, swelling topiramate [From TOPAMAX] Allergy (Unknown, Verified 07/30/24 10:22) DIZZY Medication List - Last Reconciled 07/30/24 by Latasha Chong RN acetaminophen ER (Mapap Arthritis Pain) 650 mg PO Q8H albuterol sulfate 2.5 mg inhalation Q4-6H PRN albuterol sulfate 90 mcg/actuation (ProAir HFA) 2 puffs inhalation Q6H PRN bupropion HCl SR (Wellbutrin SR) 150 mg PO DAILY cholecalciferol (vitamin D3) 50 mcg PO DAILY 30 days fluticasone propionate 50 mcg/actuation (Flonase Allergy Relief) 1 spray intranasal DAILY fluticasone propionate 110 mcg/actuation (Flovent HFA) 2 puffs PO BID lisinopril 20 mg PO DAILY montelukast 10 mg PO DAILY omega 7-xlp-uou-fish oil 1,200 (144-216) mg (Fish Oil) 1,200 caps PO BID omeprazole 20 mg PO DAILY ondansetron 4 mg PO TID PRN sennosides-docusate sodium 8.6-50 mg (Senexon-S) 2 tabs PO BEDTIME sertraline 50 mg PO DAILY trazodone 50 mg PO BEDTIME PRN triamcinolone acetonide 0.5% 1 appl topical BID warfarin See Protocol 7.5mg x 6, 5mg x 1 Nursing Note INR: 2.5- in therapeutic range of 2-3 Medications and supplements reviewed- no changes No changes in health, diet, medications, or supplements, Denies any signs and symptoms of bleeding or bruising or clotting. Bleeding, bruising, clotting discussed Nutritional guidance given Dose: 5mg x 1. 7.5mg x 6 F/U INR: 2 weeks Patient verbalizes understanding of instructions given Anti-Coag Initial Assessment Social Hx Patient Tobacco Use Status: Never used Tobacco alcohol intake: never Alcohol intake frequency: does not drink Coding Level of Care Code Est Patient Level 1 Diagnoses Current use of anticoagulant therapy Z79.01 Assessment & Plan Assessment & Plan (1) Current use of anticoagulant therapy: Code(s): Z79.01 - exterminator termite (current) use of anticoagulants Category: Medical
[2024-07-30 10:28] LABS: Prothrombin Time Whole Bld POC 29.6 sec (11.1-13.5); ~PT, ~INR - Anti Coag Clinic 2.5 (0.9-1.1)
--- OUTSIDE RECORDS SUMMARY | 2024-07-30 10:44 | XMS_ITS | Continuity of Care Document ---
Author Organization [facility] Address [address] [place] [address] Phone Care Team Providers Care Seam Feller Name Role Phone Mollkya IC DESIGNER GATE ARRAYS, Annette Unavailable Unavailab le Procedures Procedure Date [...] Providers Copied on Encounter [facility] [place], [address] [place] [address] Dr [address], [place], [id number], [place] tel:[phone] CVR - [facility] Venous insufficiency (chronic) (peripheral)N evus, non-neoplasti c 4 Surinder Bryant. [address] [place] [address], Suite [facility], [facility] [place], [id number], [place]. tel:[phone] Referring Provider: Yanna Valdes MD, [address] [place] [address] [address], [place], [address]. tel:[phone] Office/Outpt E&M Established 15 Mins- CT & [place] [facility], [address] [place] [address] Dr [address]ren[address]Suite [place], [id number], [place] tel:[phone] CVR - [facility] Essential (primary) hypertensionL ocalized edemaVenous insufficiency (chronic) (peripheral) 4 Murtaza BHATTI RVT, SUSI Swenson. [address] [place] [address], [facility] [place], [id number], [place]. tel:[phone] Referring Provider: Yanna Valdes MD, [address] [place] [address] [address], [place], [address]. tel:[phone] [facility], [address] [place] [address] Dr [address]reno [address]Suite [place], [id number], [place] tel:[phone] [facility] Encounter for follow-up examination after completed treatment for conditions other than malignant neVaricose veins of left lower extremity with pain 4 Murtaza BHATTI RVT, SUSI Swenson. [address] [place] [address] 302, [facility] [place] [place], [id number], [place]. tel:[phone] Referring Provider: Yanna Valdes MD, [address] [place] [address] [address], [place], [address]. tel:[phone] [facility], [address] [place] [address] Dr [address]Suite [place], [id number], [place] tel:[phone] CVR - [facility] Encounter for follow-up examination after completed treatment for conditions other than malignant ne 4 Murtaza BHATTI RVT, SUSI Swenson. [address] [place] [address], [address], [facility] [place] [place], [id number], [place]. tel:[phone] Referring Provider: Yanna Valdes MD, [address] [place] [address] Suite [facility], [place], [address]. tel:[phone] [facility], [address] [place] [address] [address] [address], [id number], [place] tel:[phone] CVR - [place] [facility] [place] Chronic venous hypertension (idiopathic) with inflammation of left lower extremity 4 Surinder Bryant. [address] [place] [address], [facility] [place] [place], [id number], [place]. tel:[phone] Referring Provider: Yanna Valdes MD, [address] [place] [address] Suite [facility], [place], [address]. tel:[phone] [facility], [address] [place] [address] [address] [address], [id number], [place] tel:[phone] CVR - [facility] Encounter for follow-up examination after completed treatment for conditions other than malignant neChronic venous hypertension (idiopathic) with other complications of left lower extremity 4 Murtaza BHATTI RVT, SUSI Swenson. [address] [place] [address], Suite [facility], [facility] [place] [place], [id number], [place]. tel:[phone] Referring Provider: Yanna Valdes MD, [address] [place] [address] [address], [place], [address]. tel:[phone] [facility], [address] [place] [address] [address] [address], [id number], [place] tel:[phone] CVR - [facility] Chronic venous hypertension (idiopathic) with inflammation of left lower extremity 4 Murtaza BHATTI RVT, SUSI Swenson. [address] [place] [address], [address], [facility] [place] [place], [id number], [place]. tel:[phone] Referring Provider: Yanna Valdes MD, [address] [place] [address] [address], [place], [address]. tel:[phone] [facility], [address] [place] [address] Dr Carreno 1000[facility] [address], [id number], [place] tel:[phone] CVR - [place] [facility] [place] Varicose veins of left lower extremity with other complications Apr-3 - 4 Murtaza BHATTI, WILLI, SUSI Swenson. [address] [place] [address], Wes nielsen [place], [id number], [place]. tel:[phone] Referring Provider: Yanna Valdes MD, [address] [place] [address] [address], [place], [address]. tel:[phone] Offic/outpt E&m Estab 5 Min Trial - Telemedicine [facility], [address] [place] [address] Dr [address]reno 1000[facility] [address], [id number], [place] tel:[phone] CVR - [place] [facility] [place] Localized edemaCramp and spasmRestless legs syndromeVenou s insufficiency (chronic) (peripheral)E ssential (primary) hypertensionP ruritus, unspecified Aug- 4 Ajit Calzada. [address] [place] [address], Wes [place]ielsen [place], [id number], [place]. tel:[phone] Referring Provider: Yanna Valdes MD, [address] [place] [address] [address], [place], [address]. tel:[phone] Office/Oupt E&M New Pt 30 Mins [facility], [address] [place] [address] Dr [address] [address], [id number], [place] tel:[phone] CVR - [place] [facility] [place] Varicose veins of left lower extremity with other complications Pain in left lower legLocalized edemaCramp and spasmRestless legs syndromeEssen tial (primary) hypertensionP ruritus, unspecified Feb- 4 Murtaza BHATTI RVT, SUSI Swenson. [address] [place] [address], [place], [id number], [place]. tel:[phone] Referring Provider: Yanna Valdes MD, [address] [facility], [place], [address]. tel:[phone] [facility], [address] [facility] [address], [place], [id number], [place] tel:[phone] CVR - [place] [facility] [place] Chronic venous hypertension (idiopathic) with other complications of left lower extremity Murtaza BHATTI, RVT, RPVI Messi. [address] [facility] [address], [place], [place], [id number], [place]. tel:[phone] Referring Provider: Yanna Valdes MD, [address] [facility] [address], [place], [address]. tel:[phone] Family History Family Member Type Diagnosis Age [...]
--- OUTSIDE RECORDS SUMMARY | 2024-07-30 10:44 | XMS_ITS | Patient Health Record ---
Author Organization [facility] Address [address] [place] [address] Care Team Providers Care Sleeve Machine Tender Name Role Phone LucinaYanna freeman Primary Care [...] Diff Reviewed date:04/14/2024 08:55:09 AM Interpretation: Performing Lab:[facility], [address] [place] [address] Notes/Report: White Blood Count 6.2 4.8-10.8 X10*3/uL [...] Panel Reviewed date:04/14/2024 08:55:15 AM Interpretation: Performing Lab:[address] [address] Notes/Report: Bilirubin Total 0.3 0.0-1.0 mg/dL Bilirubin Direct 0.1 0.0-0.5 mg/dL Aspartate Amino Transferase 22 5-31 U/L Alanine Aminotransferase 17 0-31 U/L Total Protein 7.2 6.5-8.0 g/dL Albumin Level 3.9 3.5-5.0 g/dL Alkaline Phosphatase 71 39-117 U/L Blood Urea Nitrogen Reviewed date:04/14/2024 08:52:04 AM Interpretation: Performing Lab:[address] [address] Notes/Report: Blood Urea Nitrogen 9 9-16 mg/dL Creatinine Reviewed date:04/14/2024 08:55:22 AM Interpretation: Performing Lab:[facility], [address] [place] [address] Notes/Report: Creatinine 0.70 0.5-1.4 mg/dL Estimated Glomerular Filt Rate > 60 NOTE: For -Montene[place]in individuals, multiply the result by 1.210. Chronic Kidney Disease: Estimated GFR < 60 mL/min/1.73m2 Severe Kidney Disease: Estimated GFR < 15 mL/min/1.73m2 Lipase Reviewed date:04/14/2024 08:55:29 AM Interpretation: Performing Lab:[facility], [address] [place] [address] Notes/Report: Lipase 31 8-78 U/L US abdomen complete Reviewed date:04/24/2024 08:22:36 AM Interpretation: Performing Lab: Notes/Report: [address] [address] Ultrasound Report Signed Patient: Norma Carter I MR#: [id number] : 1970 Acct:[id number] Age/Sex: 53 / F ADM Date: 04/18/24 Loc: HO.US Attending Dr: Severo Jett MD Ordering Physician: Severo Jett MD Date of Service: 04/18/24 Procedure(s): US abdomen complete Accession Number(s): [id number] cc: Yanna Valdes MD; Severo Jett MD [...] in OV> 04/20/242133 DD/ 3 TD/TT: 04/18/24931 Building Consultant: TERRIE REASON FOR REFERRAL Referring Provider First Name Yanna Referring Provider Last Name Keisha Referring Provider Speciality Internal M edicine Referred Organization [facility] Referred Provider Severo Jett Jr Referred Address [address] [place] [address],[place] [address],[place], [place],[address], Referred Provider Specialty Gastroentero logy General Notes Singer,Jackelin 024 01:55:42 PM EDT > REQUESTED A [...] Notes Problem Epigastric pain (R10.13) Active confirmed [id number] Problem Colon cancer screening (Z12.11) Active confirmed [id number] Problem Esophageal reflux (K21.9) Active confirmed Esophageal reflux (273622021) VITAL SIGNS Blood pressure diastolic 00 mm Hg 04/09/2024 Height 68 in 04/09/2024 Blood pressure systolic 00 mm Hg 04/09/2024 Weight 224 lbs 04/09/2024 BMI 34.06 kg/m2 04/09/2024 Encounters Encounter Location Date Provider Diagnosis [facility] [address] [place] [address] 07/09/2024 Severo Jett Jr [facility] [address] [place] [address] 04/09/2024 Severo Jett Jr Epigastric pain R10.13 [facility] [address] [place] [address] 03/04/2024 Severo Jett Jr [facility] [address] [place] [address] 04/14/2024 Severo Jett Jr [facility] [address] [place] [address] 04/24/2024 Severo Jett Jr ASSESSMENTS Encounter Date Diagnosis Assessment Notes Treatment Notes Treatment Clinical Notes 04/09/2024 Epigastric pain (ICD-10 - R10.13) PLAN OF TREATMENT Pending Test Test Name Order Date BUN 04/09/2024 CREATININE 04/09/2024 LIVER PROFILE 04/09/2024 LIPASE 04/09/2024 CBC w/o DIFF 04/09/2024 US ABD 04/09/2024 Future Test Test Name Order Date UPPER GI ENDOSCOPY 11/08/2022 COLONOSCOPY 11/08/2022 Next Appt Details Provider Name:Severo loza Jr, 04/08/2025 09:00:00 AM, [address] [facility], [address], [place], [address], Insurance Providers Payer Name Payer Address Payer Phone Subscriber Number Group Number Insured Name Patient Relationship to Insured Coverage Start Date Coverage End Date MEDICAID OF [place] [address] EMILIANO SAUNDERS [phone] [id number] NORMA ESTES Self - patient is the insured MEDICAL (GENERAL) HISTORY Medical History History ICD Code DVT/PE EGD 01/31, esophagitis, eosinophils on bi opsy Environmental allergies Anxiety Insomnia Hypertension Elevated cholesterol Colonoscopy 01/31, normal, ten-year follo wup Surgical History Surgery Date(Month/Year) thyroid surgery vena cava filter 1993 lipoma removal 2021
--- OUTSIDE RECORDS SUMMARY | 2024-07-30 10:44 | XMS_ITS ---
Author Organization [facility] Address [address] [place] [address] Care Team Providers Care Jitterbug Operator Name Role Phone Yanna Valdes Primary Care Provider Unavailab Severo Davenport Jr REASON FOR VISIT ultrasound Encounters Encounter Location Date Provider Diagnosis [facility] [address] [place] [address] Drive [address] [place] [address] 04/24/2024 Severo Cancino Jr PLAN OF TREATMENT Next Appt Details Provider Name:Severo loza Jr, 04/08/2025 09:00:00 AM, [address] [place] [address], [address], [place], [address],
--- OUTSIDE RECORDS SUMMARY | 2024-07-30 10:45 | XMS_ITS ---
Author Organization [facility] Address [address] [place] [address] Care Team Providers Care Outpatient Services Director Name Role Phone Yanna Valdes Primary Care Provider Unavailab Severo Davenport Jr [phone] REASON FOR VISIT labs Encounters Encounter Location Date Provider Diagnosis [facility] [address] [place] [address] 04/14/2024 Severo Cancino Jr PLAN OF TREATMENT Next Appt Details Provider Name:Severo loza Jr, 04/08/2025 09:00:00 AM, [address] [place] [address], [address], [place], [address],
--- OUTSIDE RECORDS SUMMARY | 2024-07-30 10:45 | XMS_ITS ---
Author Organization [facility] Address [address] [place] [address] Care Team Providers Care Felt Hat Flanging Operator Name Role Phone Yanna Valdes Primary Care Provider Unavailab Severo Davenport Jr REASON FOR VISIT epigastric pain Encounters Encounter Location Date Provider Diagnosis [facility] [address] [place] [address] 07/09/2024 Severo Cancino Jr PLAN OF TREATMENT Next Appt Details Provider Name:Severo loza Jr, 04/08/2025 09:00:00 AM, [address] [facility], [address], [place], [address],
== END 2024-07-30 10:36 | disposition home or self-care (01) ==
LOC: HO.ACS 10:14
PROVIDERS: PCP Internal Medicine; Visit Provider Internal Medicine
DX: Z79.01 Long term (current) use of anticoagulants (principal)

== ENCOUNTER → 2024-07-30 10:14 | Outpatient (BNVA) | payer MEDICAID, SELFPAY | PROVIDERS: PCP Internal Medicine; Visit Provider Internal Medicine | DX: Z86.718 Personal history of other venous thrombosis and embolism (principal); Z79.01 Long term (current) use of anticoagulants; Z51.81 Encounter for therapeutic drug level monitoring | CPT/HCPCS: 85610; 99211 ==

== ENCOUNTER 2024-07-31 09:16 | Outpatient (REF) | payer MEDICAID, SELFPAY ==
--- OUTSIDE RECORDS SUMMARY | 2024-07-31 10:02 | XMS_ITS ---
Author Organization [facility] Address [address] [place] [address] Care Team Providers Care Joint Supervisor Name Role Phone Yanna Valdes Primary Care Provider Unavailab Severo Davenport Jr REASON FOR VISIT ultrasound Encounters Encounter Location Date Provider Diagnosis [facility] [address] [place] [address] Drive [address] [place] [address] 04/24/2024 Severo Cancino Jr PLAN OF TREATMENT Next Appt Details Provider Name:Severo loza Jr, 04/08/2025 09:00:00 AM, [address] [place] [address], [address], [place], [address],
--- OUTSIDE RECORDS SUMMARY | 2024-07-31 10:02 | XMS_ITS | Continuity of Care Document ---
Author Organization [facility] Address [address] [place] [address] Phone Care Team Providers Care Ceramic Tiler Name Role Phone Mollkya ASSOCIATE MARKETING MANAGER, Annette Unavailable Unavailab le Procedures Procedure Date [...] medicine Office/Oupt E&M New Pt 30 Mins 24 Duplex Scan-extrem Veins; Uni/ 24 Advance Directives Directive Yes / No Effective Date File Name No Information Encounters Encounter Description Practice Location Reason(s) For Visit Diagnoses Date Provider Providers Copied on Encounter [facility], [address] [place] [address] Dr [address], [place], [id number], [place] tel:[phone] CVR - [facility] Venous insufficiency (chronic) (peripheral)N evus, non-neoplasti c 4 Surinder Bryant. [address] [place] [address], Suite [facility], [facility] [place], [id number], [place]. tel:[phone] Referring Provider: Yanna Valdes MD, [address] [place] [address] [address], [place], [address]. tel:[phone] Office/Outpt E&M Established 15 Mins- CT & [place] [facility], [address] [place] [address] Dr Carreno [address]Suite [place], [id number], [place] tel:[phone] CVR - [facility] Essential (primary) hypertensionL ocalized edemaVenous insufficiency (chronic) (peripheral) 4 Murtaza BHATTI RVT, SUSI Swenson. [address] [place] [address], [facility] [place], [id number], [place]. tel:[phone] Referring Provider: Yanna Valdes MD, [address] [place] [address] [address], [place], [address]. tel:[phone] [facility], [address] [place] [address] Dr Carreno [address]Suite [place], [id number], [place] tel:[phone] [facility] Encounter for follow-up examination after completed treatment for conditions other than malignant neVaricose veins of left lower extremity with pain 4 Murtaza BHATTI RVT, SUSI Swenson. [address] [place] [address] 302, [facility] [place] [place], [id number], [place]. tel:[phone] Referring Provider: Yanna Valdes MD, [address] [place] [address] [address], [place], [address]. tel:[phone] [facility], [address] [place] [address] Dr Carreno [address]Suite [place], [id number], [place] tel:[phone] CVR - [facility] Encounter for follow-up examination after completed treatment for conditions other than malignant ne 4 Murtaza BHATTI RVT, SUSI Swenson. [address] [place] [address], [address], [facility] [place], [id number], [place]. tel:[phone] Referring Provider: Yanna Valdes MD, [address] [place] [address] Suite [facility], [place], [address]. tel:[phone] [facility], [address] [place] [address] [address], [id number], [place] tel:[phone] [place] Chronic venous hypertension (idiopathic) with inflammation of left lower extremity 4 Surinder Bryant. [address] [place] [address], [facility] [place], [id number], [place]. tel:[phone] Referring Provider: Yanna Valdes MD, [address] [place] [address] Suite [facility], [place], [address]. tel:[phone] [facility], [address] [place] [address] [address] 1000[place]ly[place], [id number], [place] tel:[phone] CVR - [facility] Encounter for follow-up examination after completed treatment for conditions other than malignant neChronic venous hypertension (idiopathic) with other complications of left lower extremity 4 Murtaza BHATTI RVT, SUSI Swenson. [address] [place] [address], Suite [facility], [facility] [place], [id number], [place]. tel:[phone] Referring Provider: Yanna Valdes MD, [address] [place] [address] [address], [place], [address]. tel:[phone] [facility], [address] [place] [address] [address] 1000[place], [id number], [place] tel:[phone] CVR - [facility] Chronic venous hypertension (idiopathic) with inflammation of left lower extremity 4 Murtaza BHATTI RVT, SUSI Swenson. [address] [place] [address], [address], [facility] [place], [id number], [place]. tel:[phone] Referring Provider: Yanna Valdes MD, [address] [place] [address] [address], [place], [address]. tel:[phone] [facility], [address] [place] [address] Dr Carreno 1000[facility] 1000Aly[place], [id number], [place] tel:[phone] [place] Varicose veins of left lower extremity with other complications Apr-3 - 4 Murtaza BHATTI, WILLI, SUSI Swenson. [address] [place] [address], [place], [id number], [place]. tel:[phone] Referring Provider: Yanna Valdes MD, [address] [place] [address] [address], [place], [address]. tel:[phone] Offic/outpt E&m Estab 5 Min Trial - Telemedicine [facility], [address] [place] [address] Dr Carreno 1000[facility] 1000Alyce [place], [id number], [place] tel:[phone] [place] Localized edemaCramp and spasmRestless legs syndromeVenou s insufficiency (chronic) (peripheral)E ssential (primary) hypertensionP ruritus, unspecified Aug- 4 Ajit Calzada. [address] [place] [address], [place], [id number], [place]. tel:[phone] Referring Provider: Yanna Valdes MD, [address] [place] [address] [address], [place], [address]. tel:[phone] Office/Oupt E&M New Pt 30 Mins [facility], [address] [place] [address] Dr Carren[address] 1000[place], [id number], [place] tel:[phone] [place] Varicose veins of left lower extremity with other complications Pain in left lower legLocalized edemaCramp and spasmRestless legs syndromeEssen tial (primary) hypertensionP ruritus, unspecified Feb- 4 Murtaza BHATTI RVT, SUSI Swenson. [address] [place] [address], [place], [id number], [place]. tel:[phone] Referring Provider: Yanna Valdes MD, [address] [facility] [address], [place], [address]. tel:[phone] [facility], [address] [facility] [address], [place], [id number], [place] tel:[phone] [place] Chronic venous hypertension (idiopathic) with other complications of left lower extremity Mutraza BHATTI, RVT, RPVI Messi. [address] [facility] [address], [place], [place], [id number], [place]. tel:[phone] Referring Provider: Yanna Valdes MD, [address] [facility] [address], [place], [address]. tel:[phone] Family History Family Member Type Diagnosis Age [...]
--- OUTSIDE RECORDS SUMMARY | 2024-07-31 10:02 | XMS_ITS ---
Author Organization [facility] Address [address] [place] [address] Care Team Providers Care Jet Aircraft Servicer Name Role Phone Yanna Valdes Primary Care Provider Unavailab Severo Davenport Jr REASON FOR VISIT labs Encounters Encounter Location Date Provider Diagnosis [facility] [address] [place] [address] 04/14/2024 Severo Cancino Jr PLAN OF TREATMENT Next Appt Details Provider Name:Severo loza Jr, 04/08/2025 09:00:00 AM, [address] [place] [address], [address], [place], [address],
--- OUTSIDE RECORDS SUMMARY | 2024-07-31 10:02 | XMS_ITS ---
Author Organization [facility] Address [address] [place] [address] Care Team Providers Care Personal Lines Account Executive Name Role Phone Yanna Valdes Primary Care Provider Unavailab Severo Davenport Jr REASON FOR VISIT epigastric pain Encounters Encounter Location Date Provider Diagnosis [facility] [address] [place] [address] 07/09/2024 Severo Cancino Jr PLAN OF TREATMENT Next Appt Details Provider Name:Severo loza Jr, 04/08/2025 09:00:00 AM, [address] [facility], [address], [place], [address],
--- OUTSIDE RECORDS SUMMARY | 2024-07-31 10:02 | XMS_ITS | Patient Health Record ---
Author Organization [facility] Address [address] [place] [address] Care Team Providers Care Performance Test Architect Name Role Phone LucinaYanna freeman Primary Care [...] Diff Reviewed date:04/14/2024 08:55:09 AM Interpretation: Performing Lab:[facility], [address] [place] [address] Notes/Report: White Blood Count 6.2 4.8-10.8 X10*3/uL [...] Panel Reviewed date:04/14/2024 08:55:15 AM Interpretation: Performing Lab:[address] [address] Notes/Report: Bilirubin Total 0.3 0.0-1.0 mg/dL Bilirubin Direct 0.1 0.0-0.5 mg/dL Aspartate Amino Transferase 22 5-31 U/L Alanine Aminotransferase 17 0-31 U/L Total Protein 7.2 6.5-8.0 g/dL Albumin Level 3.9 3.5-5.0 g/dL Alkaline Phosphatase 71 39-117 U/L Blood Urea Nitrogen Reviewed date:04/14/2024 08:52:04 AM Interpretation: Performing Lab:[address] [address] Notes/Report: Blood Urea Nitrogen 9 9-16 mg/dL Creatinine Reviewed date:04/14/2024 08:55:22 AM Interpretation: Performing Lab:[facility], [address] [place] [address] Notes/Report: Creatinine 0.70 0.5-1.4 mg/dL Estimated Glomerular Filt Rate > 60 NOTE: For -Maltese individuals, multiply the result by 1.210. Chronic Kidney Disease: Estimated GFR < 60 mL/min/1.73m2 Severe Kidney Disease: Estimated GFR < 15 mL/min/1.73m2 Lipase Reviewed date:04/14/2024 08:55:29 AM Interpretation: Performing Lab:[facility], [address] [place] [address] Notes/Report: Lipase 31 8-78 U/L US abdomen complete Reviewed date:04/24/2024 08:22:36 AM Interpretation: Performing Lab: Notes/Report: [address] [address] Ultrasound Report Signed Patient: Norma Carter I MR#: [id number] : 1970 Acct:[id number] Age/Sex: 53 / F ADM Date: 04/18/24 Loc: HO.US Attending Dr: Severo Jett MD Ordering Physician: Severo Jett MD Date of Service: 04/18/24 Procedure(s): US abdomen complete Accession Number(s): [id number] cc: Yanna Valdes MD; Severo Jett MD [...] in OV> 04/20/242133 DD/ 3 TD/TT: 04/18/24931 Employee Relations Consultant: TERRIE REASON FOR REFERRAL Referring Provider First Name Yanna Referring Provider Last Name Keisha Referring Provider Speciality Internal M edicine Referred Organization [facility] Referred Provider Severo Jett Jr Referred Address [address] [place] [address],[place] [address],[place], [place],[address], Referred Provider Specialty Gastroentero logy General Notes [place],Jackelin 024 01:55:42 PM EDT > REQUESTED A [...] Notes Problem Epigastric pain (R10.13) Active confirmed 87083863 Problem Colon cancer screening (Z12.11) Active confirmed 253837052 Problem Esophageal reflux (K21.9) Active confirmed Esophageal reflux (767378088) VITAL SIGNS Blood pressure diastolic 00 mm Hg 04/09/2024 Height 68 in 04/09/2024 Blood pressure systolic 00 mm Hg 04/09/2024 Weight 224 lbs 04/09/2024 BMI 34.06 kg/m2 04/09/2024 Encounters Encounter Location Date Provider Diagnosis [facility] [address] [place] [address] 07/09/2024 Severo Jett Jr [facility] [address] [place] [address] 04/09/2024 Severo Jett Jr Epigastric pain R10.13 [facility] [address] [place] [address] 03/04/2024 Severo Jett Jr [facility] [address] [place] [address] 04/14/2024 Severo Jett Jr [facility] [address] [place] [address] 04/24/2024 Severo Jett Jr ASSESSMENTS Encounter Date [...] Name:Severo loza Jr, 04/08/2025 09:00:00 AM, [address] [facility], [address], [place], [address], Insurance Providers Payer Name Payer Address Payer Phone Subscriber Number Group Number Insured Name Patient Relationship to Insured Coverage Start Date Coverage End Date MEDICAID OF [employer] [address] EMIL[place]O SAUNDERS [phone] [id number] NORMA ESTES Self - patient is the insured MEDICAL (GENERAL) HISTORY Medical History History ICD Code DVT/PE EGD 01/31, esophagitis, eosinophils on bi opsy Environmental allergies Anxiety Insomnia Hypertension Elevated cholesterol Colonoscopy 01/31, normal, ten-year follo wup Surgical History Surgery Date(Month/Year) thyroid surgery vena cava filter 1993 lipoma removal 2021
[2024-07-31 10:46] LABS: Alanine Aminotransferase 25 U/L (0-31); Albumin Level 4.1 g/dL (3.5-5.0); Alkaline Phosphatase 98 U/L (39-117); Anion Gap 11 (12-20); Aspartate Amino Transferase 24 U/L (5-31); Bilirubin Total 0.4 mg/dL (0.0-1.0); Blood Urea Nitrogen 9 mg/dL (9-16); Calcium 9.4 mg/dL (8.4-10.2); Carbon Dioxide 27 mmol/L (22-29); Chloride 108 mmol/L (96-108); Cholesterol 231 mg/dL (<200); Estimated Glomerular Filt Rate > 60; Glucose Random 91 mg/dL (60-115); HDL Cholesterol 58 mg/dL (>40); LDL Cholesterol Calculated 157 mg/dL (<100); Potassium 4.3 mmol/L (3.3-5.1); Sodium 142 mmol/L (135-145); Triglycerides 83 mg/dL (<150)
== END 2024-07-31 09:17 | disposition home or self-care (01) ==
LOC: HO.LAB 09:16
PROVIDERS: PCP Internal Medicine; Visit Provider Internal Medicine
DX: E78.00 Pure hypercholesterolemia, unspecified (principal); F32.9 Major depressive disorder, single episode, unspecified; I10 Essential (primary) hypertension
CPT/HCPCS: 36415; 80053; 80061

== ENCOUNTER 2024-08-13 08:09 | Outpatient (AMB) | payer MEDICAID, SELFPAY ==
--- OUTSIDE RECORDS SUMMARY | 2024-08-13 08:22 | XMS_ITS ---
Author Organization [facility] Address [address] [place] [address] Care Team Providers Care Court Crier Name Role Phone Keisha Yanna Primary Care Provider Unavailab Severo Davenport Jr REASON FOR VISIT ultrasound Encounters Encounter Location Date Provider Diagnosis [facility] [address] [place] [address] 04/24/2024 Severo Cancino Jr Plan Of Treatment Next Appt Details Provider Name:Severo loza Jr, 04/08/2025 09:00:00 AM, [address], [address], [place], [address], Progress Notes * CHICA KRAUSOB:[birth year] (53 yo F)Acc No.[id number]:04/24/2024 Patient:?BAISLIA KRAUS :1970???Age:53 Y???Sex:Female Address:[address], [place] [address] Subjective: * Chief Complaints: * ???Ultrasound * Medical History:? * Surgical History:? * Hospitalization/Major Diagno stic Procedure:? * Medications:? Objective: Assessment: Plan: * Treatment: * Procedure Codes:? * true * Date:? Generated for Printi ng/Faxing/eTransmitting on:?08/13/2024 08:22 AM EST
--- OUTSIDE RECORDS SUMMARY | 2024-08-13 08:22 | XMS_ITS | Patient Health Record ---
Author Organization [facility] Address [address] [place] [address] Care Team Providers Care Supervisor In Circuit Testing Name Role Phone LucinaYanna freeman Primary Care Provider UnavailSevero Ackerman Jr Unavailable [phone] Allergies Allergen (clinical drug ingredient) Drug/Non Drug Allergy documented on EMR Reaction Allergy Type Onset Date Status Substance with sulfonamide structure and antibacterial mechanism of action (substance) Sulfa Antibiotics Unknown Drug Allergy Active topiramate Topamax Unknown Drug Allergy Active ciprofloxacin Cipro Unknown Drug Allergy Act lamonte Results Component Value Reference Range Notes Complete Blood Count no Diff Reviewed date:04/14/2024 08:55:09 AM Interpretation: Performing Lab:[facility], [address] [place] [address] Notes/Report: White Blood Count 6.2 4.8-10.8 X10*3/uL [...] Panel Reviewed date:04/14/2024 08:55:15 AM Interpretation: Performing Lab:[address] [address] Notes/Report: Bilirubin Total 0.3 0.0-1.0 mg/dL Bilirubin Direct 0.1 0.0-0.5 mg/dL Aspartate Amino Transferase 22 5-31 U/L Alanine Aminotransferase 17 0-31 U/L Total Protein 7.2 6.5-8.0 g/dL Albumin Level 3.9 3.5-5.0 g/dL Alkaline Phosphatase 71 39-117 U/L Blood Urea Nitrogen Reviewed date:04/14/2024 08:52:04 AM Interpretation: Performing Lab:[address] [address] Notes/Report: Blood Urea Nitrogen 9 9-16 mg/dL Creatinine Reviewed date:04/14/2024 08:55:22 AM Interpretation: Performing Lab:[facility], [address] [place] [address] Notes/Report: Creatinine 0.70 0.5-1.4 mg/dL Estimated Glomerular Filt Rate > 60 NOTE: For -Martiniquais individuals, multiply the result by 1.210. Chronic Kidney Disease: Estimated GFR < 60 mL/min/1.73m2 Severe Kidney Disease: Estimated GFR < 15 mL/min/1.73m2 Lipase Reviewed date:04/14/2024 08:55:29 AM Interpretation: Performing Lab:[facility], [address] [place] [address] Notes/Report: Lipase 31 8-78 U/L US abdomen complete Reviewed date:04/24/2024 08:22:36 AM Interpretation: Performing Lab: Notes/Report: [address] [address] Ultrasound Report Signed Patient: Norma Carter I MR#: [id number] : 1970 Acct:[id number] Age/Sex: 53 / F ADM Date: 04/18/24 Loc: HO.US Attending Dr: Severo Jett MD Ordering Physician: Severo Jett MD Date of Service: 04/18/24 Procedure(s): US abdomen complete Accession Number(s): [id number] cc: Yanna Valdes MD; Severo Jett MD [...] Bk Long MD 04/20/2024 09:34 PM EST Dictated By: Bk Long MD Signed By: <Electronically signed by Bk Long MD in OV> 04/20/242133 DD/ 3 TD/TT: 04/18/24931 Sand Screener: [place] [address] Ultrasound Report Signed Patient: Johnathan Carter I MR#: [id number] : 1970 Acct:[id number] Age/Sex: 53 / F ADM Date: 04/18/24 Loc: HO.US Attending Dr: Vicente Jett MD Ordering Physician: Severo Jett MD Date of Service: 04/18/24 Procedure(s): US abd omen complete Accession Number(s): [id number] cc: Yanna Valdes MD; Severo Jett MD [...] intrahepatic biliary duct dilatation seen. GALLBLADDER: There a re shadowing gallstones. There is adenomyomatosis, with ringdown artifa ct. No evidence of gallbladder wall thickening or pericholecystic fluid. COMMON BILE DUCT: No rmal in caliber measuring 0.2 cm in diameter. RIGHT KIDNEY: Arisin g exophytically from the lower pole, a 1.1 [...] cm in maximum dimension. FREE FLUID: None. U S/US abdomen complete IMPRESSION: 1. There is generali zed increase in hepatic echotexture, consistent with fatty infiltrat ion or hepatocellular disease. Please correlate clinically. No focal hepatic mass or intrahepatic biliary dilatation is seen. 2. There is cholelithiasis, and there is ringdown artifact consistent with adenomyomatosis. 3. 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 This could be further evaluated with CT (renal mass protocol), if clinically indicated. Electronically shannon d by: Bk Long MD 04/20/2024 09:34 PM [facility] Dictated By: Darlene Long MD Signed By: <Electronically signed by Bk Long MD in OV> 04/20/242133 DD/ 3 TD/TT: 04/18/24931 Sand Screener: TERRIE Reason For Referral Referring Provider First Name Yanna Referring Provider Last Name Keisha Referring Provider Speciality Internal M edicine Referred Organization [facility] Referred Provider Severo Jett Jr Referred Address [address] [place] [address], Referred Provider Specialty Gastroentero logy General Notes Jackelin Moran 024 01:55:42 PM EDT > REQUESTED A [place] REFERRAL FOR VISIT WITH DR. JETT ON 04-09-2024 DX ABD PAIN Referral Priority Routine Medications Medication SIG (Take, Route, Frequency, Duration) Notes [...] 20 MG TAKE 1 CAPSULE BY [facility] EVERY DAY Oral for 90 Active Warfarin Sodium 5 MG TAKE 1 TABLET BY [facility] SUNDAY AND SUNDAY AND 1 1/2 TABS THE REST OF THE WEEK Oral for 44 Active Immunizations Vaccine Route Administration Date Status Comme nts Influenza Unknown 02/21/2022 Administered Influenza Unknown 06/11/2023 Administered Social History Tobacco Use: Social History Observation Description Date Details (start date - stop date) Never Smoker NA - NA Tobacco Use/Smoking Question Answer Notes Patient is a nonsmoker Alcohol Screen Question Answer Notes Did you have a drink containing alcohol in the p ast year? No Points 0 Interpretation Negative Problems Problem Type SNOMED Code ICD Code Onset Dates Problem Status W/U Status Risk Notes Problem 400011670 Colon cancer screening (Z12.11) Active confirmed Problem Esophageal reflux (269578505) Esophageal reflux (K21.9) Active confirmed Problem 40098628 Epigastric pain (R10.13) Active confirmed Vital Signs Blood pressure diastolic 00 mm Hg 04/09/2024 Height 68 in 04/09/2024 Blood pressure systolic 00 mm Hg 04/09/2024 Weight 224 lbs 04/09/2024 BMI 34.06 kg/m2 04/09/2024 Encounters Encounter Location Date Provider Diagnosis [facility] [address] [place] [address] 04/09/2024 Severo Jett Jr Epigastric pain R10.13 [facility] [address] [place] [address] 03/04/2024 Severo Jett Jr [facility] [address] [place] [address] 04/14/2024 Severo Jett Jr [facility] [address] [place] [address] 04/24/2024 Severo Jett Jr Assessments Encounter Date Diagnosis (ICD Code) Assessment Notes Treatment Notes Treatment Clinical Notes Section Notes 04/09/2024 Epigastric pain (ICD-10 - R10.13) We discussed epigastric pain today. She will have further evaluation with laboratory studies and ultrasound imaging. We advised her to continue omeprazole on a regular basis every day. Followup will be pending the results of her testing. Plan Of Treatment Pending Test Test Name Order Date BUN 04/09/2024 CREATININE 04/09/2024 LIVER PROFILE 04/09/2024 LIPASE 04/09/2024 CBC w/o DIFF 04/09/2024 US ABD 04/09/2024 Future Test Test Name Order Date UPPER GI ENDOSCOPY 11/08/2022 COLONOSCOPY 11/08/2022 Next Appt Details Provider Name:Severo Jason loza , 04/08/2025 09:00:00 AM, [address] [place] [address], [address], [place], [address], Insurance Providers Payer Name Payer Address Payer Phone Subscriber Number Group Number Insured Name Patient Relationship to Insured Coverage Start Date Coverage End Date MEDICAID OF [employer] [address] [place] [phone] [id number] NORMA ESTES Self - patient is the insured Medical (General) History Medical History History ICD Code DVT/PE EGD 01/31, esophagitis, eosinophils on bi opsy Environmental allergies Anxiety Insomnia Hypertension Elevated cholesterol Colonoscopy 01/31, normal, ten-year follo wup Surgical History Surgery Date(Month/Year) thyroid surgery vena cava filter 1993 lipoma removal 2021
--- OUTSIDE RECORDS SUMMARY | 2024-08-13 08:22 | XMS_ITS ---
Author Organization [facility] Address [address] [place] [address] Care Team Providers Care Flume Worker Name Role Phone Yanna Valdes Primary Care Provider Unavailab Severo Davenport Jr [phone] REASON FOR VISIT epigastric pain Encounters Encounter Location Date Provider Diagnosis [facility] [address] [place] [address] 07/09/2024 Severo Cancino Jr Plan Of Treatment Next Appt Details Provider Name:Severo loza Jr, 04/08/2025 09:00:00 AM, [address], [address], [place], [address], Progress Notes * EFRAAPOLLOLEXIOB:[birth year] (53 yo F)Acc No.[id number]:07/09/2024 Progress Notes Patient:?EFRAAPOLLORA Provider:?Severo Cancino MD :1970???Age:53 Y???Sex:Female D ate:07/09/2024 Address:[address], [place] Pcp:Yanna Valdes Subjective: * Chief Complaints: * ???1. Epigastric pain. * Medical History:? Objective: * Vitals:? Assessment: Plan: * Treatment: * * The named appointment provid er may or may not be the originator of this progress note, and it is not deemed complete until electronically signed by the appointment provider. Sign off status: Pending * Provider:?Severo Cancino MD Date:?0 07/09/2024 Generated for Terrell lópez/Melissa/Zeenat on:?08/13/2024 08:22 AM EST
--- OUTSIDE RECORDS SUMMARY | 2024-08-13 08:23 | XMS_ITS ---
Author Organization [facility] Address [address] [place] [address] Care Team Providers Care Escrow Closer Name Role Phone Yanna Valdes Primary Care Provider Unavailab Severo Davenport Jr [phone] REASON FOR VISIT labs Encounters Encounter Location Date Provider Diagnosis [facility] [address] [place] [address] 04/14/2024 Severo Cancino Jr Plan Of Treatment Next Appt Details Provider Name:Severo loza Jr, 04/08/2025 09:00:00 AM, [address], [address], [place], [address], Progress Notes * CHICA KRAUSOB:[birth year] (53 yo F)Acc No.[id number]:04/14/2024 Patient:?BASILIA KRAUS :1970???Age:53 Y???Sex:Female Address:[address], [place], [address] * true * Date:? Generated for Papii rene/Melissa/eTransmitting on:?08/13/2024 08:22 AM EST
[2024-08-13 08:34] LABS: Prothrombin Time Whole Bld POC 33.3 sec (11.1-13.5); ~PT, ~INR - Anti Coag Clinic 2.8 (0.9-1.1)
--- NOTE | 2024-08-13 08:42 | MHC.OFFVISCO ---
Intake Intake Visit Reasons: Anticoagulation Allergies ciprofloxacin [From Cipro] Allergy (Unknown, Verified 08/13/24 08:29) RASH Sulfa (Sulfonamide Antibiotics) Allergy (Unknown, Verified 08/13/24 08:29) SWELLING/ITCHING, swelling topiramate [From TOPAMAX] Allergy (Unknown, Verified 08/13/24 08:29) DIZZY Medication List - Last Reconciled 08/13/24 by Mara Lan RN acetaminophen ER (Mapap Arthritis Pain) 650 mg PO Q8H albuterol sulfate 2.5 mg inhalation Q4-6H PRN albuterol sulfate 90 mcg/actuation (ProAir HFA) 2 puffs inhalation Q6H PRN bupropion HCl SR (Wellbutrin SR) 150 mg PO DAILY cholecalciferol (vitamin D3) 50 mcg PO DAILY 30 days fluticasone propionate 50 mcg/actuation (Flonase Allergy Relief) 1 spray intranasal DAILY fluticasone propionate 110 mcg/actuation (Flovent HFA) 2 puffs PO BID lisinopril 20 mg PO DAILY montelukast 10 mg PO DAILY omega 9-hus-muv-fish oil 1,200 (144-216) mg (Fish Oil) 1,200 caps PO BID omeprazole 20 mg PO DAILY ondansetron 4 mg PO TID PRN sennosides-docusate sodium 8.6-50 mg (Senexon-S) 2 tabs PO BEDTIME sertraline 50 mg PO DAILY trazodone 50 mg PO BEDTIME PRN triamcinolone acetonide 0.5% 1 appl topical BID warfarin See Protocol 7.5mg x 6, 5mg x 1 Nursing Note NO CP,SOB,DIET/MED CHANGES,FALLS OR SX OF BLEEDING. CONTINUE PRESENT DOSE AND FOLLOW-UP IN 2 WEEKS GOOD UNDERSTANDING OF DOSING INSTR. 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
== END 2024-08-13 08:43 | disposition home or self-care (01) ==
LOC: HO.ACS 08:09
PROVIDERS: PCP Internal Medicine; Visit Provider Internal Medicine
DX: Z79.01 Long term (current) use of anticoagulants (principal)

== ENCOUNTER → 2024-08-13 08:09 | Outpatient (BNVA) | payer MEDICAID, SELFPAY | PROVIDERS: PCP Internal Medicine; Visit Provider Internal Medicine | DX: Z86.718 Personal history of other venous thrombosis and embolism (principal); Z79.01 Long term (current) use of anticoagulants; Z51.81 Encounter for therapeutic drug level monitoring | CPT/HCPCS: 85610; 99211 ==

== ENCOUNTER 2024-08-27 08:11 | Outpatient (AMB) | payer MEDICAID, SELFPAY ==
--- OUTSIDE RECORDS SUMMARY | 2024-08-27 08:21 | XMS_ITS ---
Author Organization [facility] Address [address] [place] [address] Care Team Providers Care Hide Sorter Name Role Phone Yanna Valdes Primary Care Provider Unavailab Severo Davenport Jr REASON FOR VISIT labs Encounters Encounter Location Date Provider Diagnosis [facility] [address] [place] [address] 04/14/2024 Severo Cancino Jr Plan Of Treatment Next Appt Details Provider Name:Severo olza Jr, 04/08/2025 09:00:00 AM, [address], [address], [place], [address], Progress Notes * CHICA KRAUSOB:[birth year] (53 yo F)Acc No.[id number]:04/14/2024 Patient:?BASILIA KRAUS :1970???Age:53 Y???Sex:Female Address:[address], [place], [address] * true * Date:? Generated for Papii rene/Melissa/eTransmitting on:?08/27/2024 08:21 AM EDT
--- OUTSIDE RECORDS SUMMARY | 2024-08-27 08:21 | XMS_ITS | Patient Health Record ---
Author Organization [facility] Address [address] [place] [address] Care Team Providers Care Machinist Tool And Die Name Role Phone LucinaYanna freeman Primary Care Provider UnavailSevero Ackerman Jr Unavailable [phone] Allergies Allergen (clinical drug ingredient) Drug/Non Drug Allergy documented on EMR Reaction Allergy Type Onset Date Status Substance with sulfonamide structure and antibacterial mechanism of action (substance) Sulfa Antibiotics Unknown Drug Allergy Active topiramate Topamax Unknown Drug Allergy Active ciprofloxacin Cipro Unknown Drug Allergy Act lamonte Results Component Value Reference Range Notes Complete Blood Count no Diff Reviewed date:04/14/2024 08:55:09 AM Interpretation: Performing Lab:[facility], [address] [place] [phone] Notes/Report: White Blood Count 6.2 4.8-10.8 X10*3/uL [...] Panel Reviewed date:04/14/2024 08:55:15 AM Interpretation: Performing Lab:[address] [address] Notes/Report: Bilirubin Total 0.3 0.0-1.0 mg/dL Bilirubin Direct 0.1 0.0-0.5 mg/dL Aspartate Amino Transferase 22 5-31 U/L Alanine Aminotransferase 17 0-31 U/L Total Protein 7.2 6.5-8.0 g/dL Albumin Level 3.9 3.5-5.0 g/dL Alkaline Phosphatase 71 39-117 U/L Blood Urea Nitrogen Reviewed date:04/14/2024 08:52:04 AM Interpretation: Performing Lab:[address] [address] Notes/Report: Blood Urea Nitrogen 9 9-16 mg/dL Creatinine Reviewed date:04/14/2024 08:55:22 AM Interpretation: Performing Lab:[facility], [address] [place] [address] Notes/Report: Creatinine 0.70 0.5-1.4 mg/dL Estimated Glomerular Filt Rate > 60 NOTE: For -Singaporean individuals, multiply the result by 1.210. Chronic Kidney Disease: Estimated GFR < 60 mL/min/1.73m2 Severe Kidney Disease: Estimated GFR < 15 mL/min/1.73m2 Lipase Reviewed date:04/14/2024 08:55:29 AM Interpretation: Performing Lab:[facility], [address] [place] [phone] Notes/Report: Lipase 31 8-78 U/L US abdomen complete Reviewed date:04/24/2024 08:22:36 AM Interpretation: Performing Lab: Notes/Report: [address] [address] Ultrasound Report Signed Patient: Norma Carter I MR#: [id number] : 1970 Acct:[id number] Age/Sex: 53 / F ADM Date: 04/18/24 Loc: HO.US Attending Dr: Severo Jett MD Ordering Physician: Severo Jett MD Date of Service: 04/18/24 Procedure(s): US abdomen complete Accession Number(s): [id number] cc: Yanna Valdes MD; Severo Jett MD [...] in OV> 04/20/242133 DD/ 3 TD/TT: 04/18/24931 Food Tester: [place] [address] Ultrasound Report Signed Patient: Johnathan Carter I MR#: [id number] : 1970 Acct:[id number] Age/Sex: 53 / F ADM Date: 04/18/24 Loc: HO.US Attending Dr: Vicente Jett MD Ordering Physician: Severo Jett MD Date of Service: 04/18/24 Procedure(s): US abd omen complete Accession Number(s): [id number] cc: Yanna Valdes MD; Severo Jett MD [...] by: Bk Long MD 04/20/2024 09:34 PM [facility] Dictated By: Darlene Long MD Signed By: <Electronically signed by Bk Long MD in OV> 04/20/242133 DD/ 3 TD/TT: 04/18/24931 Food Tester: TERRIE Reason For Referral Referring Provider First Name Yanna Referring Provider Last Name Keisha Referring Provider Speciality Internal M edicine Referred Organization [facility] Referred Provider Severo Jett Jr Referred Address [address] [place] [phone], Referred Provider Specialty Gastroentero logy General Notes [...] 20 MG TAKE 1 CAPSULE BY MO [facility] EVERY DAY Oral for 90 Active Warfarin Sodium 5 MG TAKE 1 TABLET BY MO [facility] SUNDAY AND SUNDAY AND 1 1/2 TABS [...] Problem Status W/U Status Risk Notes Problem 551691458 Colon cancer screening (Z12.11) Active confirmed Problem Esophageal reflux (980173314) Esophageal reflux (K21.9) Active confirmed Problem 60596569 Epigastric pain (R10.13) Active confirmed Vital Signs Blood pressure diastolic 00 mm Hg 04/09/2024 Height 68 in 04/09/2024 Blood pressure systolic 00 mm Hg 04/09/2024 Weight 224 lbs 04/09/2024 BMI 34.06 kg/m2 04/09/2024 Encounters Encounter Location Date Provider Diagnosis [facility] [address] [place] [address] 04/09/2024 Severo Jett Jr Epigastric pain R10.13 [facility] [address] [place] [address] 03/04/2024 Severo Jett Jr [facility] [address] [place] [address] 04/14/2024 Severo Jett Jr [facility] [address] [place] [address] 04/24/2024 Severo Jett Jr Assessments Encounter Date [...] Name:Severo Jason loza , 04/08/2025 09:00:00 AM, [address] [place] [address], [address], [place], [address], Insurance Providers Payer Name Payer Address Payer Phone Subscriber Number Group Number Insured Name Patient Relationship to Insured Coverage Start Date Coverage End Date MEDICAID OF [employer] [address] [place] [phone] [id number] NORMA ESTES Self - patient is the insured Medical (General) History Medical History History ICD Code DVT/PE EGD 01/31, esophagitis, eosinophils on bi opsy Environmental allergies Anxiety Insomnia Hypertension Elevated cholesterol Colonoscopy 01/31, normal, ten-year follo wup Surgical History Surgery Date(Month/Year) thyroid surgery vena cava filter 1993 lipoma removal 2021
--- OUTSIDE RECORDS SUMMARY | 2024-08-27 08:21 | XMS_ITS ---
Author Organization [facility] Address [address] [place] [address] Care Team Providers Care Family Court Counsellor Name Role Phone Yanna Valdes Primary Care Provider Unavailab Severo Davenport Jr [phone] REASON FOR VISIT epigastric pain Encounters Encounter Location Date Provider Diagnosis [facility] [address] [place] [address] 07/09/2024 Severo Cancino Jr Plan Of Treatment Next Appt Details Provider Name:Severo loza Jr, 04/08/2025 09:00:00 AM, [address], [address], [place], [address], Progress Notes * EFRAAPOLLOLEXIOB:[birth year] (53 yo F)Acc No.[id number]:07/09/2024 Progress Notes Patient:?EFRAAPOLLORA Provider:?Severo Cancino MD :1970???Age:53 Y???Sex:Female D ate:07/09/2024 Address:[address], [place] Pcp:Yanna Valdes Subjective: * Chief Complaints: * [...] MD Date:?0 07/09/2024 Generated for Terrell lópez/Melissa/Zeenat on:?08/27/2024 08:21 AM EDT
--- OUTSIDE RECORDS SUMMARY | 2024-08-27 08:21 | XMS_ITS ---
Author Organization [facility] Address [address] [place] [address] Care Team Providers Care Manager Client Service Name Role Phone Keisha Yanna Primary Care Provider Unavailab Severo Davenport Jr REASON FOR VISIT ultrasound Encounters Encounter Location Date Provider Diagnosis [facility] [address] [place] [address] 04/24/2024 Severo Cancino Jr Plan Of Treatment Next Appt Details Provider Name:Severo loza Jr, 04/08/2025 09:00:00 AM, [address], [address], [place], [address], Progress Notes * CHICA KRAUSOB:[birth year] (53 yo F)Acc No.[id number]:04/24/2024 Patient:?BASILIA KRAUS :1970???Age:53 Y???Sex:Female Address:[address], [place] [address] Subjective: * Chief Complaints: * ???Ultrasound * Medical History:? * Surgical History:? * Hospitalization/Major Diagno stic Procedure:? * Medications:? Objective: Assessment: Plan: * Treatment: * Procedure Codes:? * true * Date:? Generated for Printi ng/Faxing/eTransmitting on:?08/27/2024 08:21 AM EDT
--- NOTE | 2024-08-27 08:38 | MHC.OFFVISCO ---
Intake Intake Visit Reasons: Anticoagulation Allergies ciprofloxacin [From Cipro] Allergy (Unknown, Verified 08/27/24 08:34) RASH Sulfa (Sulfonamide Antibiotics) Allergy (Unknown, Verified 08/27/24 08:34) SWELLING/ITCHING, swelling topiramate [From TOPAMAX] Allergy (Unknown, Verified 08/27/24 08:34) DIZZY Medication List - Last Reconciled 08/27/24 by Latasha Chong RN acetaminophen ER (Mapap Arthritis Pain) 650 mg PO Q8H albuterol sulfate 2.5 mg inhalation Q4-6H PRN albuterol sulfate 90 mcg/actuation (ProAir HFA) 2 puffs inhalation Q6H PRN bupropion HCl SR (Wellbutrin SR) 150 mg PO DAILY cholecalciferol (vitamin D3) 50 mcg PO DAILY 30 days fluticasone propionate 50 mcg/actuation (Flonase Allergy Relief) 1 spray intranasal DAILY fluticasone propionate 110 mcg/actuation (Flovent HFA) 2 puffs PO BID lisinopril 20 mg PO DAILY montelukast 10 mg PO DAILY omega 1-zls-iaj-fish oil 1,200 (144-216) mg (Fish Oil) 1,200 caps PO BID omeprazole 20 mg PO DAILY ondansetron 4 mg PO TID PRN sennosides-docusate sodium 8.6-50 mg (Senexon-S) 2 tabs PO BEDTIME sertraline 50 mg PO DAILY trazodone 50 mg PO BEDTIME PRN triamcinolone acetonide 0.5% 1 appl topical BID warfarin See Protocol 7.5mg x 6, 5mg x 1 Nursing Note INR: 2.9- in therapeutic range of 2-3 Medications and supplements reviewed- no changes No changes in health, diet, medications, or supplements, Denies any signs and symptoms of bleeding or bruising or clotting. Bleeding, bruising, clotting discussed Nutritional guidance given Dose: 5mg x 1. 7.5mg x 6 F/U INR: 2 weeks Patient verbalizes understanding of instructions given Anti-Coag Initial Assessment Social Hx Patient Tobacco Use Status: Never used Tobacco alcohol intake: never Alcohol intake frequency: does not drink Coding Level of Care Code Est Patient Level 1 Diagnoses Current use of anticoagulant therapy Z79.01 Results AMB INR Fingerstick AMB INR Fingerstick 2.9 Last Edit by Latasha Chong RN on 08/27/24 08:39 Assessment & Plan Assessment & Plan (1) Current use of anticoagulant therapy: Code(s): Z79.01 - jail (current) use of anticoagulants Category: Medical
[2024-08-27 08:47] LABS: Prothrombin Time Whole Bld POC 35.1 sec (11.1-13.5); ~PT, ~INR - Anti Coag Clinic 2.9 (0.9-1.1)
== END 2024-08-27 08:44 | disposition home or self-care (01) ==
LOC: HO.ACS 08:11
PROVIDERS: PCP Internal Medicine; Visit Provider Internal Medicine Medical Oncology
DX: Z79.01 Long term (current) use of anticoagulants (principal)

== ENCOUNTER → 2024-08-27 08:11 | Outpatient (BNVA) | payer MEDICAID, SELFPAY | PROVIDERS: PCP Internal Medicine; Visit Provider Internal Medicine Medical Oncology | DX: Z86.718 Personal history of other venous thrombosis and embolism (principal); Z79.01 Long term (current) use of anticoagulants; Z51.81 Encounter for therapeutic drug level monitoring | CPT/HCPCS: 85610; 99211 ==

== ENCOUNTER 2024-09-10 08:31 | Outpatient (AMB) | payer MEDICAID, SELFPAY ==
--- NOTE | 2024-09-10 08:37 | MHC.OFFVISCO ---
Intake Intake Visit Reasons: Anticoagulation Allergies ciprofloxacin [From Cipro] Allergy (Unknown, Verified 09/10/24 08:34) RASH Sulfa (Sulfonamide Antibiotics) Allergy (Unknown, Verified 09/10/24 08:34) SWELLING/ITCHING, swelling topiramate [From TOPAMAX] Allergy (Unknown, Verified 09/10/24 08:34) DIZZY Medication List - Last Reconciled 09/10/24 by Latasha Chong RN albuterol sulfate 2.5 mg inhalation Q4-6H PRN albuterol sulfate 90 mcg/actuation (ProAir HFA) 2 puffs inhalation Q6H PRN bupropion HCl SR (Wellbutrin SR) 150 mg PO DAILY cholecalciferol (vitamin D3) 50 mcg PO DAILY 30 days fluticasone propionate 50 mcg/actuation (Flonase Allergy Relief) 1 spray intranasal DAILY fluticasone propionate 110 mcg/actuation (Flovent HFA) 2 puffs PO BID lisinopril 20 mg PO DAILY montelukast 10 mg PO DAILY omega 4-zym-vmg-fish oil 1,200 (144-216) mg (Fish Oil) 1,200 caps PO BID omeprazole 20 mg PO DAILY ondansetron 4 mg PO TID PRN sennosides-docusate sodium 8.6-50 mg (Senexon-S) 2 tabs PO BEDTIME sertraline 50 mg PO DAILY trazodone 50 mg PO BEDTIME PRN triamcinolone acetonide 0.5% 1 appl topical BID warfarin See Protocol 7.5mg x 6, 5mg x 1 Nursing Note INR: 2.2- in therapeutic range of 2-3 Medications and supplements reviewed- no changes No changes in health, diet, medications, or supplements, Denies any signs and symptoms of bleeding or bruising or clotting. Bleeding, bruising, clotting discussed Nutritional guidance given Dose: 5mg x 1. 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
[2024-09-10 08:38] LABS: Prothrombin Time Whole Bld POC 25.9 sec (11.1-13.5); ~PT, ~INR - Anti Coag Clinic 2.2 (0.9-1.1)
--- OUTSIDE RECORDS SUMMARY | 2024-09-10 08:51 | XMS_ITS | Patient Health Record ---
Author Organization [facility] Address [address] [place] [address] Care Team Providers Care Trailer Driver Name Role Phone LucinaYanna freeman Primary Care Provider UnavailSevero Ackerman Jr Unavailable Allergies Allergen (clinical drug ingredient) Drug/Non Drug Allergy documented on EMR Reaction Allergy Type Onset Date Status Substance with sulfonamide structure and antibacterial mechanism of action (substance) Sulfa Antibiotics Unknown Drug Allergy Active topiramate Topamax Unknown Drug Allergy Active ciprofloxacin Cipro Unknown Drug Allergy Act lamonte Results Component Value Reference Range Notes Complete Blood Count no Diff Reviewed date:04/14/2024 08:55:09 AM Interpretation: Performing Lab:[facility], [address] [place] [phone] Notes/Report: White Blood Count 6.2 4.8-10.8 X10*3/uL [...] Panel Reviewed date:04/14/2024 08:55:15 AM Interpretation: Performing Lab:[address] [address] Notes/Report: Bilirubin Total 0.3 0.0-1.0 mg/dL Bilirubin Direct 0.1 0.0-0.5 mg/dL Aspartate Amino Transferase 22 5-31 U/L Alanine Aminotransferase 17 0-31 U/L Total Protein 7.2 6.5-8.0 g/dL Albumin Level 3.9 3.5-5.0 g/dL Alkaline Phosphatase 71 39-117 U/L Blood Urea Nitrogen Reviewed date:04/14/2024 08:52:04 AM Interpretation: Performing Lab:[address] [address] Notes/Report: Blood Urea Nitrogen 9 9-16 mg/dL Creatinine Reviewed date:04/14/2024 08:55:22 AM Interpretation: Performing Lab:[facility], [address] [place] [address] Notes/Report: Creatinine 0.70 0.5-1.4 mg/dL Estimated Glomerular Filt Rate > 60 NOTE: For -Latvian individuals, multiply the result by 1.210. Chronic Kidney Disease: Estimated GFR < 60 mL/min/1.73m2 Severe Kidney Disease: Estimated GFR < 15 mL/min/1.73m2 Lipase Reviewed date:04/14/2024 08:55:29 AM Interpretation: Performing Lab:[facility], [address] [place] [phone] Notes/Report: Lipase 31 8-78 U/L US abdomen complete Reviewed date:04/24/2024 08:22:36 AM Interpretation: Performing Lab: Notes/Report: [address] [address] Ultrasound Report Signed Patient: Norma Carter I MR#: [id number] : 1970 Acct:[id number] Age/Sex: 53 / F ADM Date: 04/18/24 Loc: HO.US Attending Dr: Severo Jett MD Ordering Physician: Severo Jett MD Date of Service: 04/18/24 Procedure(s): US abdomen complete Accession Number(s): [id number] cc: Yanna Valdes MD; Severo Jett MD [...] in OV> 04/20/242133 DD/ 3 TD/TT: 04/18/24931 Chlorine Cells Operator: [place] [address] Ultrasound Report Signed Patient: Johnathan Carter I MR#: [id number] : 1970 Acct:[id number] Age/Sex: 53 / F ADM Date: 04/18/24 Loc: HO.US Attending Dr: Vicente Jett MD Ordering Physician: Severo Jett MD Date of Service: 04/18/24 Procedure(s): US abd omen complete Accession Number(s): [id number] cc: Yanna Valdes MD; Severo Jett MD [...] by: Bk Long MD 04/20/2024 09:34 PM [facility] Dictated By: Darlene Long MD Signed By: <Electronically signed by Bk Long MD in OV> 04/20/242133 DD/ 3 TD/TT: 04/18/24931 Chlorine Cells Operator: TERRIE Reason For Referral Referring Provider First Name Yanna Referring Provider Last Name Keisha Referring Provider Speciality Internal M edicine Referred Organization [facility] Referred Provider Severo Jett Jr Referred Address [address] [place] [address], Referred Provider Specialty Gastroentero logy General Notes [...] 20 MG TAKE 1 CAPSULE BY MO [facility] EVERY DAY Oral for 90 Active Warfarin Sodium 5 MG TAKE 1 TABLET BY MO [facility] SUNDAY AND SUNDAY AND 1 1/2 TABS [...] Problem Status W/U Status Risk Notes Problem 863661979 Colon cancer screening (Z12.11) Active confirmed Problem Esophageal reflux (980856373) Esophageal reflux (K21.9) Active confirmed Problem 11623272 Epigastric pain (R10.13) Active confirmed Vital Signs Blood pressure diastolic 00 mm Hg 04/09/2024 Height 68 in 04/09/2024 Blood pressure systolic 00 mm Hg 04/09/2024 Weight 224 lbs 04/09/2024 BMI 34.06 kg/m2 04/09/2024 Encounters Encounter Location Date Provider Diagnosis [facility] [address] [place] [address] 04/09/2024 Severo Jett Jr Epigastric pain R10.13 [facility] [address] [place] [address] 03/04/[address] [facility] [address] [place] [address] 04/14/[address] [facility] [address] [place] [address] 04/24/2024 Severo Jett Jr Assessments Encounter Date [...] Name:Severo Jason loza , 04/08/2025 09:00:00 AM, [address] [place] [address], [address], [place], [address], Insurance Providers Payer Name Payer Address Payer Phone Subscriber Number Group Number Insured Name Patient Relationship to Insured Coverage Start Date Coverage End Date MEDICAID OF [employer] [address] [place] [phone] [id number] NORMA ESTES Self - patient is the insured Medical (General) History Medical History History ICD Code DVT/PE EGD 01/31, esophagitis, eosinophils on bi opsy Environmental allergies Anxiety Insomnia Hypertension Elevated cholesterol Colonoscopy 01/31, normal, ten-year follo wup Surgical History Surgery Date(Month/Year) thyroid surgery vena cava filter 1993 lipoma removal 2021
--- OUTSIDE RECORDS SUMMARY | 2024-09-10 08:51 | XMS_ITS ---
Author Organization [facility] Address [address] [place] [address] Care Team Providers Care Bank Operations Officer Name Role Phone Yanna Valdes Primary Care Provider Unavailab Severo Davenport Jr REASON FOR VISIT labs Encounters Encounter Location Date Provider Diagnosis [facility] [address] [place] [address] 04/14/2024 Severo Cancino Jr Plan Of Treatment Next Appt Details Provider Name:Severo loza Jr, 04/08/2025 09:00:00 AM, [address] [facility] [address] [address], [place], [address], Progress Notes * CHICA KRAUSOB:[birth year] (53 yo F)Acc No.[id number]:04/14/2024 Patient:?BASILIA KRAUS :1970???Age:53 Y???Sex:Female Address:[address], [place], [address] * true * Date:? Generated for Printi ng/Melissa/eTransmitting on:?09/10/2024 08:51 AM EDT
--- OUTSIDE RECORDS SUMMARY | 2024-09-10 08:51 | XMS_ITS ---
Author Organization [facility] Address [address] [place] [address] Care Team Providers Care Airplane Pilot Helper Name Role Phone Keisha Yanna Primary Care Provider Unavailab Severo Davenport Jr REASON FOR VISIT ultrasound Encounters Encounter Location Date Provider Diagnosis [facility] [address] [place] [address] 04/24/2024 Severo Cancino Jr Plan Of Treatment Next Appt Details Provider Name:Severo loza Jr, 04/08/2025 09:00:00 AM, [address], [address], [place], [address], Progress Notes * CHICA KRAUSOB:[birth year] (53 yo F)Acc No.[id number]:04/24/2024 Patient:?BASILIA KRAUS :1970???Age:53 Y???Sex:Female Address:[address], [place] [address] Subjective: * Chief Complaints: * ???Ultrasound * Medical History:? * Surgical History:? * Hospitalization/Major Diagno stic Procedure:? * Medications:? Objective: Assessment: Plan: * Treatment: * Procedure Codes:? * true * Date:? Generated for Printi ng/Faxing/eTransmitting on:?09/10/2024 08:51 AM EDT
--- OUTSIDE RECORDS SUMMARY | 2024-09-10 08:51 | XMS_ITS ---
Author Organization [facility] Address [address] [place] [address] Care Team Providers Care Diesel Truck Technician Name Role Phone Yanna Valdes Primary Care Provider Unavailab Severo Davenport Jr REASON FOR VISIT epigastric pain Encounters Encounter Location Date Provider Diagnosis [facility] [address] [place] [address] 07/09/2024 Severo Cancino Jr Plan Of Treatment Next Appt Details Provider Name:Severo loza Jr, 04/08/2025 09:00:00 AM, [address], [address], [place], [address], Progress Notes * EFRAAPOLLOLEXIOB:[birth year] (53 yo F)Acc No.[id number]:07/09/2024 Progress Notes Patient:?EFRAAPOLLORA Provider:?Severo Cancino MD :1970???Age:53 Y???Sex:Female D ate:07/09/2024 Address:[address], [place] Pcp:Yanna Valdes Subjective: * Chief Complaints: * [...] MD Date:?0 07/09/2024 Generated for Terrell lópez/Melissa/Zeenat on:?09/10/2024 08:51 AM EDT
== END 2024-09-10 08:42 | disposition home or self-care (01) ==
LOC: HO.ACS 08:31
PROVIDERS: PCP Internal Medicine; Visit Provider Internal Medicine Medical Oncology
DX: Z79.01 Long term (current) use of anticoagulants (principal)

== ENCOUNTER → 2024-09-10 08:31 | Outpatient (BNVA) | payer MEDICAID, SELFPAY | PROVIDERS: PCP Internal Medicine; Visit Provider Internal Medicine Medical Oncology | DX: Z86.718 Personal history of other venous thrombosis and embolism (principal); Z79.01 Long term (current) use of anticoagulants; Z51.81 Encounter for therapeutic drug level monitoring | CPT/HCPCS: 85610; 99211 ==

== ENCOUNTER 2024-09-24 08:22 | Outpatient (AMB) | payer MEDICAID, SELFPAY ==
--- OUTSIDE RECORDS SUMMARY | 2024-09-24 08:31 | XMS_ITS | Continuity of Care Document ---
Author Organization [facility] Address [address] [place] [address] Phone Care Team Providers Care Cracker Sprayer Name Role Phone Murtaza BHATTI, RVT, RPVI, Messi Unavailable U navailable Procedures Procedure Date Office/Outpt E&M Established 15 Mins- CT & [place] Duplex Scan-extrem Veins; Uni/ CT & [place] M No Charge For Services Office/Outpt E&M Established [...] Diagnoses Date Provider Providers Copied on Encounter Office/Outpt E&M Established 15 Mins- CT & [place] [facility], [address] [place] [address] Dr Carreno 1000[facility] [address], [id number], [place] tel:[phone] [facility] Restless legs syndromeVenou s insufficiency (chronic) (peripheral)E ssential (primary) hypertension 5 Murtaza BHATTI RVT, SUSI Swenson. [address] [place] [address], [facility] [place] [place], [id number], [place]. tel:[phone] Referring Provider: Yanna Valdes MD, [address] [place] [address] Suite [facility], [place], [address]. tel:[phone] [facility], [address] [place] [address] Dr Carreno 1000[facility] [address], [id number], [place] tel:[phone] [facility] Encounter for follow-up examination after completed treatment for conditions other than malignant neoplasmChron ic venous hypertension (idiopathic) with other complications of left lower extremity 5 Murtaza BHATTI RVT, SUSI Swenson. [address] [place] [address], [facility] [place], [id number], [place]. tel:[phone] Referring Provider: Yanna Valdes MD, [address] [place] [address] [address], [place], [address]. tel:[phone] [facility], [address] [place] [address] Dr Carreno 1000[facility] [address], [id number], [place] tel:[phone] [facility] Venous insufficiency (chronic) (peripheral)N evus, non-neoplasti c [place] 4 Surinder Bryant. [address] [place] [address] 302, [place], [id number], [place]. tel:[phone] Referring Provider: [place], [address] [place] [address] [address], [place], [address]. tel:[phone] Office/Outpt E&M Established 15 Mins- CT & [place] [facility], [address] [place] [address] Dr Carreno 1000[address] 1000[place], [id number], [place] tel:[phone] [facility] [place] [facility] [place] Essential (primary) hypertensionL ocalized edemaVenous insufficiency (chronic) (peripheral) 4 Murtaza BHATTI RVT, SUSI Swenson. [address] [place] [address], Suite [facility], [facility] [place], [id number], [place]. tel:[phone] Referring Provider: Yanna Valdes MD, [address] [place] [address] Suite [facility], [place], [address]. tel:[phone] [facility], [address] [place] [address] [address], [id number], [place] tel:[phone] [facility] - [facility] Encounter for follow-up examination after completed treatment for conditions other than malignant neVaricose veins of left lower extremity with pain 4 Murtaza BHATTI RVT, SUSI Swenson. [address] [place] [address], Suite [facility], [facility] [place], [id number], [place]. tel:[phone] Referring Provider: Yanna Valdes MD, [address] [place] [address] Suite [facility], [place], [address]. tel:[phone] [facility], [address] [place] [address] Ev 1000Suite [place], [id number], [place] tel:[phone] [facility] - [facility] Encounter for follow-up examination after completed treatment for conditions other than malignant ne 4 Murtaza BHATTI RVT, SUSI Swenson. [address] [place] [address], [address], [facility] [place], [id number], [place]. tel:[phone] Referring Provider: Yanna Valdes MD, [address] [place] [address] [address], [place], [address]. tel:[phone] [facility], [address] [place] [address] Dr Carreno 1000[address] 1000[place], [id number], [place] tel:[phone] CVR - [facility] Chronic venous hypertension (idiopathic) with inflammation of left lower extremity 4 Surinder Bryant. [address] [place] [address], [address], [facility] [place], [id number], [place]. tel:[phone] Referring Provider: Yanna Valdes MD, [address] [place] [address] Suite [facility], [place], [address]. tel:[phone] [facility], [address] [place] [address] 1000Suite 1000[place], [id number], [place] tel:[phone] [facility] - [facility] Encounter for follow-up examination after completed treatment for conditions other than malignant neChronic venous hypertension (idiopathic) with other complications of left lower extremity 4 Murtaza BHATTI RVT, SUSI Swenson. [address] [place] [address], [place], [id number], [place]. tel:[phone] Referring Provider: Yanna Valdes MD, [address] [place] [address] Suite [facility], [place], [address]. tel:[phone] [facility], [address] [place] [address] [facility] 1000Suite [place], [id number], [place] tel:[phone] CVR [facility] Chronic venous hypertension (idiopathic) with inflammation of left lower extremity 4 Murtaza BHATTI RVT, SUSI Swenson. [address] [place] [address], Wes nielsen [place], [id number], [place]. tel:[phone] Referring Provider: Yanna Valdes MD, [address] [place] [address] [address], [place], [address]. tel:[phone] [facility], [address] [place] [address] Dr Carreno 1000Suite [place], [id number], [place] tel:[phone] [facility] Varicose veins of left lower extremity with other complications Apr-3 4 Murtaza BHATTI RVT, SUSI Swenson. [address] [place] [address], Suite [facility], [place], [id number], [place]. tel:[phone] Referring Provider: Yanna Valdes MD, [address] [place] [address] [address], [place], [address]. tel:[phone] Offic/outpt E&m Estab 5 Min Trial - Telemedicine [facility], [address] [place] [address] Dr Carreno 1000[facility] [address], [id number], [place] tel:[phone] [facility] [place] [facility] [place] Localized edemaCramp and spasmRestless legs syndromeVenou s insufficiency (chronic) (peripheral)E ssential (primary) hypertensionP ruritus, unspecified Aug- 4 Ajit Calzada. [address] [place] [address], [address], [place], [id number], [place]. tel:[phone] Referring Provider: Yanna Valdes MD, [address] [place] [address] [address], [place], [address]. tel:[phone] Office/Oupt E&M New Pt 30 Mins [facility], [address] [place] [address] Dr Carreno [address] [address], [id number], [place] tel:[phone] [facility] [place] [facility] [place] Varicose veins of left lower extremity with other complications Pain in left lower legLocalized edemaCramp and spasmRestless legs syndromeEssen tial (primary) hypertensionP ruritus, unspecified Feb-0 4 Murtaza BHATTI RVT, SUSI Swenson. [address] [place] [address], Wes nielsen [place], [id number], [place]. tel:[phone] Referring Provider: Yanna Valdes MD, [address] [place] [address] [address], [place], [address]. tel:[phone] [facility], [address] [place] [address] Dr Carreno 1000[facility] [address], [id number], [place] tel:[phone] [facility] [place] [facility] [place] Chronic venous hypertension (idiopathic) with other complications of left lower extremity Feb-0 4 Murtaza BHATTI RVT, RPVI Robert. [address] [place] [address], Wes nielsen [place], [id number], . tel:[phone] Referring Provider: Yanna Valdes MD, [address], [place], [address]. tel:[phone] Family History Family Member Type Diagnosis Age At Onset No Information Payers Payer name Insurance type Covered libertarian ID Kerri calvillo(s) Medical Assistance [facility] [id number] Social History Type Description Quantity Date Captured Comments Alcohol Use Details Unknown Caffeine Use Details Unknown Tobacco Use Status Current non-smoker Smoking Status Never Smoker Non-Smoking Tobacco Use Details : No Details Available : No Details Available Sex Female Vital Signs Date / Time: Height Weight BMI Pulse Rate Blood Pressure Temperature Respiratory Rate Body Surface Area Head Circumference Head Circ. Percentile Wt./Eleno. Percentile BMI percentile Pulse Ox Inhaled Ox 103.420 kg (228.00 lbs) 34.8 0 kg/m eter (2) 144/92 mm[Hg] Chief Complaint And Reason For Visit No Information Reason For Referral Reason For Referral No Information Plan Of Treatment Date Type Action Status Goal Diet education completed Goal Tobacco cessation counseling completed Goal Diet [...] Body mass index (BMI) 34.0-34.9, adult) ordered Appointment Norma Carter BOOKED Appointment Norma Carter BOOKED Appointment Norma Carter BOOKED Appointment Norma Carter BOOKED History Of Present Illness Encounter Date Complaint [...] stocking usage as conservative measure Related to Venous insufficiency (chronic) (peripheral) Patient education booklet given Related to Venous insufficiency (chronic) (peripheral) Diet education Related to Body mass index [...] with other complications Assessments Type Assessment Date No Information Patient Care Teams Name Effective Dates (start - stop) Status Members No Information
--- OUTSIDE RECORDS SUMMARY | 2024-09-24 08:31 | XMS_ITS | Patient Health Record ---
Author Organization [facility] Address [address] [place] [address] Care Team Providers Care Medical Technician Assistant Name Role Phone LucinaYanna freeman Primary Care [...] Diff Reviewed date:04/14/2024 08:55:09 AM Interpretation: Performing Lab:[facility], [address] [place] [address] Notes/Report: White Blood Count 6.2 4.8-10.8 X10*3/uL [...] Panel Reviewed date:04/14/2024 08:55:15 AM Interpretation: Performing Lab:[address] [address] Notes/Report: Bilirubin Total 0.3 0.0-1.0 mg/dL Bilirubin Direct 0.1 0.0-0.5 mg/dL Aspartate Amino Transferase 22 5-31 U/L Alanine Aminotransferase 17 0-31 U/L Total Protein 7.2 6.5-8.0 g/dL Albumin Level 3.9 3.5-5.0 g/dL Alkaline Phosphatase 71 39-117 U/L Blood Urea Nitrogen Reviewed date:04/14/2024 08:52:04 AM Interpretation: Performing Lab:[address] [address] Notes/Report: Blood Urea Nitrogen 9 9-16 mg/dL Creatinine Reviewed date:04/14/2024 08:55:22 AM Interpretation: Performing Lab:[facility], [address] [place] [address] Notes/Report: Creatinine 0.70 0.5-1.4 mg/dL Estimated Glomerular Filt Rate > 60 NOTE: For -Citizen Of [place] individuals, multiply the result by 1.210. Chronic Kidney Disease: Estimated GFR < 60 mL/min/1.73m2 Severe Kidney Disease: Estimated GFR < 15 mL/min/1.73m2 Lipase Reviewed date:04/14/2024 08:55:29 AM Interpretation: Performing Lab:[facility], [address] [place] [address] Notes/Report: Lipase 31 8-78 U/L US abdomen complete Reviewed date:04/24/2024 08:22:36 AM Interpretation: Performing Lab: Notes/Report: [address] [address] Ultrasound Report Signed Patient: Norma Carter I MR#: [id number] : 1970 Acct:[id number] Age/Sex: 53 / F ADM Date: 04/18/24 Loc: HO.US Attending Dr: Severo Jett MD Ordering Physician: Severo Jett MD Date of Service: 04/18/24 Procedure(s): US abdomen complete Accession Number(s): [id number] cc: Yanna Valdes MD; Severo Jett MD [...] in OV> 04/20/242133 DD/ 3 TD/TT: 04/18/24931 Size Cutter: [place] [address] Ultrasound Report Signed Patient: Johnathan Carter I MR#: [id number] : 1970 Acct:[id number] Age/Sex: 53 / F ADM Date: 04/18/24 Loc: HO.US Attending Dr: Vicente Jett MD Ordering Physician: Severo Jett MD Date of Service: 04/18/24 Procedure(s): US abd omen complete Accession Number(s): [id number] cc: Yanna Valdes MD; Severo Jett MD [...] by: Bk Long MD 04/20/2024 09:34 PM [facility] Dictated By: Darlene Long MD Signed By: <Electronically signed by Bk Long MD in OV> 04/20/242133 DD/ 3 TD/TT: 04/18/24931 Size Cutter: TERRIE Reason For Referral Referring Provider First Name Yanna Referring Provider Last Name Keisha Referring Provider Speciality Internal M edicine Referred Organization [facility] Referred Provider Severo Jett Jr Referred Address [address] [place] [address], Referred Provider Specialty Gastroentero logy General Notes [...] 20 MG TAKE 1 CAPSULE BY [facility] EVERY DAY Oral for 90 Active Warfarin Sodium 5 MG TAKE 1 TABLET BY [facility] SUNDAY AND SUNDAY AND 1 1/2 [...] Problem Status W/U Status Risk Notes Problem 773390792 Colon cancer screening (Z12.11) Active confirmed Problem Esophageal reflux (924383510) Esophageal reflux (K21.9) Active confirmed Problem 46324967 Epigastric pain (R10.13) Active confirmed Vital Signs Blood pressure diastolic 00 mm Hg 04/09/2024 Height 68 in 04/09/2024 Blood pressure systolic 00 mm Hg 04/09/2024 Weight 224 lbs 04/09/2024 BMI 34.06 kg/m2 04/09/2024 Encounters Encounter Location Date Provider Diagnosis [facility] [address] [place] [address] 04/09/2024 Severo Jett Jr Epigastric pain R10.13 [facility] [address] [place] [address] 03/04/2024 Severo Jett Jr [facility] [address] [place] [address] 04/14/2024 Severo Jett Jr [facility] [address] [place] [phone] 04/24/2024 Severo Jett Jr Assessments Encounter Date [...] Jason loza , 04/08/2025 09:00:00 AM, [address] [place] [address], [address], [place], [address], Insurance Providers Payer Name Payer Address Payer Phone Subscriber Number Group Number Insured Name Patient Relationship to Insured Coverage Start Date Coverage End Date MEDICAID OF [place] [address] [place] [phone] [id number] NROMA ESTES Self - patient is the insured Medical (General) History Medical History History ICD Code DVT/PE EGD 01/31, esophagitis, eosinophils on bi opsy Environmental allergies Anxiety Insomnia Hypertension Elevated cholesterol Colonoscopy 01/31, normal, ten-year follo wup Surgical History Surgery Date(Month/Year) thyroid surgery vena cava filter 1993 lipoma removal 2021
--- OUTSIDE RECORDS SUMMARY | 2024-09-24 08:31 | XMS_ITS ---
Author Organization [facility] Address [address] [place] [address] Care Team Providers Care Mechanical Operator Name Role Phone Ileneabilio Yanna Primary Care Provider Unavailab Severo Davenport Jr REASON FOR VISIT ultrasound Encounters Encounter Location Date Provider Diagnosis [facility] [address] [place] [address] 04/24/2024 Severo Cancino Jr Plan Of Treatment Next Appt Details Provider Name:Severo loza Jr, 04/08/2025 09:00:00 AM, [address], [address], [place], [address], Progress Notes * CHICA KRAUSOB:[birth year] (53 yo F)Acc No.[id number]:04/24/2024 Patient:?BASILIA KRAUS :1970???Age:53 Y???Sex:Female Address:[address], [place] [address] Subjective: * Chief Complaints: * ???Ultrasound * Medical History:? * Surgical History:? * Hospitalization/Major Diagno stic Procedure:? * Medications:? Objective: Assessment: Plan: * Treatment: * Procedure Codes:? * true * Date:? Generated for Printi ng/Faxing/eTransmitting on:?09/24/2024 08:31 AM EDT
--- OUTSIDE RECORDS SUMMARY | 2024-09-24 08:31 | XMS_ITS ---
Author Organization [facility] Address [address] [place] [address] Care Team Providers Care Music Box Mechanic Name Role Phone Yanna Valdes Primary Care Provider Unavailab Severo Davenport Jr REASON FOR VISIT epigastric pain Encounters Encounter Location Date Provider Diagnosis [facility] [address] [place] [address] 07/09/2024 Severo Cancino Jr Plan Of Treatment Next Appt Details Provider Name:Severo loza Jr, 04/08/2025 09:00:00 AM, [address], [address], [place], [address], Progress Notes * EFRAAPOLLOLEXIOB:[birth year] (54 yo F)Acc No.[id number]:07/09/2024 Progress Notes Patient:?EFRAAPOLLORA Provider:?Severo Cancino MD :1970???Age:53 Y???Sex:Female D ate:07/09/2024 Address:[address], [place] Pcp:Yanna Valdes Subjective: * Chief Complaints: * ???1. Epigastric pain. * Medical History:? Objective: * Vitals:? Assessment: Plan: * Treatment: * * The named appointment provid er may or may not be the originator of this progress note, and it is not deemed complete until electronically signed by the appointment provider. Sign off status: Pending * Provider:?Sveero Cancino MD Date:?0 07/09/2024 Generated for Terrell lópez/Melissa/Zeenat on:?09/24/2024 08:31 AM EDT
--- OUTSIDE RECORDS SUMMARY | 2024-09-24 08:32 | XMS_ITS ---
Author Organization [facility] Address [address] [place] [address] Care Team Providers Care Quality Intern Name Role Phone Yanna Valdes Primary Care Provider Unavailab Severo Davenport Jr REASON FOR VISIT labs Encounters Encounter Location Date Provider Diagnosis [facility] [address] [place] [address] 04/14/2024 Severo Cancino Jr Plan Of Treatment Next Appt Details Provider Name:Severo loza Jr, 04/08/2025 09:00:00 AM, [address], [address], [place], [address], Progress Notes * CHICA KRAUSOB:[birth year] (53 yo F)Acc No.[id number]:04/14/2024 Patient:?BASILIA KRAUS :1970???Age:53 Y???Sex:Female Address:[address], [place], [address] * true * Date:? Generated for Printi ng/Melissa/eTransmitting on:?09/24/2024 08:31 AM EDT
--- NOTE | 2024-09-24 08:35 | MHC.OFFVISCO ---
Intake Intake Visit Reasons: Anticoagulation Allergies ciprofloxacin [From Cipro] Allergy (Unknown, Verified 09/24/24 08:32) RASH Sulfa (Sulfonamide Antibiotics) Allergy (Unknown, Verified 09/24/24 08:32) SWELLING/ITCHING, swelling topiramate [From TOPAMAX] Allergy (Unknown, Verified 09/24/24 08:32) DIZZY Medication List - Last Reconciled 09/24/24 by Latasha Chong RN albuterol sulfate 2.5 mg inhalation Q4-6H PRN albuterol sulfate 90 mcg/actuation (ProAir HFA) 2 puffs inhalation Q6H PRN bupropion HCl SR (Wellbutrin SR) 150 mg PO DAILY cholecalciferol (vitamin D3) 50 mcg PO DAILY 30 days fluticasone propionate 50 mcg/actuation (Flonase Allergy Relief) 1 spray intranasal DAILY fluticasone propionate 110 mcg/actuation (Flovent HFA) 2 puffs PO BID lisinopril 20 mg PO DAILY montelukast 10 mg PO DAILY omega 7-rmo-ypz-fish oil 1,200 (144-216) mg (Fish Oil) 1,200 caps PO BID omeprazole 20 mg PO DAILY ondansetron 4 mg PO TID PRN sennosides-docusate sodium 8.6-50 mg (Senexon-S) 2 tabs PO BEDTIME sertraline 50 mg PO DAILY trazodone 50 mg PO BEDTIME PRN triamcinolone acetonide 0.5% 1 appl topical BID warfarin See Protocol 7.5mg x 6, 5mg x 1 Nursing Note INR 1.8-? out of therapeutic range of 2-3 Medications and supplements reviewed Patient status: pt states missed a dose yesterday of warfarin Medications or supplements: no changes Diet: same Denies any signs and symptoms of bleeding or clotting or unusual bruising Bleeding, bruising, clotting discussed Nutritional guidance given: no greens for 2-3 days, eat a red to raise Dose: 10mg today and tomm then cont reg dosing 7.5mg x 6, 5mg x 1 F/U INR Date : 1 week? Patient verbalizing understanding of instructions given. Anti-Coag Initial Assessment Social Hx Patient Tobacco Use Status: Never used Tobacco alcohol intake: never Alcohol intake frequency: does not drink Coding Level of Care Code Est Patient Level 1 Diagnoses Current use of anticoagulant therapy Z79.01 Results AMB INR Fingerstick AMB INR Fingerstick 1.8 Last Edit by Latasha Chong RN on 09/24/24 08:38 interface delay Assessment & Plan Assessment & Plan (1) Current use of anticoagulant therapy: Code(s): Z79.01 - residential (current) use of anticoagulants Category: Medical
[2024-09-24 08:37] LABS: Prothrombin Time Whole Bld POC 21.8 sec (11.1-13.5); ~PT, ~INR - Anti Coag Clinic 1.8 (0.9-1.1)
== END 2024-09-24 08:42 | disposition home or self-care (01) ==
LOC: HO.ACS 08:22
PROVIDERS: PCP Internal Medicine; Visit Provider Internal Medicine Medical Oncology
DX: Z79.01 Long term (current) use of anticoagulants (principal)

== ENCOUNTER → 2024-09-24 08:22 | Outpatient (BNVA) | payer MEDICAID, SELFPAY | PROVIDERS: PCP Internal Medicine; Visit Provider Internal Medicine Medical Oncology | DX: Z86.718 Personal history of other venous thrombosis and embolism (principal); Z79.01 Long term (current) use of anticoagulants; Z51.81 Encounter for therapeutic drug level monitoring | CPT/HCPCS: 85610; 99211 ==

== ENCOUNTER 2024-10-01 08:28 | Outpatient (AMB) | payer MEDICAID, SELFPAY ==
--- NOTE | 2024-10-01 08:39 | MHC.OFFVISCO ---
Intake Intake Visit Reasons: Anticoagulation Allergies ciprofloxacin [From Cipro] Allergy (Unknown, Verified 10/01/24 08:29) RASH Sulfa (Sulfonamide Antibiotics) Allergy (Unknown, Verified 10/01/24 08:29) SWELLING/ITCHING, swelling topiramate [From TOPAMAX] Allergy (Unknown, Verified 10/01/24 08:29) DIZZY Medication List - Last Reconciled 10/01/24 by Mara Lan RN albuterol sulfate 2.5 mg inhalation Q4-6H PRN albuterol sulfate 90 mcg/actuation (ProAir HFA) 2 puffs inhalation Q6H PRN bupropion HCl SR (Wellbutrin SR) 150 mg PO DAILY cholecalciferol (vitamin D3) 50 mcg PO DAILY 30 days fluticasone propionate 50 mcg/actuation (Flonase Allergy Relief) 1 spray intranasal DAILY fluticasone propionate 110 mcg/actuation (Flovent HFA) 2 puffs PO BID lisinopril 20 mg PO DAILY montelukast 10 mg PO DAILY omega 9-jyr-ync-fish oil 1,200 (144-216) mg (Fish Oil) 1,200 caps PO BID omeprazole 20 mg PO DAILY ondansetron 4 mg PO TID PRN sennosides-docusate sodium 8.6-50 mg (Senexon-S) 2 tabs PO BEDTIME sertraline 50 mg PO DAILY trazodone 50 mg PO BEDTIME PRN triamcinolone acetonide 0.5% 1 appl topical BID warfarin See Protocol 7.5mg x 6, 5mg x 1 Nursing Note NO CP,SOB,DIET/MED CHANGES,FALLS OR SX OF BLEEDING. CONTINUE PRESENT DOSE AND FOLOW-UP IN 2 WEEKS. GOOD UNDERSTANDING OF DOSING INSTR. Anti-Coag Initial Assessment Social Hx Patient Tobacco Use Status: Never used Tobacco alcohol intake: never Alcohol intake frequency: does not drink Coding Level of Care Code Est Patient Level 1 Diagnoses Current use of anticoagulant therapy Z79.01 Results AMB INR Fingerstick AMB INR Fingerstick 2.5 Last Edit by Mara Lan RN on 10/01/24 08:36 Assessment & Plan Assessment & Plan (1) Current use of anticoagulant therapy: Code(s): Z79.01 - custodial (current) use of anticoagulants Category: Medical
--- OUTSIDE RECORDS SUMMARY | 2024-10-01 08:49 | XMS_ITS ---
Author Organization [facility] Address [address] [place] [address] Care Team Providers Care Flash Designer Name Role Phone Ileneabilio Yanna Primary Care Provider Unavailab Severo Davenport Jr REASON FOR VISIT ultrasound Encounters Encounter Location Date Provider Diagnosis [facility] [address] [place] [address] 04/24/2024 Severo Cancino Jr Plan Of Treatment Next Appt Details Provider Name:Severo loza Jr, 04/08/2025 09:00:00 AM, [address], [address], [place], [address], Progress Notes * CHICA KRAUSOB:[birth year] (53 yo F)Acc No.[id number]:04/24/2024 Patient:?BASILIA KRAUS :1970???Age:53 Y???Sex:Female Address:[address], [place] [address] Subjective: * Chief Complaints: * ???Ultrasound * Medical History:? * Surgical History:? * Hospitalization/Major Diagno stic Procedure:? * Medications:? Objective: Assessment: Plan: * Treatment: * Procedure Codes:? * true * Date:? Generated for Printi ng/Faxing/eTransmitting on:?10/01/2024 08:49 AM EDT
--- OUTSIDE RECORDS SUMMARY | 2024-10-01 08:49 | XMS_ITS | Continuity of Care Document ---
Author Organization [facility] Address [address] [place] [address] Phone Care Team Providers Care Micro Paleontologist Name Role Phone Murtaza BHATTI, RVT, RPVI, [...] Mins- [place] & [place] [facility], [address] [place] [address] Dr Carreno 1000[facility] [address], [id number], [place] tel:[phone] [facility] Restless legs syndromeVenou s insufficiency (chronic) (peripheral)E ssential (primary) hypertension 5 Murtaza BHATTI RVT, SUSI Swenson. [address] [place] [address], [facility] [place] [place], [id number], [place]. tel:[phone] Referring Provider: Yanna Valdes MD, [address] [place] [address] Suite [facility], [place], [address]. tel:[phone] [facility], [address] [place] [address] Dr Carreno 1000[facility] [address], [id number], [place] tel:[phone] [facility] Encounter for follow-up examination after completed treatment for conditions other than malignant neoplasmChron ic venous hypertension (idiopathic) with other complications of left lower extremity 5 Murtaza BHATTI RVT, SUSI Swenson. [address] [place] [address], [facility] [place] [place], [id number], [place]. tel:[phone] Referring Provider: Yanna Valdes MD, [address] [place] [address] [address], [place], [address]. tel:[phone] [place], [address] [place] [address] Dr Carreno 1000[facility] [address], [id number], [place] tel:[phone] [facility] Venous insufficiency (chronic) (peripheral)N evus, non-neoplasti c [place] 4 Surinder Bryant. [address] [place] [address] 302, [place], [id number], [place]. tel:[phone] Referring Provider: [place], [address] [place] [address] [address], [place], [address]. tel:[phone] Office/Outpt E&M Established 15 Mins- [place] & [place] [facility], [address] [place] [address] Dr Carreno 1000[address], [id number], [place] tel:[phone] [facility] - [place] [facility] [place] Essential (primary) hypertensionL ocalized edemaVenous insufficiency (chronic) (peripheral) 4 Murtaza BHATTI RVT, SUSI Swenson. [address] [place] [address], Suite [facility], [facility] [place], [id number], [place]. tel:[phone] Referring Provider: Yanna Valdes MD, [address] [place] [address] Suite [facility], [place], [address]. tel:[phone] [facility], [address] [place] [address] [address], [id number], [place] tel:[phone] CVR - [facility] Encounter for follow-up examination after completed treatment for conditions other than malignant neVaricose veins of left lower extremity with pain 4 Murtaza BHATTI RVT, SUSI Swenson. [address] [place] [address], Suite [facility], [facility] [place], [id number], [place]. tel:[phone] Referring Provider: Yanna Valdes MD, [address] [place] [address] Suite [facility], [place], [address]. tel:[phone] [facility], [address] [place] [address] Ev 1000Suite [place], [id number], [place] tel:[phone] CVR - [facility] Encounter for follow-up examination after completed treatment for conditions other than malignant ne 4 Murtaza BHATTI RVT, SUSI Swenson. [address] [place] [address], [address], [facility] [place], [id number], [place]. tel:[phone] Referring Provider: Yanna Valdes MD, [address] [place] [address] [address], [place], [address]. tel:[phone] [facility], [address] [place] [address] Dr Carreno 1000[address], [id number], [place] tel:[phone] CVR - [facility] Chronic venous hypertension (idiopathic) with inflammation of left lower extremity 4 Surinder Bryant. [address] [place] [address], [address], [facility] [place], [id number], [place]. tel:[phone] Referring Provider: Yanna Valdes MD, [address] [place] [address] Suite [facility], [place], [address]. tel:[phone] [facility], [address] [place] [address] 1000[address] 1000[place], [id number], [place] tel:[phone] CVR - [facility] Encounter for follow-up examination after completed treatment for conditions other than malignant neChronic venous hypertension (idiopathic) with other complications of left lower extremity 4 Murtaza BHATTI RVT, SUSI Swenson. [address] [place] [address], [place], [id number], [place]. tel:[phone] Referring Provider: Yanna Valdes MD, [address] [place] [address] Suite [facility], [place], [address]. tel:[phone] [place] [facility], [address] [place] [address] [facility] 1000Suite [place], [id number], [place] tel:[phone] CVR [facility] Chronic venous hypertension (idiopathic) with inflammation of left lower extremity 4 Murtaza BHATTI RVT, SUSI Swenson. [address] [place] [address], Wes n[place], [id number], [place]. tel:[phone] Referring Provider: Yanna Valdes MD, [address] [place] [address] [address], [place], [address]. tel:[phone] [place], [address] [place] [address] Dr Carreno 1000Suite [place], [id number], [place] tel:[phone] [facility] Varicose veins of left lower extremity with other complications Apr-3 4 Murtaza BHATTI RVT, SUSI Swenson. [address] [place] [address], Suite [facility], [place], [id number], [place]. tel:[phone] Referring Provider: Yanna Valdes MD, [address] [place] [address] [address], [place], [address]. tel:[phone] Offic/outpt E&m Estab 5 Min Trial - Telemedicine [facility], [address] [place] [address] Dr Carreno 1000[facility] [address], [id number], [place] tel:[phone] [facility] [place] [facility] [place] Localized edemaCramp and spasmRestless legs syndromeVenou s insufficiency (chronic) (peripheral)E ssential (primary) hypertensionP ruritus, unspecified Aug- 4 Ajit Calzada. [address] [place] [address], [address], [place], [id number], [place]. tel:[phone] Referring Provider: Yanna Valdes MD, [address] [place] [address] [address], [place], [address]. tel:[phone] Office/Oupt E&M New Pt 30 Mins [facility], [address] [place] [address] Dr Carreno [address] [address], [id number], [place] tel:[phone] [facility] - [place] [facility] [place] Varicose veins of left lower extremity with other complications Pain in left lower legLocalized edemaCramp and spasmRestless legs syndromeEssen tial (primary) hypertensionP ruritus, unspecified Feb-0 4 Murtaza BHATTI RVT, SUSI Swenson. [address] [place] [address], [place], [id number], [place]. tel:[phone] Referring Provider: Yanna Valdes MD, [address] [place] [address] [address], [place], [address]. tel:[phone] [place] [facility], [address] [place] [address] Dr Carreno 1000[facility] [address], [id number], [place] tel:[phone] [facility] - [place] [facility] [place] Chronic venous hypertension (idiopathic) with other complications of left lower extremity Feb-0 4 Murtaza BHATTI RVT, RPVI Robert. [address] [place] [address], [place], [id number], . tel:[phone] Referring Provider: Yanna Valdes MD, [address], [place], [address]. tel:[phone] Family History Family Member Type Diagnosis Age At Onset No Information Payers Payer name Insurance type Covered democrat ID Kerri calvillo(s) Medical Assistance [facility] [id number] Social History Type Description Quantity Date Captured [...]
--- OUTSIDE RECORDS SUMMARY | 2024-10-01 08:49 | XMS_ITS | Patient Health Record ---
Author Organization [facility] Address [address] [place] [address] Care Team Providers Care Web Content Developer Name Role Phone LucinaYanna freeman Primary Care Provider UnavailSevero Ackerman Jr Unavailable [phone] Allergies Allergen (clinical drug ingredient) Drug/Non Drug Allergy documented on EMR Reaction Allergy Type Onset Date Status Substance with sulfonamide structure and antibacterial mechanism of action (substance) Sulfa Antibiotics Unknown Drug Allergy Active topiramate Topamax Unknown Drug Allergy Active ciprofloxacin Cipro Unknown Drug Allergy Act lamonte Results Component Value Reference Range Notes Complete Blood Count no Diff Reviewed date:04/14/2024 08:55:09 AM Interpretation: Performing Lab:[facility], [address] [place] [address] Notes/Report: White Blood Count 6.2 4.8-10.8 X10*3/uL [...] Reviewed date:04/14/2024 08:55:15 AM Interpretation: Performing Lab:[address] [address] Notes/Report: Bilirubin Total 0.3 0.0-1.0 mg/dL Bilirubin Direct 0.1 0.0-0.5 mg/dL Aspartate Amino Transferase 22 5-31 U/L Alanine Aminotransferase 17 0-31 U/L Total Protein 7.2 6.5-8.0 g/dL Albumin Level 3.9 3.5-5.0 g/dL Alkaline Phosphatase 71 39-117 U/L Blood Urea Nitrogen Reviewed date:04/14/2024 08:52:04 AM Interpretation: Performing Lab:[address] [address] Notes/Report: Blood Urea Nitrogen 9 9-16 mg/dL Creatinine Reviewed date:04/14/2024 08:55:22 AM Interpretation: Performing Lab:[facility], [address] [place] [address] Notes/Report: Creatinine 0.70 0.5-1.4 mg/dL Estimated Glomerular Filt Rate > 60 NOTE: For -N[place] individuals, multiply the result by 1.210. Chronic Kidney Disease: Estimated GFR < 60 mL/min/1.73m2 Severe Kidney Disease: Estimated GFR < 15 mL/min/1.73m2 Lipase Reviewed date:04/14/2024 08:55:29 AM Interpretation: Performing Lab:[facility], [address] [place] [address] Notes/Report: Lipase 31 8-78 U/L US abdomen complete Reviewed date:04/24/2024 08:22:36 AM Interpretation: Performing Lab: Notes/Report: [address] [address] Ultrasound Report Signed Patient: Norma Carter I MR#: [id number] : 1970 Acct:[id number] Age/Sex: 53 / F ADM Date: 04/18/24 Loc: HO.US Attending Dr: Severo Jett MD Ordering Physician: Severo Jett MD Date of Service: 04/18/24 Procedure(s): US abdomen complete Accession Number(s): [id number] cc: Yanna Valdes MD; Severo Jett MD [...] in OV> 04/20/242133 DD/ 3 TD/TT: 04/18/24931 Director Of Child Welfare Services: [place] [address] Ultrasound Report Signed Patient: Johnathan Carter I MR#: [id number] : 1970 Acct:[id number] Age/Sex: 53 / F ADM Date: 04/18/24 Loc: HO.US Attending Dr: Vicente Jett MD Ordering Physician: Severo Jett MD Date of Service: 04/18/24 Procedure(s): US abd omen complete Accession Number(s): [id number] cc: Yanna Valdes MD; Severo Jett MD [...] by: Bk Long MD 04/20/2024 09:[address] [facility] Dictated By: Darlene Long MD Signed By: <Electronically signed by Bk Long MD in OV> 04/20/242133 DD/ 3 TD/TT: 04/18/24931 Director Of Child Welfare Services: TERRIE Reason For Referral Referring Provider First Name Yanna Referring Provider Last Name Keisha Referring Provider Speciality Internal M edicine Referred Organization [facility] Referred Provider Severo Jett Jr Referred Address [address] [place] [address], Referred Provider Specialty Gastroentero logy General Notes [...] Problem Status W/U Status Risk Notes Problem 378920003 Colon cancer screening (Z12.11) Active confirmed Problem Esophageal reflux (577058333) Esophageal reflux (K21.9) Active confirmed Problem 68715936 Epigastric pain (R10.13) Active confirmed Vital Signs Blood pressure diastolic 00 mm Hg 04/09/2024 Height 68 in 04/09/2024 Blood pressure systolic 00 mm Hg 04/09/2024 Weight 224 lbs 04/09/2024 BMI 34.06 kg/m2 04/09/2024 Encounters Encounter Location Date Provider Diagnosis [facility] [address] [place] [address] 04/09/2024 Severo Jett Jr Epigastric pain R10.13 [facility] [address] [place] [address] 03/04/2024 Severo Jett Jr [facility] [address] [place] [address] 04/14/2024 Severo Jett Jr [facility] [address] [place] [address] 04/24/2024 Severo Jett Jr Assessments Encounter Date [...] Name:Severo Jason loza , 04/08/2025 09:00:00 AM, [address] [place] [address], [address], [place], [address], Insurance Providers Payer Name Payer Address Payer Phone Subscriber Number Group Number Insured Name Patient Relationship to Insured Coverage Start Date Coverage End Date MEDICAID OF [place] [facility] [address] [facility] [id number] NORMA ESTES Self - patient is the insured Medical (General) History Medical History History ICD Code DVT/PE EGD 01/31, esophagitis, eosinophils on bi opsy Environmental allergies Anxiety Insomnia Hypertension Elevated cholesterol Colonoscopy 01/31, normal, ten-year follo wup Surgical History Surgery Date(Month/Year) thyroid surgery vena cava filter 1993 lipoma removal 2021
--- OUTSIDE RECORDS SUMMARY | 2024-10-01 08:49 | XMS_ITS ---
Author Organization [facility] Address [address] [place] [address] Care Team Providers Care Transcribing Machine Mechanic Name Role Phone Yanna Valdes Primary Care Provider Unavailab Severo Davenport Jr REASON FOR VISIT epigastric pain Encounters Encounter Location Date Provider Diagnosis [facility] [address] [place] [address] 07/09/2024 Severo Cancino Jr Plan Of Treatment Next Appt Details Provider Name:Severo loza Jr, 04/08/2025 09:00:00 AM, [address], [address], [place], [address], Progress Notes * EFRAAPOLLOLEXIOB:[birth year] (54 yo F)Acc No.[id number]:07/09/2024 Progress Notes Patient:?EFRAAPOLLORA Provider:?Severo Cancino MD :1970???Age:53 Y???Sex:Female D ate:07/09/2024 Address:[address], [id number] Pcp:Yanna Valdes Subjective: * Chief Complaints: * [...] MD Date:?0 07/09/2024 Generated for Terrell lópez/Melissa/Zeenat on:?10/01/2024 08:49 AM EDT
--- OUTSIDE RECORDS SUMMARY | 2024-10-01 08:50 | XMS_ITS ---
Author Organization [facility] Address [address] [place] [address] Care Team Providers Care Technical Clerk Name Role Phone Yanna Valdes Primary Care Provider Unavailab Severo Davenport Jr [phone] REASON FOR VISIT labs Encounters Encounter Location Date Provider Diagnosis [facility] [address] [place] [address] 04/14/2024 Severo Cancino Jr Plan Of Treatment Next Appt Details Provider Name:Severo loza Jr, 04/08/2025 09:00:00 AM, [address], [address], [place], [address], Progress Notes * CHICA KRAUSOB:[birth year] (53 yo F)Acc No.[id number]:04/14/2024 Patient:?BASILIA KRAUS :1970???Age:53 Y???Sex:Female Address:[address], [place], [address] * true * Date:? Generated for Printi ng/Melissa/eTransmitting on:?10/01/2024 08:49 AM EDT
[2024-10-01 15:38] LABS: Prothrombin Time Whole Bld POC 30.2 sec (11.1-13.5); ~PT, ~INR - Anti Coag Clinic 2.5 (0.9-1.1)
== END 2024-10-01 08:48 | disposition home or self-care (01) ==
LOC: HO.ACS 08:28
PROVIDERS: PCP Internal Medicine; Visit Provider Internal Medicine Medical Oncology
DX: Z79.01 Long term (current) use of anticoagulants (principal)

== ENCOUNTER → 2024-10-01 08:28 | Outpatient (BNVA) | payer MEDICAID, SELFPAY | PROVIDERS: PCP Internal Medicine; Visit Provider Internal Medicine Medical Oncology | DX: Z86.718 Personal history of other venous thrombosis and embolism (principal); Z79.01 Long term (current) use of anticoagulants; Z51.81 Encounter for therapeutic drug level monitoring | CPT/HCPCS: 85610; 99211 ==

== ENCOUNTER 2024-10-17 09:27 | Outpatient (AMB) | payer MEDICAID, SELFPAY ==
[2024-10-17 09:32] LABS: Prothrombin Time Whole Bld POC 27.8 sec (11.1-13.5); ~PT, ~INR - Anti Coag Clinic 2.3 (0.9-1.1)
--- NOTE | 2024-10-17 09:34 | MHC.OFFVISCO ---
Intake Intake Visit Reasons: Anticoagulation Allergies ciprofloxacin [From Cipro] Allergy (Unknown, Verified 10/17/24 09:27) RASH Sulfa (Sulfonamide Antibiotics) Allergy (Unknown, Verified 10/17/24 09:27) SWELLING/ITCHING, swelling topiramate [From TOPAMAX] Allergy (Unknown, Verified 10/17/24 09:27) DIZZY Medication List - Last Reconciled 10/17/24 by Fior Turpin RN albuterol sulfate 2.5 mg inhalation Q4-6H PRN albuterol sulfate 90 mcg/actuation (ProAir HFA) 2 puffs inhalation Q6H PRN bupropion HCl SR (Wellbutrin SR) 150 mg PO DAILY cholecalciferol (vitamin D3) 50 mcg PO DAILY 30 days fluticasone propionate 50 mcg/actuation (Flonase Allergy Relief) 1 spray intranasal DAILY fluticasone propionate 110 mcg/actuation (Flovent HFA) 2 puffs PO BID lisinopril 20 mg PO DAILY montelukast 10 mg PO DAILY omega 9-ukd-hso-fish oil 1,200 (144-216) mg (Fish Oil) 1,200 caps PO BID omeprazole 20 mg PO DAILY ondansetron 4 mg PO TID PRN sennosides-docusate sodium 8.6-50 mg (Senexon-S) 2 tabs PO BEDTIME sertraline 50 mg PO DAILY trazodone 50 mg PO BEDTIME PRN triamcinolone acetonide 0.5% 1 appl topical BID warfarin See Protocol 7.5mg x 6, 5mg x 1 Nursing Note INR: 2.3 in therapeutic range of 2-3 Medications and supplements reviewed No changes in health, diet, medications, or supplements, Denies any signs and symptoms of bleeding or bruising or clotting. Bleeding, bruising, clotting discussed Nutritional guidance given Dose: 7.5mg X 6 days and 5mg X 1 day(Mon) F/U INR: 2 weeks Patient verbalizes understanding of instructions given Anti-Coag Initial Assessment Social Hx Patient Tobacco Use Status: Never used Tobacco alcohol intake: never Alcohol intake frequency: does not drink Coding Level of Care Code Est Patient Level 1 Diagnoses Current use of anticoagulant therapy Z79.01 Assessment & Plan Assessment & Plan (1) Current use of anticoagulant therapy: Code(s): Z79.01 - intermodal dispatcher (current) use of anticoagulants Category: Medical
--- OUTSIDE RECORDS SUMMARY | 2024-10-17 09:45 | XMS_ITS ---
Author Organization [facility] Address [address] [place] [address] Care Team Providers Care Health Program Manager Name Role Phone Keisha Yanna Primary Care Provider Unavailab Severo Davenport Jr REASON FOR VISIT ultrasound Encounters Encounter Location Date Provider Diagnosis [facility] [address] [place] [address] 04/24/2024 Severo Cancino Jr Plan Of Treatment Next Appt Details Provider Name:Severo loza Jr, 04/08/2025 09:00:00 AM, [address], [address], [place], [address], Progress Notes * CHICA KRAUSOB:[birth year] (53 yo F)Acc No.[id number]:04/24/2024 Patient:?BASILIA KRAUS :1970???Age:53 Y???Sex:Female Address:[address], [place] [address] Subjective: * Chief Complaints: * ???Ultrasound * Medical History:? * Surgical History:? * Hospitalization/Major Diagno stic Procedure:? * Medications:? Objective: Assessment: Plan: * Treatment: * Procedure Codes:? * true * Date:? Generated for Printi ng/Faxing/eTransmitting on:?10/17/2024 09:45 AM EDT
--- OUTSIDE RECORDS SUMMARY | 2024-10-17 09:45 | XMS_ITS ---
Author Organization [facility] Address [address] [place] [address] Care Team Providers Care Coroner/Medical Examiner Name Role Phone Yanna Valdes Primary Care Provider Unavailab Severo Davenport Jr REASON FOR VISIT epigastric pain Encounters Encounter Location Date Provider Diagnosis [facility] [address] [place] [address] 07/09/2024 Severo Cancino Jr Plan Of Treatment Next Appt Details Provider Name:Severo loza Jr, 04/08/2025 09:00:00 AM, [address], [address], [place], [address], Progress Notes * EFRAAPOLLOLEXIOB:[birth year] (54 yo F)Acc No.[id number]:07/09/2024 Progress Notes Patient:?EFRAAPOLLORA Provider:?Severo Cancino MD :1970???Age:53 Y???Sex:Female D ate:07/09/2024 Address:[address], [place] Pcp:Yanna Valdes Subjective: * Chief Complaints: * [...] Cancino MD Date:?0 07/09/2024 Generated for Terrell lópez/Melissa/Zeenta on:?10/17/2024 09:45 AM EDT
--- OUTSIDE RECORDS SUMMARY | 2024-10-17 09:45 | XMS_ITS | Patient Health Record ---
Author Organization [facility] Address [address] [place] [address] Care Team Providers Care Motion Picture Commentator Name Role Phone LucinaYanna freeman Primary Care Provider UnavailSevero Ackerman Jr Unavailable [phone] Allergies Allergen (clinical drug ingredient) Drug/Non Drug Allergy documented on EMR Reaction Allergy Type Onset Date Status Substance with sulfonamide structure and antibacterial mechanism of action (substance) Sulfa Antibiotics Unknown Drug Allergy Active topiramate Topamax Unknown Drug Allergy Active ciprofloxacin Cipro Unknown Drug Allergy Act lamonte Results Component Value Reference Range Notes Complete Blood Count no Diff Reviewed date:04/14/2024 08:55:09 AM Interpretation: Performing Lab:[facility], [address] [place] [id number] Notes/Report: White Blood Count 6.2 4.8-10.8 X10*3/uL [...] Panel Reviewed date:04/14/2024 08:55:15 AM Interpretation: Performing Lab:[address] [id number] Notes/Report: Bilirubin Total 0.3 0.0-1.0 mg/dL Bilirubin Direct 0.1 0.0-0.5 mg/dL Aspartate Amino Transferase 22 5-31 U/L Alanine Aminotransferase 17 0-31 U/L Total Protein 7.2 6.5-8.0 g/dL Albumin Level 3.9 3.5-5.0 g/dL Alkaline Phosphatase 71 39-117 U/L Blood Urea Nitrogen Reviewed date:04/14/2024 08:52:04 AM Interpretation: Performing Lab:[address] [address] Notes/Report: Blood Urea Nitrogen 9 9-16 mg/dL Creatinine Reviewed date:04/14/2024 08:55:22 AM Interpretation: Performing Lab:[facility], [address] [place] [phone] Notes/Report: Creatinine 0.70 0.5-1.4 mg/dL Estimated Glomerular Filt Rate > 60 NOTE: For -Nigerien individuals, multiply the result by 1.210. Chronic Kidney Disease: Estimated GFR < 60 mL/min/1.73m2 Severe Kidney Disease: Estimated GFR < 15 mL/min/1.73m2 Lipase Reviewed date:04/14/2024 08:55:29 AM Interpretation: Performing Lab:[facility], [address] [place] [address] Notes/Report: Lipase 31 8-78 U/L US abdomen complete Reviewed date:04/24/2024 08:22:36 AM Interpretation: Performing Lab: Notes/Report: [address] [address] Ultrasound Report Signed Patient: Norma Carter I MR#: [id number] : 1970 Acct:[id number] Age/Sex: 53 / F ADM Date: 04/18/24 Loc: HO.US Attending Dr: Severo Jett MD Ordering Physician: Severo Jett MD Date of Service: 04/18/24 Procedure(s): US abdomen complete Accession Number(s): [id number] cc: Yanna Valdes MD; Severo Jett MD [...] in OV> 04/20/242133 DD/ 3 TD/TT: 04/18/24931 Lines Tender: [place] [address] Ultrasound Report Signed Patient: Johnathan Carter I MR#: [id number] : 1970 Acct:[id number] Age/Sex: 53 / F ADM Date: 04/18/24 Loc: HO.US Attending Dr: Vicente Jett MD Ordering Physician: Severo Jett MD Date of Service: 04/18/24 Procedure(s): US abd omen complete Accession Number(s): [id number] cc: Yanna Valdes MD; Severo Jett MD [...] in OV> 04/20/242133 DD/ 3 TD/TT: 04/18/24931 Lines Tender: TERRIE Reason For Referral Referring Provider First Name Yanna Referring Provider Last Name Keisha Referring Provider Speciality Internal M edicine Referred Organization [facility] Referred Provider Severo Jett Jr Referred Address [address] [place] [address], Referred Provider Specialty Gastroentero logy General Notes Jackelin Moran 024 01:55:42 PM EDT > REQUESTED A [place] REFERRAL FOR VISIT WITH DR. EJTT ON 04-09-2024 DX ABD PAIN Referral Priority [...] 20 MG TAKE 1 CAPSULE BY MO [facility] EVERY DAY Oral for 90 Active Warfarin Sodium 5 MG TAKE 1 TABLET BY MO [facility] SUNDAY AND SUNDAY AND 1 [...] Problem Status W/U Status Risk Notes Problem 950271974 Colon cancer screening (Z12.11) Active confirmed Problem Esophageal reflux (559067768) Esophageal reflux (K21.9) Active confirmed Problem 27535207 Epigastric pain (R10.13) Active confirmed Vital Signs Blood pressure diastolic 00 mm Hg 04/09/2024 Height 68 in 04/09/2024 Blood pressure systolic 00 mm Hg 04/09/2024 Weight 224 lbs 04/09/2024 BMI 34.06 kg/m2 04/09/2024 Encounters Encounter Location Date Provider Diagnosis [facility] [address] [place] [address] 04/09/2024 Severo Jett Jr Epigastric pain R10.13 [facility] [address] [place] [address] 03/04/2024 Severo Jett Jr [facility] [address] [place] [address] 04/14/2024 Severo Jett Jr [facility] [address] [place] [address] 04/24/2024 Severo Jett Jr Assessments Encounter Date [...] Name:Severo Jason loza , 04/08/2025 09:00:00 AM, [address] [place] [address], [address], [place], [address], Insurance Providers Payer Name Payer Address Payer Phone Subscriber Number Group Number Insured Name Patient Relationship to Insured Coverage Start Date Coverage End Date [facility] [address] [facility] [phone] [id number] NORMA ESTES Self - patient is the insured Medical (General) History Medical History History ICD Code DVT/PE EGD 01/31, esophagitis, eosinophils on bi opsy Environmental allergies Anxiety Insomnia Hypertension Elevated cholesterol Colonoscopy 01/31, normal, ten-year follo wup Surgical History Surgery Date(Month/Year) thyroid surgery vena cava filter 1993 lipoma removal 2021
--- OUTSIDE RECORDS SUMMARY | 2024-10-17 09:46 | XMS_ITS ---
Author Organization [facility] Address [address] [place] [address] Care Team Providers Care Sandwich Peddler Name Role Phone Yanna Valdes Primary Care Provider Unavailab Severo Davenport Jr REASON FOR VISIT labs Encounters Encounter Location Date Provider Diagnosis [facility] [address] [place] [address] 04/14/2024 Severo Cancino Jr Plan Of Treatment Next Appt Details Provider Name:Severo loza Jr, 04/08/2025 09:00:00 AM, [address] [facility], [address], [place], [address], Progress Notes * CHICA KRAUSOB:[birth year] (53 yo F)Acc No.[id number]:04/14/2024 Patient:?BASILIA KRAUS :1970???Age:53 Y???Sex:Female Address:[address], [place], [address] * true * Date:? Generated for Papii rene/Melissa/eTransmitting on:?10/17/2024 09:45 AM EDT
--- OUTSIDE RECORDS SUMMARY | 2024-10-17 09:46 | XMS_ITS | Continuity of Care Document ---
Author Organization [facility] Address [address] [place] [address] Phone Care Team Providers Care Sea Shell Gatherer Name Role Phone Murtaza BHATTI, RVT, SUSI, [...] Diagnoses Date Provider Providers Copied on Encounter [place] [facility], [address] [place] [address] Dr Carreno 1000[facility] [place] Mc[place], [id number], [place] tel:[phone] [facility] No Information 5 Murtaza BHATTI RVT, SUSI Swenson. [address] [facility] [address], [address], [place], [id number], [place]. tel:[phone] Referring Provider: Yanna Valdes MD, [address] [place] [address] [address], [place], [address]. tel:[phone] Office/Outpt E&M Established 15 Mins- CT & [place] [facility], [address] [place] [address] Dr Carreno 1000Suite 1000Alyce [place], [id number], [place] tel:[phone] [facility] Restless legs syndromeVenou s insufficiency (chronic) (peripheral)E ssential (primary) hypertension 5 Murtaza BHATTI RVT, SUSI Swenson. [address] [facility], [address], [place], [id number], [place]. tel:[phone] Referring Provider: Yanna Valdes MD, [address] [place] [address] [address], [place], [address]. tel:[phone] [place] [facility], [address] [place] [address] Dr Carerno 1000[facility] A[place]ce Mckeon [place], [id number], [place] tel:[phone] [facility] Encounter for follow-up examination after completed treatment for conditions other than malignant neoplasmChron ic venous hypertension (idiopathic) with other complications of left lower extremity 5 Murtaza BHATTI RVT, SUSI Swenson. [address] [facility], [address], [place], [id number], [place]. tel:[phone] Referring Provider: Yanna Valdes MD, [address], [place], [address]. tel:[phone] [place] [facility], [address] [place] [address] Dr [address] 1000Alyce [place], [id number], [place] tel:[phone] CVR - [facility] Venous insufficiency (chronic) (peripheral)N evus, non-neoplasti c 4 Mollkya Bryant. [address] [facility], [address], [facility] [place], [id number], [place]. tel:[phone] Referring Provider: Yanna Valdes MD, [address] [place] [address] [address], [place], [address]. tel:[phone] Office/Outpt E&M Established 15 Mins- CT & [place] [facility], [address] [place] [address] Dr Carreno 1000[facility] 1000Alyce [place], [id number], [place] tel:[phone] CVR - [facility] Essential (primary) hypertensionL ocalized edemaVenous insufficiency (chronic) (peripheral) 4 Murtaza BHATTI RVT, SUSI Swenson. [address] [place] [address] [address], [facility] [place], [id number], [place]. tel:[phone] Referring Provider: Yanna Valdes MD, [address] [place] [address] [address], [place], [address]. tel:[phone] [facility], [address] [place] [address] Dr Carreno 1000[facility] 1000Alyce MD, [id number], [place] tel:[phone] [facility] Encounter for follow-up examination after completed treatment for conditions other than malignant neVaricose veins of left lower extremity with pain 4 Murtaza BHATTI RVT, SUSI Swenson. [address] [place] [address], [address], [facility] [place], [id number], [place]. tel:[phone] Referring Provider: Yanna Valdes MD, [address] [place] [address] [address], [place], [address]. tel:[phone] [facility], [address] [place] [address] Dr Carreno 1000[address] 1000Alyce [place], [id number], [place] tel:[phone] [facility] - [facility] Encounter for follow-up examination after completed treatment for conditions other than malignant ne 4 Murtaza BHATTI RVT, RPVI Robert. [address] [place] [address], [facility] [place] [id number], [place]. tel:[phone] Referring Provider: Yanna Valdes MD, [address] [place] [address] Suite [facility] [place], [place], [address]. tel:[phone] [facility], [address] [place] [address] [facility] [place] Mc[place], [id number], [place] tel:[phone] CVR - [facility] Chronic venous hypertension (idiopathic) with inflammation of left lower extremity 4 Surinder Bryant. [address] [place] [address], [facility] [place] [place], [id number], [place]. tel:[phone] Referring Provider: Yanna Valdes MD, [address] [place] [address] Suite [facility] [place], [place], [address]. tel:[phone] [place] [facility], [address] [place] [address] [facility] 1000Suite Alyce Mc[place], [id number], [place] tel:[phone] CVR - [facility] Encounter for follow-up examination after completed treatment for conditions other than malignant neChronic venous hypertension (idiopathic) with other complications of left lower extremity 4 Murtaza BHATTI RVT, RPVI Robert. [address] [place] [address], [place], [id number], [place]. tel:[phone] Referring Provider: Yanna Valdes MD, [address] [place] [address] [address], [place], [address]. tel:[phone] [place] [facility], [address] [place] [address] [facility] 1000Suite Alyce Mc[place], [id number], [place] tel:[phone] CV[facility] - [facility] Chronic venous hypertension (idiopathic) with inflammation of left lower extremity 4 Murtaza BHATTI RVT, RPVI Robert. [address] [place] [address], [place], [id number], [place]. tel:[phone] Referring Provider: Yanna Valdes MD, [address] [place] [address] [address], [place], [address]. tel:[phone] [place] [facility], [address] [place] [address] Dr Carreno 1000Suite Alyce Mckeon [place], [id number], [place] tel:[phone] [facility] - [place] [facility] [place] Varicose veins of left lower extremity with other complications Apr-3 4 Murtaza BHATTI RVT, SUSI Swenson. [address] [place] [address], [facility] [place], [id number], [place]. tel:[phone] Referring Provider: Yanna Valdes MD, [address] [place] [address] [address], [place], [address]. tel:[phone] Offic/outpt E&m Estab 5 Min Trial - [facility]icine [facility], [address] [place] [address] Dr Carreno 1000[address] 1000Alyce [place], [id number], [place] tel:[phone] [facility] - [place] [facility] [place] Localized edemaCramp and spasmRestless legs syndromeVenou s insufficiency (chronic) (peripheral)E ssential (primary) hypertensionP ruritus, unspecified Aug- 4 Ajit Calzada. [address] [place] [address] 302, [facility] [place], [id number], [place]. tel:[phone] Referring Provider: Yanna Valdes MD, [address] [place] [address] [address], [place], [address]. tel:[phone] Office/Oupt E&M New Pt 30 Mins [facility], [address] [place] [address] Dr Carreno 1000[address] 1000Alyce [place], [id number], [place] tel:[phone] [facility] - [place] [facility] [place] Varicose veins of left lower extremity with other complications Pain in left lower legLocalized edemaCramp and spasmRestless legs syndromeEssen tial (primary) hypertensionP ruritus, unspecified Fe-0 4 Murtaza BHATTI RVT, SUSI Swenson. [address] [place] [address], [place], [id number], [place]. tel:[phone] Referring Provider: Yanna Valdes MD, [address] [facility] [address], [place], [address]. tel:[phone] [facility], [address] [facility] [address], [place], [id number], [place] tel:[phone] [facility] - [place] [facility] [place] Chronic venous hypertension (idiopathic) with other complications of left lower extremity 4 Murtaza BHATTI, RVT, RPVI Messi. [address] [facility], [address], [place], [id number], [place]. tel:[phone] Referring Provider: Yanna Valdes MD, [address] [facility] [address], [place], [address]. tel:[phone] Family History Family Member Type Diagnosis Age At Onset No Information Payers Payer name Insurance type Covered green party ID Kerri calvillo(s) Medical Assistance [facility] [id number] Social History Type Description Quantity Date Captured [...]
== END 2024-10-17 09:35 | disposition home or self-care (01) ==
LOC: HO.ACS 09:27
PROVIDERS: PCP Internal Medicine; Visit Provider Internal Medicine Medical Oncology
DX: Z79.01 Long term (current) use of anticoagulants (principal)

== ENCOUNTER → 2024-10-17 09:27 | Outpatient (BNVA) | payer MEDICAID, SELFPAY | PROVIDERS: PCP Internal Medicine; Visit Provider Internal Medicine Medical Oncology | DX: Z86.718 Personal history of other venous thrombosis and embolism (principal); Z79.01 Long term (current) use of anticoagulants; Z51.81 Encounter for therapeutic drug level monitoring | CPT/HCPCS: 85610; 99211 ==

== ENCOUNTER 2024-11-05 09:23 | Outpatient (AMB) | payer MEDICAID, SELFPAY ==
[2024-11-05 09:48] LABS: Prothrombin Time Whole Bld POC 21.6 sec (11.1-13.5); ~PT, ~INR - Anti Coag Clinic 1.8 (0.9-1.1)
--- NOTE | 2024-11-05 09:52 | MHC.OFFVISCO ---
Intake Intake Visit Reasons: Anticoagulation Allergies ciprofloxacin [From Cipro] Allergy (Unknown, Verified 11/05/24 09:41) RASH Sulfa (Sulfonamide Antibiotics) Allergy (Unknown, Verified 11/05/24 09:41) SWELLING/ITCHING, swelling topiramate [From TOPAMAX] Allergy (Unknown, Verified 11/05/24 09:41) DIZZY Medication List - Last Reconciled 11/05/24 by Mara Lan RN albuterol sulfate 2.5 mg inhalation Q4-6H PRN albuterol sulfate 90 mcg/actuation (ProAir HFA) 2 puffs inhalation Q6H PRN bupropion HCl SR (Wellbutrin SR) 150 mg PO DAILY cholecalciferol (vitamin D3) 50 mcg PO DAILY 30 days fluticasone propionate 50 mcg/actuation (Flonase Allergy Relief) 1 spray intranasal DAILY fluticasone propionate 110 mcg/actuation (Flovent HFA) 2 puffs PO BID lisinopril 20 mg PO DAILY montelukast 10 mg PO DAILY omega 0-esw-jhr-fish oil 1,200 (144-216) mg (Fish Oil) 1,200 caps PO BID omeprazole 20 mg PO DAILY ondansetron 4 mg PO TID PRN sennosides-docusate sodium 8.6-50 mg (Senexon-S) 2 tabs PO BEDTIME sertraline 50 mg PO DAILY trazodone 50 mg PO BEDTIME PRN triamcinolone acetonide 0.5% 1 appl topical BID warfarin See Protocol 7.5mg x 6, 5mg x 1 Nursing Note NO CP,SOB,DIET/MED CHANGES,FALLS OR SX OF BLEEDING. BOOST TO 10MGM TODAY THEN RESUME USUAL DOSE AND FOLLOW-UP IN 2 WEEKS. GOOD UNDERSTANDING OF DOSING INSTR. NO GREENS 1-2 DAYS Anti-Coag Initial Assessment Social Hx Patient Tobacco Use Status: Never used Tobacco alcohol intake: never Alcohol intake frequency: does not drink Coding Level of Care Code Est Patient Level 1 Diagnoses Current use of anticoagulant therapy Z79.01 Assessment & Plan Assessment & Plan (1) Current use of anticoagulant therapy: Code(s): Z79.01 - [facility] (current) use of anticoagulants Category: Medical
--- OUTSIDE RECORDS SUMMARY | 2024-11-05 10:03 | XMS_ITS | Continuity of Care Document ---
Author Organization [facility] Address [address] MD [place] [address] Phone Care Team Providers Care Public Safety Teacher Name Role Phone Murtaza BHATTI, RVT, SUSI, [...] Diagnoses Date Provider Providers Copied on Encounter [place] [facility], [address] [place] [address] Dr Carreno 1000[facility] [place], [id number], [place] tel:[phone] [facility] No Information 5 Murtaza BHATTI RVT, SUSI Swenson. [address] [facility], [address], [place], [id number], [place]. tel:[phone] Referring Provider: Yanna Valdes MD, [address] [place] [address] [address], [place], [address]. tel:[phone] Office/Outpt E&M Established 15 Mins- CT & [place] [facility], [address] [place] [address] Dr Carreno 1000[address] 1000Alyce [place], [id number], [place] tel:[phone] [facility] Restless legs syndromeVenou s insufficiency (chronic) (peripheral)E ssential (primary) hypertension 5 Murtaza BHATTI RVT, SUSI Swenson. [address] [facility], [address], [place], [id number], [place]. tel:[phone] Referring Provider: Yanna Valdes MD, [address] [place] [address] [address], [place], [address]. tel:[phone] [facility], [address] [place] [address] Dr Carreno [facility] [place] Mc[place], [id number], [place] tel:[phone] [facility] Encounter for follow-up examination after completed treatment for conditions other than malignant neoplasmChron ic venous hypertension (idiopathic) with other complications of left lower extremity 5 Murtaza BHATTI RVT, SUSI Swenson. [address] [facility], [address], [place], [id number], [place]. tel:[phone] Referring Provider: Yanna Valdes MD, [address], [place], [address]. tel:[phone] [facility], [address] [place] [address] Dr [address] 1000Alyce MD, [id number], [place] tel:[phone] CV[facility] - [facility] Venous insufficiency (chronic) (peripheral)N evus, non-neoplasti c 4 Mollkya Bryant. [address] [facility], [address], [facility] [place], [place], [id number], [place]. tel:[phone] Referring Provider: Yanna Valdes MD, [address] [place] [address] [address], [place], [address]. tel:[phone] Office/Outpt E&M Established 15 Mins- CT & [place] [facility], [address] [place] [address] Dr Carreno 1000[facility] 1000Aly[place], [id number], [place] tel:[phone] [facility]R - [facility] Essential (primary) hypertensionL ocalized edemaVenous insufficiency (chronic) (peripheral) 4 Murtaza BHATTI RVT, SUSI Swenson. [address] [place] [address] [address], [facility] [place], [id number], [place]. tel:[phone] Referring Provider: Yanna Valdes MD, [address] [place] [address] [address], [place], [address]. tel:[phone] [facility], [address] [place] [address] Dr Carreno 1000[facility] 1000Alyce MD, [id number], [place] tel:[phone] [facility] Encounter for follow-up examination after completed treatment for conditions other than malignant neVaricose veins of left lower extremity with pain 4 Murtaza BHATTI RVT, SUSI Swenson. [address] [place] [address], [address], [facility] [place], [id number], [place]. tel:[phone] Referring Provider: Yanna Valdes MD, [address] [place] [address] [address], [place], [address]. tel:[phone] [facility], [address] [place] [address] Dr Carreno 1000Suite 1000Alyce [place], [id number], [place] tel:[phone] [facility] - [facility] Encounter for follow-up examination after completed treatment for conditions other than malignant ne 4 Murtaza BHATTI RVT, RPVI Robert. [address] [place] [address], [facility] [place], [id number], [place]. tel:[phone] Referring Provider: Yanna Valdes MD, [address] [place] [address] Suite [facility], [place], [address]. tel:[phone] [facility], [address] [place] [address] [facility] [place], [id number], [place] tel:[phone] [facility] - [facility] Chronic venous hypertension (idiopathic) with inflammation of left lower extremity 4 Surinder Bryant. [address] [place] [address], [facility] [place] [place], [id number], [place]. tel:[phone] Referring Provider: Yanna Valdes MD, [address] [place] [address] Suite [facility], [place], [address]. tel:[phone] [facility], [address] [place] [address] [facility] 1000Suite Alyce Mckeon [place], [id number], [place] tel:[phone] CVR - [facility] Encounter for follow-up examination after completed treatment for conditions other than malignant neChronic venous hypertension (idiopathic) with other complications of left lower extremity 4 Murtaza BHATTI RVT, RPVI Robert. [address] [place] [address], [place], [id number], [place]. tel:[phone] Referring Provider: Yanna Valdes MD, [address] [place] [address] [address], [place], [address]. tel:[phone] [facility], [address] [place] [address] [facility] 1000Suite Alyce Mc[place], [id number], [place] tel:[phone] [facility]R - [facility] Chronic venous hypertension (idiopathic) with inflammation of left lower extremity 4 Murtaza BHATTI RVT, RPVI Robert. [address] [place] [address], [place], [id number], [place]. tel:[phone] Referring Provider: Yanna Valdes MD, [address] [place] [address] [address], [place], [address]. tel:[phone] [facility], [address] [place] [address] Dr Carreno 1000Suite Alyce Mckeon [place], [id number], [place] tel:[phone] [facility] - [place] Varicose veins of left lower extremity with other complications Apr-3 4 Murtaza BHATTI RVT, SUSI Swenson. [address] [place] [address], [facility] [place], [id number], [place]. tel:[phone] Referring Provider: Yanna Valdes MD, [address] [place] [address] [address], [place], [address]. tel:[phone] Offic/outpt E&m Estab 5 Min Trial - Telemedicine [facility], [address] [place] [address] Dr Carreno 1000Suite 1000Alyce MD, [id number], [place] tel:[phone] [facility] [place] Localized edemaCramp and spasmRestless legs syndromeVenou s insufficiency (chronic) (peripheral)E ssential (primary) hypertensionP ruritus, unspecified Aug- 4 Ajit Calzada. [address] [place] [address] 302, [facility] [place] [place], [id number], [place]. tel:[phone] Referring Provider: Yanna Valdes MD, [address] [place] [address] [address], [place], [address]. tel:[phone] Office/Oupt E&M New Pt 30 Mins [facility], [address] [place] [address] Dr Carreno 1000Suite 1000Alyce [place], [id number], [place] tel:[phone] [facility] [place] Varicose veins of left lower extremity with other complications Pain in left lower legLocalized edemaCramp and spasmRestless legs syndromeEssen tial (primary) hypertensionP ruritus, unspecified Fe-0 4 Murtaza BHATTI RVT, SUSI Swenson. [address] [place] [address], [place], [id number], [place]. tel:[phone] Referring Provider: Yanna Valdes MD, [address] [facility] [address], [place], [address]. tel:[phone] [facility], [address] [facility] [address], [place], [id number], [place] tel:[phone] [facility] - [place] Chronic venous hypertension (idiopathic) with other complications of left lower extremity 4 Murtaza BHATTI, RVT, RPVI Messi. [address] [facility], [address], [place], [id number], [place]. tel:[phone] Referring Provider: Yanna Valdes MD, [address] [facility] [address], [place], [address]. tel:[phone] Family History Family Member Type Diagnosis Age At Onset No Information Payers Payer name Insurance type Covered constitution party ID Kerri calvillo(s) Medical Assistance [facility] [id number] Social History Type Description Quantity Date Captured [...]
== END 2024-11-05 09:54 | disposition home or self-care (01) ==
LOC: HO.ACS 09:23
PROVIDERS: PCP Internal Medicine; Visit Provider Internal Medicine Medical Oncology
DX: Z79.01 Long term (current) use of anticoagulants (principal)

== ENCOUNTER → 2024-11-05 09:23 | Outpatient (BNVA) | payer MEDICAID, SELFPAY | PROVIDERS: PCP Internal Medicine; Visit Provider Internal Medicine Medical Oncology | DX: Z86.718 Personal history of other venous thrombosis and embolism (principal); Z79.01 Long term (current) use of anticoagulants; Z51.81 Encounter for therapeutic drug level monitoring | CPT/HCPCS: 85610; 99211 ==

== ENCOUNTER 2024-12-10 08:18 | Outpatient (AMB) | payer MEDICAID, SELFPAY ==
--- OUTSIDE RECORDS SUMMARY | 2024-10-07 07:00 | XMS_ITS | Continuity of Care Document ---
Author Organization [facility] Address [address] MD [place] [address] Phone Care Team Providers Care Automobile Technician Name Role Phone Murtaza BHATTI, RVT, SUSI, [...] Diagnoses Date Provider Providers Copied on Encounter [place] [facility], [address] [place] [address] Dr Carreno 1000[facility] Alyce Mckeon [place], [id number], [place] tel:[phone] [facility] No Information 5 Murtaza BHATTI RVT, SUSI Swenson. [address] [facility], [address], [place], [id number], [place]. tel:[phone] Referring Provider: Yanna Valdes MD, [address] [place] [address] [address], [place], [address]. tel:[phone] Office/Outpt E&M Established 15 Mins- CT & [place] [facility], [address] [place] [address] Dr Carreno 1000Suite 1000Alyec MD, [id number], [place] tel:[phone] [facility] Restless legs syndromeVenou s insufficiency (chronic) (peripheral)E ssential (primary) hypertension 5 Murtaza BHATTI RVT, SUSI Swenson. [address] [facility], [address], [place], [id number], [place]. tel:[phone] Referring Provider: Yanna Valdes MD, [address] [place] [address] [address], [place], [address]. tel:[phone] [place] [facility], [address] [place] [address] Dr Carreno 1000[facility] Alyce Mckeon [place], [id number], [place] tel:[phone] [facility] Encounter for follow-up examination after completed treatment for conditions other than malignant neoplasmChron ic venous hypertension (idiopathic) with other complications of left lower extremity 5 Murtaza BHATTI RVT, SUSI Swenson. [address] [facility], [address], [place], [id number], [place]. tel:[phone] Referring Provider: Yanna Valdes MD, [address], [place], [address]. tel:[phone] [place] [facility], [address] [place] [address] Dr [address] 1000Alyce MD, [id number], [place] tel:[phone] CVR - [facility] Venous insufficiency (chronic) (peripheral)N evus, non-neoplasti c 4 Mollkya Bryant. [address] [facility], [address], [facility] [place], [id number], [place]. tel:[phone] Referring Provider: Yanna Valdes MD, [address] [place] [address] [address], [place], [address]. tel:[phone] Office/Outpt E&M Established 15 Mins- CT & [place] [facility], [address] [place] [address] Dr Carreno 1000[facility] 1000Alyce [place], [id number], [place] tel:[phone] CVR - [facility] Essential (primary) hypertensionL ocalized edemaVenous insufficiency (chronic) (peripheral) 4 Murtaza BHATTI RVT, SUSI Swenson. [address] [place] [address] [address], [facility] [place], [id number], [place]. tel:[phone] Referring Provider: Yanna Valdes MD, [address] [place] [address] [address], [place], [address]. tel:[phone] [facility], [address] [place] [address] Dr Carreno 1000[facility] 1000Alyce MD, [id number], [place] tel:[phone] [facility] Encounter for follow-up examination after completed treatment for conditions other than malignant neVaricose veins of left lower extremity with pain 4 Murtaza BHATTI RVT, SUSI Swenson. [address] [place] [address], [address], [facility] [place], [id number], [place]. tel:[phone] Referring Provider: Yanna Valdes MD, [address] [place] [address] [address], [place], [address]. tel:[phone] [facility], [address] [place] [address] Dr Carreno 1000Suite 1000Alyce MD, [id number], [place] tel:[phone] CVR - [facility] Encounter for follow-up examination after completed treatment for conditions other than malignant ne 4 Murtaza BHATTI RVT, RPVI Robert. [address] [place] [address], [facility] [place], [id number], [place]. tel:[phone] Referring Provider: Yanna Valdes MD, [address] [place] [address] Suite [facility], [place], [address]. tel:[phone] [facility], [address] [place] [address] [facility] 1000[facility] Alyce Mckeon MD, [id number], [place] tel:[phone] CVR - [facility] Chronic venous hypertension (idiopathic) with inflammation of left lower extremity 4 Surinder Bryant. [address] [place] [address], [facility] [place], [id number], [place]. tel:[phone] Referring Provider: Yanna Valdes MD, [address] [place] [address] Suite [facility], [place], [address]. tel:[phone] [place] [facility], [address] [place] [address] [facility] 1000Suite Alyce Mc[place]on [place], [id number], [place] tel:[phone] CVR - [facility] Encounter for follow-up examination after completed treatment for conditions other than malignant neChronic venous hypertension (idiopathic) with other complications of left lower extremity 4 Murtaza BHATTI RVT, RPVI Robert. [address] [place] [address], [place], [id number], [place]. tel:[phone] Referring Provider: Yanna Valdes MD, [address] [place] [address] [address], [place], [address]. tel:[phone] [place] [facility], [address] [place] [address] [facility] 1000Suite Alyce Mckeon [place], [id number], [place] tel:[phone] CVR - [facility] Chronic venous hypertension (idiopathic) with inflammation of left lower extremity 4 Murtaza BHATTI RVT, RPVI Robert. [address] [place] [address], [place], [id number], [place]. tel:[phone] Referring Provider: Yanna Valdes MD, [address] [place] [address] [address], [place], [address]. tel:[phone] [place] [facility], [address] [place] [address] Dr Carreno 1000Suite Alyce Mckeon [place], [id number], [place] tel:[phone] [facility] - [place] Varicose veins of left lower extremity with other complications Apr-3 4 Murtaza BHATTI RVT, SUSI Swenson. [address] [place] [address], [facility] [place], [id number], [place]. tel:[phone] Referring Provider: Yanna Valdes MD, [address] [place] [address] [address], [place], [address]. tel:[phone] Offic/outpt E&m Estab 5 Min Trial - Telemedicine [facility], [address] [place] [address] Dr Carreno 1000[address] 1000Alyce [place], [id number], [place] tel:[phone] [facility] [place] Localized edemaCramp and spasmRestless legs syndromeVenou s insufficiency (chronic) (peripheral)E ssential (primary) hypertensionP ruritus, unspecified Aug- 4 Ajit Calzada. [address] [place] [address] 302, [facility] [place] [place], [id number], [place]. tel:[phone] Referring Provider: Yanna Valdes MD, [address] [place] [address] [address], [place], [address]. tel:[phone] Office/Oupt E&M New Pt 30 Mins [facility], [address] [place] [address] Dr Carreno 1000Suite 1000Alyce MD, [id number], [place] tel:[phone] [facility] - [place] Varicose veins of left lower extremity with other complications Pain in left lower legLocalized edemaCramp and spasmRestless legs syndromeEssen tial (primary) hypertensionP ruritus, unspecified Fe-0 4 Murtaza BHATTI RVT, SUSI Swenson. [address] [place] [address], [place], [id number], [place]. tel:[phone] Referring Provider: Yanna Valdes MD, [address] [facility] [address], [place], [address]. tel:[phone] [facility], [address] [facility] [address], [place], [id number], [place] tel:[phone] [facility] - [place] Chronic venous hypertension (idiopathic) with other complications of left lower extremity 4 Murtaza BHATTI, RVT, RPVI Messi. [address] [facility], [address], [place], [id number], [place]. tel:[phone] Referring Provider: Yanna Valdes MD, [address] [facility] [address], [place], [address]. tel:[phone] Family History Family Member Type Diagnosis Age At Onset No Information Payers Payer name Insurance type Covered libertarian ID Kerri calvillo(s) Medical Assistance [facility] [id number] Social History Type Description Quantity Date Captured [...]
--- OUTSIDE RECORDS SUMMARY | 2024-12-10 08:20 | XMS_ITS | Patient Health Record ---
Author Organization [facility] Address [address] [place] [address] Care Team Providers Care Improvement Leader Name Role Phone Yanna Valdes Primary Care Provider UnavailSevero Ackerman Jr Unavailable [...] Diff Reviewed date:04/14/2024 08:55:09 AM Interpretation: Performing Lab:[facility], [address] [place] [phone] Notes/Report: White Blood Count 6.2 4.8-10.8 X10*3/uL [...] Panel Reviewed date:04/14/2024 08:55:15 AM Interpretation: Performing Lab:[address] [address] Notes/Report: Bilirubin Total 0.3 0.0-1.0 mg/dL Bilirubin Direct 0.1 0.0-0.5 mg/dL Aspartate Amino Transferase 22 5-31 U/L Alanine Aminotransferase 17 0-31 U/L Total Protein 7.2 6.5-8.0 g/dL Albumin Level 3.9 3.5-5.0 g/dL Alkaline Phosphatase 71 39-117 U/L Blood Urea Nitrogen Reviewed date:04/14/2024 08:52:04 AM Interpretation: Performing Lab:[address] [address] Notes/Report: Blood Urea Nitrogen 9 9-16 mg/dL Creatinine Reviewed date:04/14/2024 08:55:22 AM Interpretation: Performing Lab:[facility], [address] [place] [phone] Notes/Report: Creatinine 0.70 0.5-1.4 mg/dL Estimated Glomerular Filt Rate > 60 NOTE: For -Lebanese individuals, multiply the result by 1.210. Chronic Kidney Disease: Estimated GFR < 60 mL/min/1.73m2 Severe Kidney Disease: Estimated GFR < 15 mL/min/1.73m2 Lipase Reviewed date:04/14/2024 08:55:29 AM Interpretation: Performing Lab:[facility], [address] [place] [phone] Notes/Report: Lipase 31 8-78 U/L US abdomen complete Reviewed date:04/24/2024 08:22:36 AM Interpretation: Performing Lab: Notes/Report: [address] [address] Ultrasound Report Signed Patient: Norma Carter I MR#: [id number] : 1970 Acct:[id number] Age/Sex: 53 / F ADM Date: 04/18/24 Loc: HO.US Attending Dr: Severo Jett MD Ordering Physician: Severo Jett MD Date of Service: 04/18/24 Procedure(s): US abdomen complete Accession Number(s): [id number] cc: Yanna Valdes MD; Severo Jett MD [...] in OV> 04/20/242133 DD/ 3 TD/TT: 04/18/24931 Crib Tender: TERRIE Reason For Referral Referring Provider First Name Yanna Referring Provider Last Name Keisha Referring Provider Speciality Internal M edicine Referred Organization [facility] Referred Provider Severo Jett Jr Referred Address [address] [place] [address],[place] [address],[place], [place],[address], Referred Provider Specialty Gastroentero logy General Notes [place],Jackelin 024 01:55:42 PM EDT > REQUESTED A [...] Problem Status W/U Status Risk Notes Problem 002546820 Colon cancer screening (Z12.11) Active confirmed Problem Esophageal reflux (400514169) Esophageal reflux (K21.9) Active confirmed Problem 46177180 Epigastric pain (R10.13) Active confirmed Vital Signs Blood pressure diastolic 00 mm Hg 04/09/2024 Height 68 in 04/09/2024 Blood pressure systolic 00 mm Hg 04/09/2024 Weight 224 lbs 04/09/2024 BMI 34.06 kg/m2 04/09/2024 Encounters Encounter Location Date Provider Diagnosis [facility] [address] [place] [address] 04/09/2024 Severo Jett Jr Epigastric pain R10.13 [facility] [address] [place] [address] Drive [address] [place] [phone] 03/04/2024 Severo Jett Jr [facility] [address] [place] [address] Drive [address] [place] [phone] 04/14/2024 Severo Jett Jr [facility] [address] [place] [address] Drive [address] [place] [phone] 04/24/2024 Severo Jett Jr Assessments Encounter Date [...] Name:Severo loza Jr, 04/08/2025 09:00:00 AM, [address] [facility], [address], [place], [address], Insurance Providers Payer Name Payer Address Payer Phone Subscriber Number Group Number Insured Name Patient Relationship to Insured Coverage Start Date Coverage End Date MEDICAID OF [facility] [address] [place] [phone] [id number] NORMA ESTES Self - patient is the insured Medical (General) History Medical History History ICD Code DVT/PE EGD 01/31, esophagitis, eosinophils on bi opsy Environmental allergies Anxiety Insomnia Hypertension Elevated cholesterol Colonoscopy 01/31, normal, ten-year follo wup Surgical History Surgery Date(Month/Year) thyroid surgery vena cava filter 1993 lipoma removal 2021
[2024-12-10 08:30] LABS: Prothrombin Time Whole Bld POC 33.0 sec (11.1-13.5); ~PT, ~INR - Anti Coag Clinic 2.8 (0.9-1.1)
--- NOTE | 2024-12-10 08:40 | MHC.OFFVISCO ---
Intake Intake Visit Reasons: Anticoagulation Allergies ciprofloxacin (From Cipro) Allergy (Unknown, Verified 12/10/24 08:23) RASH Sulfa (Sulfonamide Antibiotics) Allergy (Unknown, Verified 12/10/24 08:23) SWELLING/ITCHING, swelling topiramate (From TOPAMAX) Allergy (Unknown, Verified 12/10/24 08:23) DIZZY Medication List - Last Reconciled 12/10/24 by Mara Lan RN albuterol sulfate 2.5 mg inhalation Q4-6H PRN albuterol sulfate 90 mcg/actuation (ProAir HFA) 2 puffs inhalation Q6H PRN bupropion HCl SR (Wellbutrin SR) 150 mg PO DAILY cholecalciferol (vitamin D3) 50 mcg PO DAILY 30 days fluticasone propionate 50 mcg/actuation (Flonase Allergy Relief) 1 spray intranasal DAILY fluticasone propionate 110 mcg/actuation (Flovent HFA) 2 puffs PO BID lisinopril 20 mg PO DAILY montelukast 10 mg PO DAILY omega 0-ntb-xli-fish oil 1,200 (144-216) mg (Fish Oil) 1,200 caps PO BID omeprazole 20 mg PO DAILY ondansetron 4 mg PO TID PRN sennosides-docusate sodium 8.6-50 mg (Senexon-S) 2 tabs PO BEDTIME sertraline 50 mg PO DAILY trazodone 50 mg PO BEDTIME PRN triamcinolone acetonide 0.5% 1 appl topical BID warfarin See Protocol 7.5mg x 6, 5mg x 1 Nursing Note NO CP,SOB,DIET/MED CHANGES,FALLS OR SX OF BLEEDING. CONTINUE PRESENT DOSE ANDN FOLLOW-UP IN 2 WEEKS. GOOD UNDERSTANDING OF DOSING INSTR. 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
== END 2024-12-10 08:42 | disposition home or self-care (01) ==
LOC: HO.ACS 08:18
PROVIDERS: PCP Internal Medicine; Visit Provider Internal Medicine Medical Oncology
DX: Z79.01 Long term (current) use of anticoagulants (principal)

== ENCOUNTER → 2024-12-10 08:18 | Outpatient (BNVA) | payer MEDICAID, SELFPAY | PROVIDERS: PCP Internal Medicine; Visit Provider Internal Medicine Medical Oncology | DX: Z86.718 Personal history of other venous thrombosis and embolism (principal); Z79.01 Long term (current) use of anticoagulants; Z51.81 Encounter for therapeutic drug level monitoring | CPT/HCPCS: 85610; 99211 ==

== ENCOUNTER 2024-12-24 08:58 | Outpatient (AMB) | payer MEDICAID, SELFPAY ==
--- OUTSIDE RECORDS SUMMARY | 2024-10-07 07:00 | XMS_ITS | Continuity of Care Document ---
Author Organization [facility] Address [address] [place] [address] Phone Care Team Providers Care Railroad Signal Technician Name Role Phone Murtaza BHATTI, RVT, [...] Diagnoses Date Provider Providers Copied on Encounter [place] [facility], [address] [place] [address] Dr Carreno 1000[facility] [place] Mckeon [place], [id number], [place] tel:[phone] [facility] No Information 5 Murtaza BHATTI RVT, SUSI Swenson. [address], [address], [place], [id number], [place]. tel:[phone] Referring Provider: Yanna Valdes MD, [address] [place] [address] [address], [place], [address]. tel:[phone] Office/Outpt E&M Established 15 Mins- CT & [place] [facility], [address] [place] [address] Dr Carreno [address], [id number], [place] tel:[phone] [facility] Restless legs syndromeVenou s insufficiency (chronic) (peripheral)E ssential (primary) hypertension 5 Murtaza BHATTI RVT, SUSI Swenson. [address], [address], [place], [id number], [place]. tel:[phone] Referring Provider: Yanna Valdes MD, [address] [place] [address] [address], [place], [address]. tel:[phone] [place] [facility], [address] [place] [address] Dr Carreno 1000[facility] A[place]ce Mckeon [place], [id number], [place] tel:[phone] [facility] Encounter for follow-up examination after completed treatment for conditions other than malignant neoplasmChron ic venous hypertension (idiopathic) with other complications of left lower extremity 5 Murtaza BHATTI RVT, SUSI Swenson. [address], [address], [place], [id number], [place]. tel:[phone] Referring Provider: Yanna Valdes MD, [address], [place], [address]. tel:[phone] [place] [facility], [address] [place] [address] Dr [address], [id number], [place] tel:[phone] [facility] Venous insufficiency (chronic) (peripheral)N evus, non-neoplasti c 4 Mollkya Bryant. [address], [address], [facility] [place], [id number], [place]. tel:[phone] Referring Provider: Yanna Valdes MD, [address] [place] [address] [address], [place], [address]. tel:[phone] Office/Outpt E&M Established 15 Mins- CT & [place] [facility], [address] [place] [address] Dr Carreno 1000[facility] [address], [id number], [place] tel:[phone] [facility] Essential (primary) hypertensionL ocalized edemaVenous insufficiency (chronic) (peripheral) 4 Murtaza BHATTI RVT, SUSI Swenson. [address] [place] [address] [address], [facility] [place], [id number], [place]. tel:[phone] Referring Provider: Yanna Valdes MD, [address] [place] [address] [address], [place], [address]. tel:[phone] [facility], [address] [place] [address] Dr Carreno 1000[facility] 1000Alyce [place], [id number], [place] tel:[phone] [facility] Encounter for follow-up examination after completed treatment for conditions other than malignant neVaricose veins of left lower extremity with pain 4 Murtaza BHATTI RVT, SUSI Swenson. [address] [place] [address], [address], [facility] [place], [id number], [place]. tel:[phone] Referring Provider: Yanna Valdes MD, [address] [place] [address] [address], [place], [address]. tel:[phone] [facility], [address] [place] [address] Dr Carreno 1000[address] 1000[place], [id number], [place] tel:[phone] [facility] Encounter for follow-up examination after completed treatment for conditions other than malignant ne 4 Murtaza BHATTI RVT, RPVI Robert. [address] [place] [address], [facility] [place] [id number], [place]. tel:[phone] Referring Provider: Yanna Valdes MD, [address] [place] [address] Suite [facility], [place], [address]. tel:[phone] [facility], [address] [place] [address] [facility] 1000[facility] [place] Mc[place], [id number], [place] tel:[phone] [facility] Chronic venous hypertension (idiopathic) with inflammation of left lower extremity 4 Surinder Bryant. [address] [place] [address], [facility] [place], [id number], [place]. tel:[phone] Referring Provider: Yanna Valdes MD, [address] [place] [address] Suite [facility], [place], [address]. tel:[phone] [place] [facility], [address] [place] [address] [facility] 1000Suite [place], [id number], [place] tel:[phone] [facility] Encounter for follow-up examination after completed treatment for conditions other than malignant neChronic venous hypertension (idiopathic) with other complications of left lower extremity 4 Murtaza BHATTI RVT, RPVI Robert. [address] [place] [address], [place], [id number], [place]. tel:[phone] Referring Provider: Yanna Valdes MD, [address] [place] [address] [address], [place], [address]. tel:[phone] [place] [facility], [address] [place] [address] [facility] 1000Suite [place], [id number], [place] tel:[phone] [facility] Chronic venous hypertension (idiopathic) with inflammation of left lower extremity 4 Murtaza BHATTI RVT, RPVI Robert. [address] [place] [address], [place], [id number], [place]. tel:[phone] Referring Provider: Yanna Valdes MD, [address] [place] [address] [address], [place], [address]. tel:[phone] [place] [facility], [address] [place] [address] Dr Carreno 1000Suite [place], [id number], [place] tel:[phone] [facility] [place] Varicose veins of left lower extremity with other complications Apr-3 4 Murtaza BHATTI RVT, SUSI Swenson. [address] [place] [address], [facility] [place], [id number], [place]. tel:[phone] Referring Provider: Yanna Valdes MD, [address] [place] [address] [address], [place], [address]. tel:[phone] Offic/outpt E&m Estab 5 Min Trial - [facility], [address] [place] [address] Dr Carreno 1000[address] 1000[place], [id number], [place] tel:[phone] [facility] [place] Localized edemaCramp and spasmRestless legs syndromeVenou s insufficiency (chronic) (peripheral)E ssential (primary) hypertensionP ruritus, unspecified Aug- 4 Ajit Calzada. [address] [place] [address] 302, [facility] [place], [id number], [place]. tel:[phone] Referring Provider: Yanna Valdes MD, [address] [place] [address] [address], [place], [address]. tel:[phone] Office/Oupt E&M New Pt 30 Mins [facility], [address] [place] [address] Dr Carreno 1000[address] 1000[place], [id number], [place] tel:[phone] [facility] [place] Varicose veins of left lower extremity with other complications Pain in left lower legLocalized edemaCramp and spasmRestless legs syndromeEssen tial (primary) hypertensionP ruritus, unspecified Fe-0 4 Murtaza BHATTI RVT, SUSI Swenson. [address] [place] [address], [place], [id number], [place]. tel:[phone] Referring Provider: Yanna Valdes MD, [address] [facility] [address] [facility] [address], [place], [address]. tel:[phone] [facility], [address] [facility] [address] [facility] [address], [place], [id number], [place] tel:[phone] [facility] [place] Chronic venous hypertension (idiopathic) with other complications of left lower extremity 4 Murtaza BHATTI, RVT, RPVI Messi. [address], [address], [place], [id number], [place]. tel:[phone] Referring Provider: Yanna Valdes MD, [address] [facility] [address], [place], [address]. tel:[phone] Family History Family Member Type Diagnosis Age At Onset No Information Payers Payer name Insurance type Covered republican ID Kerri calvillo(s) Medical Assistance [facility] [id number] Social History Type Description Quantity Date Captured [...]
--- NOTE | 2024-12-24 09:09 | MHC.OFFVISCO ---
Intake Intake Visit Reasons: Anticoagulation Allergies ciprofloxacin (From Cipro) Allergy (Unknown, Verified 12/24/24 09:03) RASH Sulfa (Sulfonamide Antibiotics) Allergy (Unknown, Verified 12/24/24 09:03) SWELLING/ITCHING, swelling topiramate (From TOPAMAX) Allergy (Unknown, Verified 12/24/24 09:03) DIZZY Medication List - Last Reconciled 12/24/24 by Latasha Chong RN albuterol sulfate 2.5 mg inhalation Q4-6H PRN albuterol sulfate 90 mcg/actuation (ProAir HFA) 2 puffs inhalation Q6H PRN bupropion HCl SR (Wellbutrin SR) 150 mg PO DAILY cholecalciferol (vitamin D3) 50 mcg PO DAILY 30 days fluticasone propionate 50 mcg/actuation (Flonase Allergy Relief) 1 spray intranasal DAILY fluticasone propionate 110 mcg/actuation (Flovent HFA) 2 puffs PO BID lisinopril 20 mg PO DAILY montelukast 10 mg PO DAILY omega 5-ahu-lnx-fish oil 1,200 (144-216) mg (Fish Oil) 1,200 caps PO BID omeprazole 20 mg PO DAILY ondansetron 4 mg PO TID PRN sennosides-docusate sodium 8.6-50 mg (Senexon-S) 2 tabs PO BEDTIME sertraline 50 mg PO DAILY trazodone 50 mg PO BEDTIME PRN triamcinolone acetonide 0.5% 1 appl topical BID warfarin See Protocol 7.5mg x 6, 5mg x 1 Nursing Note INR 1.1-?? out of therapeutic range of 2-3 pt states missed four doses of warfarin this week due to refill, pt restarted warfarin last night Medications and supplements reviewed Patient status: no c.o Medications or supplements: no changes Diet: same Denies any signs and symptoms of bleeding or clotting or unusual bruising Bleeding, bruising, clotting discussed - aware at risk for clotting Nutritional guidance given: no greens for 3-4 days Dose: 10mg warfarin today and tomm then cont reg dosing- 7.5mg x 6 5mg x 1 F/U INR Date : sun12/29/24? Patient verbalizing understanding of instructions given. pcp dr sykes called - spoke to [place] at 0921. reported low inr, dosing and f/u appt. aware of missed doses. ? lovenox Anti-Coag Initial Assessment Social Hx Patient Tobacco Use Status: Never used Tobacco alcohol intake: never Alcohol intake frequency: does not drink Coding Level of Care Code Est Patient Level 1 Diagnoses Current use of anticoagulant therapy Z79.01 Assessment & Plan Assessment & Plan (1) Current use of anticoagulant therapy: Code(s): Z79.01 - halfway (current) use of anticoagulants Category: Medical
[2024-12-24 09:10] LABS: Prothrombin Time Whole Bld POC 13.3 sec (11.1-13.5); ~PT, ~INR - Anti Coag Clinic 1.1 (0.9-1.1)
--- OUTSIDE RECORDS SUMMARY | 2024-12-24 09:11 | XMS_ITS | Patient Health Record ---
Author Organization [facility] Address [address] [place] [address] Care Team Providers Care Automatic Dispenser Mechanic Name Role Phone Yanna Valdes Primary Care Provider UnavailSevero Ackerman Jr Unavailable [phone] Allergies Allergen (clinical drug ingredient) Drug/Non Drug Allergy documented on EMR Reaction Allergy Type Onset Date Status Substance with sulfonamide structure and antibacterial mechanism of action (substance) Sulfa Antibiotics Unknown Drug Allergy Active topiramate Topamax Unknown Drug Allergy Active ciprofloxacin Cipro Unknown Drug Allergy Act lamonte Results Component Value Reference Range Notes Complete Blood Count no Diff Reviewed date:04/14/2024 08:55:09 AM Interpretation: Performing Lab:[facility], [address] [place] [phone] Notes/Report: White Blood Count 6.2 4.8-10.8 X10*3/uL [...] Panel Reviewed date:04/14/2024 08:55:15 AM Interpretation: Performing Lab:[address] [address] Notes/Report: Bilirubin Total 0.3 0.0-1.0 mg/dL Bilirubin Direct 0.1 0.0-0.5 mg/dL Aspartate Amino Transferase 22 5-31 U/L Alanine Aminotransferase 17 0-31 U/L Total Protein 7.2 6.5-8.0 g/dL Albumin Level 3.9 3.5-5.0 g/dL Alkaline Phosphatase 71 39-117 U/L Blood Urea Nitrogen Reviewed date:04/14/2024 08:52:04 AM Interpretation: Performing Lab:[address] [address] Notes/Report: Blood Urea Nitrogen 9 9-16 mg/dL Creatinine Reviewed date:04/14/2024 08:55:22 AM Interpretation: Performing Lab:[facility], [address] [place] [phone] Notes/Report: Creatinine 0.70 0.5-1.4 mg/dL Estimated Glomerular Filt Rate > 60 NOTE: For -Montenegrin individuals, multiply the result by 1.210. Chronic Kidney Disease: Estimated GFR < 60 mL/min/1.73m2 Severe Kidney Disease: Estimated GFR < 15 mL/min/1.73m2 Lipase Reviewed date:04/14/2024 08:55:29 AM Interpretation: Performing Lab:[facility], [address] [place] [phone] Notes/Report: Lipase 31 8-78 U/L US abdomen complete Reviewed date:04/24/2024 08:22:36 AM Interpretation: Performing Lab: Notes/Report: [address] [address] Ultrasound Report Signed Patient: Norma Carter I MR#: [id number] : 1970 Acct:[id number] Age/Sex: 53 / F ADM Date: 04/18/24 Loc: HO.US Attending Dr: Severo Jett MD Ordering Physician: Severo Jett MD Date of Service: 04/18/24 Procedure(s): US abdomen complete Accession Number(s): [id number] cc: Yanna Valdes MD; Severo Jett MD [...] in OV> 04/20/242133 DD/ 3 TD/TT: 04/18/24931 Heating Unit Mechanic: TERRIE Reason For Referral Referring Provider First Name Yanna Referring Provider Last Name Keisha Referring Provider Speciality Internal M edicine Referred Organization [facility] Referred Provider Severo Jett Jr Referred Address [address] [place] [address],[place] [address],[place], [place],[address], Referred Provider Specialty Gastroentero logy General Notes [place],Jackelin 024 01:55:42 PM EDT > REQUESTED A [...] Problem Status W/U Status Risk Notes Problem [id number] Colon cancer screening (Z12.11) Active confirmed Problem Esophageal reflux (941647304) Esophageal reflux (K21.9) Active confirmed Problem 46659086 Epigastric pain (R10.13) Active confirmed Vital Signs Blood pressure diastolic 00 mm Hg 04/09/2024 Height 68 in 04/09/2024 Blood pressure systolic 00 mm Hg 04/09/2024 Weight 224 lbs 04/09/2024 BMI 34.06 kg/m2 04/09/2024 Encounters Encounter Location Date Provider Diagnosis [facility] [address] [place] [phone] 04/09/2024 Severo Jett Jr Epigastric pain R10.13 [facility] [address] [place] [address] Drive [address] [place] [phone] 03/04/2024 Severo Jett Jr [facility] [address] [place] [address] Drive [address] [place] [phone] 04/14/2024 Severo Jett Jr [facility] [address] [place] [address] Drive [address] [place] [phone] 04/24/2024 Severo Jett Jr Assessments Encounter Date [...] [address] [facility], [address], [place], [address], Insurance Providers Payer Name Payer Address Payer Phone Subscriber Number Group Number Insured Name Patient Relationship to Insured Coverage Start Date Coverage End Date MEDICAID OF [facility] [address] [place] [phone] [id number] NORMA ESTES Self - patient is the insured Medical (General) History Medical History History ICD Code DVT/PE EGD 01/31, esophagitis, eosinophils on bi opsy Environmental allergies Anxiety Insomnia Hypertension Elevated cholesterol Colonoscopy 01/31, normal, ten-year follo wup Surgical History Surgery Date(Month/Year) thyroid surgery vena cava filter 1993 lipoma removal 2021
== END 2024-12-24 09:22 | disposition home or self-care (01) ==
LOC: HO.ACS 08:58
PROVIDERS: PCP Internal Medicine; Visit Provider Internal Medicine Medical Oncology
DX: Z79.01 Long term (current) use of anticoagulants (principal)

== ENCOUNTER → 2024-12-24 08:58 | Outpatient (BNVA) | payer MEDICAID, SELFPAY | PROVIDERS: PCP Internal Medicine; Visit Provider Internal Medicine Medical Oncology | DX: Z86.718 Personal history of other venous thrombosis and embolism (principal); Z79.01 Long term (current) use of anticoagulants; Z51.81 Encounter for therapeutic drug level monitoring | CPT/HCPCS: 85610; 99211 ==

== ENCOUNTER 2024-12-29 09:22 | Outpatient (AMB) | payer MEDICAID, SELFPAY ==
--- OUTSIDE RECORDS SUMMARY | 2024-10-07 07:00 | XMS_ITS | Continuity of Care Document ---
Author Organization [facility] Address [address] MD [place] [address] Phone Care Team Providers Care Wood Treating Inspector Name Role Phone Murtaza BHATTI, RVT, SUSI, [...] Diagnoses Date Provider Providers Copied on Encounter [place] [facility], [address] [place] [address] Dr Carreno 1000[facility] [place] Mc[place]on [place], [id number], [place] tel:[phone] [facility] No Information 5 Murtaza BHATTI RVT, SUSI Swenson. [address] [facility], [address], [place], [id number], [place]. tel:[phone] Referring Provider: Yanna Valdes MD, [address] [place] [address] [address], [place], [address]. tel:[phone] Office/Outpt E&M Established 15 Mins- CT & [place] [facility], [address] [place] [address] Dr Carreno 1000Suite 1000Alyce [place], [id number], [place] tel:[phone] [facility] Restless legs syndromeVenou s insufficiency (chronic) (peripheral)E ssential (primary) hypertension 5 Murtaza BHATTI RVT, SUSI Swenson. [address] [facility], [address], [place], [id number], [place]. tel:[phone] Referring Provider: Yanna Valdes MD, [address] [place] [address] [address], [place], [address]. tel:[phone] [place] [facility], [address] [place] [address] Dr Carreno 1000[facility] [place] Mc[place], [id number], [place] tel:[phone] [facility] Encounter for follow-up examination after completed treatment for conditions other than malignant neoplasmChron ic venous hypertension (idiopathic) with other complications of left lower extremity 5 Murtaza BHATTI RVT, SUSI Swenson. [address] [facility], [address], [place], [id number], [place]. tel:[phone] Referring Provider: Yanna Valdes MD, [address], [place], [address]. tel:[phone] [place] [facility], [address] [place] [address] Dr [address] 1000Alyce [place], [id number], [place] tel:[phone] [facility] - [facility] Venous insufficiency (chronic) (peripheral)N evus, non-neoplasti c 4 Mollkya Bryant. [address] [facility], [address], [facility] [place], [place], [id number], [place]. tel:[phone] Referring Provider: Yanna Valdes MD, [address] [place] [address] [address], [place], [address]. tel:[phone] Office/Outpt E&M Established 15 Mins- CT & [place] [facility], [address] [place] [address] Dr Carreno 1000[facility] 1000Aly[place], [id number], [place] tel:[phone] [facility] - [facility] Essential (primary) hypertensionL ocalized edemaVenous insufficiency (chronic) (peripheral) 4 Murtaza BHATTI RVT, SUSI Swenson. [address] [place] [address] [address], [facility] [place], [id number], [place]. tel:[phone] Referring Provider: Yanna Valdes MD, [address] [place] [address] [address], [place], [address]. tel:[phone] [facility], [address] [place] [address] Dr Carreno 1000[facility] 1000Alyce [place], [id number], [place] tel:[phone] [facility] Encounter for follow-up examination after completed treatment for conditions other than malignant neVaricose veins of left lower extremity with pain 4 Murtaza BHATTI RVT, SUSI Swenson. [address] [place] [address], [address], [facility] [place], [id number], [place]. tel:[phone] Referring Provider: Yanna Valdes MD, [address] [place] [address] [address], [place], [address]. tel:[phone] [facility], [address] [place] [address] Dr Carreno 1000Suite 1000Alyce [place], [id number], [place] tel:[phone] CV[facility] - [facility] Encounter for follow-up examination after completed treatment for conditions other than malignant ne 4 Murtaza BHATTI RVT, RPVI Robert. [address] [place] [address], [facility] [place], [id number], [place]. tel:[phone] Referring Provider: Yanna Valdes MD, [address] [place] [address] Suite [facility], [place], [address]. tel:[phone] [facility], [address] [place] [address] [facility] 1000[facility] A[place] Mckeon [place], [id number], [place] tel:[phone] [facility] - [facility] Chronic venous hypertension (idiopathic) with inflammation of left lower extremity 4 Surinder Bryant. [address] [place] [address], [facility] [place], [id number], [place]. tel:[phone] Referring Provider: Yanna Valdes MD, [address] [place] [address] Suite [facility], [place], [address]. tel:[phone] [place] [facility], [address] [place] [address] [facility] 1000Suite Alyce Mckeon MD, [id number], [place] tel:[phone] CVR - [facility] Encounter for follow-up examination after completed treatment for conditions other than malignant neChronic venous hypertension (idiopathic) with other complications of left lower extremity 4 Murtaza BHATTI RVT, RPVI Robert. [address] [place] [address], [place], [id number], [place]. tel:[phone] Referring Provider: Yanna Valdes MD, [address] [place] [address] [address], [place], [address]. tel:[phone] [place] [facility], [address] [place] [address] [facility] 1000Suite Alyce Mckeon [place], [id number], [place] tel:[phone] CVR - [facility] Chronic venous hypertension (idiopathic) with inflammation of left lower extremity 4 Murtaza BHATTI RVT, RPVI Robert. [address] [place] [address], [place], [id number], [place]. tel:[phone] Referring Provider: Yanna Valdes MD, [address] [place] [address] [address], [place], [address]. tel:[phone] [place] [facility], [address] [place] [address] Dr Carreno 1000Suite Alyce Mckeon [place], [id number], [place] tel:[phone] [facility] Varicose veins of left lower extremity with other complications Apr-3 4 Murtaza BHATTI RVT, SUSI Swenson. [address] [place] [address], [facility] [place], [id number], [place]. tel:[phone] Referring Provider: Yanna Valdes MD, [address] [place] [address] [address], [place], [address]. tel:[phone] Offic/outpt E&m Estab 5 Min Trial - [facility]icine [facility], [address] [place] [address] Dr Carreno 1000Suite 1000Alyce MD, [id number], [place] tel:[phone] [facility] Localized edemaCramp and spasmRestless legs syndromeVenou s insufficiency (chronic) (peripheral)E ssential (primary) hypertensionP ruritus, unspecified Aug- 4 Ajit Calzada. [address] [place] [address], [facility] [place], [id number], [place]. tel:[phone] Referring Provider: Yanna Valdes MD, [address] [place] [address] [address], [place], [address]. tel:[phone] Office/Oupt E&M New Pt 30 Mins [facility], [address] [place] [address] Dr Carreno 1000Suite 1000Alyce [place], [id number], [place] tel:[phone] [facility] Varicose veins of left lower extremity with other complications Pain in left lower legLocalized edemaCramp and spasmRestless legs syndromeEssen tial (primary) hypertensionP ruritus, unspecified Fe-0 4 Murtaza BHATTI RVT, SUSI Swenson. [address] [place] [address], [place], [id number], [place]. tel:[phone] Referring Provider: Yanna Valdes MD, [address] [facility] [address], [place], [address]. tel:[phone] [facility], [address] [facility] [address], [place], [id number], [place] tel:[phone] [facility] - [place] Chronic venous hypertension (idiopathic) with other complications of left lower extremity 4 Murtaza BHATTI, RVT, RPVI Messi. [address] [facility], [address], [place], [id number], [place]. tel:[phone] Referring Provider: Yanna Valdes MD, [address] [facility] [address], [place], [address]. tel:[phone] Family History Family Member Type Diagnosis Age At Onset No Information Payers Payer name Insurance type Covered libertarian ID Kerri calvillo(s) Medical Assistance [facility] [id number] Social History Type Description Quantity Date Captured [...]
[2024-12-29 09:38] LABS: Prothrombin Time Whole Bld POC 22.9 sec (11.1-13.5); ~PT, ~INR - Anti Coag Clinic 1.9 (0.9-1.1)
--- OUTSIDE RECORDS SUMMARY | 2024-12-29 09:49 | XMS_ITS | Patient Health Record ---
Author Organization [facility] Address [address] [place] [address] Care Team Providers Care Cement Mason Helper Name Role Phone Yanna Valdes Primary [...] Diff Reviewed date:04/14/2024 08:55:09 AM Interpretation: Performing Lab:[facility], [address] [place] [phone] Notes/Report: White Blood Count 6.2 4.8-10.8 X10*3/uL [...] Panel Reviewed date:04/14/2024 08:55:15 AM Interpretation: Performing Lab:[address] [address] Notes/Report: Bilirubin Total 0.3 0.0-1.0 mg/dL Bilirubin Direct 0.1 0.0-0.5 mg/dL Aspartate Amino Transferase 22 5-31 U/L Alanine Aminotransferase 17 0-31 U/L Total Protein 7.2 6.5-8.0 g/dL Albumin Level 3.9 3.5-5.0 g/dL Alkaline Phosphatase 71 39-117 U/L Blood Urea Nitrogen Reviewed date:04/14/2024 08:52:04 AM Interpretation: Performing Lab:[address] [address] Notes/Report: Blood Urea Nitrogen 9 9-16 mg/dL Creatinine Reviewed date:04/14/2024 08:55:22 AM Interpretation: Performing Lab:[facility], [address] [place] [phone] Notes/Report: Creatinine 0.70 0.5-1.4 mg/dL Estimated Glomerular Filt Rate > 60 NOTE: For -British individuals, multiply the result by 1.210. Chronic Kidney Disease: Estimated GFR < 60 mL/min/1.73m2 Severe Kidney Disease: Estimated GFR < 15 mL/min/1.73m2 Lipase Reviewed date:04/14/2024 08:55:29 AM Interpretation: Performing Lab:[facility], [address] [place] [phone] Notes/Report: Lipase 31 8-78 U/L US abdomen complete Reviewed date:04/24/2024 08:22:36 AM Interpretation: Performing Lab: Notes/Report: [address] [address] Ultrasound Report Signed Patient: Norma Carter I MR#: [id number] : 1970 Acct:[id number] Age/Sex: 53 / F ADM Date: 04/18/24 Loc: HO.US Attending Dr: Severo Jett MD Ordering Physician: Severo Jett MD Date of Service: 04/18/24 Procedure(s): US abdomen complete Accession Number(s): [id number] cc: Yanna Valdes MD; Severo Jett MD [...] in OV> 04/20/242133 DD/ 3 TD/TT: 04/18/24931 Retail Field Merchandiser: TERRIE Reason For Referral Referring Provider First Name Yanna Referring Provider Last Name Keisha Referring Provider Speciality Internal M edicine Referred Organization [facility] Referred Provider Severo Jett Jr Referred Address [address] [place] [address],[place] [address],[place], [place],[address], Referred Provider Specialty Gastroentero logy General Notes [place],Jackelin 024 01:55:42 PM EDT > REQUESTED A [...] Problem Status W/U Status Risk Notes Problem [id number] Colon cancer screening (Z12.11) Active confirmed Problem Esophageal reflux (338211205) Esophageal reflux (K21.9) Active confirmed Problem 96196492 Epigastric pain (R10.13) Active confirmed Vital Signs Blood pressure diastolic 00 mm Hg 04/09/2024 Height 68 in 04/09/2024 Blood pressure systolic 00 mm Hg 04/09/2024 Weight 224 lbs 04/09/2024 BMI 34.06 kg/m2 04/09/2024 Encounters Encounter Location Date Provider Diagnosis [facility] [address] [place] [phone] 04/09/2024 Severo Jett Jr Epigastric pain R10.13 [facility] [address] [place] [address] Drive [address] [place] [phone] 03/04/2024 Severo Jett Jr [facility] [address] [place] [address] Drive [address] [place] [phone] 04/14/2024 Severo Jett Jr [facility] [address] [place] [address] Drive [address] [place] [phone] 04/24/2024 Severo Jett Jr Assessments Encounter Date [...] Name:Severo loza Jr, 04/08/2025 09:00:00 AM, [address] [facility], [address], [place], [address], Insurance Providers Payer Name Payer Address Payer Phone Subscriber Number Group Number Insured Name Patient Relationship to Insured Coverage Start Date Coverage End Date MEDICAID OF [facility] [address] [place] [phone] [id number] NORMA ESTES Self - patient is the insured Medical (General) History Medical History History ICD Code DVT/PE EGD 01/31, esophagitis, eosinophils on bi opsy Environmental allergies Anxiety Insomnia Hypertension Elevated cholesterol Colonoscopy 01/31, normal, ten-year follo wup Surgical History Surgery Date(Month/Year) thyroid surgery vena cava filter 1993 lipoma removal 2021
--- NOTE | 2024-12-29 11:52 | MHC.OFFVISCO ---
Intake Intake Visit Reasons: Anticoagulation Allergies ciprofloxacin (From Cipro) Allergy (Unknown, Verified 12/29/24 09:25) RASH Sulfa (Sulfonamide Antibiotics) Allergy (Unknown, Verified 12/29/24 09:25) SWELLING/ITCHING, swelling topiramate (From TOPAMAX) Allergy (Unknown, Verified 12/29/24 09:25) DIZZY Medication List - Last Reconciled 12/29/24 by Emely Miranda RN albuterol sulfate 2.5 mg inhalation Q4-6H PRN albuterol sulfate 90 mcg/actuation (ProAir HFA) 2 puffs inhalation Q6H PRN bupropion HCl SR (Wellbutrin SR) 150 mg PO DAILY cholecalciferol (vitamin D3) 50 mcg PO DAILY 30 days fluticasone propionate 50 mcg/actuation (Flonase Allergy Relief) 1 spray intranasal DAILY fluticasone propionate 110 mcg/actuation (Flovent HFA) 2 puffs PO BID lisinopril 20 mg PO DAILY montelukast 10 mg PO DAILY omeprazole 20 mg PO DAILY ondansetron 4 mg PO TID PRN sennosides-docusate sodium 8.6-50 mg (Senexon-S) 2 tabs PO BEDTIME sertraline 50 mg PO DAILY trazodone 50 mg PO BEDTIME PRN triamcinolone acetonide 0.5% 1 appl topical BID warfarin See Protocol 7.5mg x 6, 5mg x 1 Nursing Note INR 1.9 out of therapeutic range but improved from 1.1 previous week after missing x 4 days Medications and supplements reviewed Patient status: pt states she missed her dose letting refill go by - states she has been depressed r/t to family concerns - usp caregivers very supportive and interactive with her as they take care of her son Medications or supplements: 1 )taking cholestoff supplement to help lower her cholesterol naturally - plant based sterols - may raise or lower INR 2) drinking mushroom lattee for improved health- mushrooms tend to raise the INR Diet: same Denies any signs and symptoms of bleeding or clotting or unusual bruising Bleeding, bruising, clotting discussed Nutritional guidance given: avoid greens x 3 days while INR low Dose: instead of 5mg today take 7.5mg then resume usual dose 5mg mondays/ 7.5mg x 6 days F/U INR Date: 1 week due to several changes: missed doses and supplements Telephone number given for BHN and crisis because it sounds as though she could benefit to talk with someone. Patient verbalizing understanding of instructions given. Anti-Coag Initial Assessment Social Hx Patient Tobacco Use Status: Never used Tobacco alcohol intake: never Alcohol intake frequency: does not drink Coding Level of Care Code Est Patient Level 1 Diagnoses Current use of anticoagulant therapy Z79.01 Assessment & Plan Assessment & Plan (1) Current use of anticoagulant therapy: Code(s): Z79.01 - senior care (current) use of anticoagulants Category: Medical
== END 2024-12-29 12:03 | disposition home or self-care (01) ==
LOC: HO.ACS 09:22
PROVIDERS: PCP Internal Medicine; Visit Provider Internal Medicine Medical Oncology
DX: Z79.01 Long term (current) use of anticoagulants (principal)

== ENCOUNTER → 2024-12-29 09:22 | Outpatient (BNVA) | payer MEDICAID, SELFPAY | PROVIDERS: PCP Internal Medicine; Visit Provider Internal Medicine Medical Oncology | DX: Z86.718 Personal history of other venous thrombosis and embolism (principal); Z79.01 Long term (current) use of anticoagulants; Z51.81 Encounter for therapeutic drug level monitoring | CPT/HCPCS: 85610; 99211 ==

== ENCOUNTER 2025-01-05 09:23 | Outpatient (AMB) | payer MEDICAID, SELFPAY ==
[2025-01-05 09:43] LABS: Prothrombin Time Whole Bld POC 28.5 sec (11.1-13.5); ~PT, ~INR - Anti Coag Clinic 2.4 (0.9-1.1)
--- NOTE | 2025-01-05 09:47 | MHC.OFFVISCO ---
Intake Intake Visit Reasons: Anticoagulation Allergies ciprofloxacin (From Cipro) Allergy (Unknown, Verified 01/05/25 09:39) RASH Sulfa (Sulfonamide Antibiotics) Allergy (Unknown, Verified 01/05/25 09:39) SWELLING/ITCHING, swelling topiramate (From TOPAMAX) Allergy (Unknown, Verified 01/05/25 09:39) DIZZY Nursing Note INR: 2.4 in therapeutic range of 2-3 Medications and supplements reviewed No changes in health, diet, medications, or supplements, Denies any signs and symptoms of bleeding or bruising or clotting. Bleeding, bruising, clotting discussed Nutritional guidance given Dose: 7.5mg X 6 days and 5mg X 1 day (Mon) F/U INR: 1 week Patient verbalizes understanding of instructions given Anti-Coag Initial Assessment Social Hx Patient Tobacco Use Status: Never used Tobacco alcohol intake: never Alcohol intake frequency: does not drink Coding Level of Care Code Est Patient Level 1 Diagnoses Current use of anticoagulant therapy Z79.01 Results AMB INR Fingerstick AMB INR Fingerstick 2.4 Last Edit by Fior Turpin RN on 01/05/25 09:45 interface delay Assessment & Plan Assessment & Plan (1) Current use of anticoagulant therapy: Code(s): Z79.01 - care home (current) use of anticoagulants Category: Medical
--- OUTSIDE RECORDS SUMMARY | 2025-01-05 10:11 | XMS_ITS | Patient Health Record ---
Author Organization [facility] Address [address] [place] [address] Care Team Providers Care Payroll Machine Operator Name Role Phone Yanna Valdes Primary [...] date:04/14/2024 08:55:09 AM Interpretation: Performing Lab:[facility], [address] [place] [phone] Notes/Report: White Blood Count 6.2 4.8-10.8 X10*3/uL [...] Panel Reviewed date:04/14/2024 08:55:15 AM Interpretation: Performing Lab:[address] [address] Notes/Report: Bilirubin Total 0.3 0.0-1.0 mg/dL Bilirubin Direct 0.1 0.0-0.5 mg/dL Aspartate Amino Transferase 22 5-31 U/L Alanine Aminotransferase 17 0-31 U/L Total Protein 7.2 6.5-8.0 g/dL Albumin Level 3.9 3.5-5.0 g/dL Alkaline Phosphatase 71 39-117 U/L Blood Urea Nitrogen Reviewed date:04/14/2024 08:52:04 AM Interpretation: Performing Lab:[address] [address] Notes/Report: Blood Urea Nitrogen 9 9-16 mg/dL Creatinine Reviewed date:04/14/2024 08:55:22 AM Interpretation: Performing Lab:[facility], [address] [place] [phone] Notes/Report: Creatinine 0.70 0.5-1.4 mg/dL Estimated Glomerular Filt Rate > 60 NOTE: For -New Zealander individuals, multiply the result by 1.210. Chronic Kidney Disease: Estimated GFR < 60 mL/min/1.73m2 Severe Kidney Disease: Estimated GFR < 15 mL/min/1.73m2 Lipase Reviewed date:04/14/2024 08:55:29 AM Interpretation: Performing Lab:[facility], [address] [place] [phone] Notes/Report: Lipase 31 8-78 U/L US abdomen complete Reviewed date:04/24/2024 08:22:36 AM Interpretation: Performing Lab: Notes/Report: [address] [address] Ultrasound Report Signed Patient: Norma Carter I MR#: [id number] : 1970 Acct:[id number] Age/Sex: 53 / F ADM Date: 04/18/24 Loc: HO.US Attending Dr: Severo Jett MD Ordering Physician: Severo Jett MD Date of Service: 04/18/24 Procedure(s): US abdomen complete Accession Number(s): [id number] cc: Yanna Valdes MD; Severo Jett MD [...] in OV> 04/20/242133 DD/ 3 TD/TT: 04/18/24931 Curer Acid Drum: TERRIE Reason For Referral Referring Provider First Name Yanna Referring Provider Last Name Keisha Referring Provider Speciality Internal M edicine Referred Organization [facility] Referred Provider Severo Jett Jr Referred Address [address] [place] [address],[place] [address],[place], [place],[address], Referred Provider Specialty Gastroentero logy General Notes [place],Jackelin 024 01:55:42 PM EDT > REQUESTED A [...] Problem Status W/U Status Risk Notes Problem 371074348 Colon cancer screening (Z12.11) Active confirmed Problem Esophageal reflux (428116158) Esophageal reflux (K21.9) Active confirmed Problem 94317623 Epigastric pain (R10.13) Active confirmed Vital Signs Blood pressure diastolic 00 mm Hg 04/09/2024 Height 68 in 04/09/2024 Blood pressure systolic 00 mm Hg 04/09/2024 Weight 224 lbs 04/09/2024 BMI 34.06 kg/m2 04/09/2024 Encounters Encounter Location Date Provider Diagnosis [facility] [address] [place] [phone] 04/09/2024 Severo Jett Jr Epigastric pain R10.13 [facility] [address] [place] [address] Drive [address] [place] [phone] 03/04/2024 Severo Jett Jr [facility] [address] [place] [address] Drive [address] [place] [phone] 04/14/2024 Severo Jett Jr [facility] [address] [place] [address] Drive [address] [place] [phone] 04/24/2024 Seveor Jett Jr Assessments Encounter Date Diagnosis (ICD [...] Name:Severo loza Jr, 04/08/2025 09:00:00 AM, [address] [facility] [address], [address], [place], [address], Insurance Providers Payer Name Payer Address Payer Phone Subscriber Number Group Number Insured Name Patient Relationship to Insured Coverage Start Date Coverage End Date MEDICAID OF [facility] [address] [place] [phone] [id number] NORMA ESTES Self - patient is the insured Medical (General) History Medical History History ICD Code DVT/PE EGD 01/31, esophagitis, eosinophils on bi opsy Environmental allergies Anxiety Insomnia Hypertension Elevated cholesterol Colonoscopy 01/31, normal, ten-year follo wup Surgical History Surgery Date(Month/Year) thyroid surgery vena cava filter 1993 lipoma removal 2021
== END 2025-01-05 09:50 | disposition home or self-care (01) ==
LOC: HO.ACS 09:23
PROVIDERS: PCP Internal Medicine; Visit Provider Internal Medicine Medical Oncology
DX: Z79.01 Long term (current) use of anticoagulants (principal)

== ENCOUNTER → 2025-01-05 09:23 | Outpatient (BNVA) | payer MEDICAID, SELFPAY | PROVIDERS: PCP Internal Medicine; Visit Provider Internal Medicine Medical Oncology | DX: Z86.718 Personal history of other venous thrombosis and embolism (principal); Z79.01 Long term (current) use of anticoagulants; Z51.81 Encounter for therapeutic drug level monitoring | CPT/HCPCS: 85610; 99211 ==

== ENCOUNTER 2025-01-14 10:09 | Outpatient (AMB) | payer MEDICAID, SELFPAY ==
--- OUTSIDE RECORDS SUMMARY | 2025-01-14 10:43 | XMS_ITS | Patient Health Record ---
Author Organization [facility] Address [address] [place] [address] Care Team Providers Care Specialized Language Instructor Name Role Phone Yanna Valdes Primary Care Provider UnavailSevero Ackerman Jr Unavailable [phone] Allergies Allergen (clinical drug ingredient) Drug/Non Drug Allergy documented on EMR Reaction Allergy Type Onset Date Status Substance with sulfonamide structure and antibacterial mechanism of action (substance) Sulfa Antibiotics Unknown Drug Allergy Active topiramate Topamax Unknown Drug Allergy Active ciprofloxacin Cipro Unknown Drug Allergy Act lamonte Results Component Value Reference Range Notes Complete Blood Count no Diff Reviewed date:04/14/2024 08:55:09 AM Interpretation: Performing Lab:[facility], [address] [place] [phone] Notes/Report: White Blood Count 6.2 4.8-10.8 X10*3/uL [...] Panel Reviewed date:04/14/2024 08:55:15 AM Interpretation: Performing Lab:[address] [address] Notes/Report: Bilirubin Total 0.3 0.0-1.0 mg/dL Bilirubin Direct 0.1 0.0-0.5 mg/dL Aspartate Amino Transferase 22 5-31 U/L Alanine Aminotransferase 17 0-31 U/L Total Protein 7.2 6.5-8.0 g/dL Albumin Level 3.9 3.5-5.0 g/dL Alkaline Phosphatase 71 39-117 U/L Blood Urea Nitrogen Reviewed date:04/14/2024 08:52:04 AM Interpretation: Performing Lab:[address] [address] Notes/Report: Blood Urea Nitrogen 9 9-16 mg/dL Creatinine Reviewed date:04/14/2024 08:55:22 AM Interpretation: Performing Lab:[facility], [address] [place] [phone] Notes/Report: Creatinine 0.70 0.5-1.4 mg/dL Estimated Glomerular Filt Rate > 60 NOTE: For -Liberian individuals, multiply the result by 1.210. Chronic Kidney Disease: Estimated GFR < 60 mL/min/1.73m2 Severe Kidney Disease: Estimated GFR < 15 mL/min/1.73m2 Lipase Reviewed date:04/14/2024 08:55:29 AM Interpretation: Performing Lab:[facility], [address] [place] [phone] Notes/Report: Lipase 31 8-78 U/L US abdomen complete Reviewed date:04/24/2024 08:22:36 AM Interpretation: Performing Lab: Notes/Report: [address] [address] Ultrasound Report Signed Patient: Norma Carter I MR#: [id number] : 1970 Acct:[id number] Age/Sex: 53 / F ADM Date: 04/18/24 Loc: HO.US Attending Dr: Severo Jett MD Ordering Physician: Severo Jett MD Date of Service: 04/18/24 Procedure(s): US abdomen complete Accession Number(s): [id number] cc: Yanna Valdes MD; Severo Jett MD [...] in OV> 04/20/242133 DD/ 3 TD/TT: 04/18/24931 Photonics Technician: TERRIE Reason For Referral Referring Provider First Name Yanna Referring Provider Last Name Keisha Referring Provider Speciality Internal M edicine Referred Organization [facility] Referred Provider Severo Jett Jr Referred Address [address] [place] [address],[place] [address],[place], [place],[address], Referred Provider Specialty Gastroentero logy General Notes [place],Jackelin 024 01:55:42 PM EDT > REQUESTED A [...] Problem Status W/U Status Risk Notes Problem [id number] Colon cancer screening (Z12.11) Active confirmed Problem Esophageal reflux (224272571) Esophageal reflux (K21.9) Active confirmed Problem 18161007 Epigastric pain (R10.13) Active confirmed Vital Signs Blood pressure diastolic 00 mm Hg 04/09/2024 Height 68 in 04/09/2024 Blood pressure systolic 00 mm Hg 04/09/2024 Weight 224 lbs 04/09/2024 BMI 34.06 kg/m2 04/09/2024 Encounters Encounter Location Date Provider Diagnosis [facility] [address] [place] [phone] 04/09/2024 Severo Jett Jr Epigastric pain R10.13 [facility] [address] [place] [address] Drive [address] [place] [phone] 03/04/2024 Severo Jett Jr [facility] [address] [place] [address] Drive [address] [place] [phone] 04/14/2024 Severo Jett Jr [facility] [address] [place] [address] Drive [address] [place] [phone] 04/24/2024 Severo Jett Jr Assessments Encounter Date [...] Name:Severo loza Jr, 04/08/2025 09:00:00 AM, [address] [facility], [address], [place], [address], Insurance Providers Payer Name Payer Address Payer Phone Subscriber Number Group Number Insured Name Patient Relationship to Insured Coverage Start Date Coverage End Date MEDICAID OF [facility] [address] [place] [phone] [id number] NORMA ESTES Self - patient is the insured Medical (General) History Medical History History ICD Code DVT/PE EGD 01/31, esophagitis, eosinophils on bi opsy Environmental allergies Anxiety Insomnia Hypertension Elevated cholesterol Colonoscopy 01/31, normal, ten-year follo wup Surgical History Surgery Date(Month/Year) thyroid surgery vena cava filter 1993 lipoma removal 2021
[2025-01-14 14:10] LABS: Prothrombin Time Whole Bld POC 28.1 sec (11.1-13.5); ~PT, ~INR - Anti Coag Clinic 2.3 (0.9-1.1)
--- NOTE | 2025-01-14 15:01 | MHC.OFFVISCO ---
Intake Intake Visit Reasons: Anticoagulation Allergies ciprofloxacin (From Cipro) Allergy (Unknown, Verified 01/14/25 14:06) RASH Sulfa (Sulfonamide Antibiotics) Allergy (Unknown, Verified 01/14/25 14:06) SWELLING/ITCHING, swelling topiramate (From TOPAMAX) Allergy (Unknown, Verified 01/14/25 14:06) DIZZY Medication List - Last Reconciled 01/14/25 by Mara Lan RN albuterol sulfate 2.5 mg inhalation Q4-6H PRN albuterol sulfate 90 mcg/actuation (ProAir HFA) 2 puffs inhalation Q6H PRN bupropion HCl SR (Wellbutrin SR) 150 mg PO DAILY cholecalciferol (vitamin D3) 50 mcg PO DAILY 30 days fluticasone propionate 50 mcg/actuation (Flonase Allergy Relief) 1 spray intranasal DAILY fluticasone propionate 110 mcg/actuation (Flovent HFA) 2 puffs PO BID lisinopril 20 mg PO DAILY montelukast 10 mg PO DAILY omeprazole 20 mg PO DAILY ondansetron 4 mg PO TID PRN phytosterol-pantethine 300-100 mg (CholestOff Complete) caps PO sennosides-docusate sodium 8.6-50 mg (Senexon-S) 2 tabs PO BEDTIME sertraline 50 mg PO DAILY trazodone 50 mg PO BEDTIME PRN triamcinolone acetonide 0.5% 1 appl topical BID warfarin See Protocol 7.5mg x 6, 5mg x 1 Nursing Note NO CP,SOB,DIET/MED CHANGESM,FALLS OR SX OF BLEEDING. CONTINUE PRESENT DOSE AND FOLLOW-UP IN 2 WEEKS GOOD UNDERSTANDING OF DOSING INSTR. Anti-Coag Initial Assessment Social Hx Patient Tobacco Use Status: Never used Tobacco alcohol intake: never Alcohol intake frequency: does not drink Coding Level of Care Code Est Patient Level 1 Diagnoses Current use of anticoagulant therapy Z79.01 Assessment & Plan Assessment & Plan (1) Current use of anticoagulant therapy: Code(s): Z79.01 - long term care pharmacist (current) use of anticoagulants Category: Medical
== END 2025-01-14 15:00 | disposition home or self-care (01) ==
LOC: HO.ACS 10:09
PROVIDERS: PCP Internal Medicine; Visit Provider Internal Medicine Medical Oncology
DX: Z79.01 Long term (current) use of anticoagulants (principal)

== ENCOUNTER → 2025-01-14 10:09 | Outpatient (BNVA) | payer MEDICAID, SELFPAY | PROVIDERS: PCP Internal Medicine; Visit Provider Internal Medicine Medical Oncology | DX: I82.502 Chronic embolism and thrombosis of unspecified deep veins of left lower extremity (principal); Z51.81 Encounter for therapeutic drug level monitoring; Z79.01 Long term (current) use of anticoagulants | CPT/HCPCS: 85610; 99211 ==

== ENCOUNTER 2025-01-28 11:04 | Outpatient (AMB) | payer MEDICAID, SELFPAY ==
--- NOTE | 2025-01-28 11:18 | MHC.OFFVISCO ---
Intake Intake Visit Reasons: Anticoagulation Allergies ciprofloxacin (From Cipro) Allergy (Unknown, Verified 01/28/25 11:13) RASH Sulfa (Sulfonamide Antibiotics) Allergy (Unknown, Verified 01/28/25 11:13) SWELLING/ITCHING, swelling topiramate (From TOPAMAX) Allergy (Unknown, Verified 01/28/25 11:13) DIZZY Medication List - Last Reconciled 01/28/25 by Latasha Chong RN albuterol sulfate 2.5 mg inhalation Q4-6H PRN albuterol sulfate 90 mcg/actuation (ProAir HFA) 2 puffs inhalation Q6H PRN bupropion HCl SR (Wellbutrin SR) 150 mg PO DAILY cholecalciferol (vitamin D3) 50 mcg PO DAILY 30 days doxycycline hyclate 100 mg PO BID fluticasone propionate 50 mcg/actuation (Flonase Allergy Relief) 1 spray intranasal DAILY fluticasone propionate 110 mcg/actuation (Flovent HFA) 2 puffs PO BID lisinopril 20 mg PO DAILY montelukast 10 mg PO DAILY omeprazole 20 mg PO DAILY ondansetron 4 mg PO TID PRN phytosterol-pantethine 300-100 mg (CholestOff Complete) caps PO sennosides-docusate sodium 8.6-50 mg (Senexon-S) 2 tabs PO BEDTIME sertraline 50 mg PO DAILY trazodone 50 mg PO BEDTIME PRN triamcinolone acetonide 0.5% 1 appl topical BID warfarin See Protocol 7.5mg x 6, 5mg x 1 Nursing Note INR 1.6-? out of therapeutic range of 2-3 Medications and supplements reviewed Patient status: pt states bumped elbow left and had 'bump' and developed infection. went to pcp and was given cephalexin 500mg tid x 7d which she has completed. pt states no improvement so went to urgent care and now on doxycycline 100mg bid x 7 days. started on 01/20/25 Medications or supplements: antibiotics as above Diet: same Denies any signs and symptoms of bleeding or clotting or unusual bruising Bleeding, bruising, clotting discussed Nutritional guidance given: no greens for 2 days Dose: pt held warfarin on mon 01/26/25, no call to acs. boost todays dose to 10mg then cont 7.5mg x 6, 5mg x 1 F/U INR Date : sun02/02/25?? Patient verbalizing understanding of instructions given. 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
[2025-01-28 11:19] LABS: Prothrombin Time Whole Bld POC 19.6 sec (11.1-13.5); ~PT, ~INR - Anti Coag Clinic 1.6 (0.9-1.1)
--- OUTSIDE RECORDS SUMMARY | 2025-01-28 12:27 | XMS_ITS | Patient Health Record ---
Author Organization [facility] Address [address] [place] [address] Care Team Providers Care School Year Nanny Name Role Phone Yanna Valdes Primary Care [...] Reviewed date:04/14/2024 08:55:09 AM Interpretation: Performing Lab:[facility], [address] [place] [phone] Notes/Report: White Blood Count 6.2 4.8-10.8 X10*3/uL [...] Panel Reviewed date:04/14/2024 08:55:15 AM Interpretation: Performing Lab:[address] [address] Notes/Report: Bilirubin Total 0.3 0.0-1.0 mg/dL Bilirubin Direct 0.1 0.0-0.5 mg/dL Aspartate Amino Transferase 22 5-31 U/L Alanine Aminotransferase 17 0-31 U/L Total Protein 7.2 6.5-8.0 g/dL Albumin Level 3.9 3.5-5.0 g/dL Alkaline Phosphatase 71 39-117 U/L Blood Urea Nitrogen Reviewed date:04/14/2024 08:52:04 AM Interpretation: Performing Lab:[address] [address] Notes/Report: Blood Urea Nitrogen 9 9-16 mg/dL Creatinine Reviewed date:04/14/2024 08:55:22 AM Interpretation: Performing Lab:[facility], [address] [place] [phone] Notes/Report: Creatinine 0.70 0.5-1.4 mg/dL Estimated Glomerular Filt Rate > 60 NOTE: For -Scottish individuals, multiply the result by 1.210. Chronic Kidney Disease: Estimated GFR < 60 mL/min/1.73m2 Severe Kidney Disease: Estimated GFR < 15 mL/min/1.73m2 Lipase Reviewed date:04/14/2024 08:55:29 AM Interpretation: Performing Lab:[facility], [address] [place] [phone] Notes/Report: Lipase 31 8-78 U/L US abdomen complete Reviewed date:04/24/2024 08:22:36 AM Interpretation: Performing Lab: Notes/Report: [address] [address] Ultrasound Report Signed Patient: Norma Carter I MR#: [id number] : 1970 Acct:[id number] Age/Sex: 53 / F ADM Date: 04/18/24 Loc: HO.US Attending Dr: Severo Jett MD Ordering Physician: Severo Jett MD Date of Service: 04/18/24 Procedure(s): US abdomen complete Accession Number(s): [id number] cc: Yanna Valdes MD; Severo Jett MD [...] in OV> 04/20/242133 DD/ 3 TD/TT: 04/18/24931 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: TERRIE Reason For Referral Referring Provider First Name Yanna Referring Provider Last Name Keisha Referring Provider Speciality Internal M edicine Referred Organization [facility] Referred Provider Severo Jett Jr Referred Address [address] [place] [address],[place] [address],[place], [place],[address], Referred Provider Specialty Gastroentero logy General Notes [place],Jackelin 024 01:55:42 PM EDT > REQUESTED A [...] Problem Status W/U Status Risk Notes Problem 220591470 Colon cancer screening (Z12.11) Active confirmed Problem Esophageal reflux (750316625) Esophageal reflux (K21.9) Active confirmed Problem 74155586 Epigastric pain (R10.13) Active confirmed Vital Signs Blood pressure diastolic 00 mm Hg 04/09/2024 Height 68 in 04/09/2024 Blood pressure systolic 00 mm Hg 04/09/2024 Weight 224 lbs 04/09/2024 BMI 34.06 kg/m2 04/09/2024 Encounters Encounter Location Date Provider Diagnosis [facility] [address] [place] [phone] 04/09/2024 Severo Jett Jr Epigastric pain R10.13 [facility] [address] [place] [address] Drive [address] [place] [phone] 03/04/2024 Severo Jett Jr [facility] [address] [place] [address] [address] [place] [phone] 04/14/2024 Severo Jett Jr [facility] [address] [place] [address] [address] [place] [phone] 04/24/2024 Severo Jett Jr Assessments Encounter Date [...] AM, [address] [facility], [address], [place], [address], Insurance Providers Payer Name Payer Address Payer Phone Subscriber Number Group Number Insured Name Patient Relationship to Insured Coverage Start Date Coverage End Date MEDICAID OF [facility] [address] [place] [phone] [id number] NORMA ESTES Self - patient is the insured Medical (General) History Medical History History ICD Code DVT/PE EGD 01/31, esophagitis, eosinophils on bi opsy Environmental allergies Anxiety Insomnia Hypertension Elevated cholesterol Colonoscopy 01/31, normal, ten-year follo wup Surgical History Surgery Date(Month/Year) thyroid surgery vena cava filter 1993 lipoma removal 2021
== END 2025-01-28 11:50 | disposition home or self-care (01) ==
LOC: HO.ACS 11:04
PROVIDERS: PCP Internal Medicine; Visit Provider Internal Medicine Medical Oncology
DX: Z79.01 Long term (current) use of anticoagulants (principal)

== ENCOUNTER → 2025-01-28 11:04 | Outpatient (BNVA) | payer MEDICAID, SELFPAY | PROVIDERS: PCP Internal Medicine; Visit Provider Internal Medicine Medical Oncology | DX: I82.502 Chronic embolism and thrombosis of unspecified deep veins of left lower extremity (principal); Z51.81 Encounter for therapeutic drug level monitoring; Z79.01 Long term (current) use of anticoagulants | CPT/HCPCS: 85610; 99211 ==

== ENCOUNTER 2025-02-04 08:23 | Outpatient (AMB) | payer MEDICAID, SELFPAY ==
--- OUTSIDE RECORDS SUMMARY | 2024-07-09 05:20 | XMS_ITS ---
Author Organization [facility] Address [address] [place] [address] Care Team Providers Care Oil Burner Installer Name Role Phone Yanna Valdes Primary Care Provider Unavailab Severo Davenport Jr REASON FOR VISIT epigastric pain Encounters Encounter Location Date Provider Diagnosis [facility] [address] [place] [address] 07/09/2024 Severo Cancino Jr Plan Of Treatment Next Appt Details Provider Name:Severo loza Jr, 04/08/2025 09:00:00 AM, [address], [address], [place], [address], Progress Notes * APOLLO KRAUSLEXIOB:[birth year] 75 (54 yo F)Acc No.[id number]:07/09/2024 Progress Notes Patient: APOLLO SCHAEFERRA Provider: Ciera Cancino MD :1970 A ge:53 Y S ex:Female Date:07/09/2024 Address:[address], [id number] Pcp:Yanna Valdes Subjective: * Chief Complaints: * [...] 07/09/2024 Generated for Terrell lópez/Melissa/Zeenat on: 0 02/04/2025 08:41 AM EDT
--- OUTSIDE RECORDS SUMMARY | 2024-10-07 07:00 | XMS_ITS | Continuity of Care Document ---
Author Organization [facility] Address [address] [place] [address] Phone Care Team Providers Care Jewel Hole Finish Opener Name Role Phone Murtaza BHATTI, RVT, SUSI, [...] Diagnoses Date Provider Providers Copied on Encounter [facility], [address] [place] [address] Dr Carreno 1000[facility] [place]ce Mckeon [place], [id number], [place] tel:[phone] [facility] No Information 5 Murtaza BHATTI RVT, SUSI Swenson. [address] [facility], [address], [place], [id number], [place]. tel:[phone] Referring Provider: Yanna Valdes MD, [address] [place] [address] [address], [place], [address]. tel:[phone] Office/Outpt E&M Established 15 Mins- [place] & [place] [facility], [address] [place] [address] Dr Carreno 1000[address] 1000A[place]ce [place], [id number], [place] tel:[phone] [facility] Restless legs syndromeVenou s insufficiency (chronic) (peripheral)E ssential (primary) hypertension 5 Murtaza BHATTI RVT, SUSI Swenson. [address] [facility], [address], [place], [id number], [place]. tel:[phone] Referring Provider: Yanna Valdes MD, [address] [place] [address] [address], [place], [address]. tel:[phone] [facility], [address] [place] [address] Dr Carreno 1000[facility] [place]ce Mckeon [place], [id number], [place] tel:[phone] [facility] Encounter for follow-up examination after completed treatment for conditions other than malignant neoplasmChron ic venous hypertension (idiopathic) with other complications of left lower extremity 5 Murtaza BHATTI RVT, SUSI Swenson. [address] [facility], [address], [place], [id number], [place]. tel:[phone] Referring Provider: Yanna Valdes MD, [address], [place], [address]. tel:[phone] [facility], [address] [place] [address] Dr [address] 1000Alyce [place], [id number], [place] tel:[phone] CVR - [facility] Venous insufficiency (chronic) (peripheral)N evus, non-neoplasti c 4 Mollkya Bryant. [address] [facility], [address], [facility] [place], [place], [id number], [place]. tel:[phone] Referring Provider: Yanna Valdes MD, [address] [place] [address] [address], [place], [address]. tel:[phone] Office/Outpt E&M Established 15 Mins- CT & [place] [facility], [address] [place] [address] Dr Carreno 1000[facility] 1000Alyce [place], [id number], [place] tel:[phone] CVR - [facility] Essential (primary) hypertensionL ocalized edemaVenous insufficiency (chronic) (peripheral) 4 Murtaza BHATTI RVT, SUSI Swenson. [address] [place] [address] [address], [facility] [place], [id number], [place]. tel:[phone] Referring Provider: Yanna Valdes MD, [address] [place] [address] [address], [place], [address]. tel:[phone] [facility], [address] [place] [address] Dr Carreno 1000[facility] 1000Alyce [place], [id number], [place] tel:[phone] [facility] Encounter for follow-up examination after completed treatment for conditions other than malignant neVaricose veins of left lower extremity with pain 4 Murtaza BHATTI RVT, SUSI Swenson. [address] [place] [address], [address], [facility] [place], [id number], [place]. tel:[phone] Referring Provider: Yanna Valdes MD, [address] [place] [address] [address], [place], [address]. tel:[phone] [facility], [address] [place] [address] Dr Carreno 1000[address] 1000Alyce [place], [id number], [place] tel:[phone] [facility] - [facility] Encounter for follow-up examination after completed treatment for conditions other than malignant ne 4 Murtaza BHATTI RVT, RPVI Robert. [address] [place] [address], [facility] [place] [id number], [place]. tel:[phone] Referring Provider: Yanna Valdes MD, [address] [place] [address] Suite [facility], [place], [address]. tel:[phone] [facility], [address] [place] [address] [facility] 1000[facility] Alyce Mckeon MD, [id number], [place] tel:[phone] CV[facility] - [facility] Chronic venous hypertension (idiopathic) with inflammation of left lower extremity 4 Surinder Bryant. [address] [place] [address], [facility] [place], [id number], [place]. tel:[phone] Referring Provider: Yanna Valdes MD, [address] [place] [address] Suite [facility], [place], [address]. tel:[phone] [facility], [address] [place] [address] [facility] 1000Suite Alyce Mc[place], [id number], [place] tel:[phone] CV[facility] - [facility] Encounter for follow-up examination after completed treatment for conditions other than malignant neChronic venous hypertension (idiopathic) with other complications of left lower extremity 4 Murtaza BHATTI RVT, RPVI Robert. [address] [place] [address], [place], [id number], [place]. tel:[phone] Referring Provider: Yanna Valdes MD, [address] [place] [address] [address], [place], [address]. tel:[phone] [facility], [address] [place] [address] [facility] 1000Suite Alyce Mckeon [place], [id number], [place] tel:[phone] CVR - [facility] Chronic venous hypertension (idiopathic) with inflammation of left lower extremity 4 Murtaza BHATTI RVT, RPVI Robert. [address] [place] [address], [place], [id number], [place]. tel:[phone] Referring Provider: Yanna Valdes MD, [address] [place] [address] [address], [place], [address]. tel:[phone] [facility], [address] [place] [address] Dr Carreno 1000Suite Alyce Mckeon [place], [id number], [place] tel:[phone] [facility] [facility] [place] Varicose veins of left lower extremity with other complications Apr-3 4 Murtaza BHATTI RVT, SUSI Swenson. [address] [place] [address], [facility] [place], [id number], [place]. tel:[phone] Referring Provider: Yanna Valdes MD, [address] [place] [address] [address], [place], [address]. tel:[phone] Offic/outpt E&m Estab 5 Min Trial - Telemedicine [facility], [address] [place] [address] Dr Carreno 1000[address] 1000Alyce [place], [id number], [place] tel:[phone] [facility] [place] Localized edemaCramp and spasmRestless legs syndromeVenou s insufficiency (chronic) (peripheral)E ssential (primary) hypertensionP ruritus, unspecified Aug- 4 Ajit Calzada. [address] [place] [address] [address], [facility] [place] [place], [id number], [place]. tel:[phone] Referring Provider: Yanna Valdes MD, [address] [place] [address] [address], [place], [address]. tel:[phone] Office/Oupt E&M New Pt 30 Mins [facility], [address] [place] [address] Dr Carreno 1000[address] 1000Alyce MD, [id number], [place] tel:[phone] [facility] [place] Varicose veins of left lower extremity with other complications Pain in left lower legLocalized edemaCramp and spasmRestless legs syndromeEssen tial (primary) hypertensionP ruritus, unspecified Fe-0 4 Murtaza BHATTI RVT, SUSI Swenson. [address] [place] [address], [place], [id number], [place]. tel:[phone] Referring Provider: Yanna Valdes MD, [address] [facility] [address], [place], [address]. tel:[phone] [facility], [address] [facility] [address], [place], [id number], [place] tel:[phone] [place] Chronic venous hypertension (idiopathic) with other complications of left lower extremity 4 Murtaza BHATTI, RVT, RPVI Messi. [address] [facility], [address], [place], [id number], [place]. tel:[phone] Referring Provider: Yanna Valdes MD, [address] [facility] [address], [place], [address]. tel:[phone] Family History Family Member Type Diagnosis Age At Onset No Information Payers Payer name Insurance type Covered alliance party ID Kreri calvillo(s) Medical Assistance [facility] [id number] Social History Type Description Quantity Date Captured [...] given Related to Venous insufficiency (chronic) (peripheral) Lifestyle [...]
[2025-02-04 08:28] LABS: Prothrombin Time Whole Bld POC 35.3 sec (11.1-13.5); ~PT, ~INR - Anti Coag Clinic 2.9 (0.9-1.1)
--- NOTE | 2025-02-04 08:35 | MHC.OFFVISCO ---
Intake Intake Visit Reasons: Anticoagulation Allergies ciprofloxacin (From Cipro) Allergy (Unknown, Verified 02/04/25 08:23) RASH Sulfa (Sulfonamide Antibiotics) Allergy (Unknown, Verified 02/04/25 08:23) SWELLING/ITCHING, swelling topiramate (From TOPAMAX) Allergy (Unknown, Verified 02/04/25 08:23) DIZZY Medication List - Last Reconciled 02/04/25 by Mara Lan RN albuterol sulfate 2.5 mg inhalation Q4-6H PRN albuterol sulfate 90 mcg/actuation (ProAir HFA) 2 puffs inhalation Q6H PRN bupropion HCl SR (Wellbutrin SR) 150 mg PO DAILY cholecalciferol (vitamin D3) 50 mcg PO DAILY 30 days doxycycline hyclate 100 mg PO BID fluticasone propionate 50 mcg/actuation (Flonase Allergy Relief) 1 spray intranasal DAILY fluticasone propionate 110 mcg/actuation (Flovent HFA) 2 puffs PO BID lisinopril 20 mg PO DAILY montelukast 10 mg PO DAILY omeprazole 20 mg PO DAILY ondansetron 4 mg PO TID PRN phytosterol-pantethine 300-100 mg (CholestOff Complete) caps PO sennosides-docusate sodium 8.6-50 mg (Senexon-S) 2 tabs PO BEDTIME sertraline 50 mg PO DAILY trazodone 50 mg PO BEDTIME PRN triamcinolone acetonide 0.5% 1 appl topical BID warfarin See Protocol 7.5mg x 6, 5mg x 1 Nursing Note NO CP,SOB,DIET/MED CHANGES,FALLS OR SX OF BLEEDING. CONTINUE PRESERNT DOSE AND FOLLOW-UP IN 2 WEEKS GOOD UNDERSTANDING OF DOSING INSTR. Anti-Coag Initial Assessment Social Hx Patient Tobacco Use Status: Never used Tobacco alcohol intake: never Alcohol intake frequency: does not drink Coding Level of Care Code Est Patient Level 1 Diagnoses Current use of anticoagulant therapy Z79.01 Assessment & Plan Assessment & Plan (1) Current use of anticoagulant therapy: Code(s): Z79.01 - [facility] (current) use of anticoagulants Category: Medical
--- OUTSIDE RECORDS SUMMARY | 2025-02-04 08:41 | XMS_ITS | Patient Health Record ---
Author Organization [facility] Address [address] [place] [address] Care Team Providers Care Chicken Dresser Name Role Phone Yanna Valdes Primary Care [...] Diff Reviewed date:04/14/2024 08:55:09 AM Interpretation: Performing Lab:[facility], [address] [place] [phone] Notes/Report: White Blood Count 6.2 4.8-10.8 X10*3/uL [...] Panel Reviewed date:04/14/2024 08:55:15 AM Interpretation: Performing Lab:[address] [address] Notes/Report: Bilirubin Total 0.3 0.0-1.0 mg/dL Bilirubin Direct 0.1 0.0-0.5 mg/dL Aspartate Amino Transferase 22 5-31 U/L Alanine Aminotransferase 17 0-31 U/L Total Protein 7.2 6.5-8.0 g/dL Albumin Level 3.9 3.5-5.0 g/dL Alkaline Phosphatase 71 39-117 U/L Blood Urea Nitrogen Reviewed date:04/14/2024 08:52:04 AM Interpretation: Performing Lab:[address] [phone] Notes/Report: Blood Urea Nitrogen 9 9-16 mg/dL Creatinine Reviewed date:04/14/2024 08:55:22 AM Interpretation: Performing Lab:[facility], [address] [place] [phone] Notes/Report: Creatinine 0.70 0.5-1.4 mg/dL Estimated Glomerular Filt Rate > 60 NOTE: For -Macedonian individuals, multiply the result by 1.210. Chronic Kidney Disease: Estimated GFR < 60 mL/min/1.73m2 Severe Kidney Disease: Estimated GFR < 15 mL/min/1.73m2 Lipase Reviewed date:04/14/2024 08:55:29 AM Interpretation: Performing Lab:[facility], [address] [place] [phone] Notes/Report: Lipase 31 8-78 U/L US abdomen complete Reviewed date:04/24/2024 08:22:36 AM Interpretation: Performing Lab: Notes/Report: [address] [address] Ultrasound Report Signed Patient: Norma Carter I MR#: [id number] : 1970 Acct:[id number] Age/Sex: 53 / F ADM Date: 04/18/24 Loc: HO.US Attending Dr: Severo Jett MD Ordering Physician: Severo Jett MD Date of Service: 04/18/24 Procedure(s): US abdomen complete Accession Number(s): [id number] cc: Yanna Valdes MD; Severo Jett MD [...] in OV> 04/20/242133 DD/ 3 TD/TT: 04/18/24931 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: TERRIE Reason For Referral Referring Provider First Name Yanna Referring Provider Last Name Keisha Referring Provider Speciality Internal M edicine Referred Organization [facility] Referred Provider eSvero Jett Jr Referred Address [address] [place] [address],[place] [address],[place], [place],[address], Referred Provider Specialty Gastroentero logy General Notes Eunice,Jackelin 024 01:55:42 PM EDT > REQUESTED A [...] Problem Status W/U Status Risk Notes Problem 958497455 Colon cancer screening (Z12.11) Active confirmed Problem Esophageal reflux (520311638) Esophageal reflux (K21.9) Active confirmed Problem 74028723 Epigastric pain (R10.13) Active confirmed Vital Signs Blood pressure diastolic 00 mm Hg 04/09/2024 Height 68 in 04/09/2024 Blood pressure systolic 00 mm Hg 04/09/2024 Weight 224 lbs 04/09/2024 BMI 34.06 kg/m2 04/09/2024 Encounters Encounter Location Date Provider Diagnosis [facility] [address] [place] [phone] 04/09/2024 Severo Jett Jr Epigastric pain R10.13 [facility] [address] [place] [address] Drive [address] [place] [phone] 03/04/2024 Severo Jett Jr [facility] [address] [place] [address] Drive [address] [place] [phone] 04/14/2024 Severo Jett Jr [facility] [address] [place] [address] [address] [place] [phone] 04/24/2024 Severo Jett Jr Assessments Encounter Date [...] [address] [facility], [address], [place], [address], Insurance Providers Payer Name Payer Address Payer Phone Subscriber Number Group Number Insured Name Patient Relationship to Insured Coverage Start Date Coverage End Date MEDICAID OF [facility] [address] [place] [phone] [id number] NORMA ESTES Self - patient is the insured Medical (General) History Medical History History ICD Code DVT/PE EGD 01/31, esophagitis, eosinophils on bi opsy Environmental allergies Anxiety Insomnia Hypertension Elevated cholesterol Colonoscopy 01/31, normal, ten-year follo wup Surgical History Surgery Date(Month/Year) thyroid surgery vena cava filter 1993 lipoma removal 2021
== END 2025-02-04 11:02 | disposition home or self-care (01) ==
LOC: HO.ACS 08:23
PROVIDERS: PCP Internal Medicine; Visit Provider Internal Medicine Medical Oncology
DX: Z79.01 Long term (current) use of anticoagulants (principal)

== ENCOUNTER → 2025-02-04 08:23 | Outpatient (BNVA) | payer MEDICAID, SELFPAY | PROVIDERS: PCP Internal Medicine; Visit Provider Internal Medicine Medical Oncology | DX: Z86.718 Personal history of other venous thrombosis and embolism (principal); Z79.01 Long term (current) use of anticoagulants; Z51.81 Encounter for therapeutic drug level monitoring | CPT/HCPCS: 85610; 99211 ==

== ENCOUNTER 2025-02-18 13:59 | Outpatient (AMB) | payer MEDICAID, SELFPAY ==
--- OUTSIDE RECORDS SUMMARY | 2024-07-09 05:20 | XMS_ITS ---
Author Organization [facility] Address [address] [place] [address] Care Team Providers Care Performance Test Consultant Name Role Phone Yanna Valdes Primary Care Provider Unavailab Severo Davenport Jr REASON FOR VISIT epigastric pain Encounters Encounter Location Date Provider Diagnosis [facility] [address] [place] [address] 07/09/2024 Severo Cancino Jr Plan Of Treatment Next Appt Details Provider Name:Severo loza Jr, 04/08/2025 09:00:00 AM, [address], [address], [place], [address], Progress Notes * APOLLO KRAUSLEXIOB:[birth year] 75 (54 yo F)Acc No.[id number]:07/09/2024 Progress Notes Patient: APOLLO SCHAEFERRA Provider: Ciera Cancino MD :1970 A ge:53 Y S ex:Female Date:07/09/2024 Address:[address], [id number] Pcp:Yanna Valdes Subjective: * Chief Complaints: * [...] 0 07/09/2024 Generated for Terrell lópez/Melissa/Zeenat on: 0 02/18/2025 05:07 PM EDT
[2025-02-18 14:14] LABS: Prothrombin Time Whole Bld POC 22.0 sec (11.1-13.5); ~PT, ~INR - Anti Coag Clinic 1.8 (0.9-1.1)
--- NOTE | 2025-02-18 14:16 | MHC.OFFVISCO ---
Intake Intake Visit Reasons: Anticoagulation Allergies ciprofloxacin (From Cipro) Allergy (Unknown, Verified 02/18/25 14:00) RASH Sulfa (Sulfonamide Antibiotics) Allergy (Unknown, Verified 02/18/25 14:00) SWELLING/ITCHING, swelling topiramate (From TOPAMAX) Allergy (Unknown, Verified 02/18/25 14:00) DIZZY Medication List - Last Reconciled 02/18/25 by Mara Lan RN albuterol sulfate 2.5 mg inhalation Q4-6H PRN albuterol sulfate 90 mcg/actuation (ProAir HFA) 2 puffs inhalation Q6H PRN bupropion HCl SR (Wellbutrin SR) 150 mg PO DAILY cholecalciferol (vitamin D3) 50 mcg PO DAILY 30 days doxycycline hyclate 100 mg PO BID fluticasone propionate 50 mcg/actuation (Flonase Allergy Relief) 1 spray intranasal DAILY fluticasone propionate 110 mcg/actuation (Flovent HFA) 2 puffs PO BID lisinopril 20 mg PO DAILY montelukast 10 mg PO DAILY omeprazole 20 mg PO DAILY ondansetron 4 mg PO TID PRN phytosterol-pantethine 300-100 mg (CholestOff Complete) caps PO sennosides-docusate sodium 8.6-50 mg (Senexon-S) 2 tabs PO BEDTIME sertraline 50 mg PO DAILY trazodone 50 mg PO BEDTIME PRN triamcinolone acetonide 0.5% 1 appl topical BID warfarin See Protocol 7.5mg x 6, 5mg x 1 Nursing Note NO MISSE DOSES,CP,SOB,DIET/MED CHANGES,FALLS OR SX OF BLEEDING. BOOST TO 10MGM TODAY THEN RESUME USUAL DOSE AND FOLLOW-UP IN 2 WEEKS GOOD UNDERSTANDING OF DOSING INSTR. Anti-Coag Initial Assessment Social Hx Patient Tobacco Use Status: Never used Tobacco alcohol intake: never Alcohol intake frequency: does not drink Coding Level of Care Code Est Patient Level 1 Diagnoses Current use of anticoagulant therapy Z79.01 Results AMB INR Fingerstick AMB INR Fingerstick 1.8 Last Edit by Mara Lan RN on 02/18/25 14:06 Assessment & Plan Assessment & Plan (1) Current use of anticoagulant therapy: Code(s): Z79.01 - care home (current) use of anticoagulants Category: Medical
--- OUTSIDE RECORDS SUMMARY | 2025-02-18 17:07 | XMS_ITS | Patient Health Record ---
Author Organization [facility] Address [address] [place] [address] Care Team Providers Care Chiller Technician Name Role Phone LucinaYanna freeman Primary Care [...] Diff Reviewed date:04/14/2024 08:55:09 AM Interpretation: Performing Lab:[facility], [address] [place] [phone] Notes/Report: White Blood Count 6.2 4.8-10.8 X10*3/uL [...] Panel Reviewed date:04/14/2024 08:55:15 AM Interpretation: Performing Lab:[address] [phone] Notes/Report: Bilirubin Total 0.3 0.0-1.0 mg/dL Bilirubin Direct 0.1 0.0-0.5 mg/dL Aspartate Amino Transferase 22 5-31 U/L Alanine Aminotransferase 17 0-31 U/L Total Protein 7.2 6.5-8.0 g/dL Albumin Level 3.9 3.5-5.0 g/dL Alkaline Phosphatase 71 39-117 U/L Blood Urea Nitrogen Reviewed date:04/14/2024 08:52:04 AM Interpretation: Performing Lab:[address] [phone] Notes/Report: Blood Urea Nitrogen 9 9-16 mg/dL Creatinine Reviewed date:04/14/2024 08:55:22 AM Interpretation: Performing Lab:[facility], [address] [place] [phone] Notes/Report: Creatinine 0.70 0.5-1.4 mg/dL Estimated Glomerular Filt Rate > 60 NOTE: For -Cook Islander individuals, multiply the result by 1.210. Chronic Kidney Disease: Estimated GFR < 60 mL/min/1.73m2 Severe Kidney Disease: Estimated GFR < 15 mL/min/1.73m2 Lipase Reviewed date:04/14/2024 08:55:29 AM Interpretation: Performing Lab:[facility], [address] [place] [phone] Notes/Report: Lipase 31 8-78 U/L US abdomen complete Reviewed date:04/24/2024 08:22:36 AM Interpretation: Performing Lab: Notes/Report: [address] [address] Ultrasound Report Signed Patient: Norma Carter I MR#: [id number] : 1970 Acct:[id number] Age/Sex: 53 / F ADM Date: 04/18/24 Loc: HO.US Attending Dr: Severo Jett MD Ordering Physician: Severo Jett MD Date of Service: 04/18/24 Procedure(s): US abdomen complete Accession Number(s): [id number] cc: Yanna Valdes MD; Severo Jett MD [...] in OV> 04/20/242133 DD/ 3 TD/TT: 04/18/24931 Can Labeler: TERRIE Reason For Referral Referring Provider First Name Yanna Referring Provider Last Name Keisha Referring Provider Speciality Internal M edicine Referred Organization [facility] Referred Provider Severo Jett Jr Referred Address [address] [place] [address],[place] [address],[place], [place],[address], Referred Provider Specialty Gastroentero logy General Notes [place],Jackelin 024 01:55:42 PM EDT > REQUESTED A [...] Problem Status W/U Status Risk Notes Problem [id number] Colon cancer screening (Z12.11) Active confirmed Problem Esophageal reflux (852398418) Esophageal reflux (K21.9) Active confirmed Problem 64623965 Epigastric pain (R10.13) Active confirmed Vital Signs Blood pressure diastolic 00 mm Hg 04/09/2024 Height 68 in 04/09/2024 Blood pressure systolic 00 mm Hg 04/09/2024 Weight 224 lbs 04/09/2024 BMI 34.06 kg/m2 04/09/2024 Encounters Encounter Location Date Provider Diagnosis [facility] [address] [place] [phone] 04/09/2024 Severo Jett Jr Epigastric pain R10.13 [facility] [address] [place] [address] Drive [address] [place] [phone] 03/04/2024 Severo Jett Jr [facility] [address] [place] [address] Drive [address] [place] [phone] 04/14/2024 Severo Jett Jr [facility] [address] [place] [address] Drive [address] [place] [phone] 04/24/2024 Severo Jett Jr Assessments Encounter Date [...] loza Jr, 04/08/2025 09:00:00 AM, [address] [facility], [address], [place], [address], Insurance Providers Payer Name Payer Address Payer Phone Subscriber Number Group Number Insured Name Patient Relationship to Insured Coverage Start Date Coverage End Date MEDICAID OF [facility] [address] [place] [phone] [id number] NORMA ESTES Self - patient is the insured Medical (General) History Medical History History ICD Code DVT/PE EGD 01/31, esophagitis, eosinophils on bi opsy Environmental allergies Anxiety Insomnia Hypertension Elevated cholesterol Colonoscopy 01/31, normal, ten-year follo wup Surgical History Surgery Date(Month/Year) thyroid surgery vena cava filter 1993 lipoma removal 2021
== END 2025-02-18 15:13 | disposition home or self-care (01) ==
LOC: HO.ACS 13:59
PROVIDERS: PCP Internal Medicine; Visit Provider Internal Medicine Medical Oncology
DX: Z79.01 Long term (current) use of anticoagulants (principal)

== ENCOUNTER → 2025-02-18 13:59 | Outpatient (BNVA) | payer MEDICAID, SELFPAY | PROVIDERS: PCP Internal Medicine; Visit Provider Internal Medicine Medical Oncology | DX: Z86.718 Personal history of other venous thrombosis and embolism (principal); Z79.01 Long term (current) use of anticoagulants; Z51.81 Encounter for therapeutic drug level monitoring | CPT/HCPCS: 85610; 99211 ==

== ENCOUNTER 2025-03-04 09:23 | Outpatient (AMB) | payer MEDICAID, SELFPAY ==
--- OUTSIDE RECORDS SUMMARY | 2024-07-09 05:20 | XMS_ITS ---
Author Organization [facility] Address [address] [place] [address] Care Team Providers Care Lead Warehouse Associate Name Role Phone Yanna Valdes Primary Care Provider Unavailab Severo Davenport Jr REASON FOR VISIT epigastric pain Encounters Encounter Location Date Provider Diagnosis [facility] [address] [place] [address] 07/09/2024 Severo Cancino Jr Plan Of Treatment Next Appt Details Provider Name:Severo loza Jr, 04/08/2025 09:00:00 AM, [address], [address], [place], [address], Progress Notes * CHICA KRAUSOB:[birth year] 75 (54 yo F)Acc No.[id number]:07/09/2024 Progress Notes Patient: APOLLO SCHAEFERRA Provider: Ciera Cancino MD :1970 A ge:53 Y S ex:Female Date:07/09/2024 Address:[address], [place] Pcp:Yanna Valdes Subjective: * Chief Complaints: * [...] 07/09/2024 Generated for Terrell lópez/Melissa/Zeenat on: 0 03/04/2025 11:05 AM EDT
[2025-03-04 09:43] LABS: Prothrombin Time Whole Bld POC 40.0 sec (11.1-13.5); ~PT, ~INR - Anti Coag Clinic 3.3 (0.9-1.1)
--- NOTE | 2025-03-04 09:50 | MHC.OFFVISCO ---
Intake Intake Visit Reasons: Anticoagulation Allergies ciprofloxacin (From Cipro) Allergy (Unknown, Verified 03/04/25 09:37) RASH Sulfa (Sulfonamide Antibiotics) Allergy (Unknown, Verified 03/04/25 09:37) SWELLING/ITCHING, swelling topiramate (From TOPAMAX) Allergy (Unknown, Verified 03/04/25 09:37) DIZZY Medication List - Last Reconciled 03/04/25 by Mara Lan RN albuterol sulfate 2.5 mg inhalation Q4-6H PRN albuterol sulfate 90 mcg/actuation (ProAir HFA) 2 puffs inhalation Q6H PRN bupropion HCl SR (Wellbutrin SR) 150 mg PO DAILY cholecalciferol (vitamin D3) 50 mcg PO DAILY 30 days doxycycline hyclate 100 mg PO BID fluticasone propionate 50 mcg/actuation (Flonase Allergy Relief) 1 spray intranasal DAILY fluticasone propionate 110 mcg/actuation (Flovent HFA) 2 puffs PO BID lisinopril 20 mg PO DAILY montelukast 10 mg PO DAILY omeprazole 20 mg PO DAILY ondansetron 4 mg PO TID PRN phytosterol-pantethine 300-100 mg (CholestOff Complete) 300 caps PO DAILY sennosides-docusate sodium 8.6-50 mg (Senexon-S) 2 tabs PO BEDTIME sertraline 50 mg PO DAILY trazodone 50 mg PO BEDTIME PRN triamcinolone acetonide 0.5% 1 appl topical BID warfarin See Protocol 7.5mg x 6, 5mg x 1 Nursing Note PT.STARTED CEPHALEXIN YESTERDAY FOR UTI SX. NO CP,SOB OR SX OF BLEEDING. DECREASE DOSE SLIGHTLY TODAY THEN CONTINUE USUAL AND FOLLOW-UP IN 2 WEEKS. WILL BE SURE TO INCREASE GREENS OVER THE NEXT WEEK GOOD UNDERSTANDING OF DOSINJG INSTR. Anti-Coag Initial Assessment Social Hx Patient Tobacco Use Status: Never used Tobacco alcohol intake: never Alcohol intake frequency: does not drink Coding Level of Care Code Est Patient Level 1 Diagnoses Current use of anticoagulant therapy Z79.01 Assessment & Plan Assessment & Plan (1) Current use of anticoagulant therapy: Code(s): Z79.01 - skilled nursing (current) use of anticoagulants Category: Medical
--- OUTSIDE RECORDS SUMMARY | 2025-03-04 11:05 | XMS_ITS | Patient Health Record ---
Author Organization [facility] Address [address] [place] [address] Care Team Providers Care Res Habilitation Assistant Name Role Phone Yanna Valdes Primary [...] Diff Reviewed date:04/14/2024 08:55:09 AM Interpretation: Performing Lab:[facility], [address] [place] [phone] Notes/Report: White Blood Count 6.2 4.8-10.8 X10*3/uL [...] Panel Reviewed date:04/14/2024 08:55:15 AM Interpretation: Performing Lab:[address] [address] Notes/Report: Bilirubin Total 0.3 0.0-1.0 mg/dL Bilirubin Direct 0.1 0.0-0.5 mg/dL Aspartate Amino Transferase 22 5-31 U/L Alanine Aminotransferase 17 0-31 U/L Total Protein 7.2 6.5-8.0 g/dL Albumin Level 3.9 3.5-5.0 g/dL Alkaline Phosphatase 71 39-117 U/L Blood Urea Nitrogen Reviewed date:04/14/2024 08:52:04 AM Interpretation: Performing Lab:[address] [address] Notes/Report: Blood Urea Nitrogen 9 9-16 mg/dL Creatinine Reviewed date:04/14/2024 08:55:22 AM Interpretation: Performing Lab:[facility], [address] [place] [phone] Notes/Report: Creatinine 0.70 0.5-1.4 mg/dL Estimated Glomerular Filt Rate > 60 NOTE: For -Dominican individuals, multiply the result by 1.210. Chronic Kidney Disease: Estimated GFR < 60 mL/min/1.73m2 Severe Kidney Disease: Estimated GFR < 15 mL/min/1.73m2 Lipase Reviewed date:04/14/2024 08:55:29 AM Interpretation: Performing Lab:[facility], [address] [place] [phone] Notes/Report: Lipase 31 8-78 U/L US abdomen complete Reviewed date:04/24/2024 08:22:36 AM Interpretation: Performing Lab: Notes/Report: [address] [address] Ultrasound Report Signed Patient: Norma Carter I MR#: [id number] : 1970 Acct:[id number] Age/Sex: 53 / F ADM Date: 04/18/24 Loc: HO.US Attending Dr: Severo Cancino MD Ordering Physician: Severo Cancino MD Date of Service: 04/18/24 Procedure(s): US abdomen complete Accession Number(s): [id number] cc: Yanna Valdes MD; Severo Cancino MD EXAMINATION: US ABDOMEN COMPLETE CLINICAL INFORMATION: [...] in OV> 04/20/242133 DD/ 3 TD/TT: 04/18/24931 Environmental Science Program Director: TERRIE Reason For Referral Referring Provider First Name Yanna Referring Provider Last Name Keisha Referring Provider Speciality Internal M edicine Referred Organization [facility] Referred Provider Severo Cancino Jr Referred Address [address] [place] [address],[place] [address],[place], [place],[address], Referred Provider Specialty Gastroentero logy General Notes [place], Jackelin 2024 01:14:37 PM > requested a [facility] referral from Dr. Valdes's office for visit with Dr. Cancino on 04-08-25 Referral Priority Routine Medications Medication SIG (Take, [...] Problem Status W/U Status Risk Notes Problem [id number] Colon cancer screening (Z12.11) Active confirmed Problem Esophageal reflux (482038824) Esophageal reflux (K21.9) Active confirmed Problem 20355900 Epigastric pain (R10.13) Active confirmed Vital Signs Blood pressure diastolic 00 mm Hg 04/09/2024 Height 68 in 04/09/2024 Blood pressure systolic 00 mm Hg 04/09/2024 Weight 224 lbs 04/09/2024 BMI 34.06 kg/m2 04/09/2024 Encounters Encounter Location Date Provider Diagnosis [facility] [address] [place] [phone] 04/09/2024 Severo Cancino Jr Epigastric pain R10.13 [facility] [address] [place] [address] Drive [address] [place] [phone] 03/04/2024 Severo Cancino Jr [facility] [address] [place] [address] Drive [address] [place] [phone] 04/14/2024 Severo Cancino Jr [facility] [address] [place] [address] Drive [address] [place] [phone] 04/24/2024 Severo Cancino Jr Assessments Encounter Date Diagnosis (ICD Code) [...] Name:Severo loza Jr, 04/08/2025 09:00:00 AM, [address] [facility], [address], [place], [address], Insurance Providers Payer Name Payer Address Payer Phone Subscriber Number Group Number Insured Name Patient Relationship to Insured Coverage Start Date Coverage End Date [facility]ICA[facility] [address] [place] [phone] [id number] NORMA ESTES Self - patient is the insured Medical (General) History Medical History History ICD Code DVT/PE EGD 01/31, esophagitis, eosinophils on bi opsy Environmental allergies Anxiety Insomnia Hypertension Elevated cholesterol Colonoscopy 01/31, normal, ten-year follo wup Surgical History Surgery Date(Month/Year) thyroid surgery vena cava filter 1993 lipoma removal 2021
== END 2025-03-04 09:55 | disposition home or self-care (01) ==
LOC: HO.ACS 09:23
PROVIDERS: PCP Internal Medicine; Visit Provider Internal Medicine Medical Oncology
DX: Z79.01 Long term (current) use of anticoagulants (principal)

== ENCOUNTER → 2025-03-04 09:23 | Outpatient (BNVA) | payer MEDICAID, SELFPAY | PROVIDERS: PCP Internal Medicine; Visit Provider Internal Medicine Medical Oncology | DX: Z86.73 Personal history of transient ischemic attack (TIA), and cerebral infarction without residual deficits (principal); Z79.01 Long term (current) use of anticoagulants; Z51.81 Encounter for therapeutic drug level monitoring | CPT/HCPCS: 85610; 99211 ==

== ENCOUNTER 2025-03-30 08:48 | Outpatient (AMB) | payer MEDICAID, SELFPAY ==
[2025-03-30 09:08] LABS: Prothrombin Time Whole Bld POC 29.2 sec (11.1-13.5); ~PT, ~INR - Anti Coag Clinic 2.4 (0.9-1.1)
--- NOTE | 2025-03-30 09:11 | MHC.OFFVISCO ---
Intake Intake Visit Reasons: Anticoagulation Allergies ciprofloxacin (From Cipro) Allergy (Unknown, Verified 03/30/25 09:02) RASH Sulfa (Sulfonamide Antibiotics) Allergy (Unknown, Verified 03/30/25 09:02) SWELLING/ITCHING, swelling topiramate (From TOPAMAX) Allergy (Unknown, Verified 03/30/25 09:02) DIZZY Medication List - Last Reconciled 03/30/25 by Fior Turpin RN albuterol sulfate 2.5 mg inhalation Q4-6H PRN albuterol sulfate 90 mcg/actuation (ProAir HFA) 2 puffs inhalation Q6H PRN bupropion HCl SR (Wellbutrin SR) 150 mg PO DAILY cholecalciferol (vitamin D3) 50 mcg PO DAILY 30 days doxycycline hyclate 100 mg PO BID fluticasone propionate 50 mcg/actuation (Flonase Allergy Relief) 1 spray intranasal DAILY fluticasone propionate 110 mcg/actuation (Flovent HFA) 2 puffs PO BID lisinopril 20 mg PO DAILY montelukast 10 mg PO DAILY omeprazole 20 mg PO DAILY ondansetron 4 mg PO TID PRN phytosterol-pantethine 300-100 mg (CholestOff Complete) 300 caps PO DAILY sennosides-docusate sodium 8.6-50 mg (Senexon-S) 2 tabs PO BEDTIME sertraline 50 mg PO DAILY trazodone 50 mg PO BEDTIME PRN triamcinolone acetonide 0.5% 1 appl topical BID warfarin See Protocol 7.5mg x 6, 5mg x 1 Nursing Note Pt to [facility]. Started doxycycline on 03/23/25 for an infection in armpit pt states from shaving. States she may have missed a dose. INR: 2.4 in therapeutic range of 2-3 Medications and supplements reviewed No changes in health, diet, medications, or supplements, Denies any signs and symptoms of bleeding or bruising or clotting. Bleeding, bruising, clotting discussed Nutritional guidance given Dose: 7.5mg X 6 days and 5mg X 1 day (Mon) F/U INR: 10 days Patient verbalizes understanding of instructions given Anti-Coag Initial Assessment Social Hx Patient Tobacco Use Status: Never used Tobacco alcohol intake: never Alcohol intake frequency: does not drink Coding Level of Care Code Est Patient Level 1 Diagnoses Current use of anticoagulant therapy Z79.01 Results AMB INR Fingerstick AMB INR Fingerstick 2.4 Last Edit by Fior Turpin RN on 03/30/25 09:08 interface delay Assessment & Plan Assessment & Plan (1) Current use of anticoagulant therapy: Code(s): Z79.01 - FDC (current) use of anticoagulants Category: Medical
== END 2025-03-30 09:15 | disposition home or self-care (01) ==
LOC: HO.ACS 08:48
PROVIDERS: PCP Internal Medicine; Visit Provider Internal Medicine Medical Oncology
DX: Z79.01 Long term (current) use of anticoagulants (principal)

== ENCOUNTER → 2025-03-30 08:48 | Outpatient (BNVA) | payer MEDICAID, SELFPAY | PROVIDERS: PCP Internal Medicine; Visit Provider Internal Medicine Medical Oncology | DX: Z86.718 Personal history of other venous thrombosis and embolism (principal); Z51.81 Encounter for therapeutic drug level monitoring; Z79.01 Long term (current) use of anticoagulants | CPT/HCPCS: 85610; 99211 ==

== ENCOUNTER 2025-04-03 10:49 | Emergency (ER) | payer MEDICAID, SELFPAY ==
--- NOTE | ~2025-04-03 | XR_ITS ---
EXAMINATION: XR FOREARM, RIGHT CLINICAL INFORMATION: fall. pain COMPARISON: None available. TECHNIQUE: AP and lateral views of the right forearm were obtained. FINDINGS: There is a mildly irregular transverse fracture at the junction of middle third distal third diaphysis of the ulna with 3 mm offset without angular deformity. No other abnormality is seen. XR/XR forearm RT 2V IMPRESSION: Acute fracture of the right ulna at the junction of middle third and distal third diaphysis. Electronically signed by: Yazan Garcia MD 04/03/2025 12:06 PM EDT
--- NOTE | ~2025-04-03 | XR_ITS ---
EXAMINATION: XR WRIST, RIGHT CLINICAL INFORMATION: fall, pain COMPARISON: None available. TECHNIQUE: PA, lateral, oblique, and scaphoid views of the right wrist. FINDINGS: Refer to forearm dictation for a description of the ulnar fracture. There is no joint diastases or degeneration. No other fractures are identified. XR/XR wrist RT 2V IMPRESSION: Unremarkable right wrist Right ulnar fracture, see forearm dictation Electronically signed by: Yazan Garcia MD 04/03/2025 12:08 PM EDT
[2025-04-03 11:13] VITALS: BP 113/58; PULSE 72; RESP 18; TEMP 36.3; O2SAT 96; BMI 33.6
--- NOTE | 2025-04-03 11:13 | ED.GENADULT ---
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 States fell onto right forearm, denies head trauma or LOC. Denies injury to other area, numbness, tingling, weakness Related Data Home Medications ?Medication ?Instructions ?Recorded ?Confirmed albuterol sulfate 2.5 mg/3 mL 2.5 mg inhalation Q4-6H PRN 04/15/20 03/30/25 (0.083 %) solution for nebulization Shortness Of Breath Or Wheezing albuterol sulfate 90 mcg/actuation 2 puff inhalation Q6H PRN 04/15/20 03/30/25 aerosol inhaler (ProAir HFA) Shortness Of Breath Or Wheezing fluticasone propionate 50 1 spray intranasal DAILY 04/15/20 03/30/25 mcg/actuation nasal spray,suspension (Flonase Allergy Relief) fluticasone propionate 110 2 puff PO BID 02/15/21 03/30/25 mcg/actuation HFA aerosol inhaler (Flovent HFA) omeprazole 20 mg capsule,delayed 20 mg PO DAILY 02/15/21 03/30/25 release triamcinolone acetonide 0.5 % 1 appl topical BID 05/22/22 03/30/25 topical cream montelukast 10 mg tablet 10 mg PO DAILY 11/01/22 03/30/25 sennosides 8.6 mg-docusate sodium 2 tab PO BEDTIME 02/02/23 03/30/25 50 mg tablet (Senexon-S) ondansetron 4 mg disintegrating 4 mg PO TID PRN Nausea 02/06/24 03/30/25 tablet sertraline 100 mg tablet 50 mg PO DAILY 03/18/24 03/30/25 lisinopril 20 mg tablet 20 mg PO DAILY 05/05/24 03/30/25 trazodone 50 mg tablet 50 mg PO BEDTIME PRN Sleep 05/05/24 03/30/25 bupropion HCl 150 mg tablet,12 hr 150 mg PO DAILY 05/14/24 03/30/25 sustained-release (Wellbutrin SR) phytosterol 300 mg-pantethine 100 300 cap PO DAILY 12/29/24 03/30/25 mg capsule (CholestOff Complete) doxycycline hyclate 100 mg tablet 100 mg PO BID 01/28/25 03/30/25 Previous Rx's ?Medication ?Instructions ?Recorded cholecalciferol (vitamin D3) 50 50 mcg PO DAILY 30 days #30 caps 08/24/21 mcg (2,000 unit) capsule warfarin 5 mg tablet See Rx Instructions .Route 07/11/23 .COMPLEX #90 tabs Allergies Allergy/AdvReac Type Severity Reaction Status Date / Time ciprofloxacin (From Cipro) Allergy Unknown RASH Verified 04/03/25 11:15 Sulfa (Sulfonamide Allergy Unknown SWELLING/ITCHING, Verified 04/03/25 11:15 Antibiotics) swelling topiramate (From TOPAMAX) Allergy Unknown DIZZY Verified 04/03/25 11:15 Review of Systems Review of Systems: Yes all other systems are reviewed and are negative Constitutional: Constitutional: Reports as per [facility] Past Medical History Attestation statement: The following information was validated with the patient. Source: old records reviewed Medical History History of lipoma Multiple lipomas Scalp cyst DVT (deep vein thrombosis) in Vitamin D deficiency Non-toxic multinodular goiter Surgical History Status post excision of lipoma S/P fine needle aspiration History of partial thyroidectomy Hx of superior vena cava filter placement Hx of esophagogastroduodenoscopy Family History Family History Father Hypertension Mother Diabetes Aneurysm Hypertension Other No family history of cancer Social History Social History Household Members: Children Household Members Other:: 3 Housing: Apartment Are you a primary managed care provider to a significant other at home: No Do you presently have visiting nurse or other home services: No Alcohol intake: never Patient Tobacco Use Status: Never used Tobacco Smoked in Last 30 Days: No Use of substances other than those prescribed or required for medical reasons: No Advance Directives: No Advance Directives Information Provided: Yes Patient : No service: No Current occupational status: unemployed Physical Exam ED Vital Signs: Vital Signs - 24 hr 04/03/25 11:13 04/03/25 12:16 Temperature 97.3 F 97.3 F Pulse Rate 72 72 Respiratory Rate 18 18 Blood Pressure 113/58 L 113/58 L Pulse Oximetry 96 96 Oxygen Delivery Method Room Air Room Air BMI result Body Mass Index 33.6 Const General: cooperative, healthy appearing and no acute distress Orientation/consciousness: patient oriented x3 Limitations: no limitations HENMT Head: Yes normal to inspection and Yes atraumatic Ears: hearing grossly normal bilaterally General nose exam: Normal external nose present Face and sinus: Yes normal facial exam Eyes General: appearance normal, both eyes and all related structures EOM: EOMs intact bilaterally Neck Neck: Yes normal visual inspection and Yes no meningeal signs Resp Effort & Inspection: normal respiratory effort and no respiratory distress Cardio Rate: regular rate Skin Rashes: no rashes Wounds: no wounds Neuro General: patient oriented x3, tone normal and no meningeal signs Cranial nerves: Yes CN's II-XII intact bilaterally Gait exam (Neuro): Normal gait present Extrem Other: No open wounds. Superficial abrasion to right elbow. No ecchymosis/erythema or crepitus Right mid/distal forearm with appreciable swelling/deformity. Tender to palpation. Limited elbow full flexion/extension and supination/pronation secondary to pain. Elbow nontender to palpation. Wrist nontender to palpation. [id number] opposition intact. No snuffbox tenderness. Course Course Course Narrative: Nita Lee GRAPHIC DESIGN INTERN 04/03 1113 This is a rapid medical exam. Deferred additional HPI, ROS, PE to primary provider. 54 yo female with history of DVT on coumadin, HTN here with complaints of right hand hand/wrist pain after mechanical fall. Did not hit her head. No LOC. She is right hand dominant. Will obtain x-rays. VSS 1215--XR wrist RT 2V IMPRESSION: Unremarkable right wrist Right ulnar fracture, see forearm dictation XR forearm RT 2V IMPRESSION: Acute fracture of the right ulna at the junction of middle third and distal third diaphysis. > patient placed in long-arm posterior splint with sling Results discussed with patient including worrisome signs and symptoms and strict return precautions, and when to return to the emergency department. They verbalized understanding and feel safe for discharge at this time. Medications Administered Discontinued Medications Generic Name Dose Route Start Last Admin Trade Name Brandy PRN Reason Stop Dose Admin Acetaminophen 650 mg 04/03/25 12:01 04/03/25 12:14 Acetaminophen 325 Mg Tablet PO 04/03/25 12:02 650 mg ONCE ONE Administration Oxycodone HCl 5 mg 04/03/25 12:01 04/03/25 12:14 Oxycodone Hcl Immed Release 5 Mg Tablet PO 04/03/25 12:02 5 mg ONCE ONE Administration Procedures Orthopedic Splinting/Casting Injury #1: Side: right Upper Extremity Injury Location: forearm Upper Extremity Immobilizer: sling/shoulder immobilizer and posterior splint Medical Decision Making Medical Decision Making MDM Narrative: 54-year-old female with a past medical history DVT on Coumadin, HTN, presenting to the ED complaining of right arm pain s/p mechanical trip and fall [employer]. On exam vital signs stable, NAD/nontoxic appearing, physical exam as noted above. Concern for fracture vs sprain. No evidence of septic joint/arthritis or open fracture Plan: X-rays, pain control Please refer to course for remaining clinical decision making, interpretation of labs/imaging results, and discussions with consultants and/or family members. Differential Diagnosis Differential Diagnoses: The differential diagnosis associated with the presentation includes As above Independent Interpretation I performed an independent interpretation of an: Plain X-Ray (My interpretation: Ulnar shaft fracture) Radiology Impression Discussion of test interpretation with radiology: I have reviewed the radiologist's reading. External Record Review External record reviewed: Inpatient record, Office record, Outpatient record, Prior outpatient labs, Prior outpatient radiology, Primary care record and Outside ED record Tests considered The following testing was considered but not selected: As above Prescription Management I considered prescription management with: Pain Medication Chronic Conditions Patient?s care impacted by: Hypertension Social Determinants Patient?s care significantly limited by Social Determinants of Health including: Other Social Determinant of Health Discharge Plan Discharge Clinical Impression: Fracture of right ulna Patient Disposition: Home, Self-Care Prescriptions: No Action cholecalciferol (vitamin D3) 50 mcg (2,000 unit) capsule 50 mcg PO DAILY 30 Days Qty: 30 11RF Flovent HFA 110 mcg/actuation HFA aerosol inhaler 2 puff PO BID omeprazole 20 mg capsule,delayed release(DR/EC) 20 mg PO DAILY fluticasone propionate [Flonase Allergy Relief] 50 mcg/actuation spray,suspension 1 spray intranasal DAILY Rx Instructions: administer into each nostril albuterol sulfate [ProAir HFA] 90 mcg/actuation HFA aerosol inhaler 2 puff inhalation Q6H PRN (Reason: Shortness Of Breath Or Wheezing) albuterol sulfate 2.5 mg /3 mL (0.083 %) solution for nebulization 2.5 mg inhalation Q4-6H PRN (Reason: Shortness Of Breath Or Wheezing) sertraline 100 mg tablet 50 mg PO DAILY Patient Comments: pt states she is taking 50mg daily triamcinolone acetonide 0.5 % cream 1 appl topical BID trazodone 50 mg tablet 50 mg PO BEDTIME PRN (Reason: Sleep) montelukast 10 mg tablet 10 mg PO DAILY warfarin 5 mg tablet See Rx Instructions .ROUTE .COMPLEX Qty: 90 0RF Protocol: Dose Management Condition: Sunday (Week One) Dose/Route: 7.5 mg Instruction: 1.5 x 5 mg tablets Condition: Sunday Dose/Route: 5 mg Instruction: 1 x 5 mg tablet Condition: Sunday Dose/Route: 7.5 mg Instruction: 1.5 x 5 mg tablets Condition: Sunday Dose/Route: 7.5 mg Instruction: 1.5 x 5 mg tablets Condition: Dose/Route: 7.5 mg Instruction: 1.5 x 5 mg tablets Condition: Sunday Dose/Route: 7.5 mg Instruction: 1.5 x 5 mg tablets Condition: Sunday Dose/Route: 7.5 mg Instruction: 1.5 x 5 mg tablets Condition: Sunday (Week Two) Dose/Route: 7.5 mg Instruction: 1.5 x 5 mg tablets Condition: Sunday Dose/Route: 5 mg Instruction: 1 x 5 mg tablet Condition: Sunday Dose/Route: 7.5 mg Instruction: 1.5 x 5 mg tablets Condition: Sunday Dose/Route: 7.5 mg Instruction: 1.5 x 5 mg tablets Condition: Dose/Route: 7.5 mg Instruction: 1.5 x 5 mg tablets Condition: Sunday Dose/Route: 7.5 mg Instruction: 1.5 x 5 mg tablets Condition: Sunday Dose/Route: 7.5 mg Instruction: 1.5 x 5 mg tablets Protocol Text: Adjustment Start Date: Sunday03/30/25 INR Value: 2.4 INR Date: 03/30/25 Recheck Date: 04/09/25 Rx Instructions: 7.5mg x 6, 5mg x 1 lisinopril 20 mg tablet 20 mg PO DAILY CholestOff Complete 300-100 mg capsule 300 cap PO DAILY doxycycline hyclate 100 mg tablet 100 mg PO BID sennosides-docusate sodium [Senexon-S] 8.6-50 mg tablet 2 tab PO BEDTIME ondansetron 4 mg tablet,disintegrating 4 mg PO TID PRN (Reason: Nausea) bupropion HCl [Wellbutrin SR] 150 mg tablet sustained-release 12 hr 150 mg PO DAILY Referrals: [facility] [Provider Group] - 5 days Print Language: Syrian
[2025-04-03] MEDS: oxyCODONE HCl Immed Release 5 MG TABLET PO (12:14)
[2025-04-03 12:16] VITALS: BP 113/58; PULSE 72; RESP 18; TEMP 36.3; O2SAT 96
--- NOTE | 2025-04-03 12:19 | PC.NURSE ---
PAtient reports to ED c/o right arm pain after a fall Patient missed a step and fell injury right arm +CMS limited ROM in right arm Forearm xray shows acute ulna fracture Patient wearing sling at this time Pain rated 10/10, patient medicated per AUG, effectiveness pending Patient provided with warm blanket to soothe pain Plan of care on going
[2025-04-03 12:56] VITALS: BP 113/58; PULSE 72; RESP 18; TEMP 36.3; O2SAT 96
== END 2025-04-03 12:57 | disposition home or self-care (01) ==
PROVIDERS: Emergency Provider Emergency Medicine; PCP Internal Medicine
DX: S52.201A Unspecified fracture of shaft of right ulna, initial encounter for closed fracture (principal); M79.601 Pain in right arm; Z86.718 Personal history of other venous thrombosis and embolism; Z79.01 Long term (current) use of anticoagulants; I10 Essential (primary) hypertension; W19.XXXA Unspecified fall, initial encounter; Y93.9 Activity, unspecified; Y92.9 Unspecified place or not applicable; Y99.9 Unspecified external cause status
CPT/HCPCS: 29125; 73090; 73100; 99283; 99284

== ENCOUNTER → 2025-04-03 11:14 | Outpatient (BNV) | payer MEDICAID, SELFPAY | PROVIDERS: Emergency Provider Emergency Medicine; PCP Internal Medicine; Visit Provider Radiology Diagnostic Radiology | DX: S52.201A Unspecified fracture of shaft of right ulna, initial encounter for closed fracture (principal); W18.30XA Fall on same level, unspecified, initial encounter | CPT/HCPCS: 73090; 73100 ==

== ENCOUNTER 2025-04-05 10:40 | Emergency (ER) | payer MEDICAID, SELFPAY ==
--- OUTSIDE RECORDS SUMMARY | 2024-07-09 05:20 | XMS_ITS ---
Author Organization [facility] Address [address] [place] [address] Care Team Providers Care Ms Sql Dba Name Role Phone Yanna Valdes Primary Care Provider Unavailab Severo Davenport Jr REASON FOR VISIT epigastric pain Encounters Encounter Location Date Provider Diagnosis [facility] [address] [place] [address] 07/09/2024 Severo Cancino Jr Plan Of Treatment Next Appt Details Provider Name:Severo loza Jr, 04/08/2025 09:00:00 AM, [address], [address], [place], [address], Progress Notes * CHICA KRAUSOB:[birth year] 75 (54 yo F)Acc No.[id number]:07/09/2024 Progress Notes Patient: APOLLO SCHAEFERRA Provider: Ciera Cancino MD :1970 A ge:53 Y S ex:Female Date:07/09/2024 Address:[address], [id number] Pcp:Yanan Valdes Subjective: * Chief Complaints: * 1 [...] 0 07/09/2024 Generated for Terrell lópez/Melissa/Zeenat on: 11:18 AM EDT
--- NOTE | ~2025-04-05 | XR_ITS ---
CLINICAL HISTORY: with sunrise view, ant knee ttp --- Additional Notes or Special Instructions: pt needs cast on arm before taken for knee xray RN will let us know when pt is ready -@1254 MF Three views of the left knee. COMPARISON: None provided. FINDINGS: No definite suprapatellar joint effusion. Joint spaces are maintained. Visualized portions of the distal femur, patella, and proximal tibia and fibula appear intact. IMPRESSION: 1. No radiographic evidence of acute injury to the left knee. This document has been electronically signed by: Kedar Pizano MD on 04/05/2025 15:10:13
[2025-04-05 10:58] VITALS: BP 150/72; PULSE 73; RESP 18; TEMP 36.4; O2SAT 95; BMI 34.8
--- OUTSIDE RECORDS SUMMARY | 2025-04-05 11:19 | XMS_ITS | Patient Health Record ---
Author Organization [facility] Address [address] [place] [address] Care Team Providers Care Senior Graphic Designer Name Role Phone LucinaYanna freeman Primary Care Provider UnavailSevero Ackerman Jr Unavailable [phone] Allergies Allergen (clinical drug ingredient) Drug/Non Drug Allergy documented on EMR Reaction Allergy Type Onset Date Status Substance with sulfonamide structure and antibacterial mechanism of action (substance) Sulfa Antibiotics Unknown Drug Allergy Active topiramate Topamax Unknown Drug Allergy Active ciprofloxacin Cipro Unknown Drug Allergy Act lamonte Results Component Value Reference Range Notes Complete Blood Count no Diff Reviewed date:04/14/2024 08:55:09 AM Interpretation: Performing Lab:[facility], [address] [place] [phone] Notes/Report: White Blood Count 6.2 4.8-10.8 X10*3/uL [...] Panel Reviewed date:04/14/2024 08:55:15 AM Interpretation: Performing Lab:[address] [phone] Notes/Report: Bilirubin Total 0.3 0.0-1.0 mg/dL Bilirubin Direct 0.1 0.0-0.5 mg/dL Aspartate Amino Transferase 22 5-31 U/L Alanine Aminotransferase 17 0-31 U/L Total Protein 7.2 6.5-8.0 g/dL Albumin Level 3.9 3.5-5.0 g/dL Alkaline Phosphatase 71 39-117 U/L Blood Urea Nitrogen Reviewed date:04/14/2024 08:52:04 AM Interpretation: Performing Lab:[address] [phone] Notes/Report: Blood Urea Nitrogen 9 9-16 mg/dL Creatinine Reviewed date:04/14/2024 08:55:22 AM Interpretation: Performing Lab:[facility], [address] [place] [phone] Notes/Report: Creatinine 0.70 0.5-1.4 mg/dL Estimated Glomerular Filt Rate > 60 NOTE: For -Gabonese individuals, multiply the result by 1.210. Chronic Kidney Disease: Estimated GFR < 60 mL/min/1.73m2 Severe Kidney Disease: Estimated GFR < 15 mL/min/1.73m2 Lipase Reviewed date:04/14/2024 08:55:29 AM Interpretation: Performing Lab:[facility], [address] [place] [phone] Notes/Report: Lipase 31 8-78 U/L US abdomen complete Reviewed date:04/24/2024 08:22:36 AM Interpretation: Performing Lab: Notes/Report: [address] [address] Ultrasound Report Signed Patient: Norma Carter I MR#: [id number] : 1970 Acct:[id number] Age/Sex: 53 / F ADM Date: 04/18/24 Loc: HO.US Attending Dr: Severo Cancino MD Ordering Physician: Severo Cancino MD Date of Service: 04/18/24 Procedure(s): US abdomen complete Accession Number(s): [id number] cc: Yanna Valdes MD; Severo Cancino MD [...] in OV> 04/20/242133 DD/ 3 TD/TT: 04/18/24931 Pancake Professional: TERRIE Reason For Referral Referring Provider First Name Yanna Referring Provider Last Name Keisha Referring Provider Speciality Internal M edicine Referred Organization [facility] Referred Provider Severo Cancino Jr Referred Address [address] [place] [address],[place] [address],[place], [place],[address], Referred Provider Specialty Gastroentero logy General Notes Katie Morann 2024 01:14:37 PM > requested a [facility] referral from Dr. Valdes's office for visit with Dr. Cancino on 04-08-25 Referral Priority Routine Medications Medication SIG (Take, Route, Frequency, Duration) Notes Start Date End Date Status Sertraline HCl 100 MG TAKE 1 TABLET BY M OUTH EVERY DAY Oral; Duration: 30 Active traZODone HCl 50 MG TAKE 1 TABLET BY JORGE TH EVERYDAY AT BEDTIME Oral; Duration: 90 Active Montelukast Sodium 10 MG TAKE ONE TABLET BY MOUTH EVERY DAY Oral; Duration: 90 Active Triamcinolone Acetonide 0.5 % USE 1 APPLICATION TOPICALLY TO AFFECTED AREA TWICE A DAY External; Duration: 30 Active Lisinopril 5 MG TAKE 1 TABLET BY JORGE TH EVERY DAY Oral; Duration: 90 Active Loratadine 10 MG TAKE 1 TABLET BY JORGE TH EVERY DAY Oral; Duration: 90 Active Fluticasone Propionate 50 MCG/ACT ONE SPRAY EACH NOSTRIL NASAL ONCE A DAY Nasal; Duration: 90 Active Omeprazole 20 MG TAKE 1 CAPSULE BY MO UTH EVERY DAY Oral; Duration: 90 Active Warfarin Sodium 5 MG TAKE 1 TABLET BY MO UTH SUNDAY AND SUNDAY AND 1 1/2 TABS THE REST OF THE WEEK Oral; Duration: 44 Active Immunizations Vaccine Route Administration Date [...] Problem Status W/U Status Risk Notes Problem Colon cancer screening (543293036) Colon cancer screening (Z12.11) Active confirmed Problem Esophageal reflux (028412015) Esophageal reflux (K21.9) Active confirmed Problem Epigastric pain (78807432) Epigastric pain (R10.13) Active confirmed Vital Signs Blood pressure diastolic 00 mm Hg 04/09/2024 Height 68 in 04/09/2024 Blood pressure systolic 00 mm Hg 04/09/2024 Weight 224 lbs 04/09/2024 BMI 34.06 kg/m2 04/09/2024 Encounters Encounter Location Date Provider Diagnosis [facility] [address] [place] [address] Drive [address] [place] [phone] 04/09/2024 Severo Cancino Jr Epigastric pain R10.13 [facility] [address] [place] [phone] 04/14/2024 Severo Cancino Jr [facility] [address] [place] [address] [place] [phone] 04/24/2024 Severo Cancino Jr Assessments Encounter Date [...] Name:Severo loza Jr, 04/08/2025 09:00:00 AM, [address] [facility], [address], [place], [address], Insurance Providers Payer Name Payer Address Payer Phone Subscriber Number Group Number Insured Name Patient Relationship to Insured Coverage Start Date Coverage End Date MEDICAID OF [facility] [address] [place]O SAUNDERS [phone] [id number] NORMA ESTES Self - patient is the insured Medical (General) History Medical History History ICD Code DVT/PE EGD 01/31, esophagitis, eosinophils on bi opsy Environmental allergies Anxiety Insomnia Hypertension Elevated cholesterol Colonoscopy 01/31, normal, ten-year follo wup Surgical History Surgery Date(Month/Year) thyroid surgery vena cava filter 1993 lipoma removal 2021
[2025-04-05] MEDS: Morphine Sulfate Immed Release 15 MG TABLET PO (11:45)
[2025-04-05 11:54] VITALS: BP 139/72; PULSE 66; RESP 18; TEMP 36.6; O2SAT 97
--- NOTE | 2025-04-05 11:57 | ED.EXTPRO ---
HPI - Extremity Problem General Chief complaint: Extremity Problem Stated complaint: Pain Right Arm Time Seen by Provider: 04/05/25 11:18 History of Present Illness ED Provider: Karsten Florence MD HPI Narrative: 54-year-old female on Coumadin who presents for evaluation of worsening pain. She has been in a posterior splint since the for a mid ulnar fracture. She feels worsening of her pain in the forearm and tracking up the arm. No paresthesias or skin color change of the exposed fingers. She has been trying to keep elevated but she has been having trouble doing that cause of the pain. Related Data Home Medications ?Medication ?Instructions ?Recorded ?Confirmed albuterol sulfate 2.5 mg/3 mL 2.5 mg inhalation Q4-6H PRN 04/15/20 03/30/25 (0.083 %) solution for nebulization Shortness Of Breath Or Wheezing albuterol sulfate 90 mcg/actuation 2 puff inhalation Q6H PRN 04/15/20 03/30/25 aerosol inhaler (ProAir HFA) Shortness Of Breath Or Wheezing fluticasone propionate 50 1 spray intranasal DAILY 04/15/20 03/30/25 mcg/actuation nasal spray,suspension (Flonase Allergy Relief) fluticasone propionate 110 2 puff PO BID 02/15/21 03/30/25 mcg/actuation HFA aerosol inhaler (Flovent HFA) omeprazole 20 mg capsule,delayed 20 mg PO DAILY 02/15/21 03/30/25 release triamcinolone acetonide 0.5 % 1 appl topical BID 05/22/22 03/30/25 topical cream montelukast 10 mg tablet 10 mg PO DAILY 11/01/22 03/30/25 sennosides 8.6 mg-docusate sodium 2 tab PO BEDTIME 02/02/23 03/30/25 50 mg tablet (Senexon-S) ondansetron 4 mg disintegrating 4 mg PO TID PRN Nausea 02/06/24 03/30/25 tablet sertraline 100 mg tablet 50 mg PO DAILY 03/18/24 03/30/25 lisinopril 20 mg tablet 20 mg PO DAILY 05/05/24 03/30/25 trazodone 50 mg tablet 50 mg PO BEDTIME PRN Sleep 05/05/24 03/30/25 bupropion HCl 150 mg tablet,12 hr 150 mg PO DAILY 05/14/24 03/30/25 sustained-release (Wellbutrin SR) phytosterol 300 mg-pantethine 100 300 cap PO DAILY 12/29/24 03/30/25 mg capsule (CholestOff Complete) doxycycline hyclate 100 mg tablet 100 mg PO BID 01/28/25 03/30/25 Previous Rx's ?Medication ?Instructions ?Recorded cholecalciferol (vitamin D3) 50 50 mcg PO DAILY 30 days #30 caps 08/24/21 mcg (2,000 unit) capsule warfarin 5 mg tablet See Rx Instructions .Route 07/11/23 .COMPLEX #90 tabs oxycodone 5 mg tablet 5 mg PO Q6H PRN pain (scale score 04/03/25 7-10) 3 days #9 tabs morphine 15 mg immediate release 15 mg PO BID PRN pain #7 tabs 04/05/25 tablet Allergies Allergy/AdvReac Type Severity Reaction Status Date / Time ciprofloxacin (From Cipro) Allergy Unknown RASH Verified 04/05/25 11:01 Sulfa (Sulfonamide Allergy Unknown SWELLING/ITCHING, Verified 04/05/25 11:01 Antibiotics) swelling topiramate (From TOPAMAX) Allergy Unknown DIZZY Verified 04/05/25 11:01 [facility] Past Medical History Medical History History of lipoma Multiple lipomas Scalp cyst DVT (deep vein thrombosis) in Vitamin D deficiency Non-toxic multinodular goiter Surgical History Status post excision of lipoma S/P fine needle aspiration History of partial thyroidectomy Hx of superior vena cava filter placement Hx of esophagogastroduodenoscopy Family History Family History Father Hypertension Mother Diabetes Aneurysm Hypertension Other No family history of cancer Social History Social History Household Members: Children Household Members Other:: 3 Housing: Apartment Are you a primary residential care officer to a significant other at home: No Do you presently have visiting nurse or other home services: No Alcohol intake: never Patient Tobacco Use Status: Never used Tobacco Smoked in Last 30 Days: No Use of substances other than those prescribed or required for medical reasons: No Advance Directives: No Advance Directives Information Provided: Yes service: No Current occupational status: unemployed Physical Exam Exam: Exam: GENERAL: Well appearing. No apparent distress. Alert. HEAD/NECK: No visual trauma. EYES: Normal to inspection. No conjunctival erythema. No discharge. ENMT: Hearing grossly normal. External nose normal. RESPIRATORY: Respiratory effort normal. CARDIOVASCULAR: Additional details (Grossly well perfused). SKIN: No jaundice. NEUROLOGICAL: Alert. Moving all extremities x4. Additional details (No gross motor deficits. Normal tone. ). PSYCHIATRIC: Alert. Appearance appropriate for situation. These original splint was removed. The compartments are soft throughout the forearm and hand and upper arm. No evidence of compartment syndrome. Well-perfused digits. Vital Signs: Vital Signs: Last Vital Signs Temp 97.8 F 04/05/25 11:54 Pulse 66 04/05/25 11:54 Resp 18 04/05/25 11:54 BP 139/72 04/05/25 11:54 Pulse Ox 97 04/05/25 11:54 O2 Del Method Room Air 04/05/25 11:54 BMI result Body Mass Index 34.8 Medications Administered Discontinued Medications Generic Name Dose Route Start Last Admin Trade Name Freq PRN Reason Stop Dose Admin Acetaminophen 975 mg 04/05/25 11:32 04/05/25 11:45 Acetaminophen 325 Mg Tablet PO 04/05/25 11:33 975 mg ONCE ONE Administration Morphine Sulfate 15 mg 04/05/25 11:32 04/05/25 11:45 Morphine Sulfate Immed Release 15 Mg Tablet PO 04/05/25 11:33 15 mg ONCE ONE Administration Medical Decision Making Medical Decision Making [facility] Narrative: Medical Decision Making: Recent right ulnar fracture in a posterior splint she is on Coumadin feels worsening pain. No paresthesias. Known objective neurovascular compromise of the right upper extremity. Splint was removed limb was elevated ice was placed for pain relief. Compartments were all soft and she had a reassuring neurovascular exam. Eventually we resplinted not as tight. Pain well controlled prn morphine for severe pain only. Strict return precautions. Left knee x-ray not show patellar fracture where she was primarily tender Preliminary Favored Differential Diagnosis: Ulna fracture, splint complication, knee fracture among additional considered etiologies Testing Interpreted Independently: ?See below for details Radiology or Lab testing Results Reviewed: ?See below for details Consults: ?See below for details Independent Historians/External Chart Reviews: ?See below for details Social Determinants of Health Impacting MDM/Planning: ?See below for details Discharge Plan Discharge Clinical Impression: Fracture, ulna Patient Disposition: Home, Self-Care Additional Instructions: In the emergency department you were evaluated for pain in the splinted right arm. We removed your splint and elevated your arm with ice. We gave you oral morphine Tylenol. After this your we will re-splint it again. Left knee x-ray unremarkable no fracture follow up as previously scheduled with Orthopedics Prescriptions: New morphine 15 mg tablet 15 mg PO BID PRN (Reason: pain) Qty: 7 0RF Rx Instructions: Partial Fill upon patient request. No Action cholecalciferol (vitamin D3) 50 mcg (2,000 unit) capsule 50 mcg PO DAILY 30 Days Qty: 30 11RF oxycodone 5 mg tablet 5 mg PO Q6H PRN (Reason: pain (scale score 7-10)) 3 Days Qty: 9 0RF Rx Instructions: Partial Fill upon patient request. Flovent HFA 110 mcg/actuation HFA aerosol inhaler 2 puff PO BID omeprazole 20 mg capsule,delayed release(DR/EC) 20 mg PO DAILY fluticasone propionate [Flonase Allergy Relief] 50 mcg/actuation spray,suspension 1 spray intranasal DAILY Rx Instructions: administer into each nostril albuterol sulfate [ProAir HFA] 90 mcg/actuation HFA aerosol inhaler 2 puff inhalation Q6H PRN (Reason: Shortness Of Breath Or Wheezing) albuterol sulfate 2.5 mg /3 mL (0.083 %) solution for nebulization 2.5 mg inhalation Q4-6H PRN (Reason: Shortness Of Breath Or Wheezing) sertraline 100 mg tablet 50 mg PO DAILY Patient Comments: pt states she is taking 50mg daily triamcinolone acetonide 0.5 % cream 1 appl topical BID trazodone 50 mg tablet 50 mg PO BEDTIME PRN (Reason: Sleep) montelukast 10 mg tablet 10 mg PO DAILY warfarin 5 mg tablet See Rx Instructions .ROUTE .COMPLEX Qty: 90 0RF Protocol: Dose Management Condition: Sunday (Week One) Dose/Route: 7.5 mg Instruction: 1.5 x 5 mg tablets Condition: Sunday Dose/Route: 5 mg Instruction: 1 x 5 mg tablet Condition: Sunday Dose/Route: 7.5 mg Instruction: 1.5 x 5 mg tablets Condition: Sunday Dose/Route: 7.5 mg Instruction: 1.5 x 5 mg tablets Condition: Dose/Route: 7.5 mg Instruction: 1.5 x 5 mg tablets Condition: Sunday Dose/Route: 7.5 mg Instruction: 1.5 x 5 mg tablets Condition: Sunday Dose/Route: 7.5 mg Instruction: 1.5 x 5 mg tablets Condition: Sunday (Week Two) Dose/Route: 7.5 mg Instruction: 1.5 x 5 mg tablets Condition: Sunday Dose/Route: 5 mg Instruction: 1 x 5 mg tablet Condition: Sunday Dose/Route: 7.5 mg Instruction: 1.5 x 5 mg tablets Condition: Sunday Dose/Route: 7.5 mg Instruction: 1.5 x 5 mg tablets Condition: Dose/Route: 7.5 mg Instruction: 1.5 x 5 mg tablets Condition: Sunday Dose/Route: 7.5 mg Instruction: 1.5 x 5 mg tablets Condition: Sunday Dose/Route: 7.5 mg Instruction: 1.5 x 5 mg tablets Protocol Text: Adjustment Start Date: Sunday03/30/25 INR Value: 2.4 INR Date: 03/30/25 Recheck Date: 04/09/25 Rx Instructions: 7.5mg x 6, 5mg x 1 lisinopril 20 mg tablet 20 mg PO DAILY CholestOff Complete 300-100 mg capsule 300 cap PO DAILY doxycycline hyclate 100 mg tablet 100 mg PO BID sennosides-docusate sodium [Senexon-S] 8.6-50 mg tablet 2 tab PO BEDTIME ondansetron 4 mg tablet,disintegrating 4 mg PO TID PRN (Reason: Nausea) bupropion HCl [Wellbutrin SR] 150 mg tablet sustained-release 12 hr 150 mg PO DAILY Discharge Date/Time: 04/05/25 14:23 Print Language: [place]
== END 2025-04-05 14:23 | disposition home or self-care (01) ==
PROVIDERS: Emergency Provider Emergency Medicine; PCP Internal Medicine
DX: S52.201A Unspecified fracture of shaft of right ulna, initial encounter for closed fracture (principal); M25.562 Pain in left knee; M79.601 Pain in right arm; X58.XXXA Exposure to other specified factors, initial encounter; Y93.9 Activity, unspecified; Y92.9 Unspecified place or not applicable; Y99.8 Other external cause status
CPT/HCPCS: 29105; 73562; 99283; 99284

== ENCOUNTER → 2025-04-05 11:30 | Outpatient (BNV) | payer MEDICAID, SELFPAY | PROVIDERS: Emergency Provider Emergency Medicine; PCP Internal Medicine; Visit Provider Radiology Diagnostic Radiology | DX: R29.898 Other symptoms and signs involving the musculoskeletal system (principal) | CPT/HCPCS: 73562 ==

== ENCOUNTER 2025-04-07 07:41 | Outpatient (REF) | payer MEDICAID, SELFPAY ==
--- OUTSIDE RECORDS SUMMARY | 2024-07-09 05:20 | XMS_ITS ---
Author Organization [facility] Address [address] [place] [address] Care Team Providers Care Director Trial Name Role Phone Yanna Valdes Primary Care Provider Unavailab Severo Davenport Jr [phone] REASON FOR VISIT epigastric pain Encounters Encounter Location Date Provider Diagnosis [facility] [address] [place] [address] 07/09/2024 Severo Cancino Jr Plan Of Treatment Next Appt Details Provider Name:Severo loza Jr, 04/08/2025 09:00:00 AM, [address], [address], [place], [address], Progress Notes * CHICA KRAUSOB:[birth year] 75 (54 yo F)Acc No.[id number]:07/09/2024 Progress Notes Patient: APOLLO SCHAEFERRA Provider: Ciera Cancino MD :1970 A ge:53 Y S ex:Female Date:07/09/2024 Address:[address], [id number] Pcp:Yanna Valdes Subjective: * Chief Complaints: * [...] 0 07/09/2024 Generated for Terrell lópez/Melissa/Zeenat on: 07:43 AM EDT
--- NOTE | ~2025-04-07 | XR_ITS ---
EXAMINATION: XR FOREARM, RIGHT CLINICAL INFORMATION: M79.631 - Pain in right forearm COMPARISON: Previous x-ray from earlier the same day TECHNIQUE: AP view of the right forearm FINDINGS: There is a comminuted minimally displaced fracture of the distal ulnar shaft. Alignment appears unchanged with slight radial displacement of the distal ulna with respect to the more proximal shaft. No other fracture. Joint spaces appear normal.Mild overlying soft tissue swelling. XR/XR forearm RT 2V IMPRESSION: No change in alignment of minimally displaced comminuted right distal ulnar shaft fracture. Electronically signed by: Mara Shelley MD 04/07/2025 09:43 AM EDT
--- NOTE | ~2025-04-07 | XR_ITS ---
EXAMINATION: XR FOREARM 2 VIEWS RIGHT HISTORY: M79.631 - Pain in right forearm COMPARISON: Comparison is made with the prior examination dated 04/03/2025. FINDINGS: AP and lateral views of the right forearm are submitted. Osseous mineralization is normal. Again seen is a fracture of the proximal ulnar diaphysis. Alignment is similar to the prior study allowing for differences in patient positioning. The visualized wrist and elbow joint spaces are preserved. The soft tissues are unremarkable. XR/XR forearm RT 2V IMPRESSION: Fracture of the proximal ulnar diaphysis without significant change. Electronically signed by: Messi De MD 04/07/2025 09:08 AM EDT
--- OUTSIDE RECORDS SUMMARY | 2025-04-07 07:43 | XMS_ITS | Patient Health Record ---
Author Organization [facility] Address [address] [place] [address] Care Team Providers Care [employer] Consultant Name Role Phone LucinaYanna freeman Primary Care Provider UnavailSevero Ackerman Jr Unavailable [phone] Allergies Allergen (clinical drug ingredient) Drug/Non [...] Diff Reviewed date:04/14/2024 08:55:09 AM Interpretation: Performing Lab:[facility], [address] [place] [phone] Notes/Report: White Blood Count 6.2 4.8-10.8 X10*3/uL [...] Panel Reviewed date:04/14/2024 08:55:15 AM Interpretation: Performing Lab:[address] [phone] Notes/Report: Bilirubin Total 0.3 0.0-1.0 mg/dL Bilirubin Direct 0.1 0.0-0.5 mg/dL Aspartate Amino Transferase 22 5-31 U/L Alanine Aminotransferase 17 0-31 U/L Total Protein 7.2 6.5-8.0 g/dL Albumin Level 3.9 3.5-5.0 g/dL Alkaline Phosphatase 71 39-117 U/L Blood Urea Nitrogen Reviewed date:04/14/2024 08:52:04 AM Interpretation: Performing Lab:[address] [phone] Notes/Report: Blood Urea Nitrogen 9 9-16 mg/dL Creatinine Reviewed date:04/14/2024 08:55:22 AM Interpretation: Performing Lab:[facility], [address] [place] [phone] Notes/Report: Creatinine 0.70 0.5-1.4 mg/dL Estimated Glomerular Filt Rate > 60 NOTE: For -Singaporean individuals, multiply the result by 1.210. Chronic Kidney Disease: Estimated GFR < 60 mL/min/1.73m2 Severe Kidney Disease: Estimated GFR < 15 mL/min/1.73m2 Lipase Reviewed date:04/14/2024 08:55:29 AM Interpretation: Performing Lab:[facility], [address] [place] [phone] Notes/Report: Lipase 31 8-78 U/L US abdomen complete Reviewed date:04/24/2024 08:22:36 AM Interpretation: Performing Lab: Notes/Report: [address] [address] Ultrasound Report Signed Patient: Norma Carter I MR#: [id number] : 1970 Acct:[id number] Age/Sex: 53 / F ADM Date: 04/18/24 Loc: HO.US Attending Dr: Severo Cancino MD Ordering Physician: Severo Cancino MD Date of Service: 04/18/24 Procedure(s): US abdomen complete Accession Number(s): [id number] cc: Yanna Valdes MD; Severo Cancino MD [...] in OV> 04/20/242133 DD/ 3 TD/TT: 04/18/24931 Student Education Specialist: TERRIE Reason For Referral Referring Provider First Name Yanna Referring Provider Last Name Keisha Referring Provider Speciality Internal M edicine Referred Organization [facility] Referred Provider Severo Cancino Jr Referred Address [address] [place] [address],[place] [address],[place], [place],[address], Referred Provider Specialty Gastroentero logy General Notes [...] Lisinopril 5 MG TAKE 1 TABLET BY OJRGE TH EVERY DAY Oral; Duration: 90 Active [...] Status Risk Notes Problem Colon cancer screening (277685417) Colon cancer screening (Z12.11) Active confirmed Problem Esophageal reflux (089961356) Esophageal reflux (K21.9) Active confirmed Problem Epigastric pain (81537002) Epigastric pain (R10.13) Active confirmed Vital Signs Blood pressure diastolic 00 mm Hg 04/09/2024 Height 68 in 04/09/2024 Blood pressure systolic 00 mm Hg 04/09/2024 Weight 224 lbs 04/09/2024 BMI 34.06 kg/m2 04/09/2024 Encounters Encounter Location Date Provider Diagnosis [facility] [address] [place] [address] Drive [address] [place] [phone] 04/09/2024 Severo Cancino Jr Epigastric pain R10.13 [facility] [address] [place] [phone] 04/14/2024 Severo Cancino Jr [facility] [address] [place] [address] [place] [phone] 04/24/2024 Severo Cancino Jr Assessments Encounter Date [...] Name:Severo loza Jr, 04/08/2025 09:00:00 AM, [address] [facility], [address], [place], [address], Insurance Providers Payer Name Payer Address Payer Phone Subscriber Number Group Number Insured Name Patient Relationship to Insured Coverage Start Date Coverage End Date [facility] [address] [place] SAUNDERS [phone] [id number] NORMA ESTES Self - patient is the insured Medical (General) History Medical History History ICD Code DVT/PE EGD 01/31, esophagitis, eosinophils on bi opsy Environmental allergies Anxiety Insomnia Hypertension Elevated cholesterol Colonoscopy 01/31, normal, ten-year follo wup Surgical History Surgery Date(Month/Year) thyroid surgery vena cava filter 1993 lipoma removal 2021
== END 2025-04-07 07:42 | disposition home or self-care (01) ==
LOC: HO.HOSX 07:41
DX: S52.201A Unspecified fracture of shaft of right ulna, initial encounter for closed fracture (principal); W01.0XXA Fall on same level from slipping, tripping and stumbling without subsequent striking against object, initial encounter
CPT/HCPCS: 73090

== ENCOUNTER 2025-04-07 08:50 | Outpatient (AMB) | payer MEDICAID, SELFPAY ==
[2025-04-07 08:58] VITALS: BMI 34.7
--- NOTE | 2025-04-07 08:58 | MHC.OFFVIS ---
Vital Signs 04/07/25 08:58 Height 5 ft 8 in Weight 228 lb BMI 34.7 Intake Visit Reasons: FC: Right ulnar fracture, DOI: 04/03/25 Intake Note: Norma is a 54 year old right hand dominant female, new patient, who presents today for evaluation of Right Ulnar Fracture, DOI: 04/03/25. Patient reported to [facility] ED she had a mechanical trip and fall at a denominational tag sale. Patient was placed in long-arm posterior splint with a sling. Patient was evaluated again on 04/05/25 for a splint change due to tightness. Today, patient complains of on the ulnar aspect of the wrist and forearm. She denies numbness or tingling. She is taking Morphine during the night time with relief of pain. She is also taking Tylenol during the day with no relief. She denies previous injuries or surgeries to the right upper extremity. Allergies ciprofloxacin (From Cipro) Allergy (Unknown, Verified 04/07/25 08:59) RASH Sulfa (Sulfonamide Antibiotics) Allergy (Unknown, Verified 04/07/25 08:59) SWELLING/ITCHING, swelling topiramate (From TOPAMAX) Allergy (Unknown, Verified 04/07/25 08:59) DIZZY HPI HPI FC: Right ulnar fracture, DOI: 04/03/25: Details: Norma is a 54 year old right hand dominant female, new patient, who presents today for evaluation of Right Ulnar Fracture, DOI: 04/03/25. Patient reported to [facility] ED she had a mechanical trip and fall at a denominational tag sale. Patient was placed in long-arm posterior splint with a sling. Patient was evaluated again on 04/05/25 for a splint change due to tightness. Today, patient complains of on the ulnar aspect of the wrist and forearm. She denies numbness or tingling. She is taking Morphine during the night time with relief of pain. She is also taking Tylenol during the day with no relief. She denies previous injuries or surgeries to the right upper extremity. [facility] Medical History History of lipoma Multiple lipomas Scalp cyst DVT (deep vein thrombosis) in Vitamin D deficiency Non-toxic multinodular goiter Surgical History Status post excision of lipoma S/P fine needle aspiration History of partial thyroidectomy Hx of superior vena cava filter placement Hx of esophagogastroduodenoscopy Family History Father Hypertension Mother Diabetes Aneurysm Hypertension Other No family history of cancer Social History (Updated 04/07/25 @ 09:00 by ARPAN Montemayor) Household Members: Children Household Members Other:: 3 Housing: Apartment Are you a primary personal care assistant to a significant other at home: No Do you presently have visiting nurse or other home services: No Alcohol intake: never Patient Tobacco Use Status: Never used Tobacco service: No Current occupational status: unemployed Current occupation: rt handed Review of Systems Const All systems reviewed & are unremarkable except as noted in HPI and below Physical Exam Vital Signs: BMI result Body Mass Index 34.7 Extrem Other: Patient is alert, oriented, and in no acute distress. Neuro: Normal sensation of the tips of all digits of the right hand at this time Vascular: Cap refill brisk Pain: Significant tenderness to palpation noted of the mid shaft ulna at the level of the fracture Anatomical snuffbox tenderness of the right wrist Tenderness to palpation of the DRUJ ROM: Patient is able to make a closed fist DRUJ stable Skin: No lacerations or abrasions. General: No ecchymosis, erythema, or evidence of infection. Psych: Appears grossly normal Affect normal Attitude cooperative Office Procedures Casting/Splints [id number] Splint Application Procedure code (CPT) selection complete Results Reviewed Results Reviewed: X-rays obtained in the office today and independently reviewed by me, Ruddy Garg PA-C, demonstrate displaced fracture of the right ulnar shaft. X-rays taken in the ED of the right wrist also reviewed today, show no definite fracture, but there is a questionable area of lucency over the right radial styloid. Assessment & Plan Assessment & Plan (1) Tenderness of anatomical snuffbox: Code(s): M79.643 - Pain in unspecified hand Category: Medical (2) Fracture of right ulna, shaft: Code(s): S52.201A - Unspecified fracture of shaft of right ulna, initial encounter for closed fracture Category: Medical Plan 1. Right ulnar shaft fracture Date of injury 04/03/2025 I educated the patient about the condition. I discussed both operative and nonoperative treatment options. The patient would like to proceed with surgery. The risks and benefits of operative treatment were discussed with the patient and the patient wishes to proceed with surgery. These risks include, but are not limited to, risk of damage to blood vessels, nerves, tendons, infection, recurrence, incomplete relief of preoperative symptoms, persistent pain, possible need for further surgery, and the risks associated with regional blocks and/or anesthesia. Plan is to take the patient to the operating room at some point in the next few weeks for the following procedures: 1. Right ulna ORIF under general All of the preoperative paperwork including the consent was discussed today. All of the patient's questions were answered in the clinic today. The patient understands that they will be in contact with our surgical tech to discuss scheduling their procedure. Patient reports that she is on anticoagulation with warfarin for recurrent blood clots, we will need to discuss with her primary care doctor to determine how long she needs to hold her blood thinner for and if any bridging therapy is necessary Denies diabetes, lung issues, heart issues, current smoking 2. Tenderness of anatomical snuffbox of right wrist Patient is educated about this condition Patient is educated about the typical diagnostic and treatment course At this time, stat MRI is ordered to assess the health of the radial styloid and scaphoid to determine if any further intervention is indicated beyond ORIF of the right ulnar shaft MRI will need to be done this week in order to have imaging for follow-up appointment next week prior to surgery to determine if any additional procedures are necessary Patient understands this and is amenable to this plan Patient is placed into a sugar-tong splint to maintain stability prior to surgery Orders: Orders XR forearm RT 2V Today M79.631 - Pain in right forearm XR forearm RT 2V Today M79.631 - Pain in right forearm MR wrist RT wo con Today M79.643 - Pain in unspecified hand, S52.201A - Unspecified fracture of shaft of right ulna, initial encounter for closed fracture Coding Level of Care Code New Pt Level 5 (37790) Diagnoses Tenderness of anatomical snuffbox M79.643 Fracture of right ulna, shaft S52.201A CPT Codes Splint - CPT: 38397-Bvhfynz Splint Application ([id number])
== END 2025-04-07 11:20 | disposition home or self-care (01) ==
LOC: HO.HOS 08:50
PROVIDERS: PCP Internal Medicine
DX: S52.201A Unspecified fracture of shaft of right ulna, initial encounter for closed fracture (principal); M79.641 Pain in right hand
CPT/HCPCS: 25530; 99204

== ENCOUNTER → 2025-04-07 08:52 | Outpatient (BNV) | payer MEDICAID, SELFPAY | PROVIDERS: Visit Provider Radiology Diagnostic Radiology | DX: S52.001A Unspecified fracture of upper end of right ulna, initial encounter for closed fracture (principal); S52.251A Displaced comminuted fracture of shaft of ulna, right arm, initial encounter for closed fracture | CPT/HCPCS: 73090 ==

== ENCOUNTER 2025-04-09 08:30 | Outpatient (REF) | payer MEDICAID, SELFPAY ==
--- OUTSIDE RECORDS SUMMARY | 2024-07-09 05:20 | XMS_ITS ---
Author Organization [facility] Address [address] [place] [address] Care Team Providers Care Orthopedic Physician Assistant Name Role Phone Yanna Valdes Primary Care Provider Unavailab Severo Davenport Jr REASON FOR VISIT epigastric pain Encounters Encounter Location Date Provider Diagnosis [facility] [address] [place] [address] 07/09/2024 Severo Cancino Jr Plan Of Treatment Next Appt Details Provider Name:Severo loza Jr, 07/23/2025 01:55:00 PM, [address], [address], [place], [address], Progress Notes * CHICA KRAUSOB:[birth year] (54 yo F)Acc No.[id number]:07/09/2024 Progress Notes Patient: APOLLO SCHAEFERRA Provider: Ciera Cancino MD :1970 A ge:53 Y S ex:Female Date:07/09/2024 Address:[address], [id number] Pcp:Yanna Valdes Subjective: * Chief Complaints: * [...] 0 07/09/2024 Generated for Terrell lópez/Melissa/Zeenat on: 09:14 AM EDT
--- OUTSIDE RECORDS SUMMARY | 2025-04-08 05:00 | XMS_ITS ---
Author Organization [facility] Address [address] [place] [address] Care Team Providers Care Dairy Chemist Name Role Phone Yanna Valdes Primary Care Provider Unavailab Severo Davenport Jr REASON FOR VISIT Patient presents today for abdominal pain Encounters Encounter Location Date Provider Diagnosis [facility] [address] [place] [address] 04/08/2025 Severo Cancino Jr Plan Of Treatment Next Appt Details Provider Name:Severo loza Jr, 07/23/2025 01:55:00 PM, [address], [address], [place], [address], Progress Notes * APOLLO KRAUSLEXIOB:[birth year] (54 yo F)Acc No.[id number]:04/08/2025 Progress Notes Patient: APOLLO SCHAEFERRA Provider: Ciera Cancino MD :1970 A ge:54 Y S ex:Female Date:04/08/2025 Address:[address], [id number] Pcp:Yanna Valdes Subjective: * Chief Complaints: * [...] MD Date: Generated for Terrell lópez/Melissa/Zeenat on: 09:14 AM EDT
--- OUTSIDE RECORDS SUMMARY | 2025-04-09 09:14 | XMS_ITS | Patient Health Record ---
Author Organization [facility] Address [address] [place] [address] Care Team Providers Care Maintenance Of Way Superintendent Name Role Phone LucinaYanna freeman Primary Care Provider UnavailSevero Ackerman Jr Unavailable [phone] Allergies Allergen (clinical drug ingredient) Drug/Non [...] Diff Reviewed date:04/14/2024 08:55:09 AM Interpretation: Performing Lab:[facility], [address] [place] [id number] Notes/Report: White Blood Count 6.2 4.8-10.8 X10*3/uL [...] Reviewed date:04/14/2024 08:55:15 AM Interpretation: Performing Lab:[address] [address] Notes/Report: Bilirubin Total 0.3 0.0-1.0 mg/dL Bilirubin Direct 0.1 0.0-0.5 mg/dL Aspartate Amino Transferase 22 5-31 U/L Alanine Aminotransferase 17 0-31 U/L Total Protein 7.2 6.5-8.0 g/dL Albumin Level 3.9 3.5-5.0 g/dL Alkaline Phosphatase 71 39-117 U/L Blood Urea Nitrogen Reviewed date:04/14/2024 08:52:04 AM Interpretation: Performing Lab:[address] [address] Notes/Report: Blood Urea Nitrogen 9 9-16 mg/dL Creatinine Reviewed date:04/14/2024 08:55:22 AM Interpretation: Performing Lab:[facility], [address] [place] [phone] Notes/Report: Creatinine 0.70 0.5-1.4 mg/dL Estimated Glomerular Filt Rate > 60 NOTE: For -Lebanese individuals, multiply the result by 1.210. Chronic Kidney Disease: Estimated GFR < 60 mL/min/1.73m2 Severe Kidney Disease: Estimated GFR < 15 mL/min/1.73m2 Lipase Reviewed date:04/14/2024 08:55:29 AM Interpretation: Performing Lab:[facility], [address] [place] [phone] Notes/Report: Lipase 31 8-78 U/L US abdomen complete Reviewed date:04/24/2024 08:22:36 AM Interpretation: Performing Lab: Notes/Report: [address] [address] Ultrasound Report Signed Patient: Norma Carter I MR#: [id number] : 1970 Acct:[id number] Age/Sex: 53 / F ADM Date: 04/18/24 Loc: HO.US Attending Dr: Severo Cancino MD Ordering Physician: Severo Cancino MD Date of Service: 04/18/24 Procedure(s): US abdomen complete Accession Number(s): [id number] cc: Yanna Valdes MD; Severo Cancino MD [...] 04/20/2024 09:34 PM EST Dictated By: Bk Lnog MD Signed By: <Electronically signed by Bk Long MD in OV> 04/20/242133 DD/ 3 TD/TT: 04/18/24931 Biology Instructor: TERRIE Reason For Referral Referring Provider First Name Yanna Referring Provider Last Name Keisha Referring Provider Speciality Internal M edicine Referred Organization [facility] Referred Provider Severo Cancino Jr Referred Address [address] [place] [address],[place] [address],[place], [place],[address], Referred Provider Specialty Gastroentero logy General Notes [...] Status Risk Notes Problem Colon cancer screening (549586963) Colon cancer screening (Z12.11) Active confirmed Problem Esophageal reflux (764491384) Esophageal reflux (K21.9) Active confirmed Problem Epigastric pain (35732725) Epigastric pain (R10.13) Active confirmed Vital Signs Blood pressure diastolic 00 mm Hg 04/09/2024 Height 68 in 04/09/2024 Blood pressure systolic 00 mm Hg 04/09/2024 Weight 224 lbs 04/09/2024 BMI 34.06 kg/m2 04/09/2024 Encounters Encounter Location Date Provider Diagnosis [facility] [address] [place] [address] Drive [address] [place] [address] 04/09/2024 Severo Cancino Jr Epigastric pain R10.13 [facility] [address] [place] [phone] 04/14/2024 Severo Cancino Jr [facility] [address] [place] [address] [address] [place] [phone] 04/24/2024 Severo Cancino Jr Assessments Encounter Date [...] Name:Severo loza Jr, 07/23/2025 01:55:00 PM, [address] [facility], [address], [place], [address], Insurance Providers Payer Name Payer Address Payer Phone Subscriber Number Group Number Insured Name Patient Relationship to Insured Coverage Start Date Coverage End Date [facility] [address] [place] [phone] [id number] NORMA ESTES Self - patient is the insured Medical (General) History Medical History History ICD Code DVT/PE EGD 01/31, esophagitis, eosinophils on bi opsy Environmental allergies Anxiety Insomnia Hypertension Elevated cholesterol Colonoscopy 01/31, normal, ten-year follo wup Surgical History Surgery Date(Month/Year) thyroid surgery vena cava filter 1993 lipoma removal 2021
== END 2025-04-09 08:31 | disposition home or self-care (01) ==
LOC: HO.MRI 08:30
PROVIDERS: PCP Internal Medicine
DX: S52.201D Unspecified fracture of shaft of right ulna, subsequent encounter for closed fracture with routine healing (principal); I82.502 Chronic embolism and thrombosis of unspecified deep veins of left lower extremity; Z51.81 Encounter for therapeutic drug level monitoring; Z79.01 Long term (current) use of anticoagulants
CPT/HCPCS: 85610; 99211

== ENCOUNTER 2025-04-09 13:48 | Outpatient (AMB) | payer MEDICAID, SELFPAY ==
[2025-04-09 13:58] LABS: Prothrombin Time Whole Bld POC 28.4 sec (11.1-13.5); ~PT, ~INR - Anti Coag Clinic 2.4 (0.9-1.1)
--- NOTE | 2025-04-09 14:25 | MHC.OFFVISCO ---
Intake Intake Visit Reasons: Anticoagulation Allergies ciprofloxacin (From Cipro) Allergy (Unknown, Verified 04/09/25 13:51) RASH Sulfa (Sulfonamide Antibiotics) Allergy (Unknown, Verified 04/09/25 13:51) SWELLING/ITCHING, swelling topiramate (From TOPAMAX) Allergy (Unknown, Verified 04/09/25 13:51) DIZZY Medication List - Last Reconciled 04/09/25 by Emely Miranda RN albuterol sulfate 2.5 mg inhalation Q4-6H PRN albuterol sulfate 90 mcg/actuation (ProAir HFA) 2 puffs inhalation Q6H PRN bupropion HCl SR (Wellbutrin SR) 150 mg PO DAILY cholecalciferol (vitamin D3) 50 mcg PO DAILY 30 days enoxaparin (Lovenox) 100 mg subcut Q12H fluticasone propionate 50 mcg/actuation (Flonase Allergy Relief) 1 spray intranasal DAILY fluticasone propionate 110 mcg/actuation (Flovent HFA) 2 puffs PO BID lisinopril 20 mg PO DAILY montelukast 10 mg PO DAILY morphine 15 mg PO BID PRN omeprazole 20 mg PO DAILY ondansetron 4 mg PO TID PRN phytosterol-pantethine 300-100 mg (CholestOff Complete) 300 caps PO DAILY sennosides-docusate sodium 8.6-50 mg (Senexon-S) 2 tabs PO BEDTIME sertraline 50 mg PO DAILY trazodone 50 mg PO BEDTIME PRN warfarin See Protocol 7.5mg x 6, 5mg x 1 Nursing Note INR: 2.4 in therapeutic range Medications and supplements reviewed Planning for right arm and possible writst surgery to repair fractures s/p fall, She will be holding warfarin and bridging with lovenox 5day warfarin hold, start lovenox day 2 of hold, then last dose in am day before surgery, She will resume warfarin and lovenox per surgeon, possibly start warfarin evening and lovenox 24 hours after per surgeon. Denies any signs and symptoms of bleeding or bruising or clotting. Bleeding, bruising, clotting discussed Nutritional guidance given Dose: usual dose - last dose 04/10/25 resume 7.5mg evening of surgery if able - if not post op day 1: dose 10mg then post op day 2: 10mg then 7.5mg daily- lovenox per md order, F/U INR: 04/14/25Sunday Demonstration and review in how to do lovenox given with handout atient verbalizes understanding of instructions given Anti-Coag Initial Assessment Social Hx Patient Tobacco Use Status: Never used Tobacco alcohol intake: never Alcohol intake frequency: does not drink Coding Level of Care Code Est Patient Level 1 Diagnoses Current use of anticoagulant therapy Z79.01 Assessment & Plan Assessment & Plan (1) Current use of anticoagulant therapy: Code(s): Z79.01 - correction (current) use of anticoagulants Category: Medical
== END 2025-04-09 14:33 | disposition home or self-care (01) ==
LOC: HO.ACS 13:48
PROVIDERS: PCP Internal Medicine; Visit Provider Internal Medicine Medical Oncology
DX: Z79.01 Long term (current) use of anticoagulants (principal)

== ENCOUNTER 2025-04-14 13:59 | Outpatient (AMB) | payer MEDICAID, SELFPAY ==
--- OUTSIDE RECORDS SUMMARY | 2024-07-09 04:20 | XMS_ITS ---
Author Organization [facility] Address [address] [place] [address] Care Team Providers Care Intellectual Property Lawyer Name Role Phone Yanna Valdes Primary Care Provider Unavailab Severo [place] Jr REASON FOR VISIT epigastric pain Encounters Encounter Location Date Provider Diagnosis [facility] [address] [place] [address] 07/09/2024 Severo Cancino Jr Plan Of Treatment Next Appt Details Provider Name:Severo loza Jr, 07/23/2025 01:55:00 PM, [address], [address], [place], [address], Progress Notes * CHICA KRUASOB:[birth year] (54 yo F)Acc No.[id number]:07/09/2024 Progress Notes Patient: APOLLO SCHAEFERRA Provider: Ciera Cancino MD :1970 A ge:53 Y S ex:Female Date:07/09/2024 Address:[address], [id number] Pcp:Yanna Valdes Subjective: * Chief Complaints: * 1 . Epigastric pain. * Medical History: Objective: * Vitals: Assessment: Plan: * Treatment: * * The named appointment provid er may or may not be the originator of this progress note, and it is not deemed complete until electronically signed by the appointment provider. Sign off status: Pending * Provider: Ciera Cancino MD Date: 0 07/09/2024 Generated for Terrell lópez/Melissa/Zeenat on: 06/14/2024 05:02 PM EST
--- OUTSIDE RECORDS SUMMARY | 2024-10-07 06:00 | XMS_ITS | Continuity of Care Document ---
Author Organization [facility] Address [address] MD [place] [address] Phone Care Team Providers Care Doll Surgeon Name Role Phone Murtaza BHATTI, RVT, SSUI, Messi Unavailable U navailable Procedures Procedure Date [...] Diagnoses Date Provider Providers Copied on Encounter [place] [facility], [address] [place] [address] Dr Carreno [facility] [place], [id number], [place] tel:[phone] [facility] No Information 5 Murtaza BHATTI RVT, SUSI Swenson. [address] [facility], [address], [place], [id number], [place]. tel:[phone] Referring Provider: Yanna Valdes MD, [address] [place] [address] [address], [place], [address]. tel:[phone] Office/Outpt E&M Established 15 Mins- CT & [place] [facility], [address] [place] [address] Dr Carreno 1000Suite 1000Alyce [place], [id number], [place] tel:[phone] [facility] Restless legs syndromeVenou s insufficiency (chronic) (peripheral)E ssential (primary) hypertension 5 Murtaza BHATTI RVT, SUSI Swenson. [address] [facility], [address], [place], [id number], [place]. tel:[phone] Referring Provider: Yanna Valdes MD, [address] [place] [address] [address], [place], [address]. tel:[phone] [place] [facility], [address] [place] [address] Dr Carreno 1000[facility] [place], [id number], [place] tel:[phone] [facility] Encounter for follow-up examination after completed treatment for conditions other than malignant neoplasmChron ic venous hypertension (idiopathic) with other complications of left lower extremity 5 Murtaza BHATTI RVT, SUSI Swenson. [address] [facility], [address], [place], [id number], [place]. tel:[phone] Referring Provider: Yanna Valdes MD, [address], [place], [address]. tel:[phone] [place] [facility], [address] [place] [address] Dr [address] 1000Alyce [place], [id number], [place] tel:[phone] CVR - [facility] Venous insufficiency (chronic) (peripheral)N evus, non-neoplasti c 4 Mollkya Bryant. [address] [facility], [address], [facility] [place], [id number], [place]. tel:[phone] Referring Provider: Yanna Valdes MD, [address] [place] [address] [address], [place], [address]. tel:[phone] Office/Outpt E&M Established 15 Mins- CT & [place] [facility], [address] [place] [address] Dr Carreno 1000[facility] 1000A[place], [id number], [place] tel:[phone] CVR - [facility] Essential (primary) hypertensionL ocalized edemaVenous insufficiency (chronic) (peripheral) 4 Murtaza BHATTI RVT, SUSI Swenson. [address] [place] [address] [address], [facility] [place], [id number], [place]. tel:[phone] Referring Provider: Yanna Valdes MD, [address] [place] [address] [address], [place], [address]. tel:[phone] [facility], [address] [place] [address] Dr Carreno 1000[facility] 1000Alyce [place], [id number], [place] tel:[phone] [facility] Encounter for follow-up examination after completed treatment for conditions other than malignant neVaricose veins of left lower extremity with pain 4 Murtaza BHATTI RVT, SUSI Swenson. [address] [place] [address], [address], [facility] [place], [id number], [place]. tel:[phone] Referring Provider: Yanna Valdes MD, [address] [place] [address] [address], [place], [address]. tel:[phone] [facility], [address] [place] [address] Dr Carreno 1000Suite 1000Alyce [place], [id number], [place] tel:[phone] CVR - [facility] Encounter for follow-up examination after completed treatment for conditions other than malignant ne 4 Murtaza BHATTI RVT, RPVI Robert. [address] [place] [address], [facility] [place], [id number], [place]. tel:[phone] Referring Provider: Yanna Valdes MD, [address] [place] [address] Suite [facility], [place], [address]. tel:[phone] [facility], [address] [place] [address] [facility] [place], [id number], [place] tel:[phone] CVR - [facility] Chronic venous hypertension (idiopathic) with inflammation of left lower extremity 4 Surinder Bryant. [address] [place] [address], [facility] [place], [id number], [place]. tel:[phone] Referring Provider: Yanna Valdes MD, [address] [place] [address] Suite [facility], [place], [address]. tel:[phone] [place] [facility], [address] [place] [address] [facility] 1000Suite A[place]ce Mc[place], [id number], [place] tel:[phone] CVR - [facility] Encounter for follow-up examination after completed treatment for conditions other than malignant neChronic venous hypertension (idiopathic) with other complications of left lower extremity 4 Murtaza BHATTI RVT, RPVI Robert. [address] [place] [address], [place], [id number], [place]. tel:[phone] Referring Provider: Yanna Valdes MD, [address] [place] [address] [address], [place], [address]. tel:[phone] [facility], [address] [place] [address] [facility] 1000Suite [place]ce [place], [id number], [place] tel:[phone] CVR - [facility] Chronic venous hypertension (idiopathic) with inflammation of left lower extremity 4 Murtaza BHATTI RVT, RPVI Robert. [address] [place] [address], [place], [id number], [place]. tel:[phone] Referring Provider: Yanna Valdes MD, [address] [place] [address] [address], [place], [address]. tel:[phone] [facility], [address] [place] [address] Dr Carreno 1000Suite [place]ce Mc[place], [id number], [place] tel:[phone] [facility] - [place] Varicose veins of left lower extremity with other complications Apr-3 4 Murtaza BHATTI RVT, SUSI Swenson. [address] [place] [address], [facility] [place], [id number], [place]. tel:[phone] Referring Provider: Yanna Valdes MD, [address] [place] [address] [address], [place], [address]. tel:[phone] Offic/outpt E&m Estab 5 Min Trial - [facility]medicine [facility], [address] [place] [address] Dr Carreno 1000[address] 1000A[place]ce [place], [id number], [place] tel:[phone] [facility] - [place] Localized edemaCramp and spasmRestless legs syndromeVenou s insufficiency (chronic) (peripheral)E ssential (primary) hypertensionP ruritus, unspecified Aug- 4 Ajit Calzada. [address] [place] [address] 302, [facility] [place], [id number], [place]. tel:[phone] Referring Provider: Yanna Valdes MD, [address] [place] [address] [address], [place], [address]. tel:[phone] Office/Oupt E&M New Pt 30 Mins [facility], [address] [place] [address] Dr Carreno 1000Suite 1000Alyce [place], [id number], [place] tel:[phone] [facility] - [place] Varicose veins of left lower extremity with other complications Pain in left lower legLocalized edemaCramp and spasmRestless legs syndromeEssen tial (primary) hypertensionP ruritus, unspecified Fe-0 4 Murtaza BHATTI RVT, SUSI Swenson. [address] [place] [address], [place], [id number], [place]. tel:[phone] Referring Provider: Yanna Valdes MD, [address] [facility] [address], [place], [address]. tel:[phone] [facility], [address] [facility] [address], [place], [id number], [place] tel:[phone] [facility] - [place] [facility] [place] Chronic venous hypertension (idiopathic) with other complications of left lower extremity 4 Murtaza BHATTI, RVT, RPVI Messi. [address] [facility], [address], [place], [id number], [place]. tel:[phone] Referring Provider: Yanna Valdes MD, [address] [facility] [address], [place], [address]. tel:[phone] Family History Family Member Type Diagnosis Age At Onset No Information Payers Payer name Insurance type Covered constitution party ID Kerri calvillo(s) Medical Assistance [facility] [id number] Social History Type Description Quantity Date Captured [...] education booklet given Related to Localized edema Giving Encouragement to exercise Related to Body [...]
--- OUTSIDE RECORDS SUMMARY | 2025-04-08 04:00 | XMS_ITS ---
Author Organization [facility] Address [address] [place] [address] Care Team Providers Care Steelworker Name Role Phone Yanna Valdes Primary Care Provider Unavailab Severo Davenport Jr [phone] REASON FOR VISIT Patient presents today for abdominal pain Encounters Encounter Location Date Provider Diagnosis [facility] [address] [place] [address] 04/08/2025 Severo Cancino Jr Plan Of Treatment Next Appt Details Provider Name:Severo loza Jr, 07/23/2025 01:55:00 PM, [address], [address], [place], [address], Progress Notes * APOLLO KRAUSLEXIOB:[birth year] (54 yo F)Acc No.[id number]:04/08/2025 Progress Notes Patient: APOLLO SCHAEFERRA Provider: Ciera Cancino MD :1970 A ge:54 Y S ex:Female Date:04/08/2025 Address:[address], [id number] Pcp:Yanna Valdes Subjective: * Chief Complaints: * 1 . Patient presents today for abdominal pain. * Medical History: Objective: * Vitals: Assessment: Plan: * Treatment: * * The named appointment provid er may or may not be the originator of this progress note, and it is not deemed complete until electronically signed by the appointment provider. Sign off status: Pending * Provider: Ciera Cancino MD Date: Generated for Terrell lópez/Melissa/Zeenat on: 06/14/2024 05:02 PM EST
--- NOTE | 2025-04-14 14:05 | MHC.OFFVIS ---
Vital Signs 04/14/25 14:14 Height 5 ft 8 in Weight 228 lb BMI 34.7 Intake Visit Reasons: OV: MRI Review S/P RT ulnar Fx, DOI: 04/03/25 Intake Note: Norma 54 yr old right hand dominant female, presents today S/P Right ulna fracture DOS 04/03/25. Last seen with Comfort Fox who ordered stat MRI to assess the health of the radial styloid and scaphoid to determine if any further intervention is indicated beyond ORIF of the right ulnar shaft. Patient states she was not able to have her MRI done due to sugar tong splint. States she needs to extend her arm for MRI study and this splint doesn't allow her to, also she has vena cava filter placement. Allergies ciprofloxacin (From Cipro) Allergy (Unknown, Verified 04/14/25 14:11) RASH Sulfa (Sulfonamide Antibiotics) Allergy (Unknown, Verified 04/14/25 14:11) SWELLING/ITCHING, swelling topiramate (From TOPAMAX) Allergy (Unknown, Verified 04/14/25 14:11) DIZZY HPI HPI OV: MRI Review S/P RT ulnar Fx, DOI: 04/03/25: Details: Norma is a 54 year old right hand dominant woman who returns for her right ulnar shaft fracture, S/P fall, DOI: 04/03/25. She was placed in a sugar-tong splint. An MRI was ordered to assess for a possible scaphoid fracture, but this was not able to be completed due to her splint. She says she is doing well but still has some pain in the ulnar aspect of her forearm She is scheduled for surgery on 04/16/25. She is on Coumadin and says they have put her on Lovenox which she will stop on Sunday. [facility] Medical History (Updated 04/14/25 @ 14:39 by Jerome Garcia) History of lipoma DVT (deep vein thrombosis) in Vitamin D deficiency Non-toxic multinodular goiter Surgical History H/O colonoscopy Status post excision of lipoma S/P fine needle aspiration History of partial thyroidectomy Hx of superior vena cava filter placement Hx of esophagogastroduodenoscopy Family History Father Hypertension Mother Diabetes Aneurysm Hypertension Other No family history of cancer Social History Household Members: Children Household Members Other:: 3 Housing: Apartment Are you a primary field care advocate to a significant other at home: No Do you presently have visiting nurse or other home services: No Alcohol intake: never Patient Tobacco Use Status: Never used Tobacco service: No Current occupational status: unemployed Current occupation: rt handed Review of Systems Const All systems reviewed & are unremarkable except as noted in HPI and below Physical Exam Vital Signs: BMI result Body Mass Index 34.7 Const General: cooperative, healthy appearing and no acute distress Orientation/consciousness: patient oriented x3 HEENT Head: Yes normocephalic and Yes atraumatic Eyes EOM: EOMs intact bilaterally Resp Effort & Inspection: normal respiratory effort and able to speak in complete sentences Cardio Jugular venous distension: no JVD Skin General skin exam: turgor normal Rashes: no rashes Neuro General: patient oriented x3 Extrem Other: Evaluation of Right Upper Extremity: The patient is alert, oriented, and in no acute distress She is seen in a [facility] Neuro: Median, Ulnar, Radial nerves motor and sensory intact and sensation is normal to the tips of all digits Vascular: Cap refill brisk ROM: She was able to move her fingertips Skin: No lacerations or abrasions. General: No Ecchymosis. No Erythema or evidence of infection. Radiographs: 3 views of the right wrist from 04/03/25 were reviewed by me today in clinic. They show a displaced ulnar shaft fracture.. There is also a question of a possible non-displaced scaphoid fracture. Psych Appearance: grossly normal Affect: normal affect Attitude: cooperative Assessment & Plan Assessment & Plan (1) Tenderness of anatomical snuffbox: Code(s): M79.643 - Pain in unspecified hand Category: Medical (2) Fracture of right ulna, shaft: Code(s): S52.201A - Unspecified fracture of shaft of right ulna, initial encounter for closed fracture Category: Medical (3) Nondisplaced fracture of right scaphoid bone: Code(s): S62.001A - Unspecified fracture of navicular [scaphoid] bone of right wrist, initial encounter for closed fracture Category: Medical (4) Current use of anticoagulant therapy: Code(s): Z79.01 - continuous churn buttermaker (current) use of anticoagulants Category: Medical Plan Assessment & Plan: 1. Right ulnar shaft fracture S/P fall, DOI: 04/03/25 2. Right snuffbox tenderness, possible non-displaced scaphoid fracture S/P fall, DOI: 04/03/25 Patient unable to complete MRI to assess for scaphoid fracture prior to her scheduled DOS I educated her about these conditions I discussed operative and non-operative treatment options The patient would like to proceed with surgery. Her possible scaphoid fracture with be managed non-operatively with a cast & radiographs to evaluate. She will need scaphoid views on radiographs at her first post-op appointment The risks and benefits of operative treatment were discussed with the patient and the patient wishes to proceed with surgery. These risks include, but are not limited to risk of damage to blood vessels, nerves, tendons, infection, recurrence, incomplete relief of preoperative symptoms, persistent pain, possible need for further surgery and the risks associated with regional blocks and anesthesia. The plan is to take the patient to the operating room sometime on 04/16/25 for the following procedures: 1. Right ulnar shaft ORIF, under general All of the preoperative paperwork including the consent was reviewed today. All the patient's questions were answered. The patient understands that they will be contacted by our search engine optimization analyst soon to schedule this procedure She denies Diabetes, kidney issues She has Asthma & COPD. She is on Coumadin, but says she has stopped this and is now on Lovenox prior to surgery. Scribed for Madelyn Baxter MD by Jerome Garcia, bilingual medical assistant, on 04/14/25 at 2:30 PM, EST. Coding Level of Care Code Est Pt Level 4 (03903) Diagnoses Tenderness of anatomical snuffbox M79.643 Fracture of right ulna, shaft S52.201A Nondisplaced fracture of right scaphoid bone S62.001A Current use of anticoagulant therapy Z79.01
[2025-04-14 14:14] VITALS: BMI 34.7
--- OUTSIDE RECORDS SUMMARY | 2025-04-14 17:02 | XMS_ITS | Patient Health Record ---
Author Organization [facility] Address [address] [place] [address] Care Team Providers Care Agriculture Specialist Name Role Phone Yanna Valdes Primary Care Provider Unavailab Severo Davenport Jr Unavailable Allergies Allergen (clinical drug ingredient) Drug/Non Drug Allergy documented on EMR Reaction Allergy Type Onset Date Status Substance with sulfonamide structure and antibacterial mechanism of action (substance) Sulfa Antibiotics Unknown Drug Allergy Active topiramate Topamax Unknown Drug Allergy Active ciprofloxacin Cipro Unknown Drug Allergy Act lamonte Results Component Value Reference Range Notes US abdomen complete Reviewed date:04/24/2024 08:22:36 AM Interpretation: Performing Lab: Notes/Report: [facility] [address] [place] [address] Ultrasound Report Signed Patient: Norma Carter I MR#: [id number] : 1970 Acct:[id number] Age/Sex: 53 / F ADM Date: 04/18/24 Loc: HO.US Attending Dr: Severo Cancino MD Ordering Physician: Severo Cancino MD Date of Service: 04/18/24 Procedure(s): US abdomen complete Accession Number(s): [id number] cc: Yanna Valdes MD; Severo Cancino MD [...] PM [facility] Dictated By: Bk Long MD Signed By: <Electronically signed by Bk Long MD in OV> 04/20/242133 DD/ 3 TD/TT: 04/18/24 0932 Mri Technologist: TERRIE Reason For Referral Referring Provider First Name Yanna Referring Provider Last Name Keisha Referring Provider Speciality Internal M edicine Referred Organization [facility] Referred Provider Severo Cancino Jr Referred Address [address] [place] [address],[place] [address],[place], [place],[address],[place] Referred Provider Specialty Gastroentero logy General Notes Jackelin Moran 2024 01:14:37 PM > requested a [facility] [...] Status Risk Notes Problem Colon cancer screening (425155600) Colon cancer screening (Z12.11) Active confirmed Problem Esophageal reflux (459881913) Esophageal reflux (K21.9) Active confirmed Problem Epigastric pain (15320906) Epigastric pain (R10.13) Active confirmed Encounters Encounter Location Date Provider Diagnosis [facility] [address] [place] [address] 04/14/2024 [facility] [address] [place] [address] 04/24/2024 Severo Cancino Jr Plan Of Treatment Pending Test Test Name Order Date BUN 04/09/2024 CREATININE 04/09/2024 LIVER PROFILE 04/09/2024 LIPASE 04/09/2024 CBC w/o DIFF 04/09/2024 US ABD 04/09/2024 Future Test Test Name Order Date UPPER GI ENDOSCOPY 11/08/2022 COLONOSCOPY 11/08/2022 Next Appt Details Provider Name:Severo loza Jr, 07/23/2025 01:55:00 PM, [address], [address], [place], [address], Insurance Providers Payer Name Payer Address Payer Phone Subscriber Number Group Number Insured Name Patient Relationship to Insured Coverage Start Date Coverage End Date MEDICAID OF [place] [address] [place] [phone] [id number] NORMA ESTES Self - patient is the insured Medical (General) History Medical History History ICD Code DVT/PE EGD 01/31, esophagitis, eosinophils on bi opsy Environmental allergies Anxiety Insomnia Hypertension Elevated cholesterol Colonoscopy 01/31, normal, ten-year follo wup Surgical History Surgery Date(Month/Year) thyroid surgery vena cava filter 1993 lipoma removal 2021
== END 2025-04-14 14:55 | disposition home or self-care (01) ==
LOC: HO.HOS 13:59
PROVIDERS: PCP Internal Medicine; Visit Provider Orthopaedic Surgery
DX: M79.641 Pain in right hand (principal); S52.201A Unspecified fracture of shaft of right ulna, initial encounter for closed fracture; S62.001A Unspecified fracture of navicular [scaphoid] bone of right wrist, initial encounter for closed fracture; Z79.01 Long term (current) use of anticoagulants
CPT/HCPCS: 99024

== ENCOUNTER → 2025-04-14 13:59 | Outpatient (BNVA) | payer MEDICAID, SELFPAY | PROVIDERS: PCP Internal Medicine; Visit Provider Orthopaedic Surgery | DX: M79.641 Pain in right hand (principal); S52.611A Displaced fracture of right ulna styloid process, initial encounter for closed fracture; S62.001A Unspecified fracture of navicular [scaphoid] bone of right wrist, initial encounter for closed fracture; W18.30XA Fall on same level, unspecified, initial encounter; Y93.9 Activity, unspecified; Y92.9 Unspecified place or not applicable; Y99.9 Unspecified external cause status; Z95.828 Presence of other vascular implants and grafts; Z79.01 Long term (current) use of anticoagulants | CPT/HCPCS: 99212 ==

== ENCOUNTER 2025-04-16 05:55 | Day surgery (SDC) | payer MEDICAID, SELFPAY ==
--- NOTE | 2025-04-07 12:45 | HO.ANESPROP2 ---
Documented by User: Lima Mayfield NP 04/07/25 12:46 HPI - Anesthesia Eval Consult details Narrative: 54yo F for Ulna Shaft Fracture ORIF, 04/16/25 Warfarin for recurrent DVTs/PE - [place] [facility] [place]. Also leonardo filter years ago PMFSH Active Problems Active Problems: All Active Problems Fracture of right ulna, shaft (Acute) Tenderness of anatomical snuffbox (Acute) Anticoagulant long-term use (Acute) Hematuria (Acute) Lymphedema (Acute) Current use of anticoagulant therapy (Acute) Acid reflux (Acute) Varicose veins of left lower extremity with inflammation (Acute) History of pulmonary embolism (Acute) Subcutaneous mass of back (Acute) Multiple lipomas (Acute) Scalp cyst (Acute) Vitamin D deficiency (Acute) Non-toxic multinodular goiter (Acute) Past Medical History Medical History Depression GERD (gastroesophageal reflux disease) HTN (hypertension) History of lipoma DVT (deep vein thrombosis) in Vitamin D deficiency Non-toxic multinodular goiter Family History Family History Father Hypertension Mother Diabetes Aneurysm Hypertension Other No family history of cancer Family history of problems with anesthesia: No Surgical History Surgical History H/O colonoscopy Status post excision of lipoma S/P fine needle aspiration History of partial thyroidectomy Hx of superior vena cava filter placement Hx of esophagogastroduodenoscopy History of Problems with Anesthesia: No Social History Social History Household Members: Children Household Members Other:: 3 Housing: Apartment Are you a primary nurse wound care to a significant other at home: No Do you presently have visiting nurse or other home services: No Alcohol intake: never Patient Tobacco Use Status: Never used Tobacco Use of substances other than those prescribed or required for medical reasons: No Are you DNR?: No Advance Directives: No Advance Directives Information Provided: Yes service: No Current occupational status: unemployed Current occupation: rt handed Meds Allergies Allergy/AdvReac Type Severity Reaction Status Date / Time ciprofloxacin (From Cipro) Allergy Unknown RASH Verified 04/16/25 06:04 Sulfa (Sulfonamide Allergy Unknown SWELLING/ITCHING, Verified 04/16/25 06:04 Antibiotics) swelling topiramate (From TOPAMAX) Allergy Unknown DIZZY Verified 04/16/25 06:04 Home Medications ?Medication ?Instructions ?Recorded ?Confirmed ?Last Taken ?Type albuterol sulfate 2.5 mg/3 mL 2.5 mg inhalation Q4-6H PRN 04/15/20 04/14/25 Unknown History (0.083 %) solution for nebulization Shortness Of Breath Or Wheezing albuterol sulfate 90 mcg/actuation 2 puff inhalation Q6H PRN 04/15/20 04/14/25 Unknown History aerosol inhaler (ProAir HFA) Shortness Of Breath Or Wheezing fluticasone propionate 50 1 spray intranasal DAILY 04/15/20 04/14/25 Unknown History mcg/actuation nasal spray,suspension (Flonase Allergy Relief) fluticasone propionate 110 2 puff PO BID 02/15/21 04/14/25 Unknown History mcg/actuation HFA aerosol inhaler (Flovent HFA) omeprazole 20 mg capsule,delayed 20 mg PO DAILY 02/15/21 04/14/25 Unknown History release montelukast 10 mg tablet 10 mg PO DAILY 11/01/22 04/14/25 Unknown History sennosides 8.6 mg-docusate sodium 2 tab PO BEDTIME 02/02/23 04/14/25 Unknown History 50 mg tablet (Senexon-S) sertraline 100 mg tablet 50 mg PO DAILY 03/18/24 04/14/25 Unknown History lisinopril 20 mg tablet 20 mg PO DAILY 05/05/24 04/14/25 04/16/25 05:00 History trazodone 50 mg tablet 50 mg PO BEDTIME PRN Sleep 05/05/24 04/14/25 Unknown History bupropion HCl 150 mg tablet,12 hr 150 mg PO DAILY 05/14/24 04/14/25 Unknown History sustained-release (Wellbutrin SR) phytosterol 300 mg-pantethine 100 300 cap PO DAILY 12/29/24 04/14/25 Unknown History mg capsule (CholestOff Complete) hydrochlorothiazide 25 mg tablet 25 mg PO DAILY 04/14/25 04/14/25 Unknown History Exam Pertinent Lab Results Pertinent Lab Results: Laboratory Tests 03/02/25 10:40 WBC 5.4 Hgb 13.7 Hct 41.2 Plt Count 309 Sodium 139 Potassium 3.8 Chloride 108 Carbon Dioxide 23 BUN 11 Creatinine 0.71 Assessment and Plan Assessment Anesthesia Assessment: Chart Reviewed Final Anesthetic Review Family History of Problems with Anesthesia: No History of Problems with Anesthesia: No Documented by User: Leena Hawkins MD 04/16/25 08:10 [facility] Past Medical History Medical History Depression GERD (gastroesophageal reflux disease) HTN (hypertension) History of lipoma DVT (deep vein thrombosis) in Vitamin D deficiency Non-toxic multinodular goiter Family History Family History Father Hypertension Mother Diabetes Aneurysm Hypertension Other No family history of cancer Surgical History Surgical History H/O colonoscopy Status post excision of lipoma S/P fine needle aspiration History of partial thyroidectomy Hx of superior vena cava filter placement Hx of esophagogastroduodenoscopy Social History Social History Household Members: Children Household Members Other:: 3 Housing: Apartment Are you a primary nurse wound care to a significant other at home: No Do you presently have visiting nurse or other home services: No Alcohol intake: never Patient Tobacco Use Status: Never used Tobacco Use of substances other than those prescribed or required for medical reasons: No Are you DNR?: No Advance Directives: No Advance Directives Information Provided: Yes service: No Current occupational status: unemployed Current occupation: rt handed Meds Allergies Allergy/AdvReac Type Severity Reaction Status Date / Time ciprofloxacin (From Cipro) Allergy Unknown RASH Verified 04/16/25 06:04 Sulfa (Sulfonamide Allergy Unknown SWELLING/ITCHING, Verified 04/16/25 06:04 Antibiotics) swelling topiramate (From TOPAMAX) Allergy Unknown DIZZY Verified 04/16/25 06:04 Home Medications ?Medication ?Instructions ?Recorded ?Confirmed ?Last Taken ?Type albuterol sulfate 2.5 mg/3 mL 2.5 mg inhalation Q4-6H PRN 04/15/20 04/14/25 Unknown History (0.083 %) solution for nebulization Shortness Of Breath Or Wheezing albuterol sulfate 90 mcg/actuation 2 puff inhalation Q6H PRN 04/15/20 04/14/25 Unknown History aerosol inhaler (ProAir HFA) Shortness Of Breath Or Wheezing fluticasone propionate 50 1 spray intranasal DAILY 04/15/20 04/14/25 Unknown History mcg/actuation nasal spray,suspension (Flonase Allergy Relief) fluticasone propionate 110 2 puff PO BID 02/15/21 04/14/25 Unknown History mcg/actuation HFA aerosol inhaler (Flovent HFA) omeprazole 20 mg capsule,delayed 20 mg PO DAILY 02/15/21 04/14/25 Unknown History release montelukast 10 mg tablet 10 mg PO DAILY 11/01/22 04/14/25 Unknown History sennosides 8.6 mg-docusate sodium 2 tab PO BEDTIME 02/02/23 04/14/25 Unknown History 50 mg tablet (Senexon-S) sertraline 100 mg tablet 50 mg PO DAILY 03/18/24 04/14/25 Unknown History lisinopril 20 mg tablet 20 mg PO DAILY 05/05/24 04/14/25 04/16/25 05:00 History trazodone 50 mg tablet 50 mg PO BEDTIME PRN Sleep 05/05/24 04/14/25 Unknown History bupropion HCl 150 mg tablet,12 hr 150 mg PO DAILY 05/14/24 04/14/25 Unknown History sustained-release (Wellbutrin SR) phytosterol 300 mg-pantethine 100 300 cap PO DAILY 12/29/24 04/14/25 Unknown History mg capsule (CholestOff Complete) hydrochlorothiazide 25 mg tablet 25 mg PO DAILY 04/14/25 04/14/25 Unknown History Exam Airway Mallampati Class: III TM Dist: >3cm Neck ROM: Full Heart: rrr Lungs: cta Assessment and Plan Assessment Anesthesia Assessment: Anesthesia Plan Discussed Final Anesthetic Review NPO: Yes ASA Class: III Final Preanesthetic Review: No Changes in Pt Med Stat, Meds/Allgs Chart Reviewed, Consent Obtained/Reviewed and Anes Risks/Benef Reviewed Patient Risk: Intermediate Procedure Risk: Intermediate Anesthetic Plan Anesthetic Plan: GA, Regional Block and Agree w/ Assess. and Plan Disposition: Standard PACU
[2025-04-14 13:35] VITALS: BMI 34.7
[2025-04-16] VITALS (7 sets, daily range): BP systolic 115–141; BP diastolic 55–74; PULSE 75–95; RESP 15–18; TEMP 36.1–36.9; O2SAT 95–97; BMI 34.5
--- NOTE | ~2025-04-16 | FL_ITS ---
EXAMINATION: FL GUIDANCE ONLY HISTORY: ulna shaft fracture ORIF- right COMPARISON: Correlation is made with plain films of the right forearm dated 04/07/2025. TECHNIQUE: Fluoroscopy time: 25.36 seconds. Cumulative Dose: 0.6369 mGy. DAP: 0.035 Gycm2 Images: 6. FINDINGS: Fluoroscopic spot films of the right forearm demonstrate internal fixation of the previously seen fracture of the ulna with a sideplate and multiple orthopedic screws. FL/FL guidance in OR IMPRESSION: Fluoroscopy during procedure. Please see procedure report for additional information. Electronically signed by: Messi De MD 04/16/2025 02:25 PM ANGELINA
[2025-04-16 06:35] LABS: UPreg QC Valid YES
[2025-04-16 06:42] LABS: INTERNATIONAL NORM RATIO 1.0 (0.9-1.1); Prothrombin Time 12.8 SEC (11.2-13.5)
[2025-04-16] MEDS: Lactated Ringers 1,000 ML 100 ML IVCONT (06:50)
--- NOTE | 2025-04-16 07:33 | P.OP_ITS ---
Operative Note Operative Note Date of Service: 04/16/25 Narrative: Operative Note Narrative: Preop diagnosis: 1. Right ulnar shaft fracture Postop diagnosis: Same Procedure: 1. Right ulnar shaft fracture open reduction internal fixation 2. Possible occult scaphoid fracture Surgeon: Madelyn Baxter MD Fabric Worker Fitter: Ruddy ARREOLA Anesthesia: General Anesthesia plus regional block Findings: Oblique ulnar shaft fracture Implants: Acumed 8 hole ulnar shaft plate with 3 X3.5 cortical screws , 1 X 3.0 cortical screw, and 3 X 3.5 locking screws Tourniquet time: A 73 minutes EBL: 5.0 ml Specimen: None Drains: None Complications: None Disposition: Brought to the recovery room in stable condition Plan: Follow-up in 10-14 days for wound check, suture removal and pre clinic radiographs, including scaphoid views to re-evaluate the possible occult scaphoid fracture And is placed in a long-arm cast Indications: The patient is a 54 year old woman with right ulnar shaft fracture and possible right scaphoid fracture . The risks and benefits of operative treatment, including but not limited to risk of damage to blood vessels, nerves, tendons, infection, recurrence, persistent pain or numbness, incomplete resolution of preoperative symptoms, or need for further surgery were discussed with the patient and they wished to proceed with surgery. Procedure: Once consent was obtained patient was brought back to the operating suite and placed in the operating table in a supine position. A regional block was performed by the anesthesia team. Perioperative antibiotics and anesthesia was administered by the anesthesia team. A tourniquet was applied to the proximal aspect of the right upper extremity and the limb was prepped and draped in a standard surgical fashion. The limb was elevated exsanguinated with Esmarch bandage and the tourniquet inflated to 250 mm of mercury for a total tourniquet time of 73 minutes. I made a 10 cm longitudinal incision on the ulnar border of the forearm centered over the ulnar shaft fracture. The incision was made through the skin the subcutaneous tissues using a 15. Blade. I dissected down to the ulnar border of the ulna. The periosteum was incised longitudinally. A periosteal elevator was used to elevate the periosteum and reveal our ulnar shaft fracture. It was a short oblique fracture with displacement. I used 2 alligator clamps to perform an open reduction. An 8 hole Acumed ulnar shaft plate was placed on the volar surface of the ulnar shaft centered over ulnar fracture. The fracture reduction was held using 1 alligator clamp and the 2nd alligator clamp was used to hold the plate to the ulnar shaft. I then placed my 1st screw distally. I used a 2.8 mm drill to drill bicortically through 1 of the circular holes. I then placed the appropriate length 3.5 mm locking screw. I then used the green gold guide through an oval hole and again drilled bicortically placing a 3.5 mm cortical screw in compressive mode. I looked I looked for the hallux I placed a wound 3.0 mm cortical screw obliquely and across our fracture site as a compression screw. This was done by drilling through the near cortex with the 3.5 mm drill and then drilling through the far cortex with a 2.3 mm drill. I then placed the appropriate length screw. We did have a slight crack in the near cortex, but we did appear to obtain some compression so the screw was left in place. Four more 3.5 mm cortical or locking screws were then placed in a similar fashion, 2 more proximally and 2 more distally. Final fluoroscopic images were obtained and I was very satisfied with our reduction and placement of all implants. Again we had good compression across the fracture site. The DRUJ was stable on exam. The wound was irrigated with normal saline. The periosteal layer was reapproximated using some 4-0 Vicryl suture. At this point the tourniquet was deflated and hemostasis obtained with a brief period of local pressure and bipolar electrocautery. The wound was copiously irrigated with normal saline. The subcutaneous layer was closed with 4-0 Vicryl suture, and the skin edges were reapproximated with 4-0 nylon suture. The wound was infiltrated with some 1% lidocaine with epinephrine for postop pain control and a sterile dressing was applied. A sugar-tong splint was applied. The patient appears to have tolerated the procedure well and with no complications. All digits were well vascularized conclusion of the case.
--- NOTE | 2025-04-16 07:33 | MHC.SHP ---
Pre-Procedural Eval Section A - 24 Hr Update-Section A only Date of Service: 04/16/25 The patient is an INPATIENT: No Changes since office visit: No Cold of Flu in the past 2 weeks, No New Medical Problems, No Changes in Medication and No Patient answered all questions The patient has been examined within 24 hours of the surgical procedure. The History & Physical has been completed within 30 days and I have reviewed it.: Yes Section B - Complete if H&P > 30 days Chief Complaint: Unspecified fracture of shaft of right ulna, initi Allergies: Allergies Allergy/AdvReac Type Severity Reaction Status Date / Time ciprofloxacin (From Cipro) Allergy Unknown RASH Verified 04/16/25 06:04 Sulfa (Sulfonamide Allergy Unknown SWELLING/ITCHING, Verified 04/16/25 06:04 Antibiotics) swelling topiramate (From TOPAMAX) Allergy Unknown DIZZY Verified 04/16/25 06:04 Plan I have reviewed the history and physical and performed a pertinent physical examination on my patient. No changes have occurred unless specified. Time Spent With Patient Time: Total time managing care of this patient today ____ minutes.
== END 2025-04-16 12:10 | disposition home or self-care (01) ==
PROVIDERS: Anesthesiology; Nurse Practitioner; PCP Internal Medicine; Visit Provider Orthopaedic Surgery
PROC: (CPT 25545; principal; 2025-04-16 07:30)
DX: S52.201A Unspecified fracture of shaft of right ulna, initial encounter for closed fracture (principal); M79.631 Pain in right forearm; M79.641 Pain in right hand; W01.0XXA Fall on same level from slipping, tripping and stumbling without subsequent striking against object, initial encounter; Y93.89 Activity, other specified; Y92.22 Religious institution as the place of occurrence of the external cause; Y99.9 Unspecified external cause status; I10 Essential (primary) hypertension; E55.9 Vitamin D deficiency, unspecified; E04.2 Nontoxic multinodular goiter; Z90.89 Acquired absence of other organs; F32.A Depression, unspecified; Z86.718 Personal history of other venous thrombosis and embolism; Z79.01 Long term (current) use of anticoagulants; Z79.51 Long term (current) use of inhaled steroids; Z79.899 Other long term (current) drug therapy; Z88.1 Allergy status to other antibiotic agents; Z88.8 Allergy status to other drugs, medicaments and biological substances; Z98.890 Other specified postprocedural states; Z56.0 Unemployment, unspecified
CPT/HCPCS: 25545; 36415; 81025; 85610; C1713; J0131; J0665; J0690; J1100; J2003; J2004; J2250; J2371; J2405; J2704; J3010

== ENCOUNTER → 2025-04-16 05:55 | Outpatient (BNV) | payer MEDICAID, SELFPAY | PROVIDERS: PCP Internal Medicine; Visit Provider Orthopaedic Surgery | DX: S52.201A Unspecified fracture of shaft of right ulna, initial encounter for closed fracture (principal) | CPT/HCPCS: 25545 ==

== ENCOUNTER 2025-04-20 08:57 | Outpatient (REF) | payer MEDICAID, SELFPAY ==
--- OUTSIDE RECORDS SUMMARY | 2024-10-07 06:00 | XMS_ITS | Continuity of Care Document ---
Author Organization [facility] Address [address] [place] [address] Phone Care Team Providers Care Office System Analyst Name Role Phone Murtaza BHATTI, RVT, SUSI, [...] Diagnoses Date Provider Providers Copied on Encounter [facility], [address] [place] [address] Dr Carreno 1000[facility] [place] Mc[place], [id number], [place] tel:[phone] [facility] No Information 5 Murtaza BHATTI RVT, SUSI Swenson. [address], [address], [place], [id number], [place]. tel:[phone] Referring Provider: Yanna Valdes MD, [address] [place] [address] [address], [place], [address]. tel:[phone] Office/Outpt E&M Established 15 Mins- CT & [place] [facility], [address] [place] [address] Dr Carreno 1000Suite 1000A[place], [id number], [place] tel:[phone] [facility] Restless legs syndromeVenou s insufficiency (chronic) (peripheral)E ssential (primary) hypertension 5 Murtaza BHATTI RVT, SUSI Swenson. [address], [address], [place], [id number], [place]. tel:[phone] Referring Provider: Yanna Valdes MD, [address] [place] [address] [address], [place], [address]. tel:[phone] [facility], [address] [place] [address] Dr Carreno 1000[facility] [place]ce Mckeon [place], [id number], [place] tel:[phone] [facility] Encounter for follow-up examination after completed treatment for conditions other than malignant neoplasmChron ic venous hypertension (idiopathic) with other complications of left lower extremity 5 Murtaza BHATTI RVT, SUSI Swenson. [address] [facility] [address], [address], [place], [id number], [place]. tel:[phone] Referring Provider: Yanna Valdes MD, [address], [place], [address]. tel:[phone] [facility], [address] [place] [address] Dr [address] 1000A[place]ce [place], [id number], [place] tel:[phone] [facility] Venous insufficiency (chronic) (peripheral)N evus, non-neoplasti c 4 Mollkya Bryant. [address] [address], [address], [facility] [place], [id number], [place]. tel:[phone] Referring Provider: Yanna Valdes MD, [address] [place] [address] [address], [place], [address]. tel:[phone] Office/Outpt E&M Established 15 Mins- CT & [place] [facility], [address] [place] [address] Dr Carreno 1000[facility] 1000A[place], [id number], [place] tel:[phone] [facility] Essential (primary) hypertensionL ocalized edemaVenous insufficiency (chronic) (peripheral) 4 Murtaza BHATTI RVT, SUSI Swenson. [address] [place] [address] [address], [facility] [place], [id number], [place]. tel:[phone] Referring Provider: Yanna Valdes MD, [address] [place] [address] [address], [place], [address]. tel:[phone] [facility], [address] [place] [address] Dr Carreno 1000[facility] 1000Alyce [place], [id number], [place] tel:[phone] [facility] Encounter for follow-up examination after completed treatment for conditions other than malignant neVaricose veins of left lower extremity with pain 4 Murtaza BHATTI RVT, SUSI Swenson. [address] [place] [address], [address], [facility] [place], [id number], [place]. tel:[phone] Referring Provider: Yanna Valdes MD, [address] [place] [address] [address], [place], [address]. tel:[phone] [facility], [address] [place] [address] Dr Carreno 1000[address] 1000Alyce [place], [id number], [place] tel:[phone] [facility] Encounter for follow-up examination after completed treatment for conditions other than malignant ne 4 Murtaza BHATTI RVT, RPVI Robert. [address] [place] [address], [facility] [place], [id number], [place]. tel:[phone] Referring Provider: Yanna Valdes MD, [address] [place] [address] Suite [facility], [place], [address]. tel:[phone] [facility], [address] [place] [address] [facility] 1000[facility] A[place]ce Mckeon [place], [id number], [place] tel:[phone] [facility] Chronic venous hypertension (idiopathic) with inflammation of left lower extremity 4 Surinder Bryant. [address] [place] [address], [facility] [place], [id number], [place]. tel:[phone] Referring Provider: Yanna Valdes MD, [address] [place] [address] Suite [facility], [place], [address]. tel:[phone] [facility], [address] [place] [address] [facility] 1000Suite Alyce Mckeon [place], [id number], [place] tel:[phone] [facility] Encounter for follow-up examination after completed treatment for conditions other than malignant neChronic venous hypertension (idiopathic) with other complications of left lower extremity 4 Murtaza BHATTI RVT, RPVI Robert. [address] [place] [address], [place], [id number], [place]. tel:[phone] Referring Provider: Yanna Valdes MD, [address] [place] [address] [address], [place], [address]. tel:[phone] [facility], [address] [place] [address] [facility] 1000Suite A[place]ce Mc[place], [id number], [place] tel:[phone] [facility] Chronic venous hypertension (idiopathic) with inflammation of left lower extremity 4 Murtaza BHATTI RVT, RPVI Robert. [address] [place] [address], [place], [id number], [place]. tel:[phone] Referring Provider: Yanna Valdes MD, [address] [place] [address] [address], [place], [address]. tel:[phone] [facility], [address] [place] [address] Dr Carreno 1000Suite A[place]ce Mckeon [place], [id number], [place] tel:[phone] [facility] [place] Varicose veins of left lower extremity with other complications Apr-3 4 Murtaza BHATTI RVT, SUSI Swenson. [address] [place] [address], [facility] [place], [id number], [place]. tel:[phone] Referring Provider: Yanna Valdes MD, [address] [place] [address] [address], [place], [address]. tel:[phone] Offic/outpt E&m Estab 5 Min Trial - [facility], [address] [place] [address] Dr Carreno 1000Suite 1000A[place]ce [place], [id number], [place] tel:[phone] [facility] [place] Localized edemaCramp and spasmRestless legs syndromeVenou s insufficiency (chronic) (peripheral)E ssential (primary) hypertensionP ruritus, unspecified Aug- 4 Ajit Calzada. [address] [place] [address] 302, [facility] [place] [place], [id number], [place]. tel:[phone] Referring Provider: Yanna Valdes MD, [address] [place] [address] [address], [place], [address]. tel:[phone] Office/Oupt E&M New Pt 30 Mins [facility], [address] [place] [address] Dr Carreno 1000Suite 1000Alyce [place], [id number], [place] tel:[phone] [facility] [place] Varicose veins of left lower extremity with other complications Pain in left lower legLocalized edemaCramp and spasmRestless legs syndromeEssen tial (primary) hypertensionP ruritus, unspecified Fe-0 4 Murtaza BHATTI RVT, SUSI Swenson. [address] [place] [address], [place], [id number], [place]. tel:[phone] Referring Provider: Yanna Valdes MD, [address] [facility] [address] [facility] [address], [place], [address]. tel:[phone] [facility], [address] [address] [address] [facility] [address], [place], [id number], [place] tel:[phone] [facility] [place] Chronic venous hypertension (idiopathic) with other complications of left lower extremity 4 Murtaza BHATTI, RVT, RPVI Messi. [address] [facility] [address], [address], [place], [id number], [place]. tel:[phone] Referring Provider: Yanna Valdes MD, [address] [facility] [address], [place], [address]. tel:[phone] Family History Family Member Type Diagnosis Age At Onset No Information Payers Payer name Insurance type Covered constitution party ID Kerri calvillo(s) Medical Assistance [facility] [id number] Social History Type Description Quantity Date Captured [...]
--- OUTSIDE RECORDS SUMMARY | 2025-04-08 04:00 | XMS_ITS ---
Author Organization [facility] Address [address] [place] [address] Care Team Providers Care Campus Police Officer Name Role Phone Yanna Valdes Primary Care Provider Unavailab Severo Davenport Jr REASON FOR VISIT Patient presents today for abdominal pain Encounters Encounter Location Date Provider Diagnosis [facility] [address] [place] [address] 04/08/2025 Severo Cancino Jr Plan Of Treatment Next Appt Details Provider Name:Severo loza Jr, 07/23/2025 01:55:00 PM, [address], [address], [place], [address], Progress Notes * APOLLO KRAUSLEXIOB:[birth year] 75 (54 yo F)Acc No.[id number]:04/08/2025 Progress Notes Patient: APOLLO SCHAEFERRA Provider: Ciera Cancino MD :1970 A ge:54 Y S ex:Female Date:04/08/2025 Address:[address], [place] Pcp:Yanna Valdes Subjective: * Chief Complaints: * [...] MD Date: Generated for Terrell lópez/Melissa/Zeenat on: 06/20/2024 09:36 AM EST
--- NOTE | ~2025-04-20 | XR_ITS ---
EXAMINATION: XR FOREARM, RIGHT CLINICAL INFORMATION: M79.631 - Pain in right forearm COMPARISON: April 07, 2025. TECHNIQUE: AP and lateral views of the right forearm were obtained. FINDINGS: There is an intact metallic plate placed throughout the distal diaphysis of the ulna with improved alignment of the comminuted fracture. No periosteal bone reaction or callus formation. No subcutaneous emphysema. No lytic or blastic lesions. XR/XR forearm RT 2V IMPRESSION: Status post open reduction internal fixation without healing, fracture right ulna. Electronically signed by: Vignesh Bravo MD 04/20/2025 09:28 AM ANGELINA
== END 2025-04-20 08:58 | disposition home or self-care (01) ==
LOC: HO.HOSX 08:57
DX: S52.501D Unspecified fracture of the lower end of right radius, subsequent encounter for closed fracture with routine healing (principal); X58.XXXD Exposure to other specified factors, subsequent encounter
CPT/HCPCS: 29125; 73090; 99212

== ENCOUNTER 2025-04-20 09:01 | Outpatient (AMB) | payer MEDICAID, SELFPAY ==
--- NOTE | 2025-04-20 09:14 | A.OFFVIS_ITS ---
Vital Signs 04/20/25 09:18 Height 5 ft 8 in Weight 227 lb BMI 34.5 Intake Visit Reasons: PO RT ulnar shaft ORIF 04/16/25 AR Splint Change Intake Note: Norma is a 54 year old right hand dominant female who presents today Post- Operatively for a Splint Change status post Right Ulnar Shaft ORIF performed 04/16/[address] Baxter. Patient reports the splint was too tight for her. No other concerns. Allergies ciprofloxacin (From Cipro) Allergy (Unknown, Verified 04/20/25 09:19) RASH Sulfa (Sulfonamide Antibiotics) Allergy (Unknown, Verified 04/20/25 09:19) SWELLING/ITCHING, swelling topiramate (From TOPAMAX) Allergy (Unknown, Verified 04/20/25 09:19) DIZZY HPI HPI PO RT ulnar shaft ORIF 04/16/25 AR Splint Change: Details: Norma is a 54 year old right hand dominant female who presents today Post- Operatively for a Splint Change status post Right Ulnar Shaft ORIF performed 04/16/[address] Baxter. Patient reports the splint was too tight for her. Reports that since splint has been removed, pain has decreased significantly. No other concerns. [facility] Medical History Depression GERD (gastroesophageal reflux disease) HTN (hypertension) History of lipoma DVT (deep vein thrombosis) in Vitamin D deficiency Non-toxic multinodular goiter Surgical History H/O colonoscopy Status post excision of lipoma S/P fine needle aspiration History of partial thyroidectomy Hx of superior vena cava filter placement Hx of esophagogastroduodenoscopy Family History Father Hypertension Mother Diabetes Aneurysm Hypertension Other No family history of cancer Social History Household Members: Children Household Members Other:: 3 Housing: Apartment Are you a primary continuum of care manager to a significant other at home: No Do you presently have visiting nurse or other home services: No Alcohol intake: never Patient Tobacco Use Status: Never used Tobacco service: No Current occupational status: unemployed Current occupation: rt handed Review of Systems Const All systems reviewed & are unremarkable except as noted in HPI and below Physical Exam Vital Signs: BMI result Body Mass Index 34.5 Extrem Other: Patient is alert, oriented, and in no acute distress. Neuro: Normal sensation of the tips of all digits of the right hand at this time Vascular: Cap refill brisk Pain: Tenderness to palpation about fracture and incision sites ROM: Patient is able to make a closed fist and extend all digits of the right hand fully Skin: Well approximated and well healing incision site noted on the right forearm No lacerations or abrasions. General: No ecchymosis, erythema, or evidence of infection. Psych: Appears grossly normal Affect normal Attitude cooperative Office Procedures Casting/Splints 50819-[id number] Splint Application Procedure code (CPT) selection complete Results Reviewed Results Reviewed: X-rays obtained in the office today and independently reviewed by me, Ruddy Garg PA-C, demonstrate status post ORIF of right distal ulna with all orthopedic hardware in place and in satisfactory clinical alignment. Assessment & Plan Assessment & Plan (1) Fracture of right ulna, shaft: Code(s): S52.201A - Unspecified fracture of shaft of right ulna, initial encounter for closed fracture Category: Medical Plan 1. Status post right ulna ORIF DOS 04/16/2025 Splint changed in the office today without issue Patient is educated on proper splint care and precautions No evidence of skin breakdown or evidence of infection at this time Follow-up for previously scheduled postoperative appointment, sooner with any acute concerns Orders: Orders XR forearm RT 2V Today M79.631 - Pain in right forearm Coding Level of Care Code Global (59165) Diagnoses Fracture of right ulna, shaft S52.201A CPT Codes Splint - CPT: 55698-Nxbuoro Splint Application ([id number])
[2025-04-20 09:18] VITALS: BMI 34.5
== END 2025-04-20 09:59 | disposition home or self-care (01) ==
LOC: HO.HOS 09:02
PROVIDERS: PCP Internal Medicine
DX: S52.201A Unspecified fracture of shaft of right ulna, initial encounter for closed fracture (principal)
CPT/HCPCS: 29125; 99024

== ENCOUNTER → 2025-04-20 09:07 | Outpatient (BNV) | payer MEDICAID, SELFPAY | PROVIDERS: Visit Provider Radiology Diagnostic Radiology | DX: M79.631 Pain in right forearm (principal) | CPT/HCPCS: 73090 ==

== ENCOUNTER 2025-04-21 09:02 | Outpatient (AMB) | payer MEDICAID, SELFPAY ==
--- OUTSIDE RECORDS SUMMARY | 2024-07-09 04:20 | XMS_ITS ---
Author Organization [facility] Address [address] [place] [address] Care Team Providers Care Electrical Sign Wirer Helper Name Role Phone Yanna Valdes Primary Care Provider Unavailab Severo Davenport Jr REASON FOR VISIT epigastric pain Encounters Encounter Location Date Provider Diagnosis [facility] [address] [place] [address] 07/09/2024 Severo Cancino Jr Plan Of Treatment Next Appt Details Provider Name:Severo loza Jr, 07/23/2025 01:55:00 PM, [address], [address], [place], [address], Progress Notes * APOLLO KRAUSLEXIOB:[birth year] (54 yo F)Acc No.[id number]:07/09/2024 Progress Notes Patient: APOLLO SCHAEFERRA Provider: Ciera Cancino MD :1970 A ge:53 Y S ex:Female Date:07/09/2024 Address:[address], [id number] Pcp:Yanna Valdes Subjective: * Chief Complaints: * [...] 0 07/09/2024 Generated for Terrell lópez/Melissa/Zeenat on: 06/21/2024 09:37 AM EST
--- OUTSIDE RECORDS SUMMARY | 2025-04-08 04:00 | XMS_ITS ---
Author Organization [facility] Address [address] [place] [address] Care Team Providers Care Sheriffs Officer Name Role Phone Yanna Valdes Primary Care Provider Unavailab Severo Davenport Jr REASON FOR VISIT Patient presents today for abdominal pain Encounters Encounter Location Date Provider Diagnosis [facility] [address] [place] [address] 04/08/2025 Severo Cancino Jr Plan Of Treatment Next Appt Details Provider Name:Severo loza Jr, 07/23/2025 01:55:00 PM, [address], [address], [place], [address], Progress Notes * APOLLO KRAUSLEXIOB:[birth year] (54 yo F)Acc No.[id number]:04/08/2025 Progress Notes Patient: APOLLO SCHAEFERRA Provider: Ciera Cancino MD :1970 A ge:54 Y S ex:Female Date:04/08/2025 Address:[address], [place] Pcp:Yanna Valdes Subjective: * Chief Complaints: * [...] MD Date: Generated for Terrell lópez/Melissa/Zeenat on: 06/21/2024 09:37 AM EST
[2025-04-21 09:14] LABS: Prothrombin Time Whole Bld POC 15.6 sec (11.1-13.5); ~PT, ~INR - Anti Coag Clinic 1.3 (0.9-1.1)
--- NOTE | 2025-04-21 09:23 | MHC.OFFVISCO ---
Intake Intake Visit Reasons: Anticoagulation Allergies ciprofloxacin (From Cipro) Allergy (Unknown, Verified 04/21/25 09:05) RASH Sulfa (Sulfonamide Antibiotics) Allergy (Unknown, Verified 04/21/25 09:05) SWELLING/ITCHING, swelling topiramate (From TOPAMAX) Allergy (Unknown, Verified 04/21/25 09:05) DIZZY Medication List - Last Reconciled 04/21/25 by Emely Miranda RN albuterol sulfate 2.5 mg inhalation Q4-6H PRN albuterol sulfate 90 mcg/actuation (ProAir HFA) 2 puffs inhalation Q6H PRN bupropion HCl SR (Wellbutrin SR) 150 mg PO DAILY cholecalciferol (vitamin D3) 50 mcg PO DAILY 30 days enoxaparin (Lovenox) 100 mg See Protocol subcut Q12H fluticasone propionate 50 mcg/actuation (Flonase Allergy Relief) 1 spray intranasal DAILY fluticasone propionate 110 mcg/actuation (Flovent HFA) 2 puffs PO BID hydrochlorothiazide 25 mg PO DAILY lisinopril 20 mg PO DAILY montelukast 10 mg PO DAILY omeprazole 20 mg PO DAILY oxycodone-acetaminophen 5-325 mg 1 tab PO Q6H PRN phytosterol-pantethine 300-100 mg (CholestOff Complete) 300 caps PO DAILY sennosides-docusate sodium 8.6-50 mg (Senexon-S) 2 tabs PO BEDTIME sertraline 50 mg PO DAILY trazodone 50 mg PO BEDTIME PRN warfarin See Protocol 7.5mg x 6, 5mg x 1 Nursing Note INR 1.3 out of therapeutic range Medications and supplements reviewed Patient status: Pt is s/p Right ulnar shaft fracture open reduction internal fixation 04/16/[address] Baxter - She resumed warfarin 04/19/25 - no bleeding complications Medications or supplements: prn pain med acetaminophen oxycodone - states not taking Diet: good - challenged with 1 hand working Denies any signs and symptoms of bleeding or clotting or unusual bruising Bleeding, bruising, clotting discussed Nutritional guidance given: avoid greens until INR greater than 2.0 Dose: She started warfarin Sunday - she took 10mg sunday / 7.5mg sunday/ Dose today 10mg 7.5mg sun and recheck Sunday - continue lovenox per md orders - she stated md instructed once aday lovenox - She takes lovenox in am and warfarin in the pm F/U INR Date: 04/24/2025 ?? Patient verbalizing understanding of instructions given. Anti-Coag Initial Assessment Social Hx Patient Tobacco Use Status: Never used Tobacco alcohol intake: never Alcohol intake frequency: does not drink Coding Level of Care Code Est Patient Level 1 Diagnoses Current use of anticoagulant therapy Z79.01 Results AMB INR Fingerstick AMB INR Fingerstick 1.3 Last Edit by Emely Miranda RN on 04/21/25 09:14 notified Emely Miranda 04/21/25 09:14 manual entry Assessment & Plan Assessment & Plan (1) Current use of anticoagulant therapy: Code(s): Z79.01 - terminal makeup operator (current) use of anticoagulants Category: Medical
--- OUTSIDE RECORDS SUMMARY | 2025-04-21 09:37 | XMS_ITS | Patient Health Record ---
Author Organization [facility] Address [address] [place] [address] Care Team Providers Care Sales Service Manager Name Role Phone Yanna Valdes Primary Care Provider Unavailab Severo Davenport Jr Unavailable Allergies Allergen (clinical drug ingredient) Drug/Non Drug Allergy documented on EMR Reaction Allergy Type Onset Date Status Substance with sulfonamide structure and antibacterial mechanism of action (substance) Sulfa Antibiotics Unknown Drug Allergy Active topiramate Topamax Unknown Drug Allergy Active ciprofloxacin Cipro Unknown Drug Allergy Act lamonte Reason For Referral Referring Provider First Name Yanna Referring Provider Last Name Keisha Referring Provider Speciality Internal M edicine Referred Organization [facility] Referred Provider Severo Cancino Jr Referred Address [address] [place] [address], [address],[place], [place],[address], Referred Provider Specialty Gastroentero logy General Notes [...] 20 MG TAKE 1 CAPSULE BY MO UT EVERY DAY Oral; Duration: 90 Active Warfarin Sodium 5 MG TAKE 1 TABLET BY MO UT SUNDAY AND SUNDAY AND 1 1/2 TABS [...] Status Risk Notes Problem Colon cancer screening (615723105) Colon cancer screening (Z12.11) Active confirmed Problem Esophageal reflux (098322325) Esophageal reflux (K21.9) Active confirmed Problem Epigastric pain (20036682) Epigastric pain (R10.13) Active confirmed Encounters Encounter Location Date Provider Diagnosis [facility] [address] [place] [address] 04/24/2024 Severo Cancino Jr Plan Of Treatment Pending Test Test Name Order Date BUN 04/09/2024 CREATININE 04/09/2024 LIVER PROFILE 04/09/2024 LIPASE 04/09/2024 CBC w/o DIFF 04/09/2024 US ABD 04/09/2024 Future Test Test Name Order Date UPPER GI ENDOSCOPY 11/08/2022 COLONOSCOPY 11/08/2022 Next Appt Details Provider Name:Severo loza Jr, 07/23/2025 01:55:00 PM, [address], [address], [place], [address], Insurance Providers Payer Name Payer Address Payer Phone Subscriber Number Group Number Insured Name Patient Relationship to Insured Coverage Start Date Coverage End Date MEDICAID OF [facility] [address] [place] [phone] [id number] [place] Self - patient is the insured Medical (General) History Medical History History ICD Code DVT/PE EGD 01/31, esophagitis, eosinophils on bi opsy Environmental allergies Anxiety Insomnia Hypertension Elevated cholesterol Colonoscopy 01/31, normal, ten-year follo wup Surgical History Surgery Date(Month/Year) thyroid surgery vena cava filter 1993 lipoma removal 2021
== END 2025-04-21 09:30 | disposition home or self-care (01) ==
LOC: HO.ACS 09:02
PROVIDERS: PCP Internal Medicine; Visit Provider Internal Medicine Medical Oncology
DX: Z79.01 Long term (current) use of anticoagulants (principal)

== ENCOUNTER → 2025-04-21 09:02 | Outpatient (BNVA) | payer MEDICAID, SELFPAY | PROVIDERS: PCP Internal Medicine; Visit Provider Internal Medicine Medical Oncology | DX: Z79.01 Long term (current) use of anticoagulants (principal) | CPT/HCPCS: 85610; 99211 ==

== ENCOUNTER 2025-04-22 20:11 | Emergency (ER) | payer MEDICAID, SELFPAY ==
--- OUTSIDE RECORDS SUMMARY | 2024-07-09 04:20 | XMS_ITS ---
Author Organization [facility] Address [address] [place] [address] Care Team Providers Care Alcohol Still Operator Name Role Phone Yanna Valdes Primary Care Provider Unavailab Severo [place]en[place] Jr REASON FOR VISIT epigastric pain Encounters Encounter Location Date Provider Diagnosis [facility] [address] [place] [address] 07/09/2024 Severo Cancino Jr Plan Of Treatment Next Appt Details Provider Name:Severo loza Jr, 07/23/2025 01:55:00 PM, [address], [address], [place], [address], Progress Notes * APOLLO KRAUSLEXIOB:[birth year] (54 yo F)Acc No.[id number]:07/09/2024 Progress Notes Patient: APOLLO SCHAEFERRA Provider: Ciera Cancino MD :1970 A ge:53 Y S ex:Female Date:07/09/2024 Address:[address], [id number] Pcp:Yanna Valdes Subjective: * Chief Complaints: * [...] 0 07/09/2024 Generated for Terrell lópez/Melissa/Zeenat on: 06/22/2024 08:28 PM EST
--- OUTSIDE RECORDS SUMMARY | 2024-10-07 06:00 | XMS_ITS | Continuity of Care Document ---
Author Organization [facility] Address [address] [place] [address] Phone Care Team Providers Care Picker Operator Name Role Phone Murtaza BHATTI, RVT, SUSI, Messi Unavailable U navailable Procedures Procedure Date PT Did Not Receive Services Office/Outpt E&M Established 15 Mins- CT [...] Diagnoses Date Provider Providers Copied on Encounter [place] [facility], [address] [place] [address] Dr Carreno 1000[facility] [place] Mc[place], [id number], [place] tel:[phone] [facility] No Information 5 Murtaza BHATTI RVT, SUSI Swenson. [address], [address], [place], [id number], [place]. tel:[phone] Referring Provider: Yanna Valdes MD, [address] [place] [address] [address], [place], [address]. tel:[phone] Office/Outpt E&M Established 15 Mins- CT & [place] [facility], [address] [place] [address] Dr Carreno 1000[address] 1000A[place], [id number], [place] tel:[phone] [facility] Restless legs syndromeVenou s insufficiency (chronic) (peripheral)E ssential (primary) hypertension 5 Murtaza BHATTI RVT, SUSI Swenson. [address], [address], [place], [id number], [place]. tel:[phone] Referring Provider: Yanna Valdes MD, [address] [place] [address] [address], [place], [address]. tel:[phone] [place] [facility], [address] [place] [address] Dr Carreno 1000[facility] A[place]ce Mckeon [place], [id number], [place] tel:[phone] [facility] Encounter for follow-up examination after completed treatment for conditions other than malignant neoplasmChron ic venous hypertension (idiopathic) with other complications of left lower extremity 5 Murtaza BHATTI RVT, SUSI Swenson. [address], [address], [place], [id number], [place]. tel:[phone] Referring Provider: Yanna Valdes MD, [address], [place], [address]. tel:[phone] [place] [facility], [address] [place] [address] Dr [address]A[place]ce [place], [id number], [place] tel:[phone] [facility] - [facility] Venous insufficiency (chronic) (peripheral)N evus, non-neoplasti c 4 Mollkya Bryant. [address], [address], [facility] [place], [place], [id number], [place]. tel:[phone] Referring Provider: Yanna Valdes MD, [address] [place] [address] [address], [place], [address]. tel:[phone] Office/Outpt E&M Established 15 Mins- CT & [place] [facility], [address] [place] [address] Dr Carreno 1000[facility] 1000Aly[place], [id number], [place] tel:[phone] [facility] - [facility] Essential (primary) hypertensionL ocalized edemaVenous insufficiency (chronic) (peripheral) 4 Murtaza BHATTI RVT, SUSI Swenson. [address] [place] [address] [address], [facility] [place], [id number], [place]. tel:[phone] Referring Provider: Yanna Valdes MD, [address] [place] [address] [address], [place], [address]. tel:[phone] [facility], [address] [place] [address] Dr Carreno 1000[facility] 1000Alyce [place], [id number], [place] tel:[phone] [facility] Encounter for follow-up examination after completed treatment for conditions other than malignant neVaricose veins of left lower extremity with pain 4 Murtaza BHATTI RVT, SUSI Swenson. [address] [place] [address], [address], [facility] [place], [id number], [place]. tel:[phone] Referring Provider: Yanna Valdes MD, [address] [place] [address] [address], [place], [address]. tel:[phone] [facility], [address] [place] [address] Dr Carreno 1000[address] 1000A[place]ce [place], [id number], [place] tel:[phone] [facility] - [facility] Encounter for follow-up examination after completed treatment for conditions other than malignant ne 4 Murtaza BHATTI RVT, RPVI Robert. [address] [place] [address], [facility] [place] [place], [id number], [place]. tel:[phone] Referring Provider: Yanna Valdes MD, [address] [place] [address] Suite [facility], [place], [address]. tel:[phone] [facility], [address] [place] [address] [facility] 1000[facility] [place] Mckeon [place], [id number], [place] tel:[phone] [facility] - [facility] Chronic venous hypertension (idiopathic) with inflammation of left lower extremity 4 Surinder Bryant. [address] [place] [address], [facility] [place] [place], [id number], [place]. tel:[phone] Referring Provider: Yanna Valdes MD, [address] [place] [address] Suite [facility], [place], [address]. tel:[phone] [place] [facility], [address] [place] [address] [facility] 1000Suite Alyce Mcke[place], [id number], [place] tel:[phone] [facility] - [facility] Encounter for follow-up examination after completed treatment for conditions other than malignant neChronic venous hypertension (idiopathic) with other complications of left lower extremity 4 Murtaza BHATTI RVT, RPVI Robert. [address] [place] [address], [place], [id number], [place]. tel:[phone] Referring Provider: Yanna Valdes MD, [address] [place] [address] [address], [place], [address]. tel:[phone] [place] [facility], [address] [place] [address] [facility] 1000Suite Alyce Mckeon MD, [id number], [place] tel:[phone] [facility] - [facility] Chronic venous hypertension (idiopathic) with inflammation of left lower extremity 4 Murtaza BHATTI RVT, RPVI Robert. [address] [place] [address], [place], [id number], [place]. tel:[phone] Referring Provider: Yanna Valdes MD, [address] [place] [address] [address], [place], [address]. tel:[phone] [place] [facility], [address] [place] [address] Dr Carreno 1000Suite Alyce Mckeon [place], [id number], [place] tel:[phone] [facility] [place] [facility] [place] Varicose veins of left lower extremity with other complications Apr-3 4 Murtaza BHATTI RVT, SUSI Swenson. [address] [place] [address], [facility] [place], [id number], [place]. tel:[phone] Referring Provider: Yanna Valdes MD, [address] [place] [address] [address], [place], [address]. tel:[phone] Offic/outpt E&m Estab 5 Min Trial - [facility], [address] [place] [address] Dr Carreno 1000[address] 1000A[place], [id number], [place] tel:[phone] [facility] - [place] [facility] [place] Localized edemaCramp and spasmRestless legs syndromeVenou s insufficiency (chronic) (peripheral)E ssential (primary) hypertensionP ruritus, unspecified Aug- 4 Ajit Calzada. [address] [place] [address] 302, [facility] [place], [id number], [place]. tel:[phone] Referring Provider: Yanna Valdes MD, [address] [place] [address] [address], [place], [address]. tel:[phone] Office/Oupt E&M New Pt 30 Mins [facility], [address] [place] [address] Dr Carreno 1000[address] 1000A[place]ce [place], [id number], [place] tel:[phone] [facility] - [place] [facility] [place] Varicose veins of left lower extremity with other complications Pain in left lower legLocalized edemaCramp and spasmRestless legs syndromeEssen tial (primary) hypertensionP ruritus, unspecified Fe-0 4 Murtaza BHATTI RVT, SUSI Swenson. [address] [place] [address], [place], [id number], [place]. tel:[phone] Referring Provider: Yanna Valdes MD, [address] [facility] [address], [place], [address]. tel:[phone] [facility], [address], [place], [id number], [place] tel:[phone] [facility] - [place] [facility] [place] Chronic venous hypertension (idiopathic) with other complications of left lower extremity 4 Murtaza BHATTI, RVT, RPVI Messi. [address] [facility], [address], [place], [id number], [place]. tel:[phone] Referring Provider: Yanna Valdes MD, [address] [facility] [address], [place], [address]. tel:[phone] Family History Family Member Type Diagnosis Age At Onset No Information Payers Payer name Insurance type Covered democrat ID Kerri calvillo(s) Medical Assistance [facility] [id number] Social History Type Description Quantity Date Captured Comments Sex Female Smoking Status No Information Chief Complaint And Reason For Visit No [...] Information Instructions Date Instruction Additional Infor mation Patient education booklet given Related to Venous insufficiency (chronic) (peripheral) Mar-28-2025 Compression stocking usage as conservative measure Related to Venous insufficiency (chronic) (peripheral) Lifestyle education Related to B krista mass [...] (BMI) 34.0-34.9, adult Assessments Type Assessment Date No Information Patient Care Teams Name Effective Dates (start - stop) Status Members No Information
--- OUTSIDE RECORDS SUMMARY | 2025-04-08 04:00 | XMS_ITS ---
Author Organization [facility] Address [address] [place] [address] Care Team Providers Care Superintendent Factory Name Role Phone Yanna Valdes Primary Care Provider Unavailab Severo Davenport Jr [phone] REASON FOR VISIT Patient presents today for abdominal pain Encounters Encounter Location Date Provider Diagnosis [facility] [address] [place] [address] 04/08/2025 Severo Cancino Jr Plan Of Treatment Next Appt Details Provider Name:Severo loza Jr, 07/23/2025 01:55:00 PM, [address], [address], [place], [address], Progress Notes * APOLLO KRAUSLEXIOB:[birth year] 75 (54 yo F)Acc No.[id number]:04/08/2025 Progress Notes Patient: APOLLO SCHAEFERRA Provider: Ciera Cancino MD :1970 A ge:54 Y S ex:Female Date:04/08/2025 Address:[address], [id number] Pcp:Yanna Valdes Subjective: * Chief Complaints: * [...] MD Date: Generated for Terrell lópez/Melissa/Zeenat on: 06/22/2024 08:28 PM EST
[2025-04-22 20:14] VITALS: BP 147/73; PULSE 96; RESP 16; TEMP 36.7; O2SAT 98; BMI 34.7
--- OUTSIDE RECORDS SUMMARY | 2025-04-22 20:29 | XMS_ITS | Patient Health Record ---
Author Organization [facility] Address [address] [place] [address] Care Team Providers Care Security Door Installer Name Role Phone Yanna Valdes Primary Care Provider Unavailab Severo Davenport Jr Unavailable [phone] Allergies Allergen (clinical drug ingredient) Drug/Non Drug [...] Provider Speciality Internal M edicine Referred Organization [facility] Referred Provider Severo Cancino Jr Referred Address [address] [place] [address], [address],[place], [place],[address], Referred Provider Specialty Gastroentero logy General Notes [...] Status Risk Notes Problem Colon cancer screening (551652270) Colon cancer screening (Z12.11) Active confirmed Problem Esophageal reflux (005326351) Esophageal reflux (K21.9) Active confirmed Problem Epigastric pain (14367905) Epigastric pain (R10.13) Active confirmed Encounters Encounter Location Date Provider Diagnosis [facility] [address] [place] [address] 04/24/2024 Severo Cancino Jr Plan Of Treatment Pending Test Test Name Order Date BUN 04/09/2024 CREATININE 04/09/2024 LIVER PROFILE 04/09/2024 LIPASE 04/09/2024 CBC w/o DIFF 04/09/2024 US ABD 04/09/2024 Future Test Test Name Order Date UPPER GI ENDOSCOPY 11/08/2022 COLONOSCOPY 11/08/2022 Next Appt Details Provider Name:Severo loza Jr, 07/23/2025 01:55:00 PM, [address], [address], [place], [address], Insurance Providers Payer Name Payer Address Payer Phone Subscriber Number Group Number Insured Name Patient Relationship to Insured Coverage Start Date Coverage End Date MEDICAID OF [facility] [address] [place] [phone] [id number] [place] Self - patient is the insured Medical (General) History Medical History History ICD Code DVT/PE EGD 01/31, esophagitis, eosinophils on bi opsy Environmental allergies Anxiety Insomnia Hypertension Elevated cholesterol Colonoscopy 01/31, normal, ten-year follo wup Surgical History Surgery Date(Month/Year) thyroid surgery vena cava filter 1993 lipoma removal 2021
--- NOTE | 2025-04-22 20:35 | PC.NURSE ---
pt from triage reports a FA FX x3 weeks ago w/ surgical repair x1 week ago. PT has an madeleine wrap and reports a dressing change x2 days ago, following the change she developed numbness/tingling in the distal extremities. On inspection full CMS in the distal extremity w/ no obvious swelling or cyanosis.
--- NOTE | 2025-04-22 22:10 | ED.EXTPRO ---
HPI - Extremity Problem General Chief complaint: Extremity Injury, Upper Stated complaint: right hand injury Time Seen by Provider: 04/22/25 21:08 Source: patient Limitations: no limitations History of Present Illness ED Provider: Jennifer Shi PA-C HPI Narrative: 54-year-old female with a history of DVT on Coumadin, HTN, with recent right ulnar fracture on April 03, now status post ORIF, followed by the orthopedic service at [facility], who presents with right hand pain and swelling. Patient followed up with her orthopedist today, had the splint replaced, she states it is uncomfortable, too tight, she can not fully move her fingers. She has developed swelling and discomfort. She is asking for the splint to be reapplied. Denies cyanotic fingers or paresthesia. There is no pain of the right upper extremity itself. Related Data Home Medications ?Medication ?Instructions ?Recorded ?Confirmed albuterol sulfate 2.5 mg/3 mL 2.5 mg inhalation Q4-6H PRN 04/15/20 04/21/25 (0.083 %) solution for nebulization Shortness Of Breath Or Wheezing albuterol sulfate 90 mcg/actuation 2 puff inhalation Q6H PRN 04/15/20 04/21/25 aerosol inhaler (ProAir HFA) Shortness Of Breath Or Wheezing fluticasone propionate 50 1 spray intranasal DAILY 04/15/20 04/21/25 mcg/actuation nasal spray,suspension (Flonase Allergy Relief) fluticasone propionate 110 2 puff PO BID 02/15/21 04/21/25 mcg/actuation HFA aerosol inhaler (Flovent HFA) omeprazole 20 mg capsule,delayed 20 mg PO DAILY 02/15/21 04/21/25 release montelukast 10 mg tablet 10 mg PO DAILY 11/01/22 04/21/25 sennosides 8.6 mg-docusate sodium 2 tab PO BEDTIME 02/02/23 04/21/25 50 mg tablet (Senexon-S) sertraline 100 mg tablet 50 mg PO DAILY 03/18/24 04/21/25 lisinopril 20 mg tablet 20 mg PO DAILY 05/05/24 04/21/25 trazodone 50 mg tablet 50 mg PO BEDTIME PRN Sleep 05/05/24 04/21/25 bupropion HCl 150 mg tablet,12 hr 150 mg PO DAILY 05/14/24 04/21/25 sustained-release (Wellbutrin SR) phytosterol 300 mg-pantethine 100 300 cap PO DAILY 12/29/24 04/21/25 mg capsule (CholestOff Complete) hydrochlorothiazide 25 mg tablet 25 mg PO DAILY 04/14/25 04/21/25 Previous Rx's ?Medication ?Instructions ?Recorded cholecalciferol (vitamin D3) 50 50 mcg PO DAILY 30 days #30 caps 08/24/21 mcg (2,000 unit) capsule warfarin 5 mg tablet See Rx Instructions .Route 07/11/23 .COMPLEX #90 tabs enoxaparin 100 mg/mL subcutaneous 100 mg subcut Q12H #20 mL 04/09/25 syringe (Lovenox) oxycodone-acetaminophen 5 mg-325 1 tab PO Q6H PRN pain, severe #30 04/16/25 mg tablet tabs Allergies Allergy/AdvReac Type Severity Reaction Status Date / Time ciprofloxacin (From Cipro) Allergy Unknown RASH Verified 04/22/25 20:17 Sulfa (Sulfonamide Allergy Unknown SWELLING/ITCHING, Verified 04/22/25 20:17 Antibiotics) swelling topiramate (From TOPAMAX) Allergy Unknown DIZZY Verified 04/22/25 20:17 [facility] Past Medical History Medical History Depression GERD (gastroesophageal reflux disease) HTN (hypertension) History of lipoma DVT (deep vein thrombosis) in Vitamin D deficiency Non-toxic multinodular goiter Surgical History H/O colonoscopy Status post excision of lipoma S/P fine needle aspiration History of partial thyroidectomy Hx of superior vena cava filter placement Hx of esophagogastroduodenoscopy Family History Family History Father Hypertension Mother Diabetes Aneurysm Hypertension Other No family history of cancer Social History Social History Household Members: Children Household Members Other:: 3 Housing: Apartment Are you a primary point of care technician to a significant other at home: No Do you presently have visiting nurse or other home services: No Alcohol intake: never Patient Tobacco Use Status: Never used Tobacco Smoked in Last 30 Days: No Use of substances other than those prescribed or required for medical reasons: No Advance Directives: No Advance Directives Information Provided: No Do you have a plan to hurt others: No Plan service: No Current occupational status: unemployed Current occupation: rt handed Physical Exam Vital Signs: Vital Signs: Last Vital Signs Temp 98.0 F 04/22/25 20:14 Pulse 96 04/22/25 20:14 Resp 16 04/22/25 20:14 BP 147/73 H 04/22/25 20:14 Pulse Ox 98 04/22/25 20:14 O2 Del Method Room Air 04/22/25 20:14 BMI result Body Mass Index 34.7 Medical Decision Making Medical Decision Making MDM Narrative: 54-year-old female with a history of DVT on Coumadin, HTN, with recent right ulnar fracture on April 03, now status post ORIF, followed by the orthopedic service at [facility], who presents with right hand pain and swelling. Patient followed up with her orthopedist today, had the splint replaced, she states it is uncomfortable, too tight, she can not fully move her fingers. She has developed swelling and discomfort. She is asking for the splint to be reapplied. Denies cyanotic fingers or paresthesia. There is no pain of the right upper extremity itself. Problem: DVT on Coumadin, recent injury History: Per patient I have considered the following differential diagnoses: DVT, compartment syndrome, in properly placed splint Plan: The patient is here requesting an exchange of the splint, there was objective swelling of the fingers, there was no cyanosis no paresthesia her pain is not out of proportion to suggest compartment syndrome. There was no objective swelling of the arm to suggest DVT and there was no pain. She can continue to follow up with the orthopedist. No indication for imaging or labs. Differential Diagnosis Differential Diagnoses: The differential diagnosis associated with the presentation includes See medical decision-making Admission/Observation Consideration of admission/observation: Escalation of care including admission/observation considered Not applicable Procedures Orthopedic Splinting/Casting Injury #1: Side: right Upper Extremity Injury Location: forearm Upper Extremity Immobilizer: sugar tong splint Other Orthopedic Equipment: other (Sling which she has with her) Discharge Plan Discharge Clinical Impression: Hand pain, right Patient Disposition: Home, Self-Care Additional Instructions: We readjusted the splint, it was reapplied, for your comfort. Keep your pending follow up with your orthopedist. Prescriptions: No Action cholecalciferol (vitamin D3) 50 mcg (2,000 unit) capsule 50 mcg PO DAILY 30 Days Qty: 30 11RF enoxaparin [Lovenox] 100 mg/mL Syringe 100 mg SUBCUT Q12H Qty: 20 1RF Protocol: Dose Management Condition: Sunday Dose/Route: 10 mg Instruction: 2 x 5 mg milliliters Condition: Sunday Dose/Route: 7.5 mg Instruction: 1.5 x 5 mg milliliters Condition: Sunday Dose/Route: 10 mg Instruction: 2 x 5 mg milliliters Condition: Sunday Dose/Route: 7.5 mg Instruction: 1.5 x 5 mg milliliters Condition: Dose/Route: 7.5 mg Instruction: 1.5 x 5 mg milliliters Condition: Sunday Dose/Route: 7.5 mg Instruction: 1.5 x 5 mg milliliters Condition: Sunday Dose/Route: 7.5 mg Instruction: 1.5 x 5 mg milliliters Protocol Text: Adjustment Start Date: Sunday04/21/25 INR Value: 1.3 INR Date: 04/21/25 Additional Instructions: REVIEW FOOD LIST WEEKY - AVOID GREENS UNTIL GREATER THAN 2.0, CONTINUE LOVENOX UNTIL INR GREATER THAN 2.0 EAT ORANGE AND REDS TO HELP RAISE YOUR INR. hydrochlorothiazide 25 mg tablet 25 mg PO DAILY oxycodone-acetaminophen 5-325 mg tablet 1 tab PO Q6H PRN (Reason: pain, severe) Qty: 30 0RF Rx Instructions: Partial Fill upon patient request. Flovent HFA 110 mcg/actuation HFA aerosol inhaler 2 puff PO BID omeprazole 20 mg capsule,delayed release(DR/EC) 20 mg PO DAILY fluticasone propionate [Flonase Allergy Relief] 50 mcg/actuation spray,suspension 1 spray intranasal DAILY Rx Instructions: administer into each nostril albuterol sulfate [ProAir HFA] 90 mcg/actuation HFA aerosol inhaler 2 puff inhalation Q6H PRN (Reason: Shortness Of Breath Or Wheezing) albuterol sulfate 2.5 mg /3 mL (0.083 %) solution for nebulization 2.5 mg inhalation Q4-6H PRN (Reason: Shortness Of Breath Or Wheezing) sertraline 100 mg tablet 50 mg PO DAILY Patient Comments: pt states she is taking 50mg daily trazodone 50 mg tablet 50 mg PO BEDTIME PRN (Reason: Sleep) montelukast 10 mg tablet 10 mg PO DAILY warfarin 5 mg tablet See Rx Instructions .ROUTE .COMPLEX Qty: 90 0RF Protocol: Dose Management Condition: Sunday Dose/Route: 10 mg Instruction: 2 x 5 mg milliliters Condition: Sunday Dose/Route: 7.5 mg Instruction: 1.5 x 5 mg milliliters Condition: Sunday Dose/Route: 10 mg Instruction: 2 x 5 mg milliliters Condition: Sunday Dose/Route: 7.5 mg Instruction: 1.5 x 5 mg milliliters Condition: Dose/Route: 7.5 mg Instruction: 1.5 x 5 mg milliliters Condition: Sunday Dose/Route: 7.5 mg Instruction: 1.5 x 5 mg milliliters Condition: Sunday Dose/Route: 7.5 mg Instruction: 1.5 x 5 mg milliliters Protocol Text: Adjustment Start Date: Sunday04/21/25 INR Value: 1.3 INR Date: 04/21/25 Additional Instructions: REVIEW FOOD LIST WEEKY - AVOID GREENS UNTIL GREATER THAN 2.0, CONTINUE LOVENOX UNTIL INR GREATER THAN 2.0 EAT ORANGE AND REDS TO HELP RAISE YOUR INR. Rx Instructions: 7.5mg x 6, 5mg x 1 lisinopril 20 mg tablet 20 mg PO DAILY CholestOff Complete 300-100 mg capsule 300 cap PO DAILY sennosides-docusate sodium [Senexon-S] 8.6-50 mg tablet 2 tab PO BEDTIME bupropion HCl [Wellbutrin SR] 150 mg tablet sustained-release 12 hr 150 mg PO DAILY Print Language: Polish
[2025-04-22 22:19] VITALS: BP 145/66; PULSE 75; RESP 16; TEMP 36.2; O2SAT 96
== END 2025-04-22 22:20 | disposition home or self-care (01) ==
PROVIDERS: Emergency Provider Emergency Medicine; PCP Internal Medicine
DX: M79.641 Pain in right hand (principal); S52.201D Unspecified fracture of shaft of right ulna, subsequent encounter for closed fracture with routine healing; X58.XXXD Exposure to other specified factors, subsequent encounter; I10 Essential (primary) hypertension; Z86.718 Personal history of other venous thrombosis and embolism; Z79.01 Long term (current) use of anticoagulants; Z88.2 Allergy status to sulfonamides; Z88.8 Allergy status to other drugs, medicaments and biological substances
CPT/HCPCS: 29125; 99284

== ENCOUNTER 2025-04-24 10:13 | Outpatient (AMB) | payer MEDICAID, SELFPAY ==
--- OUTSIDE RECORDS SUMMARY | 2024-07-09 04:20 | XMS_ITS ---
Author Organization [facility] Address [address] [place] [address] Care Team Providers Care Supervisor Char House Name Role Phone Yanna Valdes Primary Care Provider Unavailab Severo [place]en[place] Jr REASON FOR VISIT epigastric pain Encounters Encounter Location Date Provider Diagnosis [facility] [address] [place] [address] 07/09/2024 Severo Cancino Jr Plan Of Treatment Next Appt Details Provider Name:Severo loza Jr, 07/23/2025 01:55:00 PM, [address], [address], [place], [address], Progress Notes * APOLLO KRAUSLEXIOB:[birth year] (54 yo F)Acc No.[id number]:07/09/2024 Progress Notes Patient: APOLLO SCHAEFERRA Provider: Ciera Cancino MD :1970 A ge:53 Y S ex:Female Date:07/09/2024 Address:[address], [id number] Pcp:Yanna Valdes Subjective: * Chief Complaints: * [...] 0 07/09/2024 Generated for Terrell lópez/Melissa/Zeenat on: 06/24/2024 12:36 PM EST
--- OUTSIDE RECORDS SUMMARY | 2025-04-08 04:00 | XMS_ITS ---
Author Organization [facility] Address [address] [place] [address] Care Team Providers Care Seafood Process Worker Name Role Phone Yanna Valdes Primary Care Provider Unavailab Severo Davenport Jr REASON FOR VISIT Patient presents today for abdominal pain Encounters Encounter Location Date Provider Diagnosis [facility] [address] [place] [address] 04/08/2025 Severo Cancino Jr Plan Of Treatment Next Appt Details Provider Name:Severo loza Jr, 07/23/2025 01:55:00 PM, [address], [address], [place], [address], Progress Notes * APOLLO KRAUSLEXIOB:[birth year] (54 yo F)Acc No.[id number]:04/08/2025 Progress Notes Patient: APOLLO SCHAEFERRA Provider: Ciera Cancino MD :1970 A ge:54 Y S ex:Female Date:04/08/2025 Address:[address], [id number] Pcp:Yanna Valdes Subjective: * Chief Complaints: * [...] MD Date: Generated for Terrell lópez/Melissa/Zeenat on: 06/24/2024 12:36 PM EST
[2025-04-24 10:43] LABS: Prothrombin Time Whole Bld POC 23.3 sec (11.1-13.5); ~PT, ~INR - Anti Coag Clinic 1.9 (0.9-1.1)
--- NOTE | 2025-04-24 10:51 | MHC.OFFVISCO ---
Intake Intake Visit Reasons: Anticoagulation Allergies ciprofloxacin (From Cipro) Allergy (Unknown, Verified 04/24/25 10:37) RASH Sulfa (Sulfonamide Antibiotics) Allergy (Unknown, Verified 04/24/25 10:37) SWELLING/ITCHING, swelling topiramate (From TOPAMAX) Allergy (Unknown, Verified 04/24/25 10:37) DIZZY Medication List - Last Reconciled 04/24/25 by Emely Miranda RN albuterol sulfate 2.5 mg inhalation Q4-6H PRN albuterol sulfate 90 mcg/actuation (ProAir HFA) 2 puffs inhalation Q6H PRN bupropion HCl SR (Wellbutrin SR) 150 mg PO DAILY cholecalciferol (vitamin D3) 50 mcg PO DAILY 30 days enoxaparin (Lovenox) 100 mg See Protocol subcut Q12H fluticasone propionate 50 mcg/actuation (Flonase Allergy Relief) 1 spray intranasal DAILY fluticasone propionate 110 mcg/actuation (Flovent HFA) 2 puffs PO BID hydrochlorothiazide 25 mg PO DAILY lisinopril 20 mg PO DAILY montelukast 10 mg PO DAILY omeprazole 20 mg PO DAILY oxycodone-acetaminophen 5-325 mg 1 tab PO Q6H PRN phytosterol-pantethine 300-100 mg (CholestOff Complete) 300 caps PO DAILY sennosides-docusate sodium 8.6-50 mg (Senexon-S) 2 tabs PO BEDTIME sertraline 50 mg PO DAILY trazodone 50 mg PO BEDTIME PRN warfarin See Protocol 7.5mg x 6, 5mg x 1 Nursing Note INR 1.9?? out of therapeutic range Medications and supplements reviewed Patient status: HEALING RIGHT ARM SURGERY, TAKING OCC PAIN MED Medications or supplements: NO CHANGES Diet: GOOD Denies any signs and symptoms of bleeding or clotting or unusual bruising Bleeding, bruising, clotting discussed Nutritional guidance given: AVOID GREENS FOR NOW, EAT FOODS TO HELP RAISE THE INR Dose: 7.5MG DAILY LOVENOX PER MD ORDERS F/U INR Date : 04/27/25 ?? Patient verbalizing understanding of instructions given. Anti-Coag Initial Assessment Social Hx Patient Tobacco Use Status: Never used Tobacco alcohol intake: never Alcohol intake frequency: does not drink Questionnaires HAS-BLED Does the patient had uncontrolled Hypertension?: No Does the patient have renal disease?: No Does the patient have liver disease?: No Does the patient have a history of stroke?: No Has the patient had major bleeding or predisposition to bleeding?: Yes (Just had surgery on lovenox ) Does the patient have labile INRs?: Yes (post surgery ) Is the patient over 65 years of age?: No Is the patient on medications that gives them a predisposition to bleeding?: Yes (warfarin and lovenox bridge ) Does the patient use alcohol?: No HAS-BLED Score: 3 CHADSVASC Age: <65 Gender: Female Does the patient have a history of CHF?: No Does the patient have a history of Hypertension?: Yes Does the patient have a history of Stroke/TIA/Thromboembolism?: Yes Does the patient have a history of Vascular Disease (prior NV, PAD or aortic plaque)?: No Does the patient have a history of Diabetes?: No CHADS VACS Score: 4 Willis Prediction Score Rsk VTE Active Cancer: No Previous VTE, excluding superficial vein thrombosis: Yes Reduced mobility: No Already known Thrombophilic Condition: Yes With-in last month Trauma and/or Surgery: Yes (surgery right arm repair ) Elderly 70 year or older: No Heart and/or Respiratory Failure: No Acute Myocardial infarction and/or Ischemic Stroke: No Acute Infection and/or Rheumatologic Disorder: No Obesity (BMI 30 or greater): Yes Ongoing Hormonal Treatment: No Score: 9 Willis Score less than 4; Low Risk of VTE Willis Score 4 or greater; High Risk of VTE Coding Level of Care Code Est Patient Level 1 Diagnoses Current use of anticoagulant therapy Z79.01 Results AMB INR Fingerstick AMB INR Fingerstick 1.9 Last Edit by Emely Miranda RN on 04/24/25 10:43 manual entry Assessment & Plan Assessment & Plan (1) Current use of anticoagulant therapy: Code(s): Z79.01 - long term care administrator (current) use of anticoagulants Category: Medical
--- OUTSIDE RECORDS SUMMARY | 2025-04-24 12:36 | XMS_ITS | Patient Health Record ---
Author Organization [facility] Address [address] [place] [address] Care Team Providers Care Nurse Practitioner Home Assessments Name Role Phone Yanna Valdes Primary Care Provider Unavailab Severo Davenport Jr Unavailable [phone] Allergies Allergen (clinical drug ingredient) Drug/Non [...] Provider Speciality Internal M edicine Referred Organization [facility] [place] [facility] Referred Provider Severo Cancino Jr Referred Address [address] [place] [address], [address],[place], [place],[address], Referred Provider Specialty Gastroentero logy General Notes [...] Status Risk Notes Problem Colon cancer screening (618658254) Colon cancer screening (Z12.11) Active confirmed Problem Esophageal reflux (266093613) Esophageal reflux (K21.9) Active confirmed Problem Epigastric pain (67584497) Epigastric pain (R10.13) Active confirmed Encounters Encounter Location Date Provider Diagnosis [facility] [address] [place] [address] 04/24/2024 Severo Cancino Jr Plan Of Treatment Pending Test Test Name Order Date BUN 04/09/2024 CREATININE 04/09/2024 LIVER PROFILE 04/09/2024 LIPASE 04/09/2024 CBC w/o DIFF 04/09/2024 US ABD 04/09/2024 Future Test Test Name Order Date UPPER GI ENDOSCOPY 11/08/2022 COLONOSCOPY 11/08/2022 Next Appt Details Provider Name:Severo loza Jr, 07/23/2025 01:55:00 PM, [address], [address], [place], [address], Insurance Providers Payer Name Payer Address Payer Phone Subscriber Number Group Number Insured Name Patient Relationship to Insured Coverage Start Date Coverage End Date MEDICAID OF [facility] [address] [place] [phone] [id number] [place] EST[place] Self - patient is the insured Medical (General) History Medical History History ICD Code DVT/PE EGD 01/31, esophagitis, eosinophils on bi opsy Environmental allergies Anxiety Insomnia Hypertension Elevated cholesterol Colonoscopy 01/31, normal, ten-year follo wup Surgical History Surgery Date(Month/Year) thyroid surgery vena cava filter 1993 lipoma removal 2021
== END 2025-04-24 10:52 | disposition home or self-care (01) ==
LOC: HO.ACS 10:13
PROVIDERS: PCP Internal Medicine; Visit Provider Internal Medicine Medical Oncology
DX: Z79.01 Long term (current) use of anticoagulants (principal)

== ENCOUNTER → 2025-04-24 10:13 | Outpatient (BNVA) | payer MEDICAID, SELFPAY | PROVIDERS: PCP Internal Medicine; Visit Provider Internal Medicine Medical Oncology | DX: Z79.01 Long term (current) use of anticoagulants (principal) | CPT/HCPCS: 85610; 99211 ==

== ENCOUNTER 2025-04-27 10:35 | Outpatient (AMB) | payer MEDICAID, SELFPAY ==
[2025-04-27 10:48] LABS: Prothrombin Time Whole Bld POC 30.6 sec (11.1-13.5); ~PT, ~INR - Anti Coag Clinic 2.5 (0.9-1.1)
--- NOTE | 2025-04-27 10:53 | MHC.OFFVISCO ---
Intake Intake Visit Reasons: Anticoagulation Allergies ciprofloxacin (From Cipro) Allergy (Unknown, Verified 04/24/25 10:37) RASH Sulfa (Sulfonamide Antibiotics) Allergy (Unknown, Verified 04/24/25 10:37) SWELLING/ITCHING, swelling topiramate (From TOPAMAX) Allergy (Unknown, Verified 04/24/25 10:37) DIZZY Nursing Note INR: 2.5 in therapeutic range Medications and supplements reviewed * RIGHT ARM STILL HEALING FROM SURGERY- STITCHES TO COME OUT TOMORROW AND NEW CAST TO ALLOW WRIST TO HEAL Denies any signs and symptoms of bleeding or bruising or clotting. Bleeding, bruising, clotting discussed Nutritional guidance given - GREENS TONIGHT TO MINIMIZE BLEEDING FOR SUTURES REMOVAL TOMORROW Dose: DID NOT TAKE LOVENOX TODAY, 7.5MG DAILY THIS WEEK - STOP LOVENOX THEN RESUME USUAL DOSE 5MG SUNDAY/ 7.5MG X 6 DAYS NEXT WEEK F/U INR: 2 WEEKS SUNDAY Patient verbalizes understanding of instructions given Anti-Coag Initial Assessment Social Hx Patient Tobacco Use Status: Never used Tobacco alcohol intake: never Alcohol intake frequency: does not drink Coding Level of Care Code Est Patient Level 1 Diagnoses Current use of anticoagulant therapy Z79.01 Results AMB INR Fingerstick AMB INR Fingerstick 2.5 Last Edit by Emely Miranda RN on 04/27/25 10:48 MANUAL ENTRY Assessment & Plan Assessment & Plan (1) Current use of anticoagulant therapy: Code(s): Z79.01 - residential (current) use of anticoagulants Category: Medical
== END 2025-04-27 10:59 | disposition home or self-care (01) ==
LOC: HO.ACS 10:35
PROVIDERS: PCP Internal Medicine; Visit Provider Internal Medicine Medical Oncology
DX: Z79.01 Long term (current) use of anticoagulants (principal)

== ENCOUNTER → 2025-04-27 10:35 | Outpatient (BNVA) | payer MEDICAID, SELFPAY | PROVIDERS: PCP Internal Medicine; Visit Provider Internal Medicine Medical Oncology | DX: Z79.01 Long term (current) use of anticoagulants (principal) | CPT/HCPCS: 85610; 99211 ==

== ENCOUNTER 2025-04-28 09:42 | Outpatient (AMB) | payer MEDICAID, SELFPAY ==
[2025-04-28 09:57] VITALS: BMI 34.7
--- NOTE | 2025-04-28 09:57 | MHC.OFFVIS ---
Vital Signs 04/28/25 09:57 Height 5 ft 8 in Weight 228 lb BMI 34.7 Intake Visit Reasons: PO RT ulnar shaft ORIF 04/16/25 AR Intake Note: Norma 54 yr old right hand dominant female presents today for her P/O visit for her right ulnar shaft ORIF done on 04/16/[address] Baxter. Dressing removed in office and sutures removed. Patient states she ihas pain, swelling in her thumb and is afraid to move her hand due to pain increase. Xrays updated in office. Allergies ciprofloxacin (From Cipro) Allergy (Unknown, Verified 04/28/25 10:02) RASH Sulfa (Sulfonamide Antibiotics) Allergy (Unknown, Verified 04/28/25 10:02) SWELLING/ITCHING, swelling topiramate (From TOPAMAX) Allergy (Unknown, Verified 04/28/25 10:02) DIZZY HPI HPI PO RT ulnar shaft ORIF 04/16/25 AR: Details: The patient is a 54-year-old zwuqz-feho-siqjtist woman who is status post a right ulnar shaft fracture open reduction internal fixation with de on 04/16/2025. We are also monitoring her for a possible occult right scaphoid fracture from the same injury. She had come in to be seen on 04/20/2025 for a splint change as she felt the splint was too tight. The patient says she is doing well but she does still have some some discomfort in her right wrist and her right forearm. Date of injury was 04/03/2025 when she tripped and fell at a [employer] tag sale She currently does not work. [facility], [facility] Medical History Depression GERD (gastroesophageal reflux disease) HTN (hypertension) History of lipoma DVT (deep vein thrombosis) in Vitamin D deficiency Non-toxic multinodular goiter Surgical History H/O colonoscopy Status post excision of lipoma S/P fine needle aspiration History of partial thyroidectomy Hx of superior vena cava filter placement Hx of esophagogastroduodenoscopy Family History Father Hypertension Mother Diabetes Aneurysm Hypertension Other No family history of cancer Social History Household Members: Children Household Members Other:: 3 Housing: Apartment Are you a primary before and after school daycare worker to a significant other at home: No Do you presently have visiting nurse or other home services: No Alcohol intake: never Patient Tobacco Use Status: Never used Tobacco service: No Current occupational status: unemployed Current occupation: rt handed Physical Exam Vital Signs: BMI result Body Mass Index 34.7 Extrem Other: The patient was alert oriented and in no acute distress. Her incision along the shaft of the ulna is healing well with no erythema drainage or evidence of infection. Sutures removed and Steri-Strips applied. She has some mild swelling in her fingers and some stiffness in her fingers from disuse. We worked on range of motion exercises today in clinic and before leaving clinic she was able to bring her fingertips almost to her palm and then back into extension. She does have tenderness in the snuffbox and scaphoid tubercle. However she is also tender over the dorsal and ulnar aspects of the right wrist. She has some numbness and tingling in the right thumb. No numbness and tingling to any of the fingers. Radiographs: AP lateral of the right forearm were obtained today and reviewed by me in clinic. They show satisfactory ulnar shaft fracture reduction and position of all implants. Three views of the right wrist plus scaphoid views: Assessment & Plan Assessment & Plan (1) Fracture of right ulna, shaft: Code(s): S52.201A - Unspecified fracture of shaft of right ulna, initial encounter for closed fracture Category: Medical (2) Tenderness of anatomical snuffbox: Code(s): M79.643 - Pain in unspecified hand Category: Medical Plan Assessment and plan: 1. Right ulnar shaft fracture status post ORIF Date of surgery 04/16/2025 Date of injury 04/03/2025 from a fall 2. Right snuffbox tenderness and tenderness about the wrist and general Possible nondisplaced fracture From a fall on 04/03/2025 We will monitor on radiographs 3. Some numbness and tingling in the right thumb We will follow this to see if it improves with time. She appears to be doing well postoperatively I am placing her in a longer short-arm cast to allow for elbow flexion extension and some prono-supination I have also encouraged her to work on active finger range of motion. We talked about activity modification and not lifting anything heavier than a cell phone. She is currently not working. Follow up in 4 weeks with new radiographs: AP lateral of the forearm, +three views and a scaphoid view of the right wrist Orders: Orders XR wrist RT w scaphoid Today M25.531 - Pain in right wrist XR forearm RT 2V Today S52.201A - Unspecified fracture of shaft of right ulna, initial encounter for closed fracture Coding Level of Care Code Global (38624) Diagnoses Fracture of right ulna, shaft S52.201A Tenderness of anatomical snuffbox M79.643
== END 2025-04-28 11:15 | disposition home or self-care (01) ==
LOC: HO.HOS 09:43
PROVIDERS: PCP Internal Medicine; Visit Provider Orthopaedic Surgery
DX: S52.201A Unspecified fracture of shaft of right ulna, initial encounter for closed fracture (principal); M79.643 Pain in unspecified hand
CPT/HCPCS: 99024

== ENCOUNTER → 2025-04-28 09:44 | Outpatient (BNV) | payer MEDICAID, SELFPAY | PROVIDERS: Visit Provider Radiology Diagnostic Radiology | DX: M25.531 Pain in right wrist (principal); S52.201D Unspecified fracture of shaft of right ulna, subsequent encounter for closed fracture with routine healing | CPT/HCPCS: 73090; 73110 ==

== ENCOUNTER 2025-04-28 10:11 | Outpatient (REF) | payer MEDICAID, SELFPAY ==
--- NOTE | ~2025-04-28 | XR_ITS ---
EXAMINATION: XR FOREARM, RIGHT CLINICAL INFORMATION: S52.201A - Unspecified fracture of shaft of right ulna, initial encounte... COMPARISON: 02/18/2025 TECHNIQUE: AP and lateral views of the right forearm were obtained. FINDINGS: Size plate screws traverse a transverse fracture of the junction of middle third and distal third diaphysis of the ulna. There is an interfragmentary screw across the fracture. Hardware is intact without abnormal lucencies at bone metal interfaces. There is increasing periosteal new bone formation. XR/XR forearm RT 2V IMPRESSION: Healing distal right ulnar diaphysis fracture post-ORIF. Electronically signed by: Yazan Garcia MD 04/28/2025 10:24 AM ANGELINA
--- NOTE | ~2025-04-28 | XR_ITS ---
EXAMINATION: XR WRIST, RIGHT CLINICAL INFORMATION: M25.531 - Pain in right wrist COMPARISON: 04/03/2025 TECHNIQUE: PA, lateral, oblique, and scaphoid views of the right wrist. FINDINGS: Since the prior study, side plate and screws have been placed across a fracture through the junction of middle third and distal third diaphysis of the ulna. There is also an interfragmentary screw. Hardware is intact without evidence of loosening or failure. There is anatomic alignment across the fracture. No periosteal new bone formation is visualized. There is stable 2 mm ulnar plus variance. No other abnormalities are evident. XR/XR wrist RT w scaphoid IMPRESSION: Postsurgical changes related to ORIF of a fracture through the junction of the middle third and distal third diaphysis of the right ulna. There is anatomic alignment without hardware failure. Electronically signed by: Yazan Garcia MD 04/28/2025 10:47 AM ANG[facility]
== END 2025-04-28 10:12 | disposition home or self-care (01) ==
LOC: HO.HOSX 10:11
PROVIDERS: Visit Provider Orthopaedic Surgery
DX: S52.201D Unspecified fracture of shaft of right ulna, subsequent encounter for closed fracture with routine healing (principal); W01.0XXD Fall on same level from slipping, tripping and stumbling without subsequent striking against object, subsequent encounter
CPT/HCPCS: 73090; 73110; 99212

== ENCOUNTER 2025-05-14 10:44 | Outpatient (AMB) | payer MEDICAID, SELFPAY ==
--- OUTSIDE RECORDS SUMMARY | 2025-04-08 04:00 | XMS_ITS ---
Author Organization [facility] Address [address] [place] [address] Care Team Providers Care Pin Drafter Operator Name Role Phone Yanna Valdes Primary Care Provider Unavailab Severo Davenport Jr REASON FOR VISIT Patient presents today for abdominal pain Encounters Encounter Location Date Provider Diagnosis [facility] [address] [place] [address] 04/08/2025 Severo Cancino Jr Plan Of Treatment Next Appt Details Provider Name:Severo loza Jr, 07/23/2025 01:55:00 PM, [address] [facility], [address], [place], [address], Progress Notes * EFRAAPOLLOLEXIOB:[birth year] 75 (54 yo F)Acc No.[id number]:04/08/2025 Progress Notes Patient: APOLLO SCHAEFERRA Provider: Ciera Cancino MD :1970 A ge:54 Y S ex:Female Date:04/08/2025 Address:[address], [id number] Pcp:Yanna Valdes Subjective: * Chief Complaints: * P atient presents today for abdominal pain * The named appointment provid er may or may not be the originator of this progress note, and it is not deemed complete until electronically signed by the appointment provider. Sign off status: Pending * Provider: Ciera Cancino MD Date: 1 Generated for Terrell lópez/Melissa/Zeenat on: 1 07/15/2024 01:24 PM EST
[2025-05-14 10:51] LABS: Prothrombin Time Whole Bld POC 33.1 sec (11.1-13.5); ~PT, ~INR - Anti Coag Clinic 2.8 (0.9-1.1)
--- NOTE | 2025-05-14 10:52 | MHC.OFFVISCO ---
Intake Intake Visit Reasons: Anticoagulation Allergies ciprofloxacin (From Cipro) Allergy (Unknown, Verified 05/14/25 10:46) RASH Sulfa (Sulfonamide Antibiotics) Allergy (Unknown, Verified 05/14/25 10:46) SWELLING/ITCHING, swelling topiramate (From TOPAMAX) Allergy (Unknown, Verified 05/14/25 10:46) DIZZY Medication List - Last Reconciled 05/14/25 by Fior Turpin RN albuterol sulfate 2.5 mg inhalation Q4-6H PRN albuterol sulfate 90 mcg/actuation (ProAir HFA) 2 puffs inhalation Q6H PRN bupropion HCl SR (Wellbutrin SR) 150 mg PO DAILY cholecalciferol (vitamin D3) 50 mcg PO DAILY 30 days enoxaparin (Lovenox) 100 mg See Protocol subcut Q12H fluticasone propionate 50 mcg/actuation (Flonase Allergy Relief) 1 spray intranasal DAILY fluticasone propionate 110 mcg/actuation (Flovent HFA) 2 puffs PO BID hydrochlorothiazide 25 mg PO DAILY lisinopril 20 mg PO DAILY montelukast 10 mg PO DAILY omeprazole 20 mg PO DAILY oxycodone-acetaminophen 5-325 mg 1 tab PO Q6H PRN phytosterol-pantethine 300-100 mg (CholestOff Complete) 300 caps PO DAILY sennosides-docusate sodium 8.6-50 mg (Senexon-S) 2 tabs PO BEDTIME sertraline 50 mg PO DAILY trazodone 50 mg PO BEDTIME PRN warfarin See Protocol 7.5mg x 6, 5mg x 1 Nursing Note INR: 2.8 in therapeutic range of 2-3 Medications and supplements reviewed No changes in health, diet, medications, or supplements, Denies any signs and symptoms of bleeding or bruising or clotting. Bleeding, bruising, clotting discussed Nutritional guidance given Dose: 7.5mg X 6 days and 5mg X 1 day (Mon) F/U INR: 05/27/25 Patient verbalizes understanding of instructions given Anti-Coag Initial Assessment Social Hx Patient Tobacco Use Status: Never used Tobacco alcohol intake: never Alcohol intake frequency: does not drink Coding Level of Care Code Est Patient Level 1 Diagnoses Current use of anticoagulant therapy Z79.01 Assessment & Plan Assessment & Plan (1) Current use of anticoagulant therapy: Code(s): Z79.01 - senior care (current) use of anticoagulants Category: Medical
--- OUTSIDE RECORDS SUMMARY | 2025-05-14 13:24 | XMS_ITS | Patient Health Record ---
Author Organization [facility] Address [address] [place] [address] Care Team Providers Care Chief Mate Name Role Phone Yanna Valdes Primary Care Provider Unavailab Severo Davenport Jr Unavailable [phone] Allergies Allergen (clinical drug ingredient) Drug/Non Drug Allergy documented on EMR Reaction Allergy Type Onset Date Status Cipro Unknown Drug Allergy Active Topamax Unknown Drug Allergy Active Substance with sulfonamide structure and antibacterial mechanism of action (substance) Sulfa Antibiotics Unknown Drug Allergy Active Reason For Referral Referring Provider First Name Yanna Referring Provider Last Name Keisha Referring Provider Speciality Internal M edicine Referred Organization [facility] Referred Provider Severo Cancino Jr Referred Address [address] [place] [address],[address],[place], [place],[address], Referred Provider Specialty Gastroentero logy General Notes Jackelin Moran 2024 01:14:37 PM > requested a [facility] referral from Dr. Valdes's office for visit with Dr. Cancino on 04-08-25 Referral Priority Routine Medications Medication SIG (Take, Route, Frequency, Duration) Notes Start Date End Date Status Sertraline HCl 100 MG Tablet TAKE 1 TABLET BY MOUTH EVERY DAY Oral; Duration: 30 Active traZODone HCl 50 MG Tablet TAKE 1 TABLET BY MOUTH EVERYDAY AT BEDTIME Oral; Duration: 90 Active Montelukast Sodium 10 MG Tablet TAKE ONE TABLET BY MOUTH EVERY DAY Oral; Duration: 90 Active Triamcinolone Acetonide 0.5 % Cream USE 1 APPLICATION TOPICALLY TO AFFECTED AREA TWICE A DAY External; Duration: 30 Active Lisinopril 5 MG Tablet TAKE 1 TABLET BY MOUTH EVERY DAY Oral; Duration: 90 Active Loratadine 10 MG Tablet TAKE 1 TABLET BY MOUTH EVERY DAY Oral; Duration: 90 Active Fluticasone Propionate 50 MCG/ACT Suspension ONE SPRAY EACH NOSTRIL NASAL ONCE A DAY Nasal; Duration: 90 Active Omeprazole 20 MG Capsule Delayed Release TAKE 1 CAPSULE BY MOUTH EVERY DAY Oral; Duration: 90 Active Warfarin Sodium 5 MG Tablet TAKE 1 TABLE T BY MOUTH SUNDAY AND SUNDAY AND 1 1/2 TABS THE REST OF THE WEEK Oral; Duration: 44 Active Immunizations Vaccine Route Administration Date Status Comme nts Influenza Unknown 02/21/2022 Administered Influenza Unknown 06/11/2023 Administered Social History Tobacco Use: Social History Observation Description Date Details (start date - stop date) Never Smoker NA - NA Social History Drugs/Alcohol: Social Info Question Answer Notes Alcohol Screen Did you have a drink containing alcohol in the past year? No Points 0 Interpretation Negative Tobacco Use: Social Info Question Answer Notes Tobacco Use/Smoking Patient is a nonsmoker Additional Details Category Social Info Options Details Miscellaneous: Marital status: single Occupation: unemployed Problems Problem Type SNOMED Code ICD Code Onset Dates Problem Status W/U Status Risk Notes Problem Colon cancer screening (832330441) Colon cancer screening (Z12.11) Active confirmed Problem Esophageal reflux (849752122) Esophageal reflux (K21.9) Active confirmed Problem Epigastric pain (22849735) Epigastric pain (R10.13) Active confirmed Plan Of Treatment Pending Test Test Name Order Date BUN 04/09/2024 CREATININE 04/09/2024 LIVER PROFILE 04/09/2024 LIPASE 04/09/2024 CBC w/o DIFF 04/09/2024 US ABD 04/09/2024 Future Test Test Name Order Date UPPER GI ENDOSCOPY 11/08/2022 COLONOSCOPY 11/08/2022 Next Appt Details Provider Name:Severo loza Jr, 07/23/2025 01:55:00 PM, [address] [place] [address], [address], [place], [address], Insurance Providers Payer Name Payer Address Payer Phone Subscriber Number Group Number Insured Name Patient Relationship to Insured Coverage Start Date Coverage End Date MED[employer] OF [employer] [address] [place] [phone] [id number] [place] EST[place] Self - patient is the insured Medical (General) History Medical History History ICD Code DVT/PE EGD 01/31, esophagitis, eosinophils on bi opsy Environmental allergies Anxiety Insomnia Hypertension Elevated cholesterol Colonoscopy 01/31, normal, ten-year follo wup Surgical History Surgery Date(Month/Year) thyroid surgery vena cava filter 1993 lipoma removal 2021
== END 2025-05-14 10:55 | disposition home or self-care (01) ==
LOC: HO.ACS 10:44
PROVIDERS: PCP Internal Medicine; Visit Provider Internal Medicine Medical Oncology
DX: Z79.01 Long term (current) use of anticoagulants (principal)

== ENCOUNTER → 2025-05-14 10:44 | Outpatient (BNVA) | payer MEDICAID, SELFPAY | PROVIDERS: PCP Internal Medicine; Visit Provider Internal Medicine Medical Oncology | DX: I82.402 Acute embolism and thrombosis of unspecified deep veins of left lower extremity (principal); Z51.81 Encounter for therapeutic drug level monitoring; Z79.01 Long term (current) use of anticoagulants | CPT/HCPCS: 85610; 99211 ==

== ENCOUNTER 2025-05-15 12:37 | Outpatient (REF) | payer MEDICAID, SELFPAY ==
--- NOTE | ~2025-05-15 | XR_ITS ---
EXAMINATION: XR WRIST NAVICULAR RIGHT HISTORY: M79.641 - Pain in right hand COMPARISON: Comparison is made with the prior examination dated 04/28/2025. FINDINGS: Four views of the right wrist including a scaphoid view are submitted. Osseous mineralization is normal. The patient is again noted to be status post internal fixation of a comminuted fracture of the mid to distal ulna with a sideplate and multiple orthopedic screws. The fracture lines remain visible. The joint spaces are preserved. The soft tissues are unremarkable. XR/XR wrist RT w scaphoid IMPRESSION: Internal fixation of a comminuted fracture of the mid to distal ulna without change. Electronically signed by: Messi De MD 05/15/2025 01:19 PM ANGELINA GUERRERO
== END 2025-05-15 12:38 | disposition home or self-care (01) ==
LOC: HO.HOSX 12:37
DX: S52.201A Unspecified fracture of shaft of right ulna, initial encounter for closed fracture (principal); X58.XXXA Exposure to other specified factors, initial encounter
CPT/HCPCS: 73110

== ENCOUNTER 2025-05-15 12:55 | Outpatient (AMB) | payer MEDICAID, SELFPAY ==
--- NOTE | 2025-05-15 12:57 | A.OFFVIS_ITS ---
Vital Signs 05/15/25 12:58 Height 5 ft 8 in Weight 228 lb BMI 34.7 Intake Visit Reasons: PO RT ulnar shaft ORIF 04/16/25 AR. Intake Note: Norma is a 54 year old right hand dominant female presents today for a Post- operative visit status post Right Ulnar Shaft ORIF done on 04/16/[address] Baxter. She was last seen by Dr. Baxter on 04/28/25. At the time she was placed in a longer short-arm cast to allow for elbow flexion extension and some prono-supination. She was advised to work on active finger range of motion avoiding lifting anything heavier than a cell phone. Today, patient complains of increasing pain magnolia round the wrist and numbness of her fingers. She reports they were very swollen yesterday. She takes Tylenol PRN with minimal relief. Allergies ciprofloxacin (From Cipro) Allergy (Unknown, Verified 05/15/25 12:58) RASH Sulfa (Sulfonamide Antibiotics) Allergy (Unknown, Verified 05/15/25 12:58) SWELLING/ITCHING, swelling topiramate (From TOPAMAX) Allergy (Unknown, Verified 05/15/25 12:58) DIZZY HPI HPI PO RT ulnar shaft ORIF 04/16/25 AR.: Details: Norma is a 54 year old right hand dominant female presents today for a Post- operative visit status post Right Ulnar Shaft ORIF done on 04/16/[address] Baxter. She was last seen by Dr. Baxter on 04/28/25. At the time she was placed in a longer short-arm cast to allow for elbow flexion extension and some prono-supination. She was advised to work on active finger range of motion avoiding lifting anything heavier than a cell phone. Today, patient complains of increasing pain magnolia round the wrist and numbness of her fingers. once cast has been removed, the patient does state that her numbness has improved.She reports they were very swollen yesterday. She takes Tylenol PRN with minimal relief. [facility] Medical History Depression GERD (gastroesophageal reflux disease) HTN (hypertension) History of lipoma DVT (deep vein thrombosis) in Vitamin D deficiency Non-toxic multinodular goiter Surgical History H/O colonoscopy Status post excision of lipoma S/P fine needle aspiration History of partial thyroidectomy Hx of superior vena cava filter placement Hx of esophagogastroduodenoscopy Family History Father Hypertension Mother Diabetes Aneurysm Hypertension Other No family history of cancer Social History Household Members: Children Household Members Other:: 3 Housing: Apartment Are you a primary long term care administrator to a significant other at home: No Do you presently have visiting nurse or other home services: No Alcohol intake: never Patient Tobacco Use Status: Never used Tobacco service: No Current occupational status: unemployed Current occupation: rt handed Review of Systems Const All systems reviewed & are unremarkable except as noted in HPI and below Physical Exam Vital Signs: BMI result Body Mass Index 34.7 Extrem Other: The patient was alert oriented and in no acute distress. Her incision along the shaft of the ulna is healing well with no erythema drainage or evidence of infection. Sutures removed and Steri-Strips applied. She has some mild swelling in her fingers and some stiffness in her fingers from disuse. We worked on range of motion exercises today in clinic and before leaving clinic she was able to bring her fingertips almost to her palm and then back into extension. She does have tenderness in the snuffbox and scaphoid tubercle. However she is also tender over the dorsal and ulnar aspects of the right wrist. No tenderness to palpation ofThe ulnar shaft of the right wrist She has some numbness and tingling in the right thumb. No numbness and tingling to any of the fingers. Radiographs: AP lateral of the right forearm were obtained today and reviewed by me in clinic. They show satisfactory ulnar shaft fracture reduction and position of all implants. Three views of the right wrist plus scaphoid views: There is a small, questionable area of lucency on the right scaphoid concerning for potential nondisplaced fracture Office Procedures Casting/Splints [id number]-Qjvd/Wrist Cast Application Procedure code (CPT) selection complete Assessment & Plan Assessment & Plan (1) Tenderness of anatomical snuffbox: Code(s): M79.643 - Pain in unspecified hand Category: Medical (2) Fracture of right ulna, shaft: Code(s): S52.201A - Unspecified fracture of shaft of right ulna, initial encounter for closed fracture Category: Medical Plan Assessment and plan: 1. Right ulnar shaft fracture status post ORIF Date of surgery 04/16/2025 Date of injury 04/03/2025 from a fall 2. Right snuffbox tenderness and tenderness about the wrist and general Possible nondisplaced fracture From a fall on 04/03/2025 Due to ongoing tenderness of the anatomical snuffbox and scaphoid tubercle, I feel it is most prudent to order a CT scan to assess the health of the scaphoid of the right wrist and determine if there is a fracture that may require ongoing treatment 3. Some numbness and tingling in the right thumb We will follow this to see if it improves with time. She appears to be doing well postoperatively I am placing her in a longer short-arm cast to allow for elbow flexion extension and some prono-supination I have also encouraged her to work on active finger range of motion. We talked about activity modification and not lifting anything heavier than a cell phone. She is currently not working. Follow up after CT scan for results review and discussion of further treatment options if indicated, sooner with any acute concerns Orders: Orders XR wrist RT w scaphoid Today M79.641 - Pain in right hand CT wrist RT wo IV con Today M79.643 - Pain in unspecified hand, S52.201A - Unspecified fracture of shaft of right ulna, initial encounter for closed fracture Coding Level of Care Code Global (28174) Diagnoses Tenderness of anatomical snuffbox M79.643 Fracture of right ulna, shaft S52.201A CPT Codes Casting - CPT: [id number]/Wrist Cast Application ([id number])
[2025-05-15 12:58] VITALS: BMI 34.7
== END 2025-05-15 13:55 | disposition home or self-care (01) ==
LOC: HO.HOS 12:56
PROVIDERS: PCP Internal Medicine
DX: S52.201A Unspecified fracture of shaft of right ulna, initial encounter for closed fracture (principal); M79.641 Pain in right hand
CPT/HCPCS: 29075; 99024

== ENCOUNTER → 2025-05-15 12:59 | Outpatient (BNV) | payer MEDICAID, SELFPAY | PROVIDERS: Visit Provider Radiology Diagnostic Radiology | DX: M79.641 Pain in right hand (principal) | CPT/HCPCS: 73110 ==

== ENCOUNTER 2025-05-26 11:15 | Outpatient (REF) | payer MEDICAID, SELFPAY ==
--- OUTSIDE RECORDS SUMMARY | 2025-04-08 04:00 | XMS_ITS ---
Author Organization [facility] Address [address] [place] [address] Care Team Providers Care Repairer Art Objects Name Role Phone Yanna Valdes Primary Care Provider Unavailab Severo Davenport Jr [phone] REASON FOR VISIT Patient presents today for abdominal pain Encounters Encounter Location Date Provider Diagnosis [facility] [address] [place] [address] 04/08/2025 Severo Cancino Jr Plan Of Treatment Next Appt Details Provider Name:Severo loza Jr, 07/23/2025 01:55:00 PM, [address] [facility], [address], [place], [address], Progress Notes * EFRAAPOLLOLEXIOB:[birth year] 75 (54 yo F)Acc No.[id number]:04/08/2025 Progress Notes Patient: APOLLO SCHAEFERRA Provider: Ciera Cancino MD :1970 A ge:54 Y S ex:Female Date:04/08/2025 Address:[address], [id number] Pcp:Yanna Valdes Subjective: * Chief Complaints: * P atient presents today for abdominal pain * The named appointment provid er may or may not be the originator of this progress note, and it is not deemed complete until electronically signed by the appointment provider. Sign off status: Pending * Provider: Ciera Cancino MD Date: 1 Generated for Terrell lópez/Melissa/Zeenat on: 1 07/27/2024 02:50 PM EST
--- NOTE | ~2025-05-26 | CT_ITS ---
EXAMINATION: CT WRIST WITHOUT CONTRAST, RIGHT CLINICAL INFORMATION: Concern for scaphoid fracture. COMPARISON: Prior wrist x-rays including 05/15/2025 TECHNIQUE: Axial imaging. Sagittal and coronal reconstruction. This CT examination was performed using dose optimization techniques as appropriate, variously including the following: *Automated exposure control *Adjustment of mA and/or kV according to patient size (this includes techniques or standardized protocols for targeted exams where dose is matched to indication/reason for exam; i.e. extremities or head) *Use of iterative reconstruction technique FINDINGS: Status post internal fixation of a comminuted fracture of the mid to distal ulna. Stable alignment. Mild periosteal new bone formation. Plate and screw fixation hardware present. Hardware is intact without evidence of perihardware lucencies to suggest loosening or failure. No acute scaphoid fracture is identified; no focal lucency or cortical malalignment is seen. Scapholunate distance is maintained. No new acute fractures otherwise identified in the remainder of the bones. Alignment is anatomic. Limited evaluation of tendons, grossly appearing intact. No fluid collection is identified by CT. Extremity positioned in a cast.. CT/CT wrist RT wo IV con IMPRESSION: 1. No CT evidence of acute scaphoid fracture is identified. 2. Status post internal fixation of a comminuted fracture of the mid to distal ulna. Stable alignment. Mild periosteal new bone formation. Hardware is intact without evidence of loosening or failure. Electronically signed by: Mendoza Concepcion MD 05/26/2025 12:11 PM ANGELINA
--- OUTSIDE RECORDS SUMMARY | 2025-05-26 14:50 | XMS_ITS | Patient Health Record ---
Author Organization [facility] Address [address] [place] [address] Care Team Providers Care Head Automatic Sawyer Name Role Phone Yanna Valdes Primary Care Provider Unavailab Severo Davenport Jr Unavailable Allergies Allergen (clinical drug ingredient) Drug/Non Drug Allergy documented on EMR Reaction Allergy Type Onset Date Status ciprofloxacin Cipro Unknown Drug Allergy Act lamonte topiramate Topamax Unknown Drug Allergy Active Substance with sulfonamide structure and antibacterial mechanism of action (substance) Sulfa Antibiotics Unknown Drug Allergy Active Reason For Referral Referring Provider First Name Yanna Referring Provider Last Name Keisha Referring Provider Speciality Internal M edicine Referred Organization [facility] Referred Provider Severo Cancino Jr Referred Address [address] [place] [address], [address],[place], [place],[address], Referred Provider Specialty Gastroentero logy General Notes [...] Status Risk Notes Problem Colon cancer screening (397254439) Colon cancer screening (Z12.11) Active confirmed Problem Esophageal reflux (014009532) Esophageal reflux (K21.9) Active confirmed Problem Epigastric pain (96905954) Epigastric pain (R10.13) Active confirmed Plan Of Treatment Pending Test Test Name Order Date BUN 04/09/2024 CREATININE 04/09/2024 LIVER PROFILE 04/09/2024 LIPASE 04/09/2024 CBC w/o DIFF 04/09/2024 US ABD 04/09/2024 Future Test Test Name Order Date UPPER GI ENDOSCOPY 11/08/2022 COLONOSCOPY 11/08/2022 Next Appt Details Provider Name:Severo loza Jr, 07/23/2025 01:55:00 PM, [address] [place] [address], [address], [place], [address], Insurance Providers Payer Name Payer Address Payer Phone Subscriber Number Group Number Insured Name Patient Relationship to Insured Coverage Start Date Coverage End Date MEDICAID OF [employer] [address] [place] SAUNDERS [phone] [id number] JESSICA JosephBASILIA Self - patient is the insured Medical (General) History Medical History History ICD Code DVT/PE EGD 01/31, esophagitis, eosinophils on bi opsy Environmental allergies Anxiety Insomnia Hypertension Elevated cholesterol Colonoscopy 01/31, normal, ten-year follo wup Surgical History Surgery Date(Month/Year) thyroid surgery vena cava filter 1993 lipoma removal 2021
== END 2025-05-26 11:16 | disposition home or self-care (01) ==
LOC: HO.CT 11:15
DX: S52.201A Unspecified fracture of shaft of right ulna, initial encounter for closed fracture (principal)
CPT/HCPCS: 73200

== ENCOUNTER → 2025-05-26 11:16 | Outpatient (BNV) | payer MEDICAID, SELFPAY | PROVIDERS: Visit Provider Radiology Diagnostic Ultrasound | DX: M79.641 Pain in right hand (principal) | CPT/HCPCS: 73200 ==

== ENCOUNTER 2025-05-27 09:03 | Outpatient (REF) | payer MEDICAID, SELFPAY ==
--- NOTE | ~2025-05-27 | XR_ITS ---
EXAMINATION: XR WRIST, RIGHT CLINICAL INFORMATION: M25.531 - Pain in right wrist COMPARISON: X-ray 05/15/[address] 05/26/2025 TECHNIQUE: 6 views of the right wrist. FINDINGS: Status post internal fixation of a comminuted fracture of the mid to distal ulna. Plate and screws are present.. Interfragmentary screw present. Hardware is intact. No findings to suggest hardware failure. Stable fracture alignment. Mild callus/periosteal new bone formation. Fracture planes remain visible. No new acute fracture is seen of the visualized radius/ulna. Radiocarpal articulation is maintained. No radiographic evidence of new, acute fracture or dislocation the wrist. There is overlapping of the osseous structures of the distal carpal row and the MCP joints on some of the views, limiting evaluation. XR/XR wrist RT w scaphoid IMPRESSION: Internal fixation of the comminuted fracture of the mid to distal ulna. Mild healing changes. Electronically signed by: Mendoza Concepcion MD 05/27/2025 02:47 PM EST
== END 2025-05-27 09:04 | disposition home or self-care (01) ==
LOC: HO.HOSX 09:03
PROVIDERS: Visit Provider Internal Medicine Medical Oncology
DX: S52.201D Unspecified fracture of shaft of right ulna, subsequent encounter for closed fracture with routine healing (principal); W19.XXXD Unspecified fall, subsequent encounter
CPT/HCPCS: 73110; 85610; 99211

== ENCOUNTER 2025-05-27 09:03 | Outpatient (AMB) | payer MEDICAID, SELFPAY ==
[2025-05-27 09:11] LABS: Prothrombin Time Whole Bld POC 21.4 sec (11.1-13.5); ~PT, ~INR - Anti Coag Clinic 1.8 (0.9-1.1)
--- NOTE | 2025-05-27 09:16 | MHC.OFFVISCO ---
Intake Intake Visit Reasons: Anticoagulation Allergies ciprofloxacin (From Cipro) Allergy (Unknown, Verified 05/27/25 09:04) RASH Sulfa (Sulfonamide Antibiotics) Allergy (Unknown, Verified 05/27/25 09:04) SWELLING/ITCHING, swelling topiramate (From TOPAMAX) Allergy (Unknown, Verified 05/27/25 09:04) DIZZY Medication List - Last Reconciled 05/27/25 by Mara Lan RN albuterol sulfate 2.5 mg inhalation Q4-6H PRN albuterol sulfate 90 mcg/actuation (ProAir HFA) 2 puffs inhalation Q6H PRN bupropion HCl SR (Wellbutrin SR) 150 mg PO DAILY cholecalciferol (vitamin D3) 50 mcg PO DAILY 30 days enoxaparin (Lovenox) 100 mg See Protocol subcut Q12H fluticasone propionate 50 mcg/actuation (Flonase Allergy Relief) 1 spray intranasal DAILY fluticasone propionate 110 mcg/actuation (Flovent HFA) 2 puffs PO BID hydrochlorothiazide 25 mg PO DAILY lisinopril 20 mg PO DAILY montelukast 10 mg PO DAILY omeprazole 20 mg PO DAILY oxycodone-acetaminophen 5-325 mg 1 tab PO Q6H PRN phytosterol-pantethine 300-100 mg (CholestOff Complete) 300 caps PO DAILY sennosides-docusate sodium 8.6-50 mg (Senexon-S) 2 tabs PO BEDTIME sertraline 50 mg PO DAILY trazodone 50 mg PO BEDTIME PRN warfarin See Protocol 7.5mg x 6, 5mg x 1 Nursing Note PT.STATES THAT SHE MAY HAVE MISSED A DOSE TGHIS WEEK. NO CP,SOB,DIET/MED CHANGES,FALLS OR SX OF BLEEDING. PT.HAS ORTHO APPT.TODAY FOR EVAL OF (R) ARM FX Anti-Coag Initial Assessment Social Hx Patient Tobacco Use Status: Never used Tobacco alcohol intake: never Alcohol intake frequency: does not drink Coding Level of Care Code Est Patient Level 1 Diagnoses Current use of anticoagulant therapy Z79.01 Results AMB INR Fingerstick AMB INR Fingerstick 1.8 Last Edit by Mara Lan RN on 05/27/25 09:12 Assessment & Plan Assessment & Plan (1) Current use of anticoagulant therapy: 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 Medications: Discontinued enoxaparin (Lovenox) Discontinued Reason: Patient Completed Course 100 mg See Protocol subcut Q12H 20 mL 1RF
== END 2025-05-27 09:18 | disposition home or self-care (01) ==
LOC: HO.ACS 09:03
PROVIDERS: Visit Provider Internal Medicine Medical Oncology
DX: Z79.01 Long term (current) use of anticoagulants (principal)

== ENCOUNTER 2025-05-27 09:43 | Outpatient (AMB) | payer MEDICAID, SELFPAY ==
--- OUTSIDE RECORDS SUMMARY | 2025-04-08 04:00 | XMS_ITS ---
Author Organization [facility] Address [address] [place] [address] Care Team Providers Care Fisheries Diver Name Role Phone Yanna Valdes Primary Care Provider Unavailab Severo Davenport Jr REASON FOR VISIT Patient presents today for abdominal pain Encounters Encounter Location Date Provider Diagnosis [facility] [address] [place] [address] 04/08/2025 Severo Cancino Jr Plan Of Treatment Next Appt Details Provider Name:Severo loza Jr, 07/23/2025 01:55:00 PM, [address] [facility], [address], [place], [address], Progress Notes * EFRAAPOLLOLEXIOB:[birth year] (54 yo F)Acc No.[id number]:04/08/2025 Progress Notes Patient: APOLLO SCHAEFERRA Provider: Ciera Cancino MD :1970 A ge:54 Y S ex:Female Date:04/08/2025 Address:[address], [id number] Pcp:Yanna Valdes Subjective: * Chief Complaints: * P atient presents today for abdominal pain * The named appointment provid er may or may not be the originator of this progress note, and it is not deemed complete until electronically signed by the appointment provider. Sign off status: Pending * Provider: Ciera Cancino MD Date: 1 Generated for Terrell lópez/Melissa/Zeenat on: 1 07/28/2024 11:21 AM EST
--- NOTE | 2025-05-27 10:12 | MHC.OFFVIS ---
Intake Visit Reasons: PO RT ulnar shaft ORIF 04/16/25 AR Intake Note: Norma is a 54 year old right hand dominant female presents today for a Post-operative visit status post Right Ulnar Shaft ORIF done on 04/16/[address] Baxter. She was last seen by Dr. Baxter on 04/28/25. Patient was last seen with PEbenezer who ordered a CT scan to assess the health of the scaphoid of the right wrist and determine if there is a fracture that may require ongoing treatment. Allergies ciprofloxacin (From Cipro) Allergy (Unknown, Verified 05/27/25 13:06) RASH Sulfa (Sulfonamide Antibiotics) Allergy (Unknown, Verified 05/27/25 13:06) SWELLING/ITCHING, swelling topiramate (From TOPAMAX) Allergy (Unknown, Verified 05/27/25 13:06) DIZZY HPI HPI PO RT ulnar shaft ORIF 04/16/25 AR: Details: Norma is a 54 year old right hand dominant woman who returns S/P right ulnar shaft fracture ORIF, DOS: 04/16/25, S/P fall, DOI: 04/03/25. She says she is doing well overall but has some pain & stiffness in her wrist. She completed a CT scan on 05/26/25 to assess for a possible scaphoid fracture. [facility] Medical History Depression GERD (gastroesophageal reflux disease) HTN (hypertension) History of lipoma DVT (deep vein thrombosis) in Vitamin D deficiency Non-toxic multinodular goiter Surgical History H/O colonoscopy Status post excision of lipoma S/P fine needle aspiration History of partial thyroidectomy Hx of superior vena cava filter placement Hx of esophagogastroduodenoscopy Family History Father Hypertension Mother Diabetes Aneurysm Hypertension Other No family history of cancer Social History Household Members: Children Household Members Other:: 3 Housing: Apartment Are you a primary home care specialist to a significant other at home: No Do you presently have visiting nurse or other home services: No Alcohol intake: never Patient Tobacco Use Status: Never used Tobacco service: No Current occupational status: unemployed Current occupation: rt handed Review of Systems Const All systems reviewed & are unremarkable except as noted in HPI and below Physical Exam Const General: no acute distress and alert Orientation/consciousness: patient oriented x3 Neuro General: patient oriented x3 Extrem Other: Evaluation of Right Upper Extremity: The patient is alert, oriented, and in no acute distress Neuro: Median, Ulnar, Radial nerves motor and sensory intact and sensation is normal to the tips of all digits Vascular: Cap refill brisk ROM: She can make a fist with encouragement and extend all of her digits ~60 degrees pronation ~10 degrees supination Radiographs: 3 views of the right wrist were taken and viewed by me today in clinic. they show a comminuted distal ulna fracture with satisfactory fracture alignment, some evidence of interval bony healing, and satisfactory position of all implants. CT/CT wrist RT wo IV con IMPRESSION: 1. No CT evidence of acute scaphoid fracture is identified. 2. Status post internal fixation of a comminuted fracture of the mid to distal ulna. Stable alignment. Mild periosteal new bone formation. Hardware is intact without evidence of loosening or failure. Electronically signed by: Mendoza Concepcion MD 05/26/2025 Psych Appearance: grossly normal Affect: normal affect Attitude: cooperative Results AMB INR Fingerstick AMB INR Fingerstick 1.8 Last Edit by Mara Lan RN on 05/27/25 09:12 Assessment & Plan Assessment & Plan (1) Fracture of right ulna, shaft: Code(s): S52.201A - Unspecified fracture of shaft of right ulna, initial encounter for closed fracture Category: Medical Plan Assessment and plan: 1. Right ulnar shaft fracture status post ORIF DOS: 04/16/25 DOI: 04/03/25 from a fall 2. Right snuffbox tenderness and tenderness about the wrist and general From a fall on 04/03/2025 CT scan from 05/26/25 negative for any scaphoid or other carpal fracture 3. Some numbness and tingling in the right thumb We will follow this to see if it improves with time. The patient appears to be doing well post-operatively I educated her about the post-operative course I discussed activity modifications, she is to work on ROM exercises at home, with a focus on pronosupination. She should also avoid any heavy impact activities, falls, or sports activities for the next 3 weeks She can start lifting and using light and medium weight objects She was fitted for a thermal-molded wrist/forearm splint, to be worn only when out of the house for the next 4 weeks. She should be taking this off as soon as she gets into her house to work on range of motion. She will follow up in about 5 weeks for a ROM check, with X-rays, AP lateral forearm Scribed for Madelyn Baxter MD by Jerome Garcia, certified medical technician assistant, on 05/27/25 at 10:15 AM, EST. Orders: Orders XR wrist RT w scaphoid Today M25.531 - Pain in right wrist XR forearm RT 2V 05/26/25 S52.201A - Unspecified fracture of shaft of right ulna, initial encounter for closed fracture Coding Level of Care Code Est Pt Level 3 (68141) Global (41266) Diagnoses Fracture of right ulna, shaft S52.201A
--- OUTSIDE RECORDS SUMMARY | 2025-05-27 11:21 | XMS_ITS | Patient Health Record ---
Author Organization [facility] Address [address] [place] [address] Care Team Providers Care Cheese Sprayer Name Role Phone Yanna Valdes Primary Care Provider Unavailab Severo Davenport Jr Unavailable [phone] Allergies Allergen (clinical drug ingredient) Drug/Non [...] Provider Speciality Internal M edicine Referred Organization [facility] Referred Provider Severo Cancino Jr Referred Address [address] [place] [address], [address],[place], [place],[address], Referred Provider Specialty Gastroentero logy General Notes [...] Status Risk Notes Problem Colon cancer screening (693497100) Colon cancer screening (Z12.11) Active confirmed Problem Esophageal reflux (733814025) Esophageal reflux (K21.9) Active confirmed Problem Epigastric pain (29554450) Epigastric pain (R10.13) Active confirmed Plan Of Treatment Pending Test Test Name Order Date BUN 04/09/2024 CREATININE 04/09/2024 LIVER PROFILE 04/09/2024 LIPASE 04/09/2024 CBC w/o DIFF 04/09/2024 US ABD 04/09/2024 Future Test Test Name Order Date UPPER GI ENDOSCOPY 11/08/2022 COLONOSCOPY 11/08/2022 Next Appt Details Provider Name:Severo loza Jr, 07/23/2025 01:55:00 PM, [address] [place] [address], [address], [place], [address], Insurance Providers Payer Name Payer Address Payer Phone Subscriber Number Group Number Insured Name Patient Relationship to Insured Coverage Start Date Coverage End Date MEDICAID OF [employer] [address] [place] [phone] [id number] JESSICA JosephBASILIA Self - patient is the insured Medical (General) History Medical History History ICD Code DVT/PE EGD 01/31, esophagitis, eosinophils on bi opsy Environmental allergies Anxiety Insomnia Hypertension Elevated cholesterol Colonoscopy 01/31, normal, ten-year follo wup Surgical History Surgery Date(Month/Year) thyroid surgery vena cava filter 1993 lipoma removal 2021
== END 2025-05-27 11:22 | disposition home or self-care (01) ==
LOC: HO.HOS 09:44
PROVIDERS: Visit Provider Orthopaedic Surgery
DX: S52.201A Unspecified fracture of shaft of right ulna, initial encounter for closed fracture (principal)
CPT/HCPCS: 99024

== ENCOUNTER → 2025-05-27 09:49 | Outpatient (BNV) | payer MEDICAID, SELFPAY | PROVIDERS: Visit Provider Radiology Diagnostic Ultrasound | DX: M25.531 Pain in right wrist (principal) | CPT/HCPCS: 73110 ==

== ENCOUNTER 2025-06-10 13:08 | Outpatient (AMB) | payer MEDICAID, SELFPAY ==
--- OUTSIDE RECORDS SUMMARY | 2025-04-08 04:00 | XMS_ITS ---
Author Organization [facility] Address [address] [place] [address] Care Team Providers Care Auto Leasing Manager Name Role Phone Yanna Valdes Primary Care Provider Unavailab Severo Davenport Jr REASON FOR VISIT Patient presents today for abdominal pain Encounters Encounter Location Date Provider Diagnosis [facility] [address] [place] [address] 04/08/2025 Severo Cancino Jr Plan Of Treatment Next Appt Details Provider Name:Severo loza Jr, 07/23/2025 01:55:00 PM, [address] [facility], [address], [place], [address], Progress Notes * EFRAAPOLLOLEXIOB:[birth year] (54 yo F)Acc No.[id number]:04/08/2025 Progress Notes Patient: APOLLO SCHAEFERRA Provider: Ciera Cancino MD :1970 A ge:54 Y S ex:Female Date:04/08/2025 Address:[address], [place] Pcp:Yanna Valdes Subjective: * Chief Complaints: * P atient presents today for abdominal pain * The named appointment provid er may or may not be the originator of this progress note, and it is not deemed complete until electronically signed by the appointment provider. Sign off status: Pending * Provider: Ciera Cancino MD Date: 1 Generated for Terrell lópez/Melissa/Zeenat on: 1 02:39 PM EST
[2025-06-10 13:29] LABS: Prothrombin Time Whole Bld POC 31.6 sec (11.1-13.5); ~PT, ~INR - Anti Coag Clinic 2.6 (0.9-1.1)
--- NOTE | 2025-06-10 13:30 | MHC.OFFVISCO ---
Intake Intake Visit Reasons: Anticoagulation Allergies ciprofloxacin (From Cipro) Allergy (Unknown, Verified 06/10/25 13:19) RASH Sulfa (Sulfonamide Antibiotics) Allergy (Unknown, Verified 06/10/25 13:19) SWELLING/ITCHING, swelling topiramate (From TOPAMAX) Allergy (Unknown, Verified 06/10/25 13:19) DIZZY Medication List - Last Reconciled 06/10/25 by Mara Lan RN albuterol sulfate 2.5 mg inhalation Q4-6H PRN albuterol sulfate 90 mcg/actuation (ProAir HFA) 2 puffs inhalation Q6H PRN bupropion HCl SR (Wellbutrin SR) 150 mg PO DAILY cholecalciferol (vitamin D3) 50 mcg PO DAILY 30 days fluticasone propionate 50 mcg/actuation (Flonase Allergy Relief) 1 spray intranasal DAILY fluticasone propionate 110 mcg/actuation (Flovent HFA) 2 puffs PO BID hydrochlorothiazide 25 mg PO DAILY lisinopril 20 mg PO DAILY montelukast 10 mg PO DAILY omeprazole 20 mg PO DAILY phytosterol-pantethine 300-100 mg (CholestOff Complete) 300 caps PO DAILY sennosides-docusate sodium 8.6-50 mg (Senexon-S) 2 tabs PO BEDTIME sertraline 50 mg PO DAILY trazodone 50 mg PO BEDTIME PRN warfarin See Protocol 7.5mg x 6, 5mg x 1 Nursing Note NO CP,SOB,DIETY/MED CHANGES,FALLS OR SX OF BLEEDING. CONTINUE PRESENT DOSE AND FOLLOW-UP IN 2 WEEKS GOOD UNDERSTANDING OF DOSING INSTR. Anti-Coag Initial Assessment Social Hx Patient Tobacco Use Status: Never used Tobacco alcohol intake: never Alcohol intake frequency: does not drink Coding Level of Care Code Est Patient Level 1 Diagnoses Current use of anticoagulant therapy Z79.01 Results AMB INR Fingerstick AMB INR Fingerstick 2.6 Last Edit by Mara Lan RN on 06/10/25 13:24 Assessment & Plan Assessment & Plan (1) Current use of anticoagulant therapy: Code(s): Z79.01 - salvage determiner (current) use of anticoagulants Category: Medical
--- OUTSIDE RECORDS SUMMARY | 2025-06-10 14:40 | XMS_ITS | Patient Health Record ---
Author Organization [facility] Address [address] [place] [address] Care Team Providers Care Siphon Operator Name Role Phone Yanna Valdes Primary Care Provider Unavailab Severo Davenport Jr Unavailable [phone] Allergies Allergen (clinical drug ingredient) Drug/Non [...] Provider Speciality Internal M edicine Referred Organization [facility] Referred Provider Severo Cancino Jr Referred Address [address] [place] [address], [address],[place], [place],[address], Referred Provider Specialty Gastroentero logy General Notes [...] Status Risk Notes Problem Colon cancer screening (738527818) Colon cancer screening (Z12.11) Active confirmed Problem Esophageal reflux (873425761) Esophageal reflux (K21.9) Active confirmed Problem Epigastric pain (49152762) Epigastric pain (R10.13) Active confirmed Plan Of Treatment Pending Test Test Name Order Date BUN 04/09/2024 CREATININE 04/09/2024 LIVER PROFILE 04/09/2024 LIPASE 04/09/2024 CBC w/o DIFF 04/09/2024 US ABD 04/09/2024 Future Test Test Name Order Date UPPER GI ENDOSCOPY 11/08/2022 COLONOSCOPY 11/08/2022 Next Appt Details Provider Name:Severo loza Jr, 07/23/2025 01:55:00 PM, [address] [place] [address], [address], [place], [address], Insurance Providers Payer Name Payer Address Payer Phone Subscriber Number Group Number Insured Name Patient Relationship to Insured Coverage Start Date Coverage End Date MEDICAID OF [employer] [address] [place] [phone] [id number] JESSICA JosephBASILIA Self - patient is the insured Medical (General) History Medical History History ICD Code DVT/PE EGD 01/31, esophagitis, eosinophils on bi opsy Environmental allergies Anxiety Insomnia Hypertension Elevated cholesterol Colonoscopy 01/31, normal, ten-year follo wup Surgical History Surgery Date(Month/Year) thyroid surgery vena cava filter 1993 lipoma removal 2021
== END 2025-06-10 13:35 | disposition home or self-care (01) ==
LOC: HO.ACS 13:08
PROVIDERS: Visit Provider Internal Medicine Medical Oncology
DX: Z79.01 Long term (current) use of anticoagulants (principal)

== ENCOUNTER → 2025-06-10 13:08 | Outpatient (BNVA) | payer MEDICAID, SELFPAY | PROVIDERS: Visit Provider Internal Medicine Medical Oncology | DX: I82.502 Chronic embolism and thrombosis of unspecified deep veins of left lower extremity (principal); Z51.81 Encounter for therapeutic drug level monitoring; Z79.01 Long term (current) use of anticoagulants | CPT/HCPCS: 85610; 99211 ==